=== PATIENT | male | born 1970 | race African-American/Black ===

== ENCOUNTER 2017-08-29 11:31 | Inpatient (IN) | payer OTHER ==
[2017-08-29 14:29] VITALS: BMI 29.8
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
[2017-08-29] MEDS ORDERED: ACETAMINOPHEN 325 MG TABLET (FP) PO PRN (15:19)
[2017-08-29] MEDS ORDERED: MAG HYDROX/AL HYDROX/SIMETH 30 ML UNIT-DOSE CUP PO PRN (15:19)
[2017-08-29] MEDS ORDERED: NICOTINE POLACRILEX 2 MG GUM BC PRN (15:19)
[2017-08-29] MEDS ORDERED: P-EPHED 60MG/TRIPROLIDI 2.5MG TABLET PO PRN (15:19)
[2017-08-29] MEDS ORDERED: IBUPROFEN 400 MG TABLET (FP) PO PRN (15:19)
[2017-08-29] MEDS ORDERED: MENTHOL/PHENOL 1 EACH UD MM PRN (15:19)
[2017-08-29] MEDS ORDERED: LOPERAMIDE HCL 2 MG CAPSULE PO PRN (15:19)
[2017-08-29] MEDS ORDERED: NICOTINE 14 MG/24 HOURS TOPICAL PATCH TD PRN (15:19)
[2017-08-29] MEDS ORDERED: chlordiazePOXIDE HCL 25 MG CAPSULE ONE (17:09)
[2017-08-29] MEDS: INSULIN SLIDING SCALE (NOVOLOG) 1 VIAL SQ SCH ×2 (17:13→22:03)
[2017-08-29] MEDS ORDERED: INSULIN (NOVOLOG) ASPART 100 UNITS/ML 10ML VIAL ONE ×2 (17:13→21:22)
[2017-08-29] MEDS: chlordiazePOXIDE HCL 25 MG CAPSULE PO PRN (17:16)
[2017-08-29] MEDS ORDERED: cloNIDine HCL 0.1 MG TABLET PO ONE (18:15)
[2017-08-29 21:08] LABS: URINE APPEARANCE CLEAR; URINE BILIRUBIN NEGATIVE (NEGATIVE); URINE BLOOD NEGATIVE (NEGATIVE); URINE COLOR COLORLESS; URINE GLUCOSE (UA) 3+ (NEGATIVE); URINE KETONE TRACE (NEGATIVE); URINE LEUK ESTERASE NEGATIVE (NEGATIVE); URINE NITRITE NEGATIVE (NEGATIVE); URINE PROTEIN NEGATIVE (NEGATIVE); URINE UROBILINOGEN NEGATIVE mg/dL (0.2-1.0)
[2017-08-29] MEDS ORDERED: hydrOXYzine PAMOATE 50 MG CAPSULE (FP) PO ONE (21:16)
[2017-08-29] MEDS: RANITIDINE HCL 150 MG TABLET (FP) PO SCH (22:02)
[2017-08-29] MEDS: THIAMINE HCL 100 MG TABLET (FP) PO SCH (22:02)
[2017-08-29] MEDS: chlordiazePOXIDE HCL 25 MG CAPSULE PO SCH (22:03)
[2017-08-30] MEDS: chlordiazePOXIDE HCL 25 MG CAPSULE PO SCH ×4 (06:13→22:19)
[2017-08-30] MEDS ORDERED: sitaGLIPtin PHOSPHATE 50 MG TABLET PO SCH (07:00)
[2017-08-30] MEDS: INSULIN SLIDING SCALE (NOVOLOG) 1 VIAL SQ SCH ×3 (07:08→22:19)
[2017-08-30] MEDS ORDERED: INSULIN (NOVOLOG) ASPART 100 UNITS/ML 10ML VIAL ONE ×4 (07:10→21:11)
--- NOTE | 2017-08-30 09:48 | EKG ---
Test Reason : Blood Pressure : / mmHG Vent. Rate : 101 BPM Atrial Rate : 101 BPM P-R Int : 148 ms QRS Dur : 074 ms QT Int : 334 ms P-R-T Axes : 060 054 074 degrees QTc Int : 433 ms SINUS TACHYCARDIA OTHERWISE NORMAL ECG NO PREVIOUS ECGS AVAILABLE Confirmed by PAMELA CUELLAR, DEVEN ([id number]) on 08/30/2017 9:48:08 AM Referred By: Confirmed By:DEVEN SANTIAGO MD
[2017-08-30] MEDS: PRENATAL VITAMINS W/ FOLIC ACID TABLET (FP) PO SCH (10:19)
[2017-08-30] MEDS: RANITIDINE HCL 150 MG TABLET (FP) PO SCH ×2 (10:19→21:52)
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
[2017-08-30 10:24] LABS: HEMATOCRIT 41.3 % (35.4-49); MCH 30.9 pg (25.7-33.7); MCHC 33.9 g/dl (32.0-35.9); MEAN CELL VOLUME 90.9 fl (80-96); MEAN PLT VOLUME 9.9 fl (7.5-11.1); PLATELET COUNT 212 K/MM3 (134-434); RBC 4.54 M/mm3 (4.00-5.60); RDW 13.4 % (11.9-15.9); WHITE BLOOD COUNT 4.2 K/mm3 (4.0-10.0)
[2017-08-30 10:31] LABS: ALBUMIN 3.2 g/dl (3.4-5.0); ANION GAP 14 (8-16); BILIRUBIN,TOTAL 0.5 mg/dL (0.2-1.0); BLOOD UREA NITROGEN 13 mg/dL (7-18); CALCIUM 9.2 mg/dL (8.5-10.1); CHLORIDE 93 mmol/L (98-107); CO2 19 mmol/L (21-32); CREATININE 1.3 mg/dL (0.7-1.3); POTASSIUM 4.7 mmol/L (3.5-5.1); SGOT/AST 21 U/L (15-37); SGPT/ALT 41 U/L (12-78); SODIUM 126 mmol/L (136-145)
[2017-08-30 10:33] LABS: ALK PHOS 112 U/L (45-117); TOT PROT 6.7 g/dl (6.4-8.2)
--- NOTE | 2017-08-30 11:17 | EKG ---
Test Reason : Blood Pressure : / mmHG Vent. Rate : 091 BPM Atrial Rate : 091 BPM P-R Int : 152 ms QRS Dur : 072 ms QT Int : 356 ms P-R-T Axes : 051 049 077 degrees QTc Int : 437 ms NORMAL SINUS RHYTHM NORMAL ECG WHEN COMPARED WITH ECG OF 29-AUG-2017 17:21, NO SIGNIFICANT CHANGE WAS FOUND Confirmed by DEVEN SANTIAGO MD ([id number]) on 08/30/2017 11:16:58 AM Referred By: Confirmed By:DEVEN SANTIAGO MD
--- NOTE | 2017-08-30 11:38 | PN ---
[facility] CIWA - CIWA Score Nausea/Vomitin-No Nausea/No Vomiting Muscle Tremors: 2 Anxiety: 4-Mod. Anxious/Guarded Agitation: 3 Paroxysmal Sweats: 3 Orientation: 2-Disoriented Date<2 days Tacttile Disturbances: 2-Mild Itch/Numbness/Burn Auditory Disturbances: 0-None Visual Disturbances: 2-Mild Sensitivity Headache: 0-None Present CIWA-Ar Total Score: 18 BHS Progress Note (SOAP) Subjective: Sweating, Anxious, Fatigue, Tremors. Patient also reporting pain in chest (patient points to central lower chest / epigastric areas as affected sites) X approx. 4 days. Patient also reports that he was evaluated at [facility] ([place], [place] for this matter just prior to admission to [facility] for Detox and that he was discharged from [facility] without any being informed of any diagnosis or follow-up treatment plan. Patient reports that pain is dull aching in quality and is intermittent. Patient also reports that he fell on right hand a few days ago and that he injured middle finger of right hand during fall. Patient unable to fully extend finger; is able to flex finger but with discomfort. Objective: PATIENT A & O X 3, OBSERVED AMBULATING ON UNIT. NO ACUTE DISTRESS. PATIENT DENIES DIZZINESS AND SOB. 08/30/17 11:34 Vital Signs Temperature 97.8 F 08/30/17 10:52 Pulse Rate 100 H 08/30/17 10:52 Respiratory Rate 20 08/30/17 10:52 Blood Pressure 131/83 08/30/17 10:52 O2 Sat by Pulse Oximetry (%) Laboratory Tests 08/29/17 08/29/17 08/29/17 15:36 17:08 18:24 WBC RBC Hgb Hct MCV MCH MCHC RDW Plt Count MPV POC Glucometer > 600 > 600 Urine Color Colorless Urine Appearance Clear Urine pH 7.0 D Ur Specific [place] 1.024 Urine Protein Negative Urine Glucose (UA) 3+ H Urine Ketones Trace H Urine Blood Negative Urine Nitrite Negative Urine Bilirubin Negative Urine Urobilinogen Negative Ur Leukocyte Esterase Negative RPR Titer 08/29/17 08/30/17 08/30/17 21:07 05:50 05:50 WBC 4.2 RBC 4.54 Hgb 14.0 Hct 41.3 MCV 90.9 MCH 30.9 MCHC 33.9 RDW 13.4 Plt Count 212 MPV 9.9 D POC Glucometer 446 Urine Color Urine Appearance Urine pH Ur Specific [place] Urine Protein Urine Glucose (UA) Urine Ketones Urine Blood Urine Nitrite Urine Bilirubin Urine Urobilinogen Ur Leukocyte Esterase RPR Titer Nonreactive 08/30/17 06:49 WBC RBC Hgb Hct MCV MCH MCHC RDW Plt Count MPV POC Glucometer 342 Urine Color Urine Appearance Urine pH Ur Specific [place] Urine Protein Urine Glucose (UA) Urine Ketones Urine Blood Urine Nitrite Urine Bilirubin Urine Urobilinogen Ur Leukocyte Esterase RPR Titer LABS NOTED. RESULTS OF ADMISSION ECG NOTED. SWELLING OF RIGHT FINGER NOTED. RESULTS OF CMP PENDING. 08/30/17 11:38 Assessment: 08/30/17 11:38 WITHDRAWAL SYMPTOMS. Plan: CONTINUE DETOX. STAT (REPEAT) ECG ORDERED, RESULTS NOTED. PRN [place] FOR POSSIBLE STOMACH INVOLVEMENT. CONTINUE TO MONITOR. X-RAY OF MIDDLE FINGER OF RIGHT HAND ORDERED. PRN IBUPROFEN FOR PAIN.
[2017-08-30 12:14] LABS: GLUCOSE,RANDOM 733 mg/dL (74-106)
[2017-08-30] MEDS ORDERED: sitaGLIPtin PHOSPHATE 50 MG TABLET PO ONE (12:45)
[2017-08-30] MEDS ORDERED: INSULIN SLIDING SCALE (NOVOLOG) 1 VIAL SQ SCH (16:30)
[2017-08-30] MEDS: chlordiazePOXIDE HCL 25 MG CAPSULE PO PRN (21:17)
[2017-08-30] MEDS: THIAMINE HCL 100 MG TABLET (FP) PO SCH (21:51)
[2017-08-30] MEDS: ZOLPIDEM TARTRATE 10 MG TABLET (PARK CARE ONLY) PO PRN (22:24)
[2017-08-31] MEDS: chlordiazePOXIDE HCL 25 MG CAPSULE PO SCH ×3 (06:20→17:19)
[2017-08-31] MEDS: sitaGLIPtin PHOSPHATE 100 MG TABLET (FP) PO SCH (06:30)
[2017-08-31] MEDS: INSULIN SLIDING SCALE (NOVOLOG) 1 VIAL SQ SCH ×4 (06:33→22:22)
[2017-08-31] MEDS ORDERED: INSULIN (NOVOLOG) ASPART 100 UNITS/ML 10ML VIAL ONE ×4 (06:37→22:03)
[2017-08-31] MEDS: RANITIDINE HCL 150 MG TABLET (FP) PO SCH ×2 (10:13→22:22)
[2017-08-31] MEDS: PRENATAL VITAMINS W/ FOLIC ACID TABLET (FP) PO SCH (10:13)
--- NOTE | 2017-08-31 18:00 | PN ---
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 Objective: 08/31/17 17:59 Vital Signs Temperature 97.1 F L 08/31/17 14:24 Pulse Rate 112 H 08/31/17 14:24 Respiratory Rate 18 08/31/17 14:24 Blood Pressure 110/74 08/31/17 14:24 O2 Sat by Pulse Oximetry (%) Laboratory Tests 08/29/17 08/29/17 08/29/17 15:36 17:08 18:24 WBC RBC Hgb Hct MCV MCH MCHC RDW Plt Count MPV Sodium Potassium Chloride Carbon Dioxide Anion Gap BUN Creatinine Creat Clearance w eGFR POC Glucometer > 600 > 600 Random Glucose Fasting Glucose Hemoglobin A1c % Calcium Total Bilirubin AST ALT Alkaline Phosphatase Total Protein Albumin Urine Color Colorless Urine Appearance Clear Urine pH 7.0 D Ur Specific [place] 1.024 Urine Protein Negative Urine Glucose (UA) 3+ H Urine Ketones Trace H Urine Blood Negative Urine Nitrite Negative Urine Bilirubin Negative Urine Urobilinogen Negative Ur Leukocyte Esterase Negative RPR Titer 08/29/17 08/30/17 08/30/17 21:07 05:50 05:50 WBC 4.2 RBC 4.54 Hgb 14.0 Hct 41.3 MCV 90.9 MCH 30.9 MCHC 33.9 RDW 13.4 Plt Count 212 MPV 9.9 D Sodium 126 L Potassium 4.7 Chloride 93 L Carbon Dioxide 19 L Anion Gap 14 BUN 13 Creatinine 1.3 D Creat Clearance w eGFR 58.92 POC Glucometer 446 Random Glucose 733 H* D Fasting Glucose Hemoglobin A1c % Calcium 9.2 Total Bilirubin 0.5 AST 21 D ALT 41 Alkaline Phosphatase 112 D Total Protein 6.7 Albumin 3.2 L Urine Color Urine Appearance Urine pH Ur Specific [place] Urine Protein Urine Glucose (UA) Urine Ketones Urine Blood Urine Nitrite Urine Bilirubin Urine Urobilinogen Ur Leukocyte Esterase RPR Titer 08/30/17 08/30/17 08/31/17 05:50 06:49 08:00 WBC RBC Hgb Hct MCV MCH MCHC RDW Plt Count MPV Sodium Potassium Chloride Carbon Dioxide Anion Gap BUN Creatinine Creat Clearance w eGFR POC Glucometer 342 Random Glucose Fasting Glucose Hemoglobin A1c % 14.5 H Calcium Total Bilirubin AST ALT Alkaline Phosphatase Total Protein Albumin Urine Color Urine Appearance Urine pH Ur Specific [place] Urine Protein Urine Glucose (UA) Urine Ketones Urine Blood Urine Nitrite Urine Bilirubin Urine Urobilinogen Ur Leukocyte Esterase RPR Titer Nonreactive 08/31/17 08:30 WBC RBC Hgb Hct MCV MCH MCHC RDW Plt Count MPV Sodium Potassium Chloride Carbon Dioxide Anion Gap BUN Creatinine Creat Clearance w eGFR POC Glucometer Random Glucose Fasting Glucose 411 H* Hemoglobin A1c % Calcium Total Bilirubin AST ALT Alkaline Phosphatase Total Protein Albumin Urine Color Urine Appearance Urine pH Ur Specific [place] Urine Protein Urine Glucose (UA) Urine Ketones Urine Blood Urine Nitrite Urine Bilirubin Urine Urobilinogen Ur Leukocyte Esterase RPR Titer LABS NOTED. Assessment: 08/31/17 17:59 WITHDRAWAL SYMPTOMS. Plan: CONTINUE DETOX.
[2017-08-31] MEDS: chlordiazePOXIDE 5 MG CAPSULE PO SCH (22:22)
[2017-08-31] MEDS: THIAMINE HCL 100 MG TABLET (FP) PO SCH (22:22)
[2017-08-31] MEDS: ZOLPIDEM TARTRATE 10 MG TABLET (PARK CARE ONLY) PO PRN (22:22)
[2017-09-01] MEDS: chlordiazePOXIDE 5 MG CAPSULE PO SCH ×3 (05:28→17:17)
[2017-09-01] MEDS: INSULIN SLIDING SCALE (NOVOLOG) 1 VIAL SQ SCH ×4 (07:18→22:17)
[2017-09-01] MEDS ORDERED: INSULIN (NOVOLOG) ASPART 100 UNITS/ML 10ML VIAL ONE ×4 (07:19→22:18)
[2017-09-01] MEDS: sitaGLIPtin PHOSPHATE 100 MG TABLET (FP) PO SCH (07:21)
[2017-09-01] MEDS ORDERED: INSULIN (NOVOLOG) ASPART 100 UNITS/ML 10ML VIAL SQ ONE ×2 (07:53→23:45)
[2017-09-01] MEDS: PRENATAL VITAMINS W/ FOLIC ACID TABLET (FP) PO SCH (10:29)
[2017-09-01] MEDS: RANITIDINE HCL 150 MG TABLET (FP) PO SCH ×2 (10:30→22:18)
[2017-09-01] MEDS: MAGNESIUM CITRATE 300 ML BOTTLE PO PRN (11:09)
[2017-09-01] MEDS: chlordiazePOXIDE HCL 25 MG CAPSULE PO PRN (15:03)
--- NOTE | 2017-09-01 16:27 | PN ---
S Progress Note (SOAP) Subjective: Tremor, N/V/D. Patient noted to be drinking lots of crystal lite. Patient educated on importance of drinking water instead of juice and to exercise to lose weight in controlling his glucose. Objective: 09/01/17 16:23 Last Vital Signs Temp Pulse Resp BP Pulse Ox 97.3 F L 94 H 20 128/86 09/01/17 10:32 09/01/17 10:32 09/01/17 10:32 09/01/17 10:32 Laboratory Tests 08/29/17 08/29/17 08/29/17 15:36 17:08 18:24 WBC RBC Hgb Hct MCV MCH MCHC RDW Plt Count MPV Sodium Potassium Chloride Carbon Dioxide Anion Gap BUN Creatinine Creat Clearance w eGFR POC Glucometer > 600 > 600 Random Glucose Fasting Glucose Hemoglobin A1c % Calcium Total Bilirubin AST ALT Alkaline Phosphatase Total Protein Albumin Urine Color Colorless Urine Appearance Clear Urine pH 7.0 D Ur Specific [place] 1.024 Urine Protein Negative Urine Glucose (UA) 3+ H Urine Ketones Trace H Urine Blood Negative Urine Nitrite Negative Urine Bilirubin Negative Urine Urobilinogen Negative Ur Leukocyte Esterase Negative RPR Titer 08/29/17 08/30/17 08/30/17 21:07 05:50 05:50 WBC 4.2 RBC 4.54 Hgb 14.0 Hct 41.3 MCV 90.9 MCH 30.9 MCHC 33.9 RDW 13.4 Plt Count 212 MPV 9.9 D Sodium 126 L Potassium 4.7 Chloride 93 L Carbon Dioxide 19 L Anion Gap 14 BUN 13 Creatinine 1.3 D Creat Clearance w eGFR 58.92 POC Glucometer 446 Random Glucose 733 H* D Fasting Glucose Hemoglobin A1c % Calcium 9.2 Total Bilirubin 0.5 AST 21 D ALT 41 Alkaline Phosphatase 112 D Total Protein 6.7 Albumin 3.2 L Urine Color Urine Appearance Urine pH Ur Specific [place] Urine Protein Urine Glucose (UA) Urine Ketones Urine Blood Urine Nitrite Urine Bilirubin Urine Urobilinogen Ur Leukocyte Esterase RPR Titer 08/30/17 08/30/17 08/31/17 05:50 06:49 08:00 WBC RBC Hgb Hct MCV MCH MCHC RDW Plt Count MPV Sodium Potassium Chloride Carbon Dioxide Anion Gap BUN Creatinine Creat Clearance w eGFR POC Glucometer 342 Random Glucose Fasting Glucose Hemoglobin A1c % 14.5 H Calcium Total Bilirubin AST ALT Alkaline Phosphatase Total Protein Albumin Urine Color Urine Appearance Urine pH Ur Specific [place] Urine Protein Urine Glucose (UA) Urine Ketones Urine Blood Urine Nitrite Urine Bilirubin Urine Urobilinogen Ur Leukocyte Esterase RPR Titer Nonreactive 08/31/17 08:30 WBC RBC Hgb Hct MCV MCH MCHC RDW Plt Count MPV Sodium Potassium Chloride Carbon Dioxide Anion Gap BUN Creatinine Creat Clearance w eGFR POC Glucometer Random Glucose Fasting Glucose 411 H* Hemoglobin A1c % Calcium Total Bilirubin AST ALT Alkaline Phosphatase Total Protein Albumin Urine Color Urine Appearance Urine pH Ur Specific [place] Urine Protein Urine Glucose (UA) Urine Ketones Urine Blood Urine Nitrite Urine Bilirubin Urine Urobilinogen Ur Leukocyte Esterase RPR Titer Labs noted: A1c 14.5, FS 342 Assessment: 09/01/17 16:24 Withdrawal symptoms Pmhx of DMT2 with hyperglycemia Plan: Continue detox Encouraged to drink lots of water for hydration DMT2 with hyperglycemia: continue januvia, add glipizide ER 5mg PO daily (first dose today), consider increasing glipizide if warranted, continue finger stick with insulin coverage, educated on importance of adhering to diabetic diet and the complications of diabetes, repeat bmp in AM due to JARETH, encouraged PO hydration (water, no juice), follow up with your PCP within 1 week post discharge
[2017-09-01] MEDS ORDERED: glipiZIDE-XL 5 MG TAB.ER.24 PO ONE (16:45)
[2017-09-01] MEDS: THIAMINE HCL 100 MG TABLET (FP) PO SCH (22:17)
[2017-09-01] MEDS: ZOLPIDEM TARTRATE 10 MG TABLET (PARK CARE ONLY) PO PRN (22:18)
[2017-09-01] MEDS: chlordiazePOXIDE HCL 10 MG CAPSULE PO SCH (22:18)
[2017-09-02] MEDS: INSULIN SLIDING SCALE (NOVOLOG) 1 VIAL SQ SCH ×4 (06:34→22:01)
[2017-09-02] MEDS ORDERED: INSULIN (NOVOLOG) ASPART 100 UNITS/ML 10ML VIAL ONE ×4 (06:37→21:59)
[2017-09-02] MEDS: chlordiazePOXIDE HCL 10 MG CAPSULE PO SCH ×3 (06:44→17:21)
[2017-09-02] MEDS: sitaGLIPtin PHOSPHATE 100 MG TABLET (FP) PO SCH (06:44)
[2017-09-02] MEDS: glipiZIDE-XL 5 MG TAB.ER.24 PO SCH (06:45)
[2017-09-02] MEDS: PRENATAL VITAMINS W/ FOLIC ACID TABLET (FP) PO SCH (10:40)
[2017-09-02] MEDS: RANITIDINE HCL 150 MG TABLET (FP) PO SCH ×2 (10:40→22:05)
--- NOTE | 2017-09-02 11:47 | PN ---
BHS Progress Note (SOAP) Subjective: ANXIETY,SWEATS, TREMORS,INTERMITTENT SLEEP. PT STATES HE TAKES TRAZODONE AND AMBIEN NOT EFFECTIVE. Objective: 09/02/17 11:42 Vital Signs Temperature 95.6 F L 09/02/17 10:15 Pulse Rate 95 H 09/02/17 10:15 Respiratory Rate 18 09/02/17 10:15 Blood Pressure 141/94 09/02/17 10:15 O2 Sat by Pulse Oximetry (%) Laboratory Last Values WBC 4.2 K/mm3 (4.0-10.0) 08/30/17 05:50 RBC 4.54 M/mm3 (4.00-5.60) 08/30/17 05:50 Hgb 14.0 GM/dL (11.7-16.9) 08/30/17 05:50 Hct 41.3 % (35.4-49) 08/30/17 05:50 MCV 90.9 fl (80-96) 08/30/17 05:50 MCH 30.9 pg (25.7-33.7) 08/30/17 05:50 MCHC 33.9 g/dl (32.0-35.9) 08/30/17 05:50 RDW 13.4 % (11.9-15.9) 08/30/17 05:50 Plt Count 212 K/MM3 (134-434) 08/30/17 05:50 MPV 9.9 fl (7.5-11.1) D 08/30/17 05:50 Sodium 126 mmol/L (136-145) L 08/30/17 05:50 Potassium 4.7 mmol/L (3.5-5.1) 08/30/17 05:50 Chloride 93 mmol/L (98-107) L 08/30/17 05:50 Carbon Dioxide 19 mmol/L (21-32) L 08/30/17 05:50 Anion Gap 14 (8-16) 08/30/17 05:50 BUN 13 mg/dL (7-18) 08/30/17 05:50 Creatinine 1.3 mg/dL (0.7-1.3) D 08/30/17 05:50 Creat Clearance w eGFR 58.92 (>60) 08/30/17 05:50 POC Glucometer 433 UNITS (80-120) 09/02/17 10:50 Random Glucose 733 mg/dL (74-106) H* D 08/30/17 05:50 Fasting Glucose 411 mg/dL (70-105) H* 08/31/17 08:30 Hemoglobin A1c % 14.5 % (4.8-6.0) H 08/31/17 08:00 Calcium 9.2 mg/dL (8.5-10.1) 08/30/17 05:50 Total Bilirubin 0.5 mg/dL (0.2-1.0) 08/30/17 05:50 AST 21 U/L (15-37) D 08/30/17 05:50 ALT 41 U/L (12-78) 08/30/17 05:50 Alkaline Phosphatase 112 U/L (45-117) D 08/30/17 05:50 Total Protein 6.7 g/dl (6.4-8.2) 08/30/17 05:50 Albumin 3.2 g/dl (3.4-5.0) L 08/30/17 05:50 Urine Color Colorless 08/29/17 18:24 Urine Appearance Clear 08/29/17 18:24 Urine pH 7.0 (5.0-8.0) D 08/29/17 18:24 Ur Specific [place] 1.024 (1.001-1.035) 08/29/17 18:24 Urine Protein Negative (NEGATIVE) 08/29/17 18:24 Urine Glucose (UA) 3+ (NEGATIVE) H 08/29/17 18:24 Urine Ketones Trace (NEGATIVE) H 08/29/17 18:24 Urine Blood Negative (NEGATIVE) 08/29/17 18:24 Urine Nitrite Negative (NEGATIVE) 08/29/17 18:24 Urine Bilirubin Negative (NEGATIVE) 08/29/17 18:24 Urine Urobilinogen Negative mg/dL (0.2-1.0) 08/29/17 18:24 Ur Leukocyte Esterase Negative (NEGATIVE) 08/29/17 18:24 RPR Titer Nonreactive (NONREACTIVE) 08/30/17 05:50 Assessment: 09/02/17 11:43 WITHDRAWAL SX Plan: CONTINUE DETOX FOLLOW UP WITH PSYCH MD FOR INSOMNIA MANAGEMENT.
--- NOTE | 2017-09-02 14:58 | PN ---
Psychiatric Progress Note Vital Signs: Vital Signs Period Temp Pulse Resp BP Sys/Gonzalez Pulse Ox Last 24 Hr 95.6 F-98.1 F 78-106 18-20 121-141/73-94 Date of Session: 09/02/17 Chief Complaint:: " I cannot sleep at night." HPI: Day 5 of detoxification for alcohol and cocaine dependence.Hospital course remains benign except for complaint of refractory insomnia.Re-consult is requested for appropriate management. ROS: Unremarkable. Current Medications: Active Medications Generic Name Dose Route Start Last Admin Trade Name Freq PRN Reason Stop Dose Admin Acetaminophen 650 mg 08/29/17 15:19 Tylenol - PO Q4H PRN FEVER Al Hydroxide/Mg Hydroxide 30 ml 08/29/17 15:19 Mylanta Oral Suspension - PO Q6H PRN DYSPEPSIA Chlordiazepoxide HCl 10 mg 09/01/17 23:00 09/02/17 10:40 Librium - PO 09/02/17 17:01 10 mg Q8Q-CLT JYOTHI Administration Eucalyptus/Menthol/Phenol/Sorbitol 1 each 08/29/17 15:19 Cepastat Lozenge - MM Q4H PRN SORE THROAT Glipizide 5 mg 09/02/17 07:00 09/02/17 06:45 Glucotrol Xl - PO 5 mg DAILY@0700 JYOTHI Administration Guaifenesin 10 ml 08/29/17 15:19 Robitussin Dm - PO Q6H PRN COUGH Insulin Aspart 1 vial 09/01/17 23:26 09/02/17 11:41 Novolog Vial Sliding Scale - SQ 14 units ACHS JYOTHI Administration Protocol Loperamide HCl 4 mg 08/29/17 15:19 Imodium - PO Q6H PRN DIARRHEA Magnesium Citrate 300 ml 08/29/17 15:19 09/01/17 11:09 Citroma - PO 300 ml Q48H PRN Administration CONSTIPATION Magnesium Hydroxide 30 ml 08/29/17 15:19 Milk Of Magnesia - PO DAILY PRN CONSTIPATION Nicotine 14 mg 08/29/17 15:19 Nicoderm Patch - TD DAILY PRN WITHDRAWAL(CONT SUBST) Nicotine Polacrilex 2 mg 08/29/17 15:19 Nicorette Gum - BC Q2H PRN NICOTINE REPLACEMENT RX Multivit/Folic Acid/Iron 1 tab 08/30/17 10:00 09/02/17 10:40 Vitamins (Sjr) - PO 1 tab DAILY JYOTHI Administration Pseudoephedrine/Triprolidine 1 combo 08/29/17 15:19 Actifed - PO TID PRN NASAL CONGESTION Ranitidine HCl 150 mg 08/29/17 22:00 09/02/17 10:40 Zantac - PO 150 mg BID JYOTHI Administration Sitagliptin Phosphate 100 mg 08/31/17 07:00 09/02/17 06:44 Januvia - PO 100 mg DAILY@0700 JYOTHI Administration Thiamine HCl 100 mg 08/29/17 22:00 09/01/17 22:17 Vitamin B1 - PO 100 mg HS JYOTHI Administration Zolpidem Tartrate 10 mg 08/30/17 22:00 09/01/17 22:18 Ambien - PO 09/02/17 21:59 10 mg HS PRN Administration INSOMNIA Medication(s) Change(s): Seroquel is offered to patient (has declined options of trazodone,mirtazapine,belsomra and tricyclics).Mr Farris wants a trial of " a low dose " of seroquel to address his insomnia.Side effects/benefits discussed with patient.He is made aware of the risk of oversedation,abnormal involuntary movements,metabolic syndrome and orthostasis.Patient consented,verbally, to this stategy of treatment.Seroquel 50 mg po hs.Ordered. Current Side Effect: No Lab tests ordered: No Lab tests reviewed: Yes Provider note:: Met with patient to discuss sleep hygiene + treatment modalities for chronic insomnia.Mr Farris reports no result from ambien and he expresses interest in switching to another agent.Alternates were presented to patient and his preference went to seroquel.Made aware of side effects versus benefits in terms of mood stabilization,improvement of sleep and impulse control (side effects are described elsewhere in this report ; see medications changes section for details).Mr marcwledges his understanding of the information made available to him.Agrees to take seroquel at the dose of 50 mg orally at bedtime.Mental status is stable.Detoxification protocol is well tolerated.Patient is at his baseline. Total face to face time:: 25 Mental Status Exam - Mental Status Exam Alert and Oriented to: Time, Place, Person Cognitive Function: Good Patient Appearance: Well Groomed Mood: Hopeful, Euthymic Affect: Appropriate, Normal Range Patient Behavior: Appropriate, Cooperative Speech Pattern: Clear, Appropriate Voice Loudness: Normal Thought Process: Intact, Goal Oriented Thought Disorder: Not Present Hallucinations: Denies Suicidal Ideation: Denies Homicidal Ideation: Denies Insight/Judgement: Fair Sleep: Poorly, Difficulty falling asleep Appetite: Good Muscle strength/Tone: Normal Gait/Station: Normal Psychiatric Treatment Plan - Problem List (1) Insomnia Current Visit: Yes (2) Alcohol dependence with uncomplicated withdrawal Current Visit: Yes (3) Cocaine dependence Current Visit: Yes (4) Nicotine dependence Current Visit: Yes
[2017-09-02] MEDS: MAGNESIUM HYDROX 2400MG/30ML ORAL SUSPENSION 30 ML CUP PO PRN (15:50)
[2017-09-02] MEDS ORDERED: QUEtiapine FUMARATE 25 MG TABLET (FP) ONE (21:17)
[2017-09-02] MEDS: ZOLPIDEM TARTRATE 10 MG TABLET (PARK CARE ONLY) PO PRN (21:30)
[2017-09-02] MEDS: QUEtiapine FUMARATE 50 MG TABLET PO SCH (22:05)
[2017-09-02] MEDS: THIAMINE HCL 100 MG TABLET (FP) PO SCH (22:05)
[2017-09-03] MEDS ORDERED: INSULIN (NOVOLOG) ASPART 100 UNITS/ML 10ML VIAL ONE ×4 (06:58→22:01)
[2017-09-03] MEDS: sitaGLIPtin PHOSPHATE 100 MG TABLET (FP) PO SCH (07:47)
[2017-09-03] MEDS: INSULIN SLIDING SCALE (NOVOLOG) 1 VIAL SQ SCH ×6 (07:47→21:35)
[2017-09-03] MEDS: glipiZIDE-XL 5 MG TAB.ER.24 PO SCH (07:47)
[2017-09-03] MEDS: PRENATAL VITAMINS W/ FOLIC ACID TABLET (FP) PO SCH (10:27)
[2017-09-03] MEDS: RANITIDINE HCL 150 MG TABLET (FP) PO SCH ×2 (10:27→21:36)
--- NOTE | 2017-09-03 10:56 | DS ---
[facility] Detox Discharge Summary Admission Date: 08/29/17 Discharge Date: 09/03/17 - History Present History: Alcohol Dependence, Cocaine Dependence Additional Comments: DETOX COMPLETED. REFERRED TO REHAB TODAY. Pertinent Past History: SEE DX BELOW. - Physical Exam Results Vital Signs: Vital Signs Temperature 97.1 F L 09/03/17 06:19 Pulse Rate 89 09/03/17 06:19 Respiratory Rate 19 09/03/17 06:19 Blood Pressure 126/75 09/03/17 06:19 O2 Sat by Pulse Oximetry (%) Pertinent Admission Physical Exam Findings: WITHDRAWAL SX Laboratory Last Values WBC 4.2 K/mm3 (4.0-10.0) 08/30/17 05:50 RBC 4.54 M/mm3 (4.00-5.60) 08/30/17 05:50 Hgb 14.0 GM/dL (11.7-16.9) 08/30/17 05:50 Hct 41.3 % (35.4-49) 08/30/17 05:50 MCV 90.9 fl (80-96) 08/30/17 05:50 MCH 30.9 pg (25.7-33.7) 08/30/17 05:50 MCHC 33.9 g/dl (32.0-35.9) 08/30/17 05:50 RDW 13.4 % (11.9-15.9) 08/30/17 05:50 Plt Count 212 K/MM3 (134-434) 08/30/17 05:50 MPV 9.9 fl (7.5-11.1) D 08/30/17 05:50 Sodium 126 mmol/L (136-145) L 08/30/17 05:50 Potassium 4.7 mmol/L (3.5-5.1) 08/30/17 05:50 Chloride 93 mmol/L (98-107) L 08/30/17 05:50 Carbon Dioxide 19 mmol/L (21-32) L 08/30/17 05:50 Anion Gap 14 (8-16) 08/30/17 05:50 BUN 13 mg/dL (7-18) 08/30/17 05:50 Creatinine 1.3 mg/dL (0.7-1.3) D 08/30/17 05:50 Creat Clearance w eGFR 58.92 (>60) 08/30/17 05:50 POC Glucometer 488 UNITS (80-120) 09/03/17 06:24 Random Glucose 733 mg/dL (74-106) H* D 08/30/17 05:50 Fasting Glucose 411 mg/dL (70-105) H* 08/31/17 08:30 Hemoglobin A1c % 14.5 % (4.8-6.0) H 08/31/17 08:00 Calcium 9.2 mg/dL (8.5-10.1) 08/30/17 05:50 Total Bilirubin 0.5 mg/dL (0.2-1.0) 08/30/17 05:50 AST 21 U/L (15-37) D 08/30/17 05:50 ALT 41 U/L (12-78) 08/30/17 05:50 Alkaline Phosphatase 112 U/L (45-117) D 08/30/17 05:50 Total Protein 6.7 g/dl (6.4-8.2) 08/30/17 05:50 Albumin 3.2 g/dl (3.4-5.0) L 08/30/17 05:50 Urine Color Colorless 08/29/17 18:24 Urine Appearance Clear 08/29/17 18:24 Urine pH 7.0 (5.0-8.0) D 08/29/17 18:24 Ur Specific [place]blem 1.024 (1.001-1.035) 08/29/17 18:24 Urine Protein Negative (NEGATIVE) 08/29/17 18:24 Urine Glucose (UA) 3+ (NEGATIVE) H 08/29/17 18:24 Urine Ketones Trace (NEGATIVE) H 08/29/17 18:24 Urine Blood Negative (NEGATIVE) 08/29/17 18:24 Urine Nitrite Negative (NEGATIVE) 08/29/17 18:24 Urine Bilirubin Negative (NEGATIVE) 08/29/17 18:24 Urine Urobilinogen Negative mg/dL (0.2-1.0) 08/29/17 18:24 Ur Leukocyte Esterase Negative (NEGATIVE) 08/29/17 18:24 RPR Titer Nonreactive (NONREACTIVE) 08/30/17 05:50 - Treatment Hospital Course: Detox Protocol Followed, Detoxed Safely, Responded well, Discharged Condition Good, Rehab Referral Accepted Patient has Accepted a Rehab Referral to: [facility] - Medication Discharge Medications: Ambulatory Orders Sitagliptin Phosphate [Januvia -] 50 mg PO DAILY 08/29/17 - Diagnosis (1) Cocaine dependence Current Visit: Yes Status: Active (2) Alcohol dependence with uncomplicated withdrawal Current Visit: Yes Status: Acute (3) DM Diabetes mellitus type 2 Current Visit: Yes Status: Chronic (4) GERD (gastroesophageal reflux disease) Current Visit: Yes Status: Chronic Qualifiers: Esophagitis presence: without esophagitis Qualified Code(s): K21.9 - Gastro -esophageal reflux disease without esophagitis (5) Nicotine dependence Current Visit: Yes Status: Chronic (6) Type 2 diabetes mellitus with hyperglycemia Current Visit: Yes Status: Chronic (7) Alcohol withdrawal seizure Current Visit: Yes Status: Suspected Qualifiers: Complication of substance-induced condition: with unspecified complication Qualified Code(s): F10.239 - Alcohol dependence with withdrawal, unspecified; R56.9 - Unspecified convulsions; R56.9 - Unspecified convulsions; R56.9 - Unspecified convulsions; R56.9 - Unspecified convulsions - AMA Did Patient Leave Against Medical Advice: No
--- NOTE | 2017-09-03 13:31 | HP ---
Psychiatrist Admission - Data Date of interview: 09/03/17 Admission source: 3N Identifying data: This is the first [facility] admission for this 47 years old single Black male, unemployed with no source of income, homeless Medical History: Significant for diabetes mellitus, alcohol-related seizure and history of orthosurgery for fracture of right ankle in 2003. Smokes cigarettes 1ppd Psychiatric History: Denies history of previous psychiatric treatment Physical/Sexual Abuse/Trauma History: Denies history of emotional, physical or sexual abuse as well as DV relationship Additional Comment: Reports history of multiple arrests. However he is unwilling to elaborate saying:" that information has nothing to do with the reason I am here". Vital Signs: Vital Signs - 24 hr 09/02/17 09/02/17 09/03/17 13:39 18:00 00:30 Temperature 97.5 F L 97.6 F Pulse Rate 106 H 101 H Respiratory 19 18 18 Rate Blood Pressure 135/79 127/86 09/03/17 09/03/17 09/03/17 03:30 06:19 11:17 Temperature 97.1 F L 98.3 F Pulse Rate 89 108 H Respiratory 18 19 18 Rate Blood Pressure 126/75 148/60 Allergies/Adverse Reactions: Allergies Allergy/AdvReac Type Severity Reaction Status Date / Time Penicillins Allergy Severe Hives Verified 09/03/17 11:15 Date of last physical exam: 08/29/17 Concur with the findings of this exam: Yes - Substance Abuse/Tx History Hx Alcohol Use: Yes Hx Substance Use: Yes Substance Use Type: Alcohol (Started drinking alcohol at age 32, consumes 3-4 pints of bryanna daily. Last drank on 08/29/17), Cocaine (Started smoking crack cocaine at age 32, consumes $200 worth daily. Last smoked on 08/28/17), Heroin ( Started using heroin at age 47, consumes one bag 1-3 times in the last 30 days. Last used on 08/27/17) Hx Substance Use Treatment: Yes (one recent inpt detox. First inpt rehab) Mental Status Exam - Mental Status Exam Alert and Oriented to: Time, Place, Person Cognitive Function: Fair Patient Appearance: Disheveled Mood: Irritable Affect: Appropriate Speech Pattern: Clear Voice Loudness: Normal Thought Process: Intact, Goal Oriented Hallucinations: Denies Suicidal Ideation: Denies Homicidal Ideation: Denies Insight/Judgement: Fair Sleep: Poorly Appetite: Good Muscle strength/Tone: Normal Gait/Station: Normal Psychiatric Findings - Problem List ([place] 1, 2,3) (1) Alcohol dependence Current Visit: Yes Status: Acute (2) Cocaine dependence Current Visit: Yes Status: Active (3) Nicotine dependence Current Visit: Yes Status: Chronic (4) Substance induced mood disorder Current Visit: Yes Status: Acute (5) Substance-induced sleep disorder Current Visit: Yes Status: Acute (6) DM Diabetes mellitus type 2 Current Visit: Yes Status: Chronic (7) GERD (gastroesophageal reflux disease) Current Visit: Yes Status: Chronic Qualifiers: Esophagitis presence: without esophagitis Qualified Code(s): K21.9 - Gastro -esophageal reflux disease without esophagitis (8) Alcohol withdrawal seizure Current Visit: Yes Status: Suspected Qualifiers: Complication of substance-induced condition: with unspecified complication Qualified Code(s): F10.239 - Alcohol dependence with withdrawal, unspecified; R56.9 - Unspecified convulsions; R56.9 - Unspecified convulsions; R56.9 - Unspecified convulsions; R56.9 - Unspecified convulsions - Initial Treatment Plan Initial Treatment Plan: 1) Start Belsomra 10 mg po HS prn for insomnia. 2) Monitor progress
--- NOTE | 2017-09-03 13:59 | PN ---
[facility] Progress Note (SOAP) Subjective: DETOX COMPLETED. ALERT O X 3. REFERRED TO REHAB TODAY. Objective: 09/03/17 13:58 Vital Signs Temperature 98.3 F 09/03/17 11:17 Pulse Rate 108 H 09/03/17 11:17 Respiratory Rate 18 09/03/17 11:17 Blood Pressure 148/60 09/03/17 11:17 O2 Sat by Pulse Oximetry (%) Laboratory Last Values WBC 4.2 K/mm3 (4.0-10.0) 08/30/17 05:50 RBC 4.54 M/mm3 (4.00-5.60) 08/30/17 05:50 Hgb 14.0 GM/dL (11.7-16.9) 08/30/17 05:50 Hct 41.3 % (35.4-49) 08/30/17 05:50 MCV 90.9 fl (80-96) 08/30/17 05:50 MCH 30.9 pg (25.7-33.7) 08/30/17 05:50 MCHC 33.9 g/dl (32.0-35.9) 08/30/17 05:50 RDW 13.4 % (11.9-15.9) 08/30/17 05:50 Plt Count 212 K/MM3 (134-434) 08/30/17 05:50 MPV 9.9 fl (7.5-11.1) D 08/30/17 05:50 Sodium 126 mmol/L (136-145) L 08/30/17 05:50 Potassium 4.7 mmol/L (3.5-5.1) 08/30/17 05:50 Chloride 93 mmol/L (98-107) L 08/30/17 05:50 Carbon Dioxide 19 mmol/L (21-32) L 08/30/17 05:50 Anion Gap 14 (8-16) 08/30/17 05:50 BUN 13 mg/dL (7-18) 08/30/17 05:50 Creatinine 1.3 mg/dL (0.7-1.3) D 08/30/17 05:50 Creat Clearance w eGFR 58.92 (>60) 08/30/17 05:50 POC Glucometer 488 UNITS (80-120) 09/03/17 06:24 Random Glucose 733 mg/dL (74-106) H* D 08/30/17 05:50 Fasting Glucose 411 mg/dL (70-105) H* 08/31/17 08:30 Hemoglobin A1c % 14.5 % (4.8-6.0) H 08/31/17 08:00 Calcium 9.2 mg/dL (8.5-10.1) 08/30/17 05:50 Total Bilirubin 0.5 mg/dL (0.2-1.0) 08/30/17 05:50 AST 21 U/L (15-37) D 08/30/17 05:50 ALT 41 U/L (12-78) 08/30/17 05:50 Alkaline Phosphatase 112 U/L (45-117) D 08/30/17 05:50 Total Protein 6.7 g/dl (6.4-8.2) 08/30/17 05:50 Albumin 3.2 g/dl (3.4-5.0) L 08/30/17 05:50 Urine Color Colorless 08/29/17 18:24 Urine Appearance Clear 08/29/17 18:24 Urine pH 7.0 (5.0-8.0) D 08/29/17 18:24 Ur Specific [place] 1.024 (1.001-1.035) 08/29/17 18:24 Urine Protein Negative (NEGATIVE) 08/29/17 18:24 Urine Glucose (UA) 3+ (NEGATIVE) H 08/29/17 18:24 Urine Ketones Trace (NEGATIVE) H 08/29/17 18:24 Urine Blood Negative (NEGATIVE) 08/29/17 18:24 Urine Nitrite Negative (NEGATIVE) 08/29/17 18:24 Urine Bilirubin Negative (NEGATIVE) 08/29/17 18:24 Urine Urobilinogen Negative mg/dL (0.2-1.0) 08/29/17 18:24 Ur Leukocyte Esterase Negative (NEGATIVE) 08/29/17 18:24 RPR Titer Nonreactive (NONREACTIVE) 08/30/17 05:50 Assessment: 09/03/17 13:59 NAD Plan: TRANSFER PT TO REHAB TODAY.
[2017-09-03] MEDS: QUEtiapine FUMARATE 50 MG TABLET PO SCH (21:36)
[2017-09-03] MEDS: THIAMINE HCL 100 MG TABLET (FP) PO SCH (21:36)
[2017-09-03] MEDS: SUVOREXANT 10 MG TABLET PO PRN (21:36)
[2017-09-04] MEDS: sitaGLIPtin PHOSPHATE 100 MG TABLET (FP) PO SCH (07:43)
[2017-09-04] MEDS: INSULIN SLIDING SCALE (NOVOLOG) 1 VIAL SQ SCH ×4 (07:44→21:31)
[2017-09-04] MEDS: glipiZIDE-XL 5 MG TAB.ER.24 PO SCH (07:44)
[2017-09-04] MEDS ORDERED: INSULIN (NOVOLOG) ASPART 100 UNITS/ML 10ML VIAL ONE ×3 (07:47→21:47)
[2017-09-04] MEDS: RANITIDINE HCL 150 MG TABLET (FP) PO SCH ×2 (09:57→21:30)
[2017-09-04] MEDS: PRENATAL VITAMINS W/ FOLIC ACID TABLET (FP) PO SCH (09:57)
[2017-09-04] MEDS: guaiFENesin/D-METHORPHAN HB 10 ML UNIT-DOSE CUPS PO PRN (12:07)
[2017-09-04] MEDS: SUVOREXANT 10 MG TABLET PO PRN (21:30)
[2017-09-04] MEDS: THIAMINE HCL 100 MG TABLET (FP) PO SCH (21:30)
[2017-09-04] MEDS: QUEtiapine FUMARATE 50 MG TABLET PO SCH (21:30)
[2017-09-05] MEDS: glipiZIDE-XL 5 MG TAB.ER.24 PO SCH (06:29)
[2017-09-05] MEDS: sitaGLIPtin PHOSPHATE 100 MG TABLET (FP) PO SCH (06:29)
[2017-09-05] MEDS: INSULIN SLIDING SCALE (NOVOLOG) 1 VIAL SQ SCH ×4 (06:30→21:25)
[2017-09-05] MEDS: RANITIDINE HCL 150 MG TABLET (FP) PO SCH ×2 (10:11→21:26)
[2017-09-05] MEDS: PRENATAL VITAMINS W/ FOLIC ACID TABLET (FP) PO SCH (10:11)
[2017-09-05] MEDS ORDERED: INSULIN (NOVOLOG) ASPART 100 UNITS/ML 10ML VIAL ONE ×3 (11:29→21:25)
[2017-09-05] MEDS: THIAMINE HCL 100 MG TABLET (FP) PO SCH (21:26)
[2017-09-05] MEDS: QUEtiapine FUMARATE 50 MG TABLET PO SCH (21:26)
[2017-09-06] MEDS: sitaGLIPtin PHOSPHATE 100 MG TABLET (FP) PO SCH (06:57)
[2017-09-06] MEDS: glipiZIDE-XL 5 MG TAB.ER.24 PO SCH (06:58)
[2017-09-06] MEDS: INSULIN SLIDING SCALE (NOVOLOG) 1 VIAL SQ SCH ×4 (07:39→21:36)
[2017-09-06] MEDS: RANITIDINE HCL 150 MG TABLET (FP) PO SCH ×2 (10:32→21:35)
[2017-09-06] MEDS: PRENATAL VITAMINS W/ FOLIC ACID TABLET (FP) PO SCH (10:32)
[2017-09-06] MEDS ORDERED: INSULIN (NOVOLOG) ASPART 100 UNITS/ML 10ML VIAL ONE ×3 (11:36→22:08)
[2017-09-06] MEDS: SUVOREXANT 10 MG TABLET PO PRN (21:35)
[2017-09-06] MEDS: QUEtiapine FUMARATE 50 MG TABLET PO SCH (21:35)
[2017-09-06] MEDS: THIAMINE HCL 100 MG TABLET (FP) PO SCH (21:35)
[2017-09-07] MEDS: INSULIN SLIDING SCALE (NOVOLOG) 1 VIAL SQ SCH ×4 (07:36→21:27)
[2017-09-07] MEDS: glipiZIDE-XL 5 MG TAB.ER.24 PO SCH (07:36)
[2017-09-07] MEDS: sitaGLIPtin PHOSPHATE 100 MG TABLET (FP) PO SCH (07:36)
[2017-09-07] MEDS ORDERED: INSULIN (NOVOLOG) ASPART 100 UNITS/ML 10ML VIAL ONE ×3 (07:50→22:00)
[2017-09-07] MEDS: RANITIDINE HCL 150 MG TABLET (FP) PO SCH ×2 (09:56→21:28)
[2017-09-07] MEDS: PRENATAL VITAMINS W/ FOLIC ACID TABLET (FP) PO SCH (09:56)
[2017-09-07] MEDS: guaiFENesin/D-METHORPHAN HB 10 ML UNIT-DOSE CUPS PO PRN (09:57)
[2017-09-07] MEDS: THIAMINE HCL 100 MG TABLET (FP) PO SCH (21:28)
[2017-09-07] MEDS: QUEtiapine FUMARATE 50 MG TABLET PO SCH (21:28)
[2017-09-07] MEDS: SUVOREXANT 10 MG TABLET PO PRN (21:28)
[2017-09-08] MEDS: sitaGLIPtin PHOSPHATE 100 MG TABLET (FP) PO SCH (07:44)
[2017-09-08] MEDS: glipiZIDE-XL 5 MG TAB.ER.24 PO SCH (07:44)
[2017-09-08] MEDS: INSULIN SLIDING SCALE (NOVOLOG) 1 VIAL SQ SCH ×4 (07:44→21:06)
[2017-09-08] MEDS: MAGNESIUM HYDROX 2400MG/30ML ORAL SUSPENSION 30 ML CUP PO PRN (10:13)
[2017-09-08] MEDS: PRENATAL VITAMINS W/ FOLIC ACID TABLET (FP) PO SCH (10:13)
[2017-09-08] MEDS: RANITIDINE HCL 150 MG TABLET (FP) PO SCH ×2 (10:13→21:03)
[2017-09-08] MEDS ORDERED: INSULIN (NOVOLOG) ASPART 100 UNITS/ML 10ML VIAL ONE ×3 (11:57→21:49)
[2017-09-08] MEDS: SUVOREXANT 10 MG TABLET PO PRN (21:03)
[2017-09-08] MEDS: QUEtiapine FUMARATE 50 MG TABLET PO SCH (21:03)
[2017-09-08] MEDS: THIAMINE HCL 100 MG TABLET (FP) PO SCH (21:03)
[2017-09-09] MEDS: glipiZIDE-XL 5 MG TAB.ER.24 PO SCH (06:49)
[2017-09-09] MEDS: sitaGLIPtin PHOSPHATE 100 MG TABLET (FP) PO SCH (06:49)
[2017-09-09] MEDS: INSULIN SLIDING SCALE (NOVOLOG) 1 VIAL SQ SCH ×4 (06:51→21:43)
[2017-09-09] MEDS: RANITIDINE HCL 150 MG TABLET (FP) PO SCH ×2 (10:03→21:42)
[2017-09-09] MEDS: PRENATAL VITAMINS W/ FOLIC ACID TABLET (FP) PO SCH (10:03)
[2017-09-09] MEDS: MAGNESIUM CITRATE 300 ML BOTTLE PO PRN (10:04)
[2017-09-09] MEDS ORDERED: INSULIN (NOVOLOG) ASPART 100 UNITS/ML 10ML VIAL ONE (11:56)
[2017-09-09] MEDS ORDERED: COLLOIDAL OATMEAL 1 BAR EACH TP PRN (13:44)
[2017-09-09] MEDS: SUVOREXANT 10 MG TABLET PO PRN (21:42)
[2017-09-09] MEDS: QUEtiapine FUMARATE 50 MG TABLET PO SCH (21:42)
[2017-09-09] MEDS: THIAMINE HCL 100 MG TABLET (FP) PO SCH (21:42)
[2017-09-10] MEDS: INSULIN SLIDING SCALE (NOVOLOG) 1 VIAL SQ SCH ×4 (07:22→21:39)
[2017-09-10] MEDS: sitaGLIPtin PHOSPHATE 100 MG TABLET (FP) PO SCH (07:23)
[2017-09-10] MEDS: glipiZIDE-XL 5 MG TAB.ER.24 PO SCH ×2 (07:23→16:57)
[2017-09-10] MEDS: RANITIDINE HCL 150 MG TABLET (FP) PO SCH ×2 (10:33→21:40)
[2017-09-10] MEDS: PRENATAL VITAMINS W/ FOLIC ACID TABLET (FP) PO SCH (10:34)
[2017-09-10] MEDS: MAGNESIUM HYDROX 2400MG/30ML ORAL SUSPENSION 30 ML CUP PO PRN (10:35)
[2017-09-10] MEDS ORDERED: INSULIN (NOVOLOG) ASPART 100 UNITS/ML 10ML VIAL ONE ×2 (11:45→22:02)
--- NOTE | 2017-09-10 14:30 | PN ---
[facility] Progress Note Note: Patient reports prior to admission to detox he went to [facility] emergency room for chest pain. Reports today this morning while he was doing pushups he experience midsternal chest pain which went away once he stopped doing the push ups. Patient presently denies, chest tightness or pain, dypnea or SOB. Vital Signs Temperature 97.9 F 09/10/17 06:52 Pulse Rate 86 09/10/17 06:52 Respiratory Rate 20 09/10/17 06:52 Blood Pressure 142/84 09/10/17 06:52 O2 Sat by Pulse Oximetry (%) Laboratory Last Values WBC 4.2 K/mm3 (4.0-10.0) 08/30/17 05:50 RBC 4.54 M/mm3 (4.00-5.60) 08/30/17 05:50 Hgb 14.0 GM/dL (11.7-16.9) 08/30/17 05:50 Hct 41.3 % (35.4-49) 08/30/17 05:50 MCV 90.9 fl (80-96) 08/30/17 05:50 MCH 30.9 pg (25.7-33.7) 08/30/17 05:50 MCHC 33.9 g/dl (32.0-35.9) 08/30/17 05:50 RDW 13.4 % (11.9-15.9) 08/30/17 05:50 Plt Count 212 K/MM3 (134-434) 08/30/17 05:50 MPV 9.9 fl (7.5-11.1) D 08/30/17 05:50 Sodium 126 mmol/L (136-145) L 08/30/17 05:50 Potassium 4.7 mmol/L (3.5-5.1) 08/30/17 05:50 Chloride 93 mmol/L (98-107) L 08/30/17 05:50 Carbon Dioxide 19 mmol/L (21-32) L 08/30/17 05:50 Anion Gap 14 (8-16) 08/30/17 05:50 BUN 13 mg/dL (7-18) 08/30/17 05:50 Creatinine 1.3 mg/dL (0.7-1.3) D 08/30/17 05:50 Creat Clearance w eGFR 58.92 (>60) 08/30/17 05:50 POC Glucometer 290 UNITS (80-120) 09/07/17 06:36 Random Glucose 733 mg/dL (74-106) H* D 08/30/17 05:50 Fasting Glucose 411 mg/dL (70-105) H* 08/31/17 08:30 Hemoglobin A1c % 14.5 % (4.8-6.0) H 08/31/17 08:00 Calcium 9.2 mg/dL (8.5-10.1) 08/30/17 05:50 Total Bilirubin 0.5 mg/dL (0.2-1.0) 08/30/17 05:50 AST 21 U/L (15-37) D 08/30/17 05:50 ALT 41 U/L (12-78) 08/30/17 05:50 Alkaline Phosphatase 112 U/L (45-117) D 08/30/17 05:50 Total Protein 6.7 g/dl (6.4-8.2) 08/30/17 05:50 Albumin 3.2 g/dl (3.4-5.0) L 08/30/17 05:50 Urine Color Colorless 08/29/17 18:24 Urine Appearance Clear 08/29/17 18:24 Urine pH 7.0 (5.0-8.0) D 08/29/17 18:24 Ur Specific [place] 1.024 (1.001-1.035) 08/29/17 18:24 Urine Protein Negative (NEGATIVE) 08/29/17 18:24 Urine Glucose (UA) 3+ (NEGATIVE) H 08/29/17 18:24 Urine Ketones Trace (NEGATIVE) H 08/29/17 18:24 Urine Blood Negative (NEGATIVE) 08/29/17 18:24 Urine Nitrite Negative (NEGATIVE) 08/29/17 18:24 Urine Bilirubin Negative (NEGATIVE) 08/29/17 18:24 Urine Urobilinogen Negative mg/dL (0.2-1.0) 08/29/17 18:24 Ur Leukocyte Esterase Negative (NEGATIVE) 08/29/17 18:24 RPR Titer Nonreactive (NONREACTIVE) 08/30/17 05:50 Labs noted ROS: General: calm, related, good appetite HR: denies no chest pain, palpitations, SOB Neuro: denies dizziness, or paresthesia Endo: denies sweats, or excise thirst or urination Musc: denies stiffness or pain Skin : denies pruritus, or eruptions GENERAL APPEARANCE: Well developed, well nourished, alert and cooperative, and appears to be in no acute distress. CARDIAC: Normal S1 and S2. No S3, S4 or murmurs. Rhythm is regular. No edema LUNGS: Clear to auscultation and percussion without rales, rhonchi, wheezing or diminished breath sounds. MUSKULOSKELETAL: ROM intact spine and extremities. No joint erythema or tenderness. Normal muscular development. Normal gait. NEUROLOGICAL: CN II-XII intact. SKIN: Skin no lesions, discoloration or eruptions. + healed scars on both arms Plan: Repeat EKG Increase fluids ASA 81mg QD Increase glyburide to 5mg BID Patient refuse Metformin, reports he does not like the way it makes him feel Continue to monitor
[2017-09-10] MEDS: ASPIRIN COATED 81 MG TABLET.EC PO SCH (16:57)
[2017-09-10] MEDS: QUEtiapine FUMARATE 50 MG TABLET PO SCH (21:40)
[2017-09-10] MEDS: THIAMINE HCL 100 MG TABLET (FP) PO SCH (21:40)
[2017-09-10] MEDS: SUVOREXANT 10 MG TABLET PO PRN (21:40)
[2017-09-11] MEDS: sitaGLIPtin PHOSPHATE 100 MG TABLET (FP) PO SCH (07:01)
[2017-09-11] MEDS: INSULIN SLIDING SCALE (NOVOLOG) 1 VIAL SQ SCH ×4 (07:01→21:33)
[2017-09-11] MEDS: glipiZIDE-XL 5 MG TAB.ER.24 PO SCH ×2 (07:01→16:54)
--- NOTE | 2017-09-11 10:00 | EKG ---
Test Reason : Blood Pressure : / mmHG Vent. Rate : 096 BPM Atrial Rate : 096 BPM P-R Int : 166 ms QRS Dur : 084 ms QT Int : 330 ms P-R-T Axes : 043 042 062 degrees QTc Int : 416 ms NORMAL SINUS RHYTHM NORMAL ECG WHEN COMPARED WITH ECG OF 30-AUG-2017 09:39, NO SIGNIFICANT CHANGE WAS FOUND Confirmed by BRIAN LEVY MD ([id number]) on 09/11/2017 10:00:21 AM Referred By: Confirmed By:BRIAN LEVY MD
[2017-09-11] MEDS: RANITIDINE HCL 150 MG TABLET (FP) PO SCH ×2 (10:13→21:32)
[2017-09-11] MEDS: ASPIRIN COATED 81 MG TABLET.EC PO SCH (10:13)
[2017-09-11] MEDS: PRENATAL VITAMINS W/ FOLIC ACID TABLET (FP) PO SCH (10:13)
[2017-09-11] MEDS ORDERED: INSULIN (NOVOLOG) ASPART 100 UNITS/ML 10ML VIAL ONE ×2 (11:54→22:00)
[2017-09-11] MEDS: THIAMINE HCL 100 MG TABLET (FP) PO SCH (21:32)
[2017-09-11] MEDS: SUVOREXANT 10 MG TABLET PO PRN (21:32)
[2017-09-11] MEDS: QUEtiapine FUMARATE 50 MG TABLET PO SCH (21:32)
[2017-09-12] MEDS: INSULIN SLIDING SCALE (NOVOLOG) 1 VIAL SQ SCH ×4 (07:18→21:43)
[2017-09-12] MEDS: glipiZIDE-XL 5 MG TAB.ER.24 PO SCH ×2 (07:18→17:50)
[2017-09-12] MEDS: sitaGLIPtin PHOSPHATE 100 MG TABLET (FP) PO SCH (07:18)
[2017-09-12] MEDS: RANITIDINE HCL 150 MG TABLET (FP) PO SCH ×2 (10:13→21:42)
[2017-09-12] MEDS: ASPIRIN COATED 81 MG TABLET.EC PO SCH (10:13)
[2017-09-12] MEDS: PRENATAL VITAMINS W/ FOLIC ACID TABLET (FP) PO SCH (10:13)
[2017-09-12] MEDS ORDERED: INSULIN (NOVOLOG) ASPART 100 UNITS/ML 10ML VIAL ONE ×3 (11:46→20:42)
--- NOTE | 2017-09-12 12:14 | PN ---
Psychiatric Progress Note Vital Signs: Vital Signs Period Temp Pulse Resp BP Sys/Gonzalez Pulse Ox Last 24 Hr 97.9 F 93 18-20 155/86 Date of Session: 09/12/17 Chief Complaint:: Discharge Note HPI: Patient addressing Alcohol and Cocaine Dependence comorbid with Nicotine Dependence, Substance-Induced Mood Disorder and Substance-Induced Sleep Disorder ROS: DM, GERD, Alcohol withdrawal seizure Current Medications: Active Medications Generic Name Dose Route Start Last Admin Trade Name Freq PRN Reason Stop Dose Admin Acetaminophen 650 mg 08/29/17 15:19 Tylenol - PO Q4H PRN FEVER Al Hydroxide/Mg Hydroxide 30 ml 08/29/17 15:19 Mylanta Oral Suspension - PO Q6H PRN DYSPEPSIA Aspirin 81 mg 09/10/17 17:00 09/12/17 10:13 Ecotrin - PO 81 mg DAILY JYOTHI Administration Colloidal Oatmeal 1 applic 09/09/17 13:44 09/09/17 14:25 Aveeno Soap - TP 1 bar DAILY PRN Administration HYGEINE Eucalyptus/Menthol/Phenol/Sorbitol 1 each 08/29/17 15:19 Cepastat Lozenge - MM Q4H PRN SORE THROAT Glipizide 5 mg 09/10/17 16:30 09/12/17 07:18 Glucotrol Xl - PO 5 mg BID@0700,1630 JYOTHI Administration Guaifenesin 10 ml 08/29/17 15:19 09/07/17 09:57 Robitussin Dm - PO 10 ml Q6H PRN Administration COUGH Insulin Aspart 1 vial 09/03/17 11:55 09/12/17 11:46 Novolog Vial Sliding Scale - SQ 10 units ACHS JYOTHI Administration Protocol Loperamide HCl 4 mg 08/29/17 15:19 Imodium - PO Q6H PRN DIARRHEA Magnesium Citrate 300 ml 08/29/17 15:19 09/09/17 10:04 Citroma - PO 300 ml Q48H PRN Administration CONSTIPATION Magnesium Hydroxide 30 ml 08/29/17 15:19 09/10/17 10:35 Milk Of Magnesia - PO 30 ml DAILY PRN Administration CONSTIPATION Nicotine 14 mg 08/29/17 15:19 Nicoderm Patch - TD DAILY PRN WITHDRAWAL(CONT SUBST) Nicotine Polacrilex 2 mg 08/29/17 15:19 Nicorette Gum - BC Q2H PRN NICOTINE REPLACEMENT RX Multivit/Folic Acid/Iron 1 tab 08/30/17 10:00 09/12/17 10:13 Vitamins (Sjr) - PO 1 tab DAILY JYOTHI Administration Pseudoephedrine/Triprolidine 1 combo 08/29/17 15:19 Actifed - PO TID PRN NASAL CONGESTION Quetiapine Fumarate 50 mg 09/02/17 22:00 09/11/17 21:32 Seroquel - PO 50 mg HS JYOTHI Administration Ranitidine HCl 150 mg 08/29/17 22:00 09/12/17 10:13 Zantac - PO 150 mg BID JYOTHI Administration Sitagliptin Phosphate 100 mg 08/31/17 07:00 09/12/17 07:18 Januvia - PO 100 mg DAILY@0700 JYOTHI Administration Thiamine HCl 100 mg 08/29/17 22:00 09/11/17 21:32 Vitamin B1 - PO 100 mg HS JYOTHI Administration Current Side Effect: No Lab tests ordered: Yes Lab tests reviewed: Yes Provider note:: Patient will complete this program on 09/13/17. He has met his treatment goals and will continue to address his issues in skilled nursing residential treatment at [facility]. Told residential mortgage underwriter that from his participation in this program, he has learned the importance of establising a sober support network in order to maintain abstinence. He responded well to Seroquel 50 mg po HS for insomnia. Script for 30 days supply will electronically be transmitted to [facility] at [address] [place] [address]. He is stable for discharge on 09/13/17 Total face to face time:: 35 Mental Status Exam - Mental Status Exam Alert and Oriented to: Time, Place, Person Cognitive Function: Fair Patient Appearance: Well Groomed Mood: Hopeful, Euthymic Affect: Appropriate Patient Behavior: Cooperative Speech Pattern: Clear Voice Loudness: Normal Thought Process: Intact, Goal Oriented Thought Disorder: Not Present Hallucinations: Denies Suicidal Ideation: Denies Homicidal Ideation: Denies Insight/Judgement: Fair Sleep: Fair Appetite: Good Muscle strength/Tone: Normal Gait/Station: Normal Psychiatric Treatment Plan - Problem List (1) Alcohol dependence Current Visit: Yes (2) Cocaine dependence Current Visit: Yes (3) Nicotine dependence Current Visit: Yes Qualifiers: Nicotine product type: cigarettes (4) Substance induced mood disorder Current Visit: Yes (5) Substance-induced sleep disorder Current Visit: Yes (6) DM Diabetes mellitus type 2 Current Visit: Yes (7) GERD (gastroesophageal reflux disease) Current Visit: Yes Qualifiers: Esophagitis presence: without esophagitis Qualified Code(s): K21.9 - Gastro -esophageal reflux disease without esophagitis (8) Alcohol withdrawal seizure Current Visit: Yes Qualifiers: Complication of substance-induced condition: with unspecified complication Qualified Code(s): F10.239 - Alcohol dependence with withdrawal, unspecified; R56.9 - Unspecified convulsions; R56.9 - Unspecified convulsions; R56.9 - Unspecified convulsions; R56.9 - Unspecified convulsions Initial treatment plan: Patient will be discharged tomorrow and referred to [facility] for skilled nursing residential treatment
[2017-09-12] MEDS: QUEtiapine FUMARATE 50 MG TABLET PO SCH (21:42)
[2017-09-12] MEDS: THIAMINE HCL 100 MG TABLET (FP) PO SCH (21:42)
[2017-09-12] MEDS ORDERED: SUVOREXANT 10 MG TABLET PO PRN (22:00)
[2017-09-13] MEDS: INSULIN SLIDING SCALE (NOVOLOG) 1 VIAL SQ SCH (06:23)
[2017-09-13] MEDS: sitaGLIPtin PHOSPHATE 100 MG TABLET (FP) PO SCH (06:23)
[2017-09-13] MEDS: glipiZIDE-XL 5 MG TAB.ER.24 PO SCH (06:23)
[2017-09-13 06:52] VITALS: BP 154/89; PULSE 85; TEMP 97.8
[2017-09-13] MEDS: PRENATAL VITAMINS W/ FOLIC ACID TABLET (FP) PO SCH (09:46)
[2017-09-13] MEDS: ASPIRIN COATED 81 MG TABLET.EC PO SCH (09:46)
[2017-09-13] MEDS: RANITIDINE HCL 150 MG TABLET (FP) PO SCH (09:46)
== END 2017-09-13 09:00 | disposition home or self-care (01) | DRG 895 ==
LOC: YASAS 11:31 → Y3N 16:16 → Y3W 09-03 11:07 → Y3N 09-03 15:00 → Y3W 09-03 15:01
PROVIDERS: ADMIT Internal Medicine; ATTEND Psychiatry & Neurology Psychiatry
PROC: HZ41ZZZ Group Counseling for Substance Abuse Treatment, Behavioral (ICD-10-PCS; principal; 2017-08-28)
PROC: HZ2ZZZZ Detoxification Services for Substance Abuse Treatment (ICD-10-PCS; 2017-09-03)
DX: F10.230 Alcohol dependence with withdrawal, uncomplicated (principal); F14.20 Cocaine dependence, uncomplicated; F19.282 Other psychoactive substance dependence with psychoactive substance-induced sleep disorder; G40.509 Epileptic seizures related to external causes, not intractable, without status epilepticus; F17.210 Nicotine dependence, cigarettes, uncomplicated; F19.24 Other psychoactive substance dependence with psychoactive substance-induced mood disorder; G47.00 Insomnia, unspecified; E11.9 Type 2 diabetes mellitus without complications; Z79.4 Long term (current) use of insulin; Z79.84 Long term (current) use of oral hypoglycemic drugs; K21.9 Gastro-esophageal reflux disease without esophagitis
CPT/HCPCS: 36415; 73130-TC-RT-FY; 80053; 81003; 82947; 82962; 83036; 85027; 86593; 93005; 93010; J0735

== ENCOUNTER 2018-10-01 09:04 | Inpatient (IN) | payer OTHER ==
[2018-10-01 09:44] VITALS: BMI 29.2
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
[2018-10-01] MEDS ORDERED: MAGNESIUM HYDROX 2400MG/30ML ORAL SUSPENSION 30 ML CUP PO PRN (10:32)
[2018-10-01] MEDS ORDERED: MAGNESIUM CITRATE 300 ML BOTTLE PO PRN (10:32)
[2018-10-01] MEDS ORDERED: chlordiazePOXIDE HCL 25 MG CAPSULE PO PRN (10:32)
[2018-10-01] MEDS ORDERED: BISMUTH SUBSALICYLATE 524 MG/30 ML UD PO PRN (10:32)
[2018-10-01] MEDS ORDERED: MAG HYDROX/AL HYDROX/SIMETH 30 ML UNIT-DOSE CUP PO PRN (10:32)
[2018-10-01] MEDS ORDERED: ACETAMINOPHEN 325 MG TABLET (FP) PO PRN (10:32)
[2018-10-01] MEDS ORDERED: MENTHOL/PHENOL 1 EACH UD MM PRN (10:32)
[2018-10-01] MEDS ORDERED: hydrOXYzine PAMOATE 25 MG CAPSULE (FP) PO PRN (10:32)
[2018-10-01] MEDS ORDERED: INSULIN SLIDING SCALE (NOVOLOG) 1 VIAL SQ ONE ×3 (11:33→21:35)
[2018-10-01] MEDS: INSULIN (NOVOLOG) ASPART 100 UNITS/ML 10ML VIAL SQ SCH ×3 (12:08→23:00)
[2018-10-01] MEDS: IBUPROFEN 400 MG TABLET (FP) PO PRN (13:05)
[2018-10-01] MEDS: METHOCARBAMOL 500 MG TABLET PO PRN ×2 (14:06→22:59)
--- NOTE | 2018-10-01 14:27 | PN ---
AMY Progress Note Note: received nurse informed that the patient has pain need to be seen observed patient lying on bed on his stomach reporting chronic back pain and has right posterior leg muscle cramping encourage the nurse to give muscle relaxant
[2018-10-01 16:15] LABS: ALBUMIN 4.2 g/dl (3.4-5.0); ALK PHOS 101 U/L (45-117); ANION GAP 10 MMOL/L (8-16); BILIRUBIN,TOTAL 0.7 mg/dL (0.2-1); BLOOD UREA NITROGEN 15 mg/dL (7-18); CALCIUM 9.5 mg/dL (8.5-10.1); CHLORIDE 96 mmol/L (98-107); CO2 25 mmol/L (21-32); CREATININE 1.5 mg/dL (0.55-1.3); POTASSIUM 4.7 mmol/L (3.5-5.1); SGOT/AST 44 U/L (15-37); SGPT/ALT 61 U/L (13-61); SODIUM 132 mmol/L (136-145); TOT PROT 7.7 g/dl (6.4-8.2)
[2018-10-01 16:40] LABS: HEMATOCRIT 41.3 % (35.4-49); HEMOGLOBIN 14.2 GM/dL (11.7-16.9); MCHC 34.4 g/dl (32.0-35.9); MEAN CELL VOLUME 87.1 fl (80-96); MEAN PLT VOLUME 8.9 fl (7.5-11.1); PLATELET COUNT 271 K/MM3 (134-434); RBC 4.74 M/mm3 (4.00-5.60); RDW 13.5 % (11.9-15.9); WHITE BLOOD COUNT 4.1 K/mm3 (4.0-10.0)
[2018-10-01] MEDS: metFORMIN HCL 500 MG TABLET (FP) PO SCH (16:56)
[2018-10-01] MEDS: chlordiazePOXIDE HCL 25 MG CAPSULE PO SCH ×2 (16:59→22:59)
[2018-10-01 17:28] LABS: GLUCOSE,RANDOM 357 mg/dL (74-106)
[2018-10-01 21:23] LABS: URINE APPEARANCE CLEAR; URINE COLOR YELLOW
[2018-10-01 21:24] LABS: URINE BILIRUBIN NEGATIVE (NEGATIVE); URINE KETONE 40 mg/dl (NEGATIVE)
[2018-10-01 21:25] LABS: URINE LEUK ESTERASE N (NEGATIVE); URINE NITRITE NEGATIVE (NEGATIVE); URINE PROTEIN 100 (NEGATIVE); URINE UROBILINOGEN 0.2 mg/dL (0.2-1.0)
[2018-10-01 22:08] LABS: URINE RBC 0-3 /hpf (0-4)
[2018-10-01 22:11] LABS: URINE BACTERIA 4+ /hpf (NEGATIVE); URINE CRYSTALS URIC ACID 4+ /hpf
[2018-10-01] MEDS: QUEtiapine FUMARATE 50 MG TABLET PO SCH (23:00)
[2018-10-01] MEDS: INSULIN (LEVEMIR) 100 UNITS/ML UNITS SQ SCH (23:00)
[2018-10-01] MEDS: THIAMINE HCL 100 MG TABLET (FP) PO SCH (23:00)
[2018-10-02] MEDS ORDERED: INSULIN SLIDING SCALE (NOVOLOG) 1 VIAL SQ ONE ×4 (06:49→22:57)
[2018-10-02] MEDS: chlordiazePOXIDE HCL 25 MG CAPSULE PO SCH ×4 (06:52→22:53)
[2018-10-02] MEDS: metFORMIN HCL 500 MG TABLET (FP) PO SCH ×2 (06:52→17:43)
[2018-10-02] MEDS: INSULIN (NOVOLOG) ASPART 100 UNITS/ML 10ML VIAL SQ SCH ×4 (06:53→22:51)
[2018-10-02] MEDS: PRENATAL VITAMINS W/ FOLIC ACID TABLET (FP) PO SCH (10:11)
[2018-10-02] MEDS: LIDOCAINE 5% TOPICAL PATCH TP SCH (10:12)
--- NOTE | 2018-10-02 13:34 | PN ---
S CIWA - CIWA Score Nausea/Vomitin-Mild Nausea/No Vomiting Muscle Tremors: 3 Anxiety: 2 Agitation: 1-Slight > Activity Paroxysmal Sweats: 1-Minimal Palms Moist Orientation: 1-Uncertain about Date Tacttile Disturbances: 0-None Auditory Disturbances: 0-None Visual Disturbances: 0-None Headache: 1-Very Mild CIWA-Ar Total Score: 10 [facility] Progress Note (SOAP) Subjective: reporting bgm elevation when drinking around 100-200 when not drinking alcohol Objective: 10/02/18 13:36 Vital Signs Temperature 97.7 F 10/02/18 13:18 Pulse Rate 119 H 10/02/18 13:18 Respiratory Rate 18 10/02/18 13:18 Blood Pressure 153/95 10/02/18 13:18 O2 Sat by Pulse Oximetry (%) Laboratory Last Values WBC 4.1 K/mm3 (4.0-10.0) 10/01/18 12:49 RBC 4.74 M/mm3 (4.00-5.60) 10/01/18 12:49 Hgb 14.2 GM/dL (11.7-16.9) 10/01/18 12:49 Hct 41.3 % (35.4-49) 10/01/18 12:49 MCV 87.1 fl (80-96) 10/01/18 12:49 MCH 30.0 pg (25.7-33.7) 10/01/18 12:49 MCHC 34.4 g/dl (32.0-35.9) 10/01/18 12:49 RDW 13.5 % (11.9-15.9) 10/01/18 12:49 Plt Count 271 K/MM3 (134-434) D 10/01/18 12:49 MPV 8.9 fl (7.5-11.1) D 10/01/18 12:49 Sodium 132 mmol/L (136-145) L 10/01/18 12:49 Potassium 4.7 mmol/L (3.5-5.1) 10/01/18 12:49 Chloride 96 mmol/L (98-107) L 10/01/18 12:49 Carbon Dioxide 25 mmol/L (21-32) 10/01/18 12:49 Anion Gap 10 MMOL/L (8-16) 10/01/18 12:49 BUN 15 mg/dL (7-18) 10/01/18 12:49 Creatinine 1.5 mg/dL (0.55-1.3) H 10/01/18 12:49 Creat Clearance w eGFR 49.74 (>60) 10/01/18 12:49 POC Glucometer 401 UNITS (80-120) 10/02/18 11:18 Random Glucose 357 mg/dL (74-106) H* 10/01/18 12:49 Calcium 9.5 mg/dL (8.5-10.1) 10/01/18 12:49 Total Bilirubin 0.7 mg/dL (0.2-1) 10/01/18 12:49 AST 44 U/L (15-37) H 10/01/18 12:49 ALT 61 U/L (13-61) 10/01/18 12:49 Alkaline Phosphatase 101 U/L (45-117) 10/01/18 12:49 Total Protein 7.7 g/dl (6.4-8.2) 10/01/18 12:49 Albumin 4.2 g/dl (3.4-5.0) 10/01/18 12:49 Urine Color Yellow 10/01/18 12:40 Urine Appearance Clear 10/01/18 12:40 Urine pH 5.0 (5.0-8.0) D 10/01/18 12:40 Ur Specific [place] 1.030 (1.010-1.035) 10/01/18 12:40 Urine Protein 100 (NEGATIVE) 10/01/18 12:40 Urine Glucose (UA) 1000 mg/dl (NEGATIVE) 10/01/18 12:40 Urine Ketones 40 mg/dl (NEGATIVE) 10/01/18 12:40 Urine Blood Moderate (NEGATIVE) 10/01/18 12:40 Urine Nitrite Negative (NEGATIVE) 10/01/18 12:40 Urine Bilirubin Negative (NEGATIVE) 10/01/18 12:40 Urine Urobilinogen 0.2 mg/dL (0.2-1.0) 10/01/18 12:40 Ur Leukocyte Esterase N (NEGATIVE) 10/01/18 12:40 Urine RBC (Auto) 0-3 /hpf (0-4) 10/01/18 12:40 U Epithel Cells (Auto) 1-3 /HPF (0-5/HPF) 10/01/18 12:40 Urine Crystals (Auto) Uric acid 4+ /hpf 10/01/18 12:40 Urine Bacteria (Auto) 4+ /hpf (NEGATIVE) 10/01/18 12:40 RPR Titer Nonreactive (NONREACTIVE) 10/01/18 12:49 HIV 1&2 Antibody Screen Negative 10/01/18 10:20 HIV P24 Antigen Negative 10/01/18 10:20 lab noted Assessment: 10/02/18 13:36 alcohol withdrawal sx diabetes Plan: continue detox continue insulin coverage
[2018-10-02] MEDS: METHOCARBAMOL 500 MG TABLET PO PRN ×2 (15:39→22:52)
[2018-10-02] MEDS: IBUPROFEN 400 MG TABLET (FP) PO PRN (17:53)
[2018-10-02] MEDS: INSULIN (LEVEMIR) 100 UNITS/ML UNITS SQ SCH (22:51)
[2018-10-02] MEDS: LIDOCAINE PATCH REMOVAL MC SCH (22:51)
[2018-10-02] MEDS: QUEtiapine FUMARATE 50 MG TABLET PO SCH (22:52)
[2018-10-02] MEDS: THIAMINE HCL 100 MG TABLET (FP) PO SCH (22:53)
[2018-10-03] MEDS: chlordiazePOXIDE HCL 25 MG CAPSULE PO SCH ×2 (07:40→10:06)
[2018-10-03] MEDS: INSULIN (NOVOLOG) ASPART 100 UNITS/ML 10ML VIAL SQ SCH ×4 (07:43→22:22)
[2018-10-03] MEDS ORDERED: INSULIN SLIDING SCALE (NOVOLOG) 1 VIAL SQ ONE ×2 (07:43→16:30)
[2018-10-03] MEDS: metFORMIN HCL 500 MG TABLET (FP) PO SCH ×2 (07:46→17:14)
[2018-10-03] MEDS: PRENATAL VITAMINS W/ FOLIC ACID TABLET (FP) PO SCH (10:05)
[2018-10-03] MEDS: LIDOCAINE 5% TOPICAL PATCH TP SCH (10:05)
[2018-10-03] MEDS: METHOCARBAMOL 500 MG TABLET PO PRN (10:07)
[2018-10-03] MEDS ORDERED: LISINOPRIL 10 MG TABLET (FP) PO ONE (15:11)
--- NOTE | 2018-10-03 15:18 | PN ---
[facility] CIWA - CIWA Score Nausea/Vomitin-No Nausea/No Vomiting Muscle Tremors: 2 Anxiety: 3 Agitation: 0-Normal Activity Paroxysmal Sweats: 2 Orientation: 2-Disoriented Date<2 days Tacttile Disturbances: 2-Mild Itch/Numbness/Burn Auditory Disturbances: 0-None Visual Disturbances: 0-None Headache: 0-None Present CIWA-Ar Total Score: 11 S Progress Note (SOAP) Subjective: Anxious, Tremors, Sweating. Objective: PATIENT A & O X 2 (UNCERTAIN ABOUT CURRENT DAY / DATE). PATIENT OBSERVED AMBULATING ON UNIT. IN NO ACUTE DISTRESS. PATIENT DENIES KNOWN HISTORY OF OR TREATMENT FOR HTN. PATIENT DENIES CHEST PAIN. PATIENT REPORTS "SORES ON HIS FEET." HOWEVER, PATIENT DECLINED TO ALLOW [employer] TEAM MEMBER TO LOOK AT HIS FEET TO ASSESS TODAY. 10/03/18 15:14 Vital Signs Temperature 97.7 F 10/03/18 13:11 Pulse Rate 110 H 10/03/18 13:11 Respiratory Rate 20 10/03/18 13:11 Blood Pressure 173/106 H 10/03/18 13:11 O2 Sat by Pulse Oximetry (%) Laboratory Tests 10/01/18 10/01/18 10/01/18 10:20 10:59 12:40 WBC RBC Hgb Hct MCV MCH MCHC RDW Plt Count MPV Sodium Potassium Chloride Carbon Dioxide Anion Gap BUN Creatinine Creat Clearance w eGFR POC Glucometer 324 Random Glucose Calcium Total Bilirubin AST ALT Alkaline Phosphatase Total Protein Albumin Urine Color Yellow Urine Appearance Clear Urine pH 5.0 D Ur Specific [place] 1.030 Urine Protein 100 Urine Glucose (UA) 1000 mg/dl Urine Ketones 40 mg/dl Urine Blood Moderate Urine Nitrite Negative Urine Bilirubin Negative Urine Urobilinogen 0.2 Ur Leukocyte Esterase N Urine RBC (Auto) 0-3 U Epithel Cells (Auto) 1-3 Urine Crystals (Auto) Uric acid 4+ Urine Bacteria (Auto) 4+ RPR Titer HIV 1&2 Antibody Screen Negative HIV P24 Antigen Negative 10/01/18 10/01/18 10/01/18 12:49 12:49 12:49 WBC 4.1 RBC 4.74 Hgb 14.2 Hct 41.3 MCV 87.1 MCH 30.0 MCHC 34.4 RDW 13.5 Plt Count 271 D MPV 8.9 D Sodium 132 L Potassium 4.7 Chloride 96 L Carbon Dioxide 25 Anion Gap 10 BUN 15 Creatinine 1.5 H Creat Clearance w eGFR 49.74 POC Glucometer Random Glucose 357 H* Calcium 9.5 Total Bilirubin 0.7 AST 44 H ALT 61 Alkaline Phosphatase 101 Total Protein 7.7 Albumin 4.2 Urine Color Urine Appearance Urine pH Ur Specific [place] Urine Protein Urine Glucose (UA) Urine Ketones Urine Blood Urine Nitrite Urine Bilirubin Urine Urobilinogen Ur Leukocyte Esterase Urine RBC (Auto) U Epithel Cells (Auto) Urine Crystals (Auto) Urine Bacteria (Auto) RPR Titer Nonreactive HIV 1&2 Antibody Screen HIV P24 Antigen 10/01/18 10/01/18 10/02/18 16:27 21:00 06:44 WBC RBC Hgb Hct MCV MCH MCHC RDW Plt Count MPV Sodium Potassium Chloride Carbon Dioxide Anion Gap BUN Creatinine Creat Clearance w eGFR POC Glucometer 235 264 258 Random Glucose Calcium Total Bilirubin AST ALT Alkaline Phosphatase Total Protein Albumin Urine Color Urine Appearance Urine pH Ur Specific [place] Urine Protein Urine Glucose (UA) Urine Ketones Urine Blood Urine Nitrite Urine Bilirubin Urine Urobilinogen Ur Leukocyte Esterase Urine RBC (Auto) U Epithel Cells (Auto) Urine Crystals (Auto) Urine Bacteria (Auto) RPR Titer HIV 1&2 Antibody Screen HIV P24 Antigen 10/02/18 10/02/18 10/02/18 11:18 16:23 22:05 WBC RBC Hgb Hct MCV MCH MCHC RDW Plt Count MPV Sodium Potassium Chloride Carbon Dioxide Anion Gap BUN Creatinine Creat Clearance w eGFR POC Glucometer 401 240 268 Random Glucose Calcium Total Bilirubin AST ALT Alkaline Phosphatase Total Protein Albumin Urine Color Urine Appearance Urine pH Ur Specific [place] Urine Protein Urine Glucose (UA) Urine Ketones Urine Blood Urine Nitrite Urine Bilirubin Urine Urobilinogen Ur Leukocyte Esterase Urine RBC (Auto) U Epithel Cells (Auto) Urine Crystals (Auto) Urine Bacteria (Auto) RPR Titer HIV 1&2 Antibody Screen HIV P24 Antigen 10/03/18 07:39 WBC RBC Hgb Hct MCV MCH MCHC RDW Plt Count MPV Sodium Potassium Chloride Carbon Dioxide Anion Gap BUN Creatinine Creat Clearance w eGFR POC Glucometer 380 Random Glucose Calcium Total Bilirubin AST ALT Alkaline Phosphatase Total Protein Albumin Urine Color Urine Appearance Urine pH Ur Specific [place] Urine Protein Urine Glucose (UA) Urine Ketones Urine Blood Urine Nitrite Urine Bilirubin Urine Urobilinogen Ur Leukocyte Esterase Urine RBC (Auto) U Epithel Cells (Auto) Urine Crystals (Auto) Urine Bacteria (Auto) RPR Titer HIV 1&2 Antibody Screen HIV P24 Antigen LABS NOTED. 10/03/18 15:18 Assessment: 10/03/18 15:16 WITHDRAWAL SYMPTOMS. HYPERTENSION. Plan: CONTINUE DETOX. LISINOPRIL, 10 MG PO DAILY FOR ELEVATED BP. CONTINUE TO MONITOR BP. D/C IBUPROFEN AND MAGNESIUM-CONTAINING MEDS. FOR ABNORMAL ADMISSION RENAL LAB VALUES.
[2018-10-03] MEDS ORDERED: chlordiazePOXIDE HCL 10 MG CAPSULE PO PRN (17:00)
[2018-10-03] MEDS: chlordiazePOXIDE HCL 10 MG CAPSULE PO SCH ×2 (17:14→22:26)
[2018-10-03] MEDS ORDERED: METOPROLOL TARTRATE 25 MG TABLET (FP) PO ONE (19:05)
--- NOTE | 2018-10-03 19:06 | PN ---
S Progress Note Note: Vital Signs 10/03/18 10/03/18 13:11 18:00 Temperature 97.7 F 98.6 F Pulse Rate 110 H 106 H Respiratory 20 18 Rate Blood Pressure 173/106 H 177/105 H metoprolol 25 mg x one ordered , recheck BP in 1 hour
[2018-10-03] MEDS: THIAMINE HCL 100 MG TABLET (FP) PO SCH (22:19)
[2018-10-03] MEDS: LIDOCAINE PATCH REMOVAL MC SCH (22:26)
[2018-10-03] MEDS: INSULIN (LEVEMIR) 100 UNITS/ML UNITS SQ SCH (22:26)
[2018-10-03] MEDS: QUEtiapine FUMARATE 50 MG TABLET PO SCH (22:26)
[2018-10-03] MEDS: MELATONIN 5 MG TABLETS PO PRN (22:26)
[2018-10-04] MEDS: chlordiazePOXIDE HCL 10 MG CAPSULE PO SCH ×3 (06:48→17:02)
[2018-10-04] MEDS: INSULIN (NOVOLOG) ASPART 100 UNITS/ML 10ML VIAL SQ SCH ×4 (06:50→22:22)
[2018-10-04] MEDS: metFORMIN HCL 500 MG TABLET (FP) PO SCH ×2 (06:51→17:02)
[2018-10-04] MEDS ORDERED: INSULIN SLIDING SCALE (NOVOLOG) 1 VIAL SQ ONE ×4 (06:55→22:48)
[2018-10-04] MEDS ORDERED: LISINOPRIL 10 MG TABLET (FP) PO SCH (10:00)
[2018-10-04] MEDS: LISINOPRIL 20 MG TABLET (FP) PO SCH (10:14)
[2018-10-04] MEDS: PRENATAL VITAMINS W/ FOLIC ACID TABLET (FP) PO SCH (10:14)
[2018-10-04] MEDS: LIDOCAINE 5% TOPICAL PATCH TP SCH (10:15)
[2018-10-04] MEDS: LORATADINE 10 MG TABLET PO SCH (10:16)
--- NOTE | 2018-10-04 13:09 | PN ---
[facility] Progress Note (SOAP) Subjective: Sweating, Tremors. Patient reports a cough X last several weeks. Cough is productive (green- colored phlegm). Patient also reports runny nose during that time. Objective: PATIENT A & O X 3, OBSERVED AMBULATING ON UNIT. IN NO ACUTE DISTRESS. LUNG SOUNDS AUSCULTATED CLEAR AND EQUAL BILATERALLY. PATIENT AFEBRILE. PATIENT DENIES CHEST PAIN. 10/04/18 13:06 Vital Signs Temperature 97.8 F 10/04/18 09:37 Pulse Rate 103 H 10/04/18 09:37 Respiratory Rate 18 10/04/18 09:37 Blood Pressure 174/120 H 10/04/18 09:37 O2 Sat by Pulse Oximetry (%) Laboratory Tests 10/01/18 10/01/18 10/01/18 10:20 10:59 12:40 WBC RBC Hgb Hct MCV MCH MCHC RDW Plt Count MPV Sodium Potassium Chloride Carbon Dioxide Anion Gap BUN Creatinine Creat Clearance w eGFR POC Glucometer 324 Random Glucose Calcium Total Bilirubin AST ALT Alkaline Phosphatase Total Protein Albumin Urine Color Yellow Urine Appearance Clear Urine pH 5.0 D Ur Specific [place] 1.030 Urine Protein 100 Urine Glucose (UA) 1000 mg/dl Urine Ketones 40 mg/dl Urine Blood Moderate Urine Nitrite Negative Urine Bilirubin Negative Urine Urobilinogen 0.2 Ur Leukocyte Esterase N Urine RBC (Auto) 0-3 U Epithel Cells (Auto) 1-3 Urine Crystals (Auto) Uric acid 4+ Urine Bacteria (Auto) 4+ RPR Titer HIV 1&2 Antibody Screen Negative HIV P24 Antigen Negative 10/01/18 10/01/18 10/01/18 12:49 12:49 12:49 WBC 4.1 RBC 4.74 Hgb 14.2 Hct 41.3 MCV 87.1 MCH 30.0 MCHC 34.4 RDW 13.5 Plt Count 271 D MPV 8.9 D Sodium 132 L Potassium 4.7 Chloride 96 L Carbon Dioxide 25 Anion Gap 10 BUN 15 Creatinine 1.5 H Creat Clearance w eGFR 49.74 POC Glucometer Random Glucose 357 H* Calcium 9.5 Total Bilirubin 0.7 AST 44 H ALT 61 Alkaline Phosphatase 101 Total Protein 7.7 Albumin 4.2 Urine Color Urine Appearance Urine pH Ur Specific [place] Urine Protein Urine Glucose (UA) Urine Ketones Urine Blood Urine Nitrite Urine Bilirubin Urine Urobilinogen Ur Leukocyte Esterase Urine RBC (Auto) U Epithel Cells (Auto) Urine Crystals (Auto) Urine Bacteria (Auto) RPR Titer Nonreactive HIV 1&2 Antibody Screen HIV P24 Antigen 10/01/18 10/01/18 10/02/18 16:27 21:00 06:44 WBC RBC Hgb Hct MCV MCH MCHC RDW Plt Count MPV Sodium Potassium Chloride Carbon Dioxide Anion Gap BUN Creatinine Creat Clearance w eGFR POC Glucometer 235 264 258 Random Glucose Calcium Total Bilirubin AST ALT Alkaline Phosphatase Total Protein Albumin Urine Color Urine Appearance Urine pH Ur Specific [place] Urine Protein Urine Glucose (UA) Urine Ketones Urine Blood Urine Nitrite Urine Bilirubin Urine Urobilinogen Ur Leukocyte Esterase Urine RBC (Auto) U Epithel Cells (Auto) Urine Crystals (Auto) Urine Bacteria (Auto) RPR Titer HIV 1&2 Antibody Screen HIV P24 Antigen 10/02/18 10/02/18 10/02/18 11:18 16:23 22:05 WBC RBC Hgb Hct MCV MCH MCHC RDW Plt Count MPV Sodium Potassium Chloride Carbon Dioxide Anion Gap BUN Creatinine Creat Clearance w eGFR POC Glucometer 401 240 268 Random Glucose Calcium Total Bilirubin AST ALT Alkaline Phosphatase Total Protein Albumin Urine Color Urine Appearance Urine pH Ur Specific [place] Urine Protein Urine Glucose (UA) Urine Ketones Urine Blood Urine Nitrite Urine Bilirubin Urine Urobilinogen Ur Leukocyte Esterase Urine RBC (Auto) U Epithel Cells (Auto) Urine Crystals (Auto) Urine Bacteria (Auto) RPR Titer HIV 1&2 Antibody Screen HIV P24 Antigen 10/03/18 10/03/18 10/03/18 07:39 16:23 22:21 WBC RBC Hgb Hct MCV MCH MCHC RDW Plt Count MPV Sodium Potassium Chloride Carbon Dioxide Anion Gap BUN Creatinine Creat Clearance w eGFR POC Glucometer 380 419 399 Random Glucose Calcium Total Bilirubin AST ALT Alkaline Phosphatase Total Protein Albumin Urine Color Urine Appearance Urine pH Ur Specific [place] Urine Protein Urine Glucose (UA) Urine Ketones Urine Blood Urine Nitrite Urine Bilirubin Urine Urobilinogen Ur Leukocyte Esterase Urine RBC (Auto) U Epithel Cells (Auto) Urine Crystals (Auto) Urine Bacteria (Auto) RPR Titer HIV 1&2 Antibody Screen HIV P24 Antigen 10/04/18 10/04/18 06:38 11:39 WBC RBC Hgb Hct MCV MCH MCHC RDW Plt Count MPV Sodium Potassium Chloride Carbon Dioxide Anion Gap BUN Creatinine Creat Clearance w eGFR POC Glucometer 278 327 Random Glucose Calcium Total Bilirubin AST ALT Alkaline Phosphatase Total Protein Albumin Urine Color Urine Appearance Urine pH Ur Specific [place] Urine Protein Urine Glucose (UA) Urine Ketones Urine Blood Urine Nitrite Urine Bilirubin Urine Urobilinogen Ur Leukocyte Esterase Urine RBC (Auto) U Epithel Cells (Auto) Urine Crystals (Auto) Urine Bacteria (Auto) RPR Titer HIV 1&2 Antibody Screen HIV P24 Antigen LABS NOTED. 10/04/18 13:10 Assessment: 10/04/18 13:09 WITHDRAWAL SYMPTOMS. HYPERTENSION. URI. 10/04/18 13:10 Plan: CONTINUE DETOX. Z-PACK FOR URI. CONTINUE TO MONITOR BP.
[2018-10-04] MEDS ORDERED: AZITHROMYCIN 250 MG TABLET PO ONE (13:30)
--- NOTE | 2018-10-04 13:57 | PN ---
[facility] Progress Note Note: BP @ 1345: RIGHT: 149/97; LEFT: 169/97. START CLONIDINE, 0.1 MG PO BID. CONTINUE TO MONITOR BP. Sruthi [employer]FT[employer]
[2018-10-04] MEDS ORDERED: cloNIDine HCL 0.1 MG TABLET PO ONE (14:15)
[2018-10-04] MEDS: METHOCARBAMOL 500 MG TABLET PO PRN (19:43)
[2018-10-04] MEDS: MAG HYDROX/AL HYDROX/SIMETH 30 ML UNIT-DOSE CUP PO PRN (19:53)
[2018-10-04] MEDS ORDERED: cloNIDine HCL 0.1 MG TABLET PO SCH (22:00)
[2018-10-04] MEDS: QUEtiapine FUMARATE 50 MG TABLET PO SCH (22:21)
[2018-10-04] MEDS: LIDOCAINE PATCH REMOVAL MC SCH (22:21)
[2018-10-04] MEDS: cloNIDine HCL 0.1 MG TABLET PO SCH (22:21)
[2018-10-04] MEDS: INSULIN (LEVEMIR) 100 UNITS/ML UNITS SQ SCH (22:22)
[2018-10-04] MEDS: MELATONIN 5 MG TABLETS PO PRN (22:23)
[2018-10-04] MEDS: THIAMINE HCL 100 MG TABLET (FP) PO SCH (22:25)
[2018-10-05] MEDS: chlordiazePOXIDE HCL 10 MG CAPSULE PO SCH ×2 (06:39→17:23)
[2018-10-05] MEDS: INSULIN (NOVOLOG) ASPART 100 UNITS/ML 10ML VIAL SQ SCH ×4 (06:39→21:25)
[2018-10-05] MEDS: metFORMIN HCL 500 MG TABLET (FP) PO SCH ×2 (06:39→17:23)
[2018-10-05] MEDS ORDERED: INSULIN SLIDING SCALE (NOVOLOG) 1 VIAL SQ ONE ×4 (08:18→21:31)
[2018-10-05] MEDS: LORATADINE 10 MG TABLET PO SCH (10:09)
[2018-10-05] MEDS: cloNIDine HCL 0.1 MG TABLET PO SCH ×2 (10:09→21:25)
[2018-10-05] MEDS: AZITHROMYCIN 250 MG TABLET PO SCH (10:09)
[2018-10-05] MEDS: PRENATAL VITAMINS W/ FOLIC ACID TABLET (FP) PO SCH (10:09)
[2018-10-05] MEDS: LISINOPRIL 20 MG TABLET (FP) PO SCH (10:09)
[2018-10-05] MEDS: LIDOCAINE 5% TOPICAL PATCH TP SCH (10:10)
--- NOTE | 2018-10-05 14:56 | PN ---
[facility] CIWA - CIWA Score Nausea/Vomitin-No Nausea/No Vomiting Muscle Tremors: 1-None Visible, but [place] Anxiety: 1-Mildly Anxious Agitation: 1-Slight > Activity Paroxysmal Sweats: No Perspiration Orientation: 0-Oriented Tacttile Disturbances: 0-None Auditory Disturbances: 0-None Visual Disturbances: 0-None Headache: 1-Very Mild CIWA-Ar Total Score: 4 S Progress Note (SOAP) Subjective: patient reported that he has been coughing for months no treatment no fever no shortness of breath patient is been scheduled to be discharged from alcohol detox unit encourage chest x ray clear lung bilaterally Objective: 10/05/18 15:00 Vital Signs Temperature 97.0 F L 10/05/18 09:35 Pulse Rate 94 H 10/05/18 09:35 Respiratory Rate 18 10/05/18 09:35 Blood Pressure 147/93 10/05/18 09:35 O2 Sat by Pulse Oximetry (%) Laboratory Last Values WBC 4.1 K/mm3 (4.0-10.0) 10/01/18 12:49 RBC 4.74 M/mm3 (4.00-5.60) 10/01/18 12:49 Hgb 14.2 GM/dL (11.7-16.9) 10/01/18 12:49 Hct 41.3 % (35.4-49) 10/01/18 12:49 MCV 87.1 fl (80-96) 10/01/18 12:49 MCH 30.0 pg (25.7-33.7) 10/01/18 12:49 MCHC 34.4 g/dl (32.0-35.9) 10/01/18 12:49 RDW 13.5 % (11.9-15.9) 10/01/18 12:49 Plt Count 271 K/MM3 (134-434) D 10/01/18 12:49 MPV 8.9 fl (7.5-11.1) D 10/01/18 12:49 Sodium 132 mmol/L (136-145) L 10/01/18 12:49 Potassium 4.7 mmol/L (3.5-5.1) 10/01/18 12:49 Chloride 96 mmol/L (98-107) L 10/01/18 12:49 Carbon Dioxide 25 mmol/L (21-32) 10/01/18 12:49 Anion Gap 10 MMOL/L (8-16) 10/01/18 12:49 BUN 15 mg/dL (7-18) 10/01/18 12:49 Creatinine 1.5 mg/dL (0.55-1.3) H 10/01/18 12:49 Creat Clearance w eGFR 49.74 (>60) 10/01/18 12:49 POC Glucometer 312 UNITS (80-120) 10/05/18 06:30 Random Glucose 357 mg/dL (74-106) H* 10/01/18 12:49 Calcium 9.5 mg/dL (8.5-10.1) 10/01/18 12:49 Total Bilirubin 0.7 mg/dL (0.2-1) 10/01/18 12:49 AST 44 U/L (15-37) H 10/01/18 12:49 ALT 61 U/L (13-61) 10/01/18 12:49 Alkaline Phosphatase 101 U/L (45-117) 10/01/18 12:49 Total Protein 7.7 g/dl (6.4-8.2) 10/01/18 12:49 Albumin 4.2 g/dl (3.4-5.0) 10/01/18 12:49 Urine Color Yellow 10/01/18 12:40 Urine Appearance Clear 10/01/18 12:40 Urine pH 5.0 (5.0-8.0) D 10/01/18 12:40 Ur Specific [place] 1.030 (1.010-1.035) 10/01/18 12:40 Urine Protein 100 (NEGATIVE) 10/01/18 12:40 Urine Glucose (UA) 1000 mg/dl (NEGATIVE) 10/01/18 12:40 Urine Ketones 40 mg/dl (NEGATIVE) 10/01/18 12:40 Urine Blood Moderate (NEGATIVE) 10/01/18 12:40 Urine Nitrite Negative (NEGATIVE) 10/01/18 12:40 Urine Bilirubin Negative (NEGATIVE) 10/01/18 12:40 Urine Urobilinogen 0.2 mg/dL (0.2-1.0) 10/01/18 12:40 Ur Leukocyte Esterase N (NEGATIVE) 10/01/18 12:40 Urine RBC (Auto) 0-3 /hpf (0-4) 10/01/18 12:40 U Epithel Cells (Auto) 1-3 /HPF (0-5/HPF) 10/01/18 12:40 Urine Crystals (Auto) Uric acid 4+ /hpf 10/01/18 12:40 Urine Bacteria (Auto) 4+ /hpf (NEGATIVE) 10/01/18 12:40 RPR Titer Nonreactive (NONREACTIVE) 10/01/18 12:49 HIV 1&2 Antibody Screen Negative 10/01/18 10:20 HIV P24 Antigen Negative 10/01/18 10:20 lab noted Assessment: 10/05/18 15:00 withdrawal sx Plan: continue detox
[2018-10-05] MEDS: THIAMINE HCL 100 MG TABLET (FP) PO SCH (21:24)
[2018-10-05] MEDS: INSULIN (LEVEMIR) 100 UNITS/ML UNITS SQ SCH (21:25)
[2018-10-05] MEDS: QUEtiapine FUMARATE 50 MG TABLET PO SCH (21:25)
[2018-10-05] MEDS: MELATONIN 5 MG TABLETS PO PRN (21:26)
[2018-10-05] MEDS: LIDOCAINE PATCH REMOVAL MC SCH (21:26)
[2018-10-06] MEDS: metFORMIN HCL 500 MG TABLET (FP) PO SCH ×2 (07:09→16:40)
[2018-10-06] MEDS: INSULIN (NOVOLOG) ASPART 100 UNITS/ML 10ML VIAL SQ SCH ×4 (07:09→21:38)
[2018-10-06] MEDS ORDERED: INSULIN SLIDING SCALE (NOVOLOG) 1 VIAL SQ ONE ×2 (07:10→11:32)
[2018-10-06] MEDS: LORATADINE 10 MG TABLET PO SCH (10:12)
[2018-10-06] MEDS: cloNIDine HCL 0.1 MG TABLET PO SCH ×2 (10:12→21:35)
[2018-10-06] MEDS: AZITHROMYCIN 250 MG TABLET PO SCH (10:12)
[2018-10-06] MEDS: LISINOPRIL 20 MG TABLET (FP) PO SCH (10:12)
[2018-10-06] MEDS: PRENATAL VITAMINS W/ FOLIC ACID TABLET (FP) PO SCH (10:12)
[2018-10-06] MEDS: LIDOCAINE 5% TOPICAL PATCH TP SCH (10:13)
--- NOTE | 2018-10-06 12:02 | HP ---
[facility] Rehab Assess/Revision - Admission History Admitted to Rehab from: [facility] Date of Admission to Rehab: 10/06/18 - Vital signs Vital Signs: Vital Signs Period Temp Pulse Resp BP Sys/Gonzalez Pulse Ox Last 24 Hr 97.4 F-98.7 F 88-98 18-20 125-150/78-99 - Findings Detox History & Physical reviewed: Yes Concur with findings: Yes Comments/Additional Findings: transferred from detox to rehab admission as per protocol Inpatient Rehab Admission - Rehab Decision to Admit Inpatient rehab admission?: Yes - Initial Determination Are CD services needed?: Yes Free of communicable disease: Yes Not in need of hospitalization: Yes - Rehab Admission Criteria Previous failed treatment: Yes Poor recovery environment: Yes Comorbidities: Yes Lacks judgement: No Patient is meeting Inpatient Rehab admission criteria:: Yes
[2018-10-06] MEDS ORDERED: INSULIN (NOVOLOG) ASPART 100 UNITS/ML 10ML VIAL ONE ×2 (16:41→22:21)
[2018-10-06] MEDS: MELATONIN 5 MG TABLETS PO PRN (21:36)
[2018-10-06] MEDS: QUEtiapine FUMARATE 50 MG TABLET PO SCH (21:36)
[2018-10-06] MEDS: THIAMINE HCL 100 MG TABLET (FP) PO SCH (21:36)
[2018-10-06] MEDS: INSULIN (LEVEMIR) 100 UNITS/ML UNITS SQ SCH (21:37)
[2018-10-06] MEDS: LIDOCAINE PATCH REMOVAL MC SCH (21:39)
[2018-10-07] MEDS: metFORMIN HCL 500 MG TABLET (FP) PO SCH ×2 (06:31→16:32)
[2018-10-07] MEDS: INSULIN (NOVOLOG) ASPART 100 UNITS/ML 10ML VIAL SQ SCH ×4 (06:32→21:37)
[2018-10-07] MEDS ORDERED: INSULIN (NOVOLOG) ASPART 100 UNITS/ML 10ML VIAL ONE ×4 (07:41→20:25)
[2018-10-07] MEDS: cloNIDine HCL 0.1 MG TABLET PO SCH ×2 (10:20→21:36)
[2018-10-07] MEDS: LORATADINE 10 MG TABLET PO SCH (10:21)
[2018-10-07] MEDS: LISINOPRIL 20 MG TABLET (FP) PO SCH (10:21)
[2018-10-07] MEDS: LIDOCAINE 5% TOPICAL PATCH TP SCH (10:21)
[2018-10-07] MEDS: PRENATAL VITAMINS W/ FOLIC ACID TABLET (FP) PO SCH (10:21)
[2018-10-07] MEDS: AZITHROMYCIN 250 MG TABLET PO SCH (11:06)
[2018-10-07] MEDS: THIAMINE HCL 100 MG TABLET (FP) PO SCH (21:36)
[2018-10-07] MEDS: INSULIN (LEVEMIR) 100 UNITS/ML UNITS SQ SCH (21:36)
[2018-10-07] MEDS: QUEtiapine FUMARATE 50 MG TABLET PO SCH (21:36)
[2018-10-07] MEDS: MELATONIN 5 MG TABLETS PO PRN (21:37)
[2018-10-07] MEDS: LIDOCAINE PATCH REMOVAL MC SCH (21:37)
[2018-10-08] MEDS: ACETAMINOPHEN 325 MG TABLET (FP) PO PRN ×3 (06:36→21:48)
[2018-10-08] MEDS: metFORMIN HCL 500 MG TABLET (FP) PO SCH ×2 (06:39→16:44)
[2018-10-08] MEDS: INSULIN (NOVOLOG) ASPART 100 UNITS/ML 10ML VIAL SQ SCH ×4 (06:39→21:52)
[2018-10-08] MEDS: AZITHROMYCIN 250 MG TABLET PO SCH (10:31)
[2018-10-08] MEDS: LIDOCAINE 5% TOPICAL PATCH TP SCH (10:31)
[2018-10-08] MEDS: LORATADINE 10 MG TABLET PO SCH (10:32)
[2018-10-08] MEDS: PRENATAL VITAMINS W/ FOLIC ACID TABLET (FP) PO SCH (10:32)
[2018-10-08] MEDS: LISINOPRIL 20 MG TABLET (FP) PO SCH (10:33)
[2018-10-08] MEDS: cloNIDine HCL 0.1 MG TABLET PO SCH ×2 (10:33→21:55)
[2018-10-08] MEDS ORDERED: INSULIN (NOVOLOG) ASPART 100 UNITS/ML 10ML VIAL ONE ×3 (11:59→20:22)
[2018-10-08] MEDS: MELATONIN 5 MG TABLETS PO PRN (21:47)
[2018-10-08] MEDS: LIDOCAINE PATCH REMOVAL MC SCH (21:49)
[2018-10-08] MEDS: INSULIN (LEVEMIR) 100 UNITS/ML UNITS SQ SCH (21:51)
[2018-10-08] MEDS: THIAMINE HCL 100 MG TABLET (FP) PO SCH (21:53)
[2018-10-08] MEDS: QUEtiapine FUMARATE 50 MG TABLET PO SCH (21:54)
[2018-10-09] MEDS: metFORMIN HCL 500 MG TABLET (FP) PO SCH ×2 (06:29→16:37)
[2018-10-09] MEDS: ACETAMINOPHEN 325 MG TABLET (FP) PO PRN (06:30)
[2018-10-09] MEDS: INSULIN (NOVOLOG) ASPART 100 UNITS/ML 10ML VIAL SQ SCH ×4 (06:42→21:30)
[2018-10-09] MEDS: cloNIDine HCL 0.1 MG TABLET PO SCH (10:25)
[2018-10-09] MEDS: PRENATAL VITAMINS W/ FOLIC ACID TABLET (FP) PO SCH (10:25)
[2018-10-09] MEDS: LORATADINE 10 MG TABLET PO SCH (10:25)
[2018-10-09] MEDS: LISINOPRIL 20 MG TABLET (FP) PO SCH (10:26)
[2018-10-09] MEDS: LIDOCAINE 5% TOPICAL PATCH TP SCH (10:26)
[2018-10-09] MEDS ORDERED: cloNIDine HCL 0.1 MG TABLET PO PRN (11:57)
[2018-10-09] MEDS ORDERED: INSULIN (NOVOLOG) ASPART 100 UNITS/ML 10ML VIAL ONE ×3 (12:12→20:30)
[2018-10-09] MEDS: MAG HYDROX/AL HYDROX/SIMETH 30 ML UNIT-DOSE CUP PO PRN (19:12)
[2018-10-09] MEDS: LIDOCAINE PATCH REMOVAL MC SCH (21:28)
[2018-10-09] MEDS: INSULIN (LEVEMIR) 100 UNITS/ML UNITS SQ SCH (21:29)
[2018-10-09] MEDS: THIAMINE HCL 100 MG TABLET (FP) PO SCH (21:32)
[2018-10-09] MEDS: QUEtiapine FUMARATE 50 MG TABLET PO SCH (21:32)
[2018-10-09] MEDS: MELATONIN 5 MG TABLETS PO PRN (21:32)
[2018-10-10] MEDS: ACETAMINOPHEN 325 MG TABLET (FP) PO PRN (06:25)
[2018-10-10] MEDS: metFORMIN HCL 500 MG TABLET (FP) PO SCH ×2 (07:12→16:31)
[2018-10-10] MEDS: INSULIN (NOVOLOG) ASPART 100 UNITS/ML 10ML VIAL SQ SCH ×4 (07:14→21:21)
[2018-10-10] MEDS: LIDOCAINE 5% TOPICAL PATCH TP SCH (10:16)
[2018-10-10] MEDS: PRENATAL VITAMINS W/ FOLIC ACID TABLET (FP) PO SCH (10:16)
[2018-10-10] MEDS: LORATADINE 10 MG TABLET PO SCH (10:16)
[2018-10-10] MEDS: LISINOPRIL 20 MG TABLET (FP) PO SCH (10:16)
[2018-10-10] MEDS ORDERED: COLLOIDAL OATMEAL 1 BAR EACH TP PRN (11:13)
[2018-10-10] MEDS ORDERED: INSULIN (NOVOLOG) ASPART 100 UNITS/ML 10ML VIAL ONE ×3 (11:55→20:06)
--- NOTE | 2018-10-10 14:56 | PN ---
S Progress Note Note: Vital Signs Temperature 98.0 F 10/10/18 06:42 Pulse Rate 96 H 10/10/18 10:00 Respiratory Rate 20 10/10/18 06:42 Blood Pressure 151/98 10/10/18 10:00 O2 Sat by Pulse Oximetry (%) c/o of insomnia melation 5 mg not effective request increase one time dose 10 mg melatonin ordered for tonight continue to monitor
--- NOTE | 2018-10-10 17:54 | CONSULT ---
[facility] Psychiatric Consult - Data Date of interview: 10/10/18 Admission source: [facility] Identifying data: Patient is a 48 year old single male, father of one, unemployed, homeless, and is not receiving financial assistance but has pending SSI. This is one of multiple admissions to rehab at [facility]. Patient admitted to for alcohol and cocaine dependence. Substance Abuse History: - Smoking Cessation. Smoking history: Current every day smoker. Have you smoked in the past 12 months: Yes. Aproximately how many cigarettes per day: 20. Cigars Per Day: 0. Hx Chewing Tobacco Use: No. Initiated information on smoking cessation: Yes. 'Breaking Loose' booklet given : 10/01/18. - Substance & Tx. History. Hx Alcohol Use: Yes. Hx Substance Use : Yes. Substance Use Type: Alcohol, Cocaine. Hx Substance Use Treatment: Yes ( [facility] rehab 08/29/17 to 09/13/17). - Substances abused. Alcohol. Substance route: Oral. Frequency: Daily. Amount used: 1 beer (24 bottles - 16 oz), 3 pt. vodka. Age of first use: 32. Date of last use: 09/30/18. Cocaine. Substance route: Smoking. Frequency: Daily. Amount used: $150. Age of first use: 32. Date of last use: 09/30/18 Medical History: Significant for GERD, Diabetes, Seizures (r/t withdrawals in ), ankle surgery in 2003. Psychiatric History: Patient denies h/o psychiatric hospitalization, outpatient care, and suicide attempt. Physical/Sexual Abuse/Trauma History: denies. Mental Status Exam - Mental Status Exam Alert and Oriented to: Time, Place, Person Cognitive Function: Good Patient Appearance: Well Groomed Mood: Euthymic Affect: Appropriate Patient Behavior: Cooperative Speech Pattern: Appropriate Voice Loudness: Normal Thought Process: Goal Oriented Thought Disorder: Not Present Hallucinations: Denies Suicidal Ideation: Denies Homicidal Ideation: Denies Insight/Judgement: Poor Sleep: Poorly Appetite: Fair Muscle strength/Tone: Normal Gait/Station: Normal Psychiatric Findings - Problem List ([place] 1, 2,3) (1) Alcohol dependence Current Visit: Yes Status: Acute (2) Cocaine dependence Current Visit: Yes Status: Acute (3) Substance-induced sleep disorder Current Visit: Yes Status: Acute - Initial Treatment Plan Initial Treatment Plan: Psychoeducation provided. Rehab in progress. Will d/c Melatonin 5mg and order Melatonin 10mg and Belsomra 10mg PRN HS. Will d/c seroquel 50mg as he reports the medication is causing him to have nightmares. Trazodone offered but patient refused because it causes him to have "dry mouth in the morning". Benefits and side effects discussed. Verbal consent given.
[2018-10-10] MEDS: THIAMINE HCL 100 MG TABLET (FP) PO SCH (21:21)
[2018-10-10] MEDS: SUVOREXANT 10 MG TABLET PO PRN (21:21)
[2018-10-10] MEDS: MELATONIN 5 MG TABLETS PO PRN (21:21)
[2018-10-10] MEDS: MAG HYDROX/AL HYDROX/SIMETH 30 ML UNIT-DOSE CUP PO PRN (21:22)
[2018-10-10] MEDS: INSULIN (LEVEMIR) 100 UNITS/ML UNITS SQ SCH (21:22)
[2018-10-10] MEDS: LIDOCAINE PATCH REMOVAL MC SCH (21:23)
[2018-10-10] MEDS ORDERED: MELATONIN 5 MG TABLETS PO ONE (22:00)
[2018-10-11] MEDS: metFORMIN HCL 500 MG TABLET (FP) PO SCH ×2 (06:29→16:56)
[2018-10-11] MEDS: INSULIN (NOVOLOG) ASPART 100 UNITS/ML 10ML VIAL SQ SCH ×4 (06:55→21:02)
[2018-10-11] MEDS: LIDOCAINE 5% TOPICAL PATCH TP SCH (10:11)
[2018-10-11] MEDS: LORATADINE 10 MG TABLET PO SCH (10:11)
[2018-10-11] MEDS: PRENATAL VITAMINS W/ FOLIC ACID TABLET (FP) PO SCH (10:11)
[2018-10-11] MEDS: LISINOPRIL 20 MG TABLET (FP) PO SCH (10:11)
[2018-10-11] MEDS ORDERED: INSULIN (NOVOLOG) ASPART 100 UNITS/ML 10ML VIAL ONE ×3 (11:52→22:21)
[2018-10-11] MEDS: MAG HYDROX/AL HYDROX/SIMETH 30 ML UNIT-DOSE CUP PO PRN (20:55)
[2018-10-11] MEDS: SUVOREXANT 10 MG TABLET PO PRN (21:01)
[2018-10-11] MEDS: THIAMINE HCL 100 MG TABLET (FP) PO SCH (21:01)
[2018-10-11] MEDS: INSULIN (LEVEMIR) 100 UNITS/ML UNITS SQ SCH (21:02)
[2018-10-11] MEDS: LIDOCAINE PATCH REMOVAL MC SCH (21:02)
[2018-10-12] MEDS: metFORMIN HCL 500 MG TABLET (FP) PO SCH ×2 (06:26→17:06)
[2018-10-12] MEDS: INSULIN (NOVOLOG) ASPART 100 UNITS/ML 10ML VIAL SQ SCH ×4 (07:14→21:55)
[2018-10-12] MEDS: LIDOCAINE 5% TOPICAL PATCH TP SCH (10:21)
[2018-10-12] MEDS: LISINOPRIL 20 MG TABLET (FP) PO SCH (10:21)
[2018-10-12] MEDS: LORATADINE 10 MG TABLET PO SCH (10:21)
[2018-10-12] MEDS: PRENATAL VITAMINS W/ FOLIC ACID TABLET (FP) PO SCH (10:22)
[2018-10-12] MEDS ORDERED: INSULIN (NOVOLOG) ASPART 100 UNITS/ML 10ML VIAL ONE ×3 (11:52→21:50)
[2018-10-12] MEDS: LIDOCAINE PATCH REMOVAL MC SCH (21:44)
[2018-10-12] MEDS: THIAMINE HCL 100 MG TABLET (FP) PO SCH (21:47)
[2018-10-12] MEDS: SUVOREXANT 10 MG TABLET PO PRN (21:52)
[2018-10-12] MEDS: MELATONIN 5 MG TABLETS PO PRN (21:52)
[2018-10-12] MEDS: INSULIN (LEVEMIR) 100 UNITS/ML UNITS SQ SCH (21:54)
[2018-10-13] MEDS: metFORMIN HCL 500 MG TABLET (FP) PO SCH ×2 (06:20→16:39)
[2018-10-13] MEDS: INSULIN (NOVOLOG) ASPART 100 UNITS/ML 10ML VIAL SQ SCH ×4 (08:24→21:27)
[2018-10-13] MEDS: PRENATAL VITAMINS W/ FOLIC ACID TABLET (FP) PO SCH (10:47)
[2018-10-13] MEDS: LORATADINE 10 MG TABLET PO SCH (10:47)
[2018-10-13] MEDS: LIDOCAINE 5% TOPICAL PATCH TP SCH (10:47)
[2018-10-13] MEDS: LISINOPRIL 20 MG TABLET (FP) PO SCH (10:48)
[2018-10-13] MEDS ORDERED: INSULIN (NOVOLOG) ASPART 100 UNITS/ML 10ML VIAL ONE ×3 (11:57→20:22)
--- NOTE | 2018-10-13 19:01 | PN ---
S Progress Note Note: Vital Signs Temperature 97.7 F 10/13/18 06:38 Pulse Rate 82 10/13/18 06:38 Respiratory Rate 20 10/13/18 06:38 Blood Pressure 151/91 10/13/18 06:38 O2 Sat by Pulse Oximetry (%) c/o of constipation x 2 days reports to RN does not want MOM wants Colace Colace 300 HS increase PO fluids ambulate continue to monitor
[2018-10-13] MEDS: SUVOREXANT 10 MG TABLET PO PRN (21:26)
[2018-10-13] MEDS: DOCUSATE SODIUM 100 MG CAPSULE (FP) PO SCH (21:26)
[2018-10-13] MEDS: THIAMINE HCL 100 MG TABLET (FP) PO SCH (21:26)
[2018-10-13] MEDS: INSULIN (LEVEMIR) 100 UNITS/ML UNITS SQ SCH (21:27)
[2018-10-13] MEDS: LIDOCAINE PATCH REMOVAL MC SCH (21:28)
[2018-10-14] MEDS ORDERED: INSULIN (NOVOLOG) ASPART 100 UNITS/ML 10ML VIAL ONE ×4 (06:13→20:18)
[2018-10-14] MEDS: metFORMIN HCL 500 MG TABLET (FP) PO SCH ×2 (06:13→16:48)
[2018-10-14] MEDS: INSULIN (NOVOLOG) ASPART 100 UNITS/ML 10ML VIAL SQ SCH ×4 (07:05→21:21)
[2018-10-14] MEDS: LISINOPRIL 20 MG TABLET (FP) PO SCH (10:36)
[2018-10-14] MEDS: PRENATAL VITAMINS W/ FOLIC ACID TABLET (FP) PO SCH (10:36)
[2018-10-14] MEDS: LIDOCAINE 5% TOPICAL PATCH TP SCH (10:36)
[2018-10-14] MEDS: LORATADINE 10 MG TABLET PO SCH (10:36)
--- NOTE | 2018-10-14 13:04 | PN ---
[facility] Progress Note Note: Psychiatric nurse practitioner note: Belsomra 10mg prn renewed X3 days. Verbal consent given.
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
[2018-10-14] MEDS ORDERED: CYCLOBENZAPRINE HCL 10 MG TABLET (FP) PO ONE (15:30)
[2018-10-14] MEDS: SUVOREXANT 10 MG TABLET PO PRN (21:21)
[2018-10-14] MEDS: DOCUSATE SODIUM 100 MG CAPSULE (FP) PO SCH (21:21)
[2018-10-14] MEDS: THIAMINE HCL 100 MG TABLET (FP) PO SCH (21:21)
[2018-10-14] MEDS: CYCLOBENZAPRINE HCL 10 MG TABLET (FP) PO SCH (21:21)
[2018-10-14] MEDS: INSULIN (LEVEMIR) 100 UNITS/ML UNITS SQ SCH (21:22)
[2018-10-14] MEDS: MELATONIN 5 MG TABLETS PO PRN (21:23)
[2018-10-14] MEDS: LIDOCAINE PATCH REMOVAL MC SCH (21:24)
[2018-10-15] MEDS: CYCLOBENZAPRINE HCL 10 MG TABLET (FP) PO SCH ×3 (06:15→21:16)
[2018-10-15] MEDS: metFORMIN HCL 500 MG TABLET (FP) PO SCH ×2 (06:16→16:42)
[2018-10-15] MEDS ORDERED: INSULIN (NOVOLOG) ASPART 100 UNITS/ML 10ML VIAL ONE ×4 (07:19→20:21)
[2018-10-15] MEDS: INSULIN (NOVOLOG) ASPART 100 UNITS/ML 10ML VIAL SQ SCH ×4 (07:32→21:17)
[2018-10-15] MEDS: LORATADINE 10 MG TABLET PO SCH (09:36)
[2018-10-15] MEDS: LIDOCAINE 5% TOPICAL PATCH TP SCH (09:36)
[2018-10-15] MEDS: PRENATAL VITAMINS W/ FOLIC ACID TABLET (FP) PO SCH (09:36)
[2018-10-15] MEDS: LISINOPRIL 20 MG TABLET (FP) PO SCH (09:37)
[2018-10-15] MEDS: THIAMINE HCL 100 MG TABLET (FP) PO SCH (21:16)
[2018-10-15] MEDS: DOCUSATE SODIUM 100 MG CAPSULE (FP) PO SCH (21:16)
[2018-10-15] MEDS: INSULIN (LEVEMIR) 100 UNITS/ML UNITS SQ SCH (21:16)
[2018-10-15] MEDS: SUVOREXANT 10 MG TABLET PO PRN (21:16)
[2018-10-15] MEDS: LIDOCAINE PATCH REMOVAL MC SCH (21:19)
[2018-10-15] MEDS: MELATONIN 5 MG TABLETS PO PRN (21:19)
[2018-10-16] MEDS: metFORMIN HCL 500 MG TABLET (FP) PO SCH ×2 (06:14→16:44)
[2018-10-16] MEDS: CYCLOBENZAPRINE HCL 10 MG TABLET (FP) PO SCH ×3 (06:14→21:19)
[2018-10-16] MEDS: INSULIN (NOVOLOG) ASPART 100 UNITS/ML 10ML VIAL SQ SCH ×5 (06:33→21:23)
[2018-10-16] MEDS: LIDOCAINE 5% TOPICAL PATCH TP SCH (09:58)
[2018-10-16] MEDS: LISINOPRIL 20 MG TABLET (FP) PO SCH (09:58)
[2018-10-16] MEDS: LORATADINE 10 MG TABLET PO SCH (09:58)
[2018-10-16] MEDS: PRENATAL VITAMINS W/ FOLIC ACID TABLET (FP) PO SCH (09:58)
[2018-10-16] MEDS ORDERED: INSULIN (NOVOLOG) ASPART 100 UNITS/ML 10ML VIAL ONE ×3 (11:59→20:35)
[2018-10-16] MEDS: DOCUSATE SODIUM 100 MG CAPSULE (FP) PO SCH (21:19)
[2018-10-16] MEDS: THIAMINE HCL 100 MG TABLET (FP) PO SCH (21:19)
[2018-10-16] MEDS: SUVOREXANT 10 MG TABLET PO PRN (21:20)
[2018-10-16] MEDS: MELATONIN 5 MG TABLETS PO PRN (21:20)
[2018-10-16] MEDS: LIDOCAINE PATCH REMOVAL MC SCH (21:20)
[2018-10-16] MEDS: MAG HYDROX/AL HYDROX/SIMETH 30 ML UNIT-DOSE CUP PO PRN (21:20)
[2018-10-16] MEDS: INSULIN (LEVEMIR) 100 UNITS/ML UNITS SQ SCH (21:25)
[2018-10-17] MEDS: CYCLOBENZAPRINE HCL 10 MG TABLET (FP) PO SCH ×3 (06:13→21:07)
[2018-10-17] MEDS: metFORMIN HCL 500 MG TABLET (FP) PO SCH ×2 (06:20→17:01)
[2018-10-17] MEDS ORDERED: INSULIN (NOVOLOG) ASPART 100 UNITS/ML 10ML VIAL ONE ×4 (06:51→21:04)
[2018-10-17] MEDS: INSULIN (NOVOLOG) ASPART 100 UNITS/ML 10ML VIAL SQ SCH ×4 (07:26→21:04)
[2018-10-17] MEDS: PRENATAL VITAMINS W/ FOLIC ACID TABLET (FP) PO SCH (09:40)
[2018-10-17] MEDS: LORATADINE 10 MG TABLET PO SCH (09:40)
[2018-10-17] MEDS: LIDOCAINE 5% TOPICAL PATCH TP SCH (09:41)
[2018-10-17] MEDS: LISINOPRIL 20 MG TABLET (FP) PO SCH (09:41)
[2018-10-17] MEDS: INSULIN (LEVEMIR) 100 UNITS/ML UNITS SQ SCH (21:04)
[2018-10-17] MEDS: DOCUSATE SODIUM 100 MG CAPSULE (FP) PO SCH (21:06)
[2018-10-17] MEDS: SUVOREXANT 10 MG TABLET PO PRN (21:07)
[2018-10-17] MEDS: THIAMINE HCL 100 MG TABLET (FP) PO SCH (21:07)
[2018-10-17] MEDS: MELATONIN 5 MG TABLETS PO PRN (21:07)
[2018-10-17] MEDS: LIDOCAINE PATCH REMOVAL MC SCH (21:08)
[2018-10-18] MEDS: CYCLOBENZAPRINE HCL 10 MG TABLET (FP) PO SCH ×3 (06:09→21:16)
[2018-10-18] MEDS: metFORMIN HCL 500 MG TABLET (FP) PO SCH ×2 (06:12→16:47)
[2018-10-18] MEDS: INSULIN (NOVOLOG) ASPART 100 UNITS/ML 10ML VIAL SQ SCH ×4 (06:13→21:19)
[2018-10-18] MEDS: LIDOCAINE 5% TOPICAL PATCH TP SCH (10:02)
[2018-10-18] MEDS: LORATADINE 10 MG TABLET PO SCH (10:02)
[2018-10-18] MEDS: PRENATAL VITAMINS W/ FOLIC ACID TABLET (FP) PO SCH (10:02)
[2018-10-18] MEDS: LISINOPRIL 20 MG TABLET (FP) PO SCH (10:02)
[2018-10-18] MEDS ORDERED: INSULIN (NOVOLOG) ASPART 100 UNITS/ML 10ML VIAL ONE ×3 (12:04→20:23)
[2018-10-18] MEDS ORDERED: COLLOIDAL OATMEAL 1 BAR EACH TP PRN (13:21)
[2018-10-18] MEDS: DOCUSATE SODIUM 100 MG CAPSULE (FP) PO SCH (21:16)
[2018-10-18] MEDS: INSULIN (LEVEMIR) 100 UNITS/ML UNITS SQ SCH (21:16)
[2018-10-18] MEDS: THIAMINE HCL 100 MG TABLET (FP) PO SCH (21:16)
[2018-10-18] MEDS: MELATONIN 5 MG TABLETS PO PRN (21:17)
[2018-10-18] MEDS ORDERED: SUVOREXANT 10 MG TABLET PO ONE (22:00)
[2018-10-18] MEDS: LIDOCAINE PATCH REMOVAL MC SCH ×2 (23:02→23:03)
[2018-10-19] MEDS: metFORMIN HCL 500 MG TABLET (FP) PO SCH ×2 (06:24→16:32)
[2018-10-19] MEDS: CYCLOBENZAPRINE HCL 10 MG TABLET (FP) PO SCH ×3 (06:24→21:15)
[2018-10-19] MEDS ORDERED: INSULIN (NOVOLOG) ASPART 100 UNITS/ML 10ML VIAL ONE ×4 (06:56→20:20)
[2018-10-19] MEDS: INSULIN (NOVOLOG) ASPART 100 UNITS/ML 10ML VIAL SQ SCH ×4 (07:00→21:19)
[2018-10-19] MEDS: LORATADINE 10 MG TABLET PO SCH (10:03)
[2018-10-19] MEDS: LIDOCAINE 5% TOPICAL PATCH TP SCH (10:03)
[2018-10-19] MEDS: PRENATAL VITAMINS W/ FOLIC ACID TABLET (FP) PO SCH (10:03)
[2018-10-19] MEDS: LISINOPRIL 20 MG TABLET (FP) PO SCH (10:03)
--- NOTE | 2018-10-19 21:14 | PN ---
[facility] Progress Note Note: Psychiatry Attending's on-call note : Called to enter renewal order for belsomra. Chart reviewed. Medication is verified. Notes from lead ramp agent Radha : appreciated. No report of adverse effects. Consent was secured. Belsomra 10 mg po hs prn. Resumed on request.
[2018-10-19] MEDS: THIAMINE HCL 100 MG TABLET (FP) PO SCH (21:15)
[2018-10-19] MEDS: DOCUSATE SODIUM 100 MG CAPSULE (FP) PO SCH (21:16)
[2018-10-19] MEDS: INSULIN (LEVEMIR) 100 UNITS/ML UNITS SQ SCH (21:16)
[2018-10-19] MEDS: SUVOREXANT 10 MG TABLET PO PRN (21:17)
[2018-10-19] MEDS: LIDOCAINE PATCH REMOVAL MC SCH (21:20)
[2018-10-20] MEDS ORDERED: INSULIN (NOVOLOG) ASPART 100 UNITS/ML 10ML VIAL ONE ×3 (06:15→22:23)
[2018-10-20] MEDS: metFORMIN HCL 500 MG TABLET (FP) PO SCH ×2 (06:16→16:35)
[2018-10-20] MEDS: CYCLOBENZAPRINE HCL 10 MG TABLET (FP) PO SCH ×3 (06:16→21:32)
[2018-10-20] MEDS: INSULIN (NOVOLOG) ASPART 100 UNITS/ML 10ML VIAL SQ SCH ×4 (06:17→21:38)
[2018-10-20] MEDS: LORATADINE 10 MG TABLET PO SCH (09:57)
[2018-10-20] MEDS: LIDOCAINE 5% TOPICAL PATCH TP SCH (09:57)
[2018-10-20] MEDS: LISINOPRIL 20 MG TABLET (FP) PO SCH (09:57)
[2018-10-20] MEDS: PRENATAL VITAMINS W/ FOLIC ACID TABLET (FP) PO SCH (09:57)
[2018-10-20] MEDS: DOCUSATE SODIUM 100 MG CAPSULE (FP) PO SCH (21:32)
[2018-10-20] MEDS: THIAMINE HCL 100 MG TABLET (FP) PO SCH (21:33)
[2018-10-20] MEDS: SUVOREXANT 10 MG TABLET PO PRN (21:34)
[2018-10-20] MEDS: MELATONIN 5 MG TABLETS PO PRN (21:35)
[2018-10-20] MEDS: INSULIN (LEVEMIR) 100 UNITS/ML UNITS SQ SCH (21:36)
[2018-10-20] MEDS: LIDOCAINE PATCH REMOVAL MC SCH (21:38)
[2018-10-20] MEDS: MAG HYDROX/AL HYDROX/SIMETH 30 ML UNIT-DOSE CUP PO PRN (21:45)
[2018-10-21] MEDS: CYCLOBENZAPRINE HCL 10 MG TABLET (FP) PO SCH ×3 (06:25→21:34)
[2018-10-21] MEDS: metFORMIN HCL 500 MG TABLET (FP) PO SCH ×2 (06:29→16:52)
[2018-10-21] MEDS ORDERED: INSULIN (NOVOLOG) ASPART 100 UNITS/ML 10ML VIAL ONE ×4 (06:57→21:33)
[2018-10-21] MEDS: INSULIN (NOVOLOG) ASPART 100 UNITS/ML 10ML VIAL SQ SCH ×4 (07:09→21:34)
[2018-10-21] MEDS: PRENATAL VITAMINS W/ FOLIC ACID TABLET (FP) PO SCH (10:02)
[2018-10-21] MEDS: LORATADINE 10 MG TABLET PO SCH (10:02)
[2018-10-21] MEDS: LIDOCAINE 5% TOPICAL PATCH TP SCH (10:02)
[2018-10-21] MEDS: LISINOPRIL 20 MG TABLET (FP) PO SCH (10:02)
[2018-10-21] MEDS: MAG HYDROX/AL HYDROX/SIMETH 30 ML UNIT-DOSE CUP PO PRN ×2 (13:04→22:12)
--- NOTE | 2018-10-21 18:14 | PN ---
[facility] Progress Note Note: nurse Ricarda Caballero called to report BGM 410 mg/dl and 12 units novolog insulin was given. Vital Signs - 24 hr 10/21/18 10/21/18 10/21/18 00:30 03:30 06:50 Temperature 97.9 F Pulse Rate 97 H Respiratory 18 18 20 Rate Blood Pressure 149/88 10/21/18 10:00 Temperature Pulse Rate 103 H Respiratory Rate Blood Pressure 142/90 Laboratory Tests 10/01/18 10/01/18 10/01/18 10:20 10:59 12:40 WBC RBC Hgb Hct MCV MCH MCHC RDW Plt Count MPV Sodium Potassium Chloride Carbon Dioxide Anion Gap BUN Creatinine Creat Clearance w eGFR POC Glucometer 324 Random Glucose Calcium Total Bilirubin AST ALT Alkaline Phosphatase Total Protein Albumin Urine Color Yellow Urine Appearance Clear Urine pH 5.0 D Ur Specific [place] 1.030 Urine Protein 100 Urine Glucose (UA) 1000 mg/dl Urine Ketones 40 mg/dl Urine Blood Moderate Urine Nitrite Negative Urine Bilirubin Negative Urine Urobilinogen 0.2 Ur Leukocyte Esterase N Urine RBC (Auto) 0-3 U Epithel Cells (Auto) 1-3 Urine Crystals (Auto) Uric acid 4+ Urine Bacteria (Auto) 4+ RPR Titer HIV 1&2 Antibody Screen Negative HIV P24 Antigen Negative 10/01/18 10/01/18 10/01/18 12:49 12:49 12:49 WBC 4.1 RBC 4.74 Hgb 14.2 Hct 41.3 MCV 87.1 MCH 30.0 MCHC 34.4 RDW 13.5 Plt Count 271 D MPV 8.9 D Sodium 132 L Potassium 4.7 Chloride 96 L Carbon Dioxide 25 Anion Gap 10 BUN 15 Creatinine 1.5 H Creat Clearance w eGFR 49.74 POC Glucometer Random Glucose 357 H* Calcium 9.5 Total Bilirubin 0.7 AST 44 H ALT 61 Alkaline Phosphatase 101 Total Protein 7.7 Albumin 4.2 Urine Color Urine Appearance Urine pH Ur Specific [place] Urine Protein Urine Glucose (UA) Urine Ketones Urine Blood Urine Nitrite Urine Bilirubin Urine Urobilinogen Ur Leukocyte Esterase Urine RBC (Auto) U Epithel Cells (Auto) Urine Crystals (Auto) Urine Bacteria (Auto) RPR Titer Nonreactive HIV 1&2 Antibody Screen HIV P24 Antigen 10/01/18 10/01/18 10/02/18 16:27 21:00 06:44 WBC RBC Hgb Hct MCV MCH MCHC RDW Plt Count MPV Sodium Potassium Chloride Carbon Dioxide Anion Gap BUN Creatinine Creat Clearance w eGFR POC Glucometer 235 264 258 Random Glucose Calcium Total Bilirubin AST ALT Alkaline Phosphatase Total Protein Albumin Urine Color Urine Appearance Urine pH Ur Specific [place] Urine Protein Urine Glucose (UA) Urine Ketones Urine Blood Urine Nitrite Urine Bilirubin Urine Urobilinogen Ur Leukocyte Esterase Urine RBC (Auto) U Epithel Cells (Auto) Urine Crystals (Auto) Urine Bacteria (Auto) RPR Titer HIV 1&2 Antibody Screen HIV P24 Antigen 10/02/18 10/02/18 10/02/18 11:18 16:23 22:05 WBC RBC Hgb Hct MCV MCH MCHC RDW Plt Count MPV Sodium Potassium Chloride Carbon Dioxide Anion Gap BUN Creatinine Creat Clearance w eGFR POC Glucometer 401 240 268 Random Glucose Calcium Total Bilirubin AST ALT Alkaline Phosphatase Total Protein Albumin Urine Color Urine Appearance Urine pH Ur Specific [place] Urine Protein Urine Glucose (UA) Urine Ketones Urine Blood Urine Nitrite Urine Bilirubin Urine Urobilinogen Ur Leukocyte Esterase Urine RBC (Auto) U Epithel Cells (Auto) Urine Crystals (Auto) Urine Bacteria (Auto) RPR Titer HIV 1&2 Antibody Screen HIV P24 Antigen 10/03/18 10/03/18 10/03/18 07:39 16:23 22:21 WBC RBC Hgb Hct MCV MCH MCHC RDW Plt Count MPV Sodium Potassium Chloride Carbon Dioxide Anion Gap BUN Creatinine Creat Clearance w eGFR POC Glucometer [phone] Random Glucose Calcium Total Bilirubin AST ALT Alkaline Phosphatase Total Protein Albumin Urine Color Urine Appearance Urine pH Ur Specific [place] Urine Protein Urine Glucose (UA) Urine Ketones Urine Blood Urine Nitrite Urine Bilirubin Urine Urobilinogen Ur Leukocyte Esterase Urine RBC (Auto) U Epithel Cells (Auto) Urine Crystals (Auto) Urine Bacteria (Auto) RPR Titer HIV 1&2 Antibody Screen HIV P24 Antigen 10/04/18 10/04/18 10/04/18 06:38 11:39 16:28 WBC RBC Hgb Hct MCV MCH MCHC RDW Plt Count MPV Sodium Potassium Chloride Carbon Dioxide Anion Gap BUN Creatinine Creat Clearance w eGFR POC Glucometer 278 327 502 Random Glucose Calcium Total Bilirubin AST ALT Alkaline Phosphatase Total Protein Albumin Urine Color Urine Appearance Urine pH Ur Specific [place] Urine Protein Urine Glucose (UA) Urine Ketones Urine Blood Urine Nitrite Urine Bilirubin Urine Urobilinogen Ur Leukocyte Esterase Urine RBC (Auto) U Epithel Cells (Auto) Urine Crystals (Auto) Urine Bacteria (Auto) RPR Titer HIV 1&2 Antibody Screen HIV P24 Antigen 10/04/18 10/05/18 10/05/18 21:49 06:30 11:55 WBC RBC Hgb Hct MCV MCH MCHC RDW Plt Count MPV Sodium Potassium Chloride Carbon Dioxide Anion Gap BUN Creatinine Creat Clearance w eGFR POC Glucometer [phone] Random Glucose Calcium Total Bilirubin AST ALT Alkaline Phosphatase Total Protein Albumin Urine Color Urine Appearance Urine pH Ur Specific [place] Urine Protein Urine Glucose (UA) Urine Ketones Urine Blood Urine Nitrite Urine Bilirubin Urine Urobilinogen Ur Leukocyte Esterase Urine RBC (Auto) U Epithel Cells (Auto) Urine Crystals (Auto) Urine Bacteria (Auto) RPR Titer HIV 1&2 Antibody Screen HIV P24 Antigen 10/05/18 10/05/18 10/06/18 16:39 21:15 07:02 WBC RBC Hgb Hct MCV MCH MCHC RDW Plt Count MPV Sodium Potassium Chloride Carbon Dioxide Anion Gap BUN Creatinine Creat Clearance w eGFR POC Glucometer 389 394 317 Random Glucose Calcium Total Bilirubin AST ALT Alkaline Phosphatase Total Protein Albumin Urine Color Urine Appearance Urine pH Ur Specific [place] Urine Protein Urine Glucose (UA) Urine Ketones Urine Blood Urine Nitrite Urine Bilirubin Urine Urobilinogen Ur Leukocyte Esterase Urine RBC (Auto) U Epithel Cells (Auto) Urine Crystals (Auto) Urine Bacteria (Auto) RPR Titer HIV 1&2 Antibody Screen HIV P24 Antigen 10/06/18 10/06/18 10/06/18 11:29 16:39 21:35 WBC RBC Hgb Hct MCV MCH MCHC RDW Plt Count MPV Sodium Potassium Chloride Carbon Dioxide Anion Gap BUN Creatinine Creat Clearance w eGFR POC Glucometer 290 308 361 Random Glucose Calcium Total Bilirubin AST ALT Alkaline Phosphatase Total Protein Albumin Urine Color Urine Appearance Urine pH Ur Specific [place] Urine Protein Urine Glucose (UA) Urine Ketones Urine Blood Urine Nitrite Urine Bilirubin Urine Urobilinogen Ur Leukocyte Esterase Urine RBC (Auto) U Epithel Cells (Auto) Urine Crystals (Auto) Urine Bacteria (Auto) RPR Titer HIV 1&2 Antibody Screen HIV P24 Antigen 10/07/18 10/07/18 10/07/18 06:30 11:54 16:27 WBC RBC Hgb Hct MCV MCH MCHC RDW Plt Count MPV Sodium Potassium Chloride Carbon Dioxide Anion Gap BUN Creatinine Creat Clearance w eGFR POC Glucometer 200 340 278 Random Glucose Calcium Total Bilirubin AST ALT Alkaline Phosphatase Total Protein Albumin Urine Color Urine Appearance Urine pH Ur Specific [place] Urine Protein Urine Glucose (UA) Urine Ketones Urine Blood Urine Nitrite Urine Bilirubin Urine Urobilinogen Ur Leukocyte Esterase Urine RBC (Auto) U Epithel Cells (Auto) Urine Crystals (Auto) Urine Bacteria (Auto) RPR Titer HIV 1&2 Antibody Screen HIV P24 Antigen 10/07/18 10/08/18 10/08/18 20:22 06:38 11:49 WBC RBC Hgb Hct MCV MCH MCHC RDW Plt Count MPV Sodium Potassium Chloride Carbon Dioxide Anion Gap BUN Creatinine Creat Clearance w eGFR POC Glucometer 313 180 281 Random Glucose Calcium Total Bilirubin AST ALT Alkaline Phosphatase Total Protein Albumin Urine Color Urine Appearance Urine pH Ur Specific [place] Urine Protein Urine Glucose (UA) Urine Ketones Urine Blood Urine Nitrite Urine Bilirubin Urine Urobilinogen Ur Leukocyte Esterase Urine RBC (Auto) U Epithel Cells (Auto) Urine Crystals (Auto) Urine Bacteria (Auto) RPR Titer HIV 1&2 Antibody Screen HIV P24 Antigen 10/08/18 10/08/18 10/09/18 16:44 21:50 06:28 WBC RBC Hgb Hct MCV MCH MCHC RDW Plt Count MPV Sodium Potassium Chloride Carbon Dioxide Anion Gap BUN Creatinine Creat Clearance w eGFR POC Glucometer [phone] Random Glucose Calcium Total Bilirubin AST ALT Alkaline Phosphatase Total Protein Albumin Urine Color Urine Appearance Urine pH Ur Specific [place] Urine Protein Urine Glucose (UA) Urine Ketones Urine Blood Urine Nitrite Urine Bilirubin Urine Urobilinogen Ur Leukocyte Esterase Urine RBC (Auto) U Epithel Cells (Auto) Urine Crystals (Auto) Urine Bacteria (Auto) RPR Titer HIV 1&2 Antibody Screen HIV P24 Antigen 10/09/18 10/09/18 10/09/18 11:58 16:36 21:29 WBC RBC Hgb Hct MCV MCH MCHC RDW Plt Count MPV Sodium Potassium Chloride Carbon Dioxide Anion Gap BUN Creatinine Creat Clearance w eGFR POC Glucometer 195 287 226 Random Glucose Calcium Total Bilirubin AST ALT Alkaline Phosphatase Total Protein Albumin Urine Color Urine Appearance Urine pH Ur Specific [place] Urine Protein Urine Glucose (UA) Urine Ketones Urine Blood Urine Nitrite Urine Bilirubin Urine Urobilinogen Ur Leukocyte Esterase Urine RBC (Auto) U Epithel Cells (Auto) Urine Crystals (Auto) Urine Bacteria (Auto) RPR Titer HIV 1&2 Antibody Screen HIV P24 Antigen 10/10/18 10/10/1819 06:26 11:51 16:31 WBC RBC Hgb Hct MCV MCH MCHC RDW Plt Count MPV Sodium Potassium Chloride Carbon Dioxide Anion Gap BUN Creatinine Creat Clearance w eGFR POC Glucometer 111 297 221 Random Glucose Calcium Total Bilirubin AST ALT Alkaline Phosphatase Total Protein Albumin Urine Color Urine Appearance Urine pH Ur Specific [place] Urine Protein Urine Glucose (UA) Urine Ketones Urine Blood Urine Nitrite Urine Bilirubin Urine Urobilinogen Ur Leukocyte Esterase Urine RBC (Auto) U Epithel Cells (Auto) Urine Crystals (Auto) Urine Bacteria (Auto) RPR Titer HIV 1&2 Antibody Screen HIV P24 Antigen 10/10/18 10/11/18 10/11/18 20:35 06:29 11:50 WBC RBC Hgb Hct MCV MCH MCHC RDW Plt Count MPV Sodium Potassium Chloride Carbon Dioxide Anion Gap BUN Creatinine Creat Clearance w eGFR POC Glucometer 262 108 357 Random Glucose Calcium Total Bilirubin AST ALT Alkaline Phosphatase Total Protein Albumin Urine Color Urine Appearance Urine pH Ur Specific [place] Urine Protein Urine Glucose (UA) Urine Ketones Urine Blood Urine Nitrite Urine Bilirubin Urine Urobilinogen Ur Leukocyte Esterase Urine RBC (Auto) U Epithel Cells (Auto) Urine Crystals (Auto) Urine Bacteria (Auto) RPR Titer HIV 1&2 Antibody Screen HIV P24 Antigen 10/11/18 10/11/18 10/12/18 16:53 20:54 06:25 WBC RBC Hgb Hct MCV MCH MCHC RDW Plt Count MPV Sodium Potassium Chloride Carbon Dioxide Anion Gap BUN Creatinine Creat Clearance w eGFR POC Glucometer 253 269 136 Random Glucose Calcium Total Bilirubin AST ALT Alkaline Phosphatase Total Protein Albumin Urine Color Urine Appearance Urine pH Ur Specific [place] Urine Protein Urine Glucose (UA) Urine Ketones Urine Blood Urine Nitrite Urine Bilirubin Urine Urobilinogen Ur Leukocyte Esterase Urine RBC (Auto) U Epithel Cells (Auto) Urine Crystals (Auto) Urine Bacteria (Auto) RPR Titer HIV 1&2 Antibody Screen HIV P24 Antigen 10/12/18 10/12/18 10/12/18 11:51 16:11 21:47 WBC RBC Hgb Hct MCV MCH MCHC RDW Plt Count MPV Sodium Potassium Chloride Carbon Dioxide Anion Gap BUN Creatinine Creat Clearance w eGFR POC Glucometer 280 334 301 Random Glucose Calcium Total Bilirubin AST ALT Alkaline Phosphatase Total Protein Albumin Urine Color Urine Appearance Urine pH Ur Specific [place] Urine Protein Urine Glucose (UA) Urine Ketones Urine Blood Urine Nitrite Urine Bilirubin Urine Urobilinogen Ur Leukocyte Esterase Urine RBC (Auto) U Epithel Cells (Auto) Urine Crystals (Auto) Urine Bacteria (Auto) RPR Titer HIV 1&2 Antibody Screen HIV P24 Antigen 10/13/18 10/13/18 10/13/18 06:19 11:54 16:39 WBC RBC Hgb Hct MCV MCH MCHC RDW Plt Count MPV Sodium Potassium Chloride Carbon Dioxide Anion Gap BUN Creatinine Creat Clearance w eGFR POC Glucometer 149 229 359 Random Glucose Calcium Total Bilirubin AST ALT Alkaline Phosphatase Total Protein Albumin Urine Color Urine Appearance Urine pH Ur Specific [place] Urine Protein Urine Glucose (UA) Urine Ketones Urine Blood Urine Nitrite Urine Bilirubin Urine Urobilinogen Ur Leukocyte Esterase Urine RBC (Auto) U Epithel Cells (Auto) Urine Crystals (Auto) Urine Bacteria (Auto) RPR Titer HIV 1&2 Antibody Screen HIV P24 Antigen 10/13/18 10/14/18 10/14/18 20:44 06:11 11:51 WBC RBC Hgb Hct MCV MCH MCHC RDW Plt Count MPV Sodium Potassium Chloride Carbon Dioxide Anion Gap BUN Creatinine Creat Clearance w eGFR POC Glucometer 241 199 252 Random Glucose Calcium Total Bilirubin AST ALT Alkaline Phosphatase Total Protein Albumin Urine Color Urine Appearance Urine pH Ur Specific [place] Urine Protein Urine Glucose (UA) Urine Ketones Urine Blood Urine Nitrite Urine Bilirubin Urine Urobilinogen Ur Leukocyte Esterase Urine RBC (Auto) U Epithel Cells (Auto) Urine Crystals (Auto) Urine Bacteria (Auto) RPR Titer HIV 1&2 Antibody Screen HIV P24 Antigen 10/14/18 10/14/18 10/15/18 16:47 21:20 06:14 WBC RBC Hgb Hct MCV MCH MCHC RDW Plt Count MPV Sodium Potassium Chloride Carbon Dioxide Anion Gap BUN Creatinine Creat Clearance w eGFR POC Glucometer 304 243 174 Random Glucose Calcium Total Bilirubin AST ALT Alkaline Phosphatase Total Protein Albumin Urine Color Urine Appearance Urine pH Ur Specific [place] Urine Protein Urine Glucose (UA) Urine Ketones Urine Blood Urine Nitrite Urine Bilirubin Urine Urobilinogen Ur Leukocyte Esterase Urine RBC (Auto) U Epithel Cells (Auto) Urine Crystals (Auto) Urine Bacteria (Auto) RPR Titer HIV 1&2 Antibody Screen HIV P24 Antigen 10/15/18 10/15/18 10/15/18 11:35 16:40 21:16 WBC RBC Hgb Hct MCV MCH MCHC RDW Plt Count MPV Sodium Potassium Chloride Carbon Dioxide Anion Gap BUN Creatinine Creat Clearance w eGFR POC Glucometer 365 202 214 Random Glucose Calcium Total Bilirubin AST ALT Alkaline Phosphatase Total Protein Albumin Urine Color Urine Appearance Urine pH Ur Specific [place] Urine Protein Urine Glucose (UA) Urine Ketones Urine Blood Urine Nitrite Urine Bilirubin Urine Urobilinogen Ur Leukocyte Esterase Urine RBC (Auto) U Epithel Cells (Auto) Urine Crystals (Auto) Urine Bacteria (Auto) RPR Titer HIV 1&2 Antibody Screen HIV P24 Antigen 10/16/18 10/16/18 10/16/18 06:13 11:57 16:44 WBC RBC Hgb Hct MCV MCH MCHC RDW Plt Count MPV Sodium Potassium Chloride Carbon Dioxide Anion Gap BUN Creatinine Creat Clearance w eGFR POC Glucometer 213 256 277 Random Glucose Calcium Total Bilirubin AST ALT Alkaline Phosphatase Total Protein Albumin Urine Color Urine Appearance Urine pH Ur Specific [place] Urine Protein Urine Glucose (UA) Urine Ketones Urine Blood Urine Nitrite Urine Bilirubin Urine Urobilinogen Ur Leukocyte Esterase Urine RBC (Auto) U Epithel Cells (Auto) Urine Crystals (Auto) Urine Bacteria (Auto) RPR Titer HIV 1&2 Antibody Screen HIV P24 Antigen 10/16/18 10/17/18 10/17/18 21:22 06:19 11:40 WBC RBC Hgb Hct MCV MCH MCHC RDW Plt Count MPV Sodium Potassium Chloride Carbon Dioxide Anion Gap BUN Creatinine Creat Clearance w eGFR POC Glucometer 442 188 417 Random Glucose Calcium Total Bilirubin AST ALT Alkaline Phosphatase Total Protein Albumin Urine Color Urine Appearance Urine pH Ur Specific [place] Urine Protein Urine Glucose (UA) Urine Ketones Urine Blood Urine Nitrite Urine Bilirubin Urine Urobilinogen Ur Leukocyte Esterase Urine RBC (Auto) U Epithel Cells (Auto) Urine Crystals (Auto) Urine Bacteria (Auto) RPR Titer HIV 1&2 Antibody Screen HIV P24 Antigen 10/17/18 10/17/18 10/18/18 16:59 21:00 06:10 WBC RBC Hgb Hct MCV MCH MCHC RDW Plt Count MPV Sodium Potassium Chloride Carbon Dioxide Anion Gap BUN Creatinine Creat Clearance w eGFR POC Glucometer 305 259 140 Random Glucose Calcium Total Bilirubin AST ALT Alkaline Phosphatase Total Protein Albumin Urine Color Urine Appearance Urine pH Ur Specific [place] Urine Protein Urine Glucose (UA) Urine Ketones Urine Blood Urine Nitrite Urine Bilirubin Urine Urobilinogen Ur Leukocyte Esterase Urine RBC (Auto) U Epithel Cells (Auto) Urine Crystals (Auto) Urine Bacteria (Auto) RPR Titer HIV 1&2 Antibody Screen HIV P24 Antigen 10/18/18 10/18/18 10/18/18 11:45 16:47 21:18 WBC RBC Hgb Hct MCV MCH MCHC RDW Plt Count MPV Sodium Potassium Chloride Carbon Dioxide Anion Gap BUN Creatinine Creat Clearance w eGFR POC Glucometer 297 305 311 Random Glucose Calcium Total Bilirubin AST ALT Alkaline Phosphatase Total Protein Albumin Urine Color Urine Appearance Urine pH Ur Specific [place] Urine Protein Urine Glucose (UA) Urine Ketones Urine Blood Urine Nitrite Urine Bilirubin Urine Urobilinogen Ur Leukocyte Esterase Urine RBC (Auto) U Epithel Cells (Auto) Urine Crystals (Auto) Urine Bacteria (Auto) RPR Titer HIV 1&2 Antibody Screen HIV P24 Antigen 10/19/18 10/19/18 10/19/18 06:20 06:22 11:48 WBC RBC Hgb Hct MCV MCH MCHC RDW Plt Count MPV Sodium Potassium Chloride Carbon Dioxide Anion Gap BUN Creatinine Creat Clearance w eGFR POC Glucometer 209 210 293 Random Glucose Calcium Total Bilirubin AST ALT Alkaline Phosphatase Total Protein Albumin Urine Color Urine Appearance Urine pH Ur Specific [place] Urine Protein Urine Glucose (UA) Urine Ketones Urine Blood Urine Nitrite Urine Bilirubin Urine Urobilinogen Ur Leukocyte Esterase Urine RBC (Auto) U Epithel Cells (Auto) Urine Crystals (Auto) Urine Bacteria (Auto) RPR Titer HIV 1&2 Antibody Screen HIV P24 Antigen 10/19/18 10/19/18 10/20/18 16:32 21:18 06:09 WBC RBC Hgb Hct MCV MCH MCHC RDW Plt Count MPV Sodium Potassium Chloride Carbon Dioxide Anion Gap BUN Creatinine Creat Clearance w eGFR POC Glucometer 330 389 214 Random Glucose Calcium Total Bilirubin AST ALT Alkaline Phosphatase Total Protein Albumin Urine Color Urine Appearance Urine pH Ur Specific [place] Urine Protein Urine Glucose (UA) Urine Ketones Urine Blood Urine Nitrite Urine Bilirubin Urine Urobilinogen Ur Leukocyte Esterase Urine RBC (Auto) U Epithel Cells (Auto) Urine Crystals (Auto) Urine Bacteria (Auto) RPR Titer HIV 1&2 Antibody Screen HIV P24 Antigen 10/20/18 10/20/18 10/20/18 11:42 16:33 20:53 WBC RBC Hgb Hct MCV MCH MCHC RDW Plt Count MPV Sodium Potassium Chloride Carbon Dioxide Anion Gap BUN Creatinine Creat Clearance w eGFR POC Glucometer 367 339 386 Random Glucose Calcium Total Bilirubin AST ALT Alkaline Phosphatase Total Protein Albumin Urine Color Urine Appearance Urine pH Ur Specific [place] Urine Protein Urine Glucose (UA) Urine Ketones Urine Blood Urine Nitrite Urine Bilirubin Urine Urobilinogen Ur Leukocyte Esterase Urine RBC (Auto) U Epithel Cells (Auto) Urine Crystals (Auto) Urine Bacteria (Auto) RPR Titer HIV 1&2 Antibody Screen HIV P24 Antigen 10/21/18 10/21/18 10/21/18 06:28 11:44 16:47 WBC RBC Hgb Hct MCV MCH MCHC RDW Plt Count MPV Sodium Potassium Chloride Carbon Dioxide Anion Gap BUN Creatinine Creat Clearance w eGFR POC Glucometer 307 372 410 Random Glucose Calcium Total Bilirubin AST ALT Alkaline Phosphatase Total Protein Albumin Urine Color Urine Appearance Urine pH Ur Specific [place] Urine Protein Urine Glucose (UA) Urine Ketones Urine Blood Urine Nitrite Urine Bilirubin Urine Urobilinogen Ur Leukocyte Esterase Urine RBC (Auto) U Epithel Cells (Auto) Urine Crystals (Auto) Urine Bacteria (Auto) RPR Titer HIV 1&2 Antibody Screen HIV P24 Antigen Pt on bgm ACHS. To monitor BGM per protocol
[2018-10-21] MEDS: INSULIN (LEVEMIR) 100 UNITS/ML UNITS SQ SCH (21:34)
[2018-10-21] MEDS: DOCUSATE SODIUM 100 MG CAPSULE (FP) PO SCH (21:34)
[2018-10-21] MEDS: MELATONIN 5 MG TABLETS PO PRN (21:35)
[2018-10-21] MEDS: SUVOREXANT 10 MG TABLET PO PRN (21:36)
[2018-10-21] MEDS: THIAMINE HCL 100 MG TABLET (FP) PO SCH (21:36)
[2018-10-21] MEDS: LIDOCAINE PATCH REMOVAL MC SCH (22:13)
[2018-10-22] MEDS: CYCLOBENZAPRINE HCL 10 MG TABLET (FP) PO SCH ×3 (06:30→21:14)
[2018-10-22] MEDS: metFORMIN HCL 500 MG TABLET (FP) PO SCH ×2 (06:30→16:46)
[2018-10-22] MEDS ORDERED: INSULIN (NOVOLOG) ASPART 100 UNITS/ML 10ML VIAL ONE ×3 (07:13→16:32)
[2018-10-22] MEDS: INSULIN (NOVOLOG) ASPART 100 UNITS/ML 10ML VIAL SQ SCH ×4 (07:40→21:17)
[2018-10-22] MEDS: LORATADINE 10 MG TABLET PO SCH (10:02)
[2018-10-22] MEDS: PRENATAL VITAMINS W/ FOLIC ACID TABLET (FP) PO SCH (10:02)
[2018-10-22] MEDS: LIDOCAINE 5% TOPICAL PATCH TP SCH (10:02)
[2018-10-22] MEDS: LISINOPRIL 20 MG TABLET (FP) PO SCH (10:02)
[2018-10-22] MEDS: MAG HYDROX/AL HYDROX/SIMETH 30 ML UNIT-DOSE CUP PO PRN ×2 (13:57→21:15)
--- NOTE | 2018-10-22 15:14 | PN ---
Psychiatric Progress Note Vital Signs: Vital Signs Period Temp Pulse Resp BP Sys/Gonzalez Pulse Ox Last 24 Hr 98.1 F 95 18-20 138/86 Date of Session: 10/22/18 Chief Complaint:: " I need more sleep medications ". Current Medications: Active Medications Generic Name Dose Route Start Last Admin Trade Name Freq PRN Reason Stop Dose Admin Acetaminophen 650 mg 10/01/18 10:32 10/10/18 06:25 Tylenol - PO 650 mg Q6H PRN Administration PAIN LEVEL 4 - 6 Acetaminophen 650 mg 10/01/18 10:32 Tylenol - PO Q6H PRN FEVER Al Hydroxide/Mg Hydroxide 30 ml 10/04/18 19:48 10/22/18 13:57 Mylanta Oral Suspension - PO 30 ml Q6H PRN Administration DYSPEPSIA Bismuth Subsalicylate 524 mg 10/01/18 10:32 Pepto-Bismol - PO Q1H PRN DIARRHEA Clonidine 0.1 mg 10/09/18 11:57 Catapres - PO BID PRN HYPERTENSION Colloidal Oatmeal 1 applic 10/18/18 13:21 10/18/18 14:37 Aveeno Soap - TP 1 applic DAILY PRN Administration HYGEINE Cyclobenzaprine HCl 10 mg 10/14/18 22:00 10/22/18 13:56 Flexeril - PO 10 mg TID JYOTHI Administration Docusate Sodium 300 mg 10/13/18 22:00 10/21/18 21:34 Colace - PO 300 mg HS JYOTHI Administration Insulin Aspart 0 units 10/01/18 11:00 10/22/18 12:00 Novolog Vial SQ 8 unit ACHS JYOTHI Administration Protocol Insulin Detemir 18 units 10/01/18 22:00 10/21/18 21:34 Levemir Vial SQ 18 units HS JYOTHI Administration Lidocaine 1 patch 10/02/18 10:00 10/22/18 10:02 Lidoderm Patch - TP Not Given DAILY JYOTHI Lisinopril 20 mg 10/04/18 10:00 10/22/18 10:02 Prinivil PO Not Given DAILY JYOTHI Loratadine 10 mg 10/04/18 10:00 10/22/18 10:02 Claritin - PO 10 mg DAILY JYOTHI Administration Melatonin 10 mg 10/10/18 22:00 10/21/18 21:35 Melatonin PO 10 mg HS PRN Administration INSOMNIA Metformin HCl 500 mg 10/01/18 16:30 10/22/18 06:30 Glucophage - PO 500 mg BIDAC JYOTHI Administration Miscellaneous 1 each 10/02/18 22:00 10/21/18 22:13 Lidoderm Patch Removal MC Not Given DAILY@2200 [facility] Multivit/Folic Acid/Iron 1 tab 10/02/18 10:00 10/22/18 10:02 Vitamins (Sjr) - PO 1 tab DAILY JYOTHI Administration Suvorexant 10 mg 10/19/18 21:09 10/21/18 21:36 Belsomra PO 10 mg HS PRN Administration INSOMNIA Thiamine HCl 100 mg 10/01/18 22:00 10/21/18 21:36 Vitamin B1 - PO 100 mg HS JYOTHI Administration
--- NOTE | 2018-10-22 15:15 | PN ---
[facility] Progress Note Note: Psychiatry Attending's note : Met with patient. Reasons : discussion of hypnotic medications sleep hygiene Mr Farris reports beneficial effects from suvorexant. Side effects/benefits reviewed. Resumed : belsomra 10 mg po hs prn. Patient agrees.
[2018-10-22] MEDS: DOCUSATE SODIUM 100 MG CAPSULE (FP) PO SCH (21:14)
[2018-10-22] MEDS: MELATONIN 5 MG TABLETS PO PRN (21:15)
[2018-10-22] MEDS: SUVOREXANT 10 MG TABLET PO PRN (21:16)
[2018-10-22] MEDS: LIDOCAINE PATCH REMOVAL MC SCH (21:17)
[2018-10-22] MEDS: INSULIN (LEVEMIR) 100 UNITS/ML UNITS SQ SCH (21:18)
[2018-10-22] MEDS: THIAMINE HCL 100 MG TABLET (FP) PO SCH (21:19)
[2018-10-22] MEDS ORDERED: SUVOREXANT 10 MG TABLET PO PRN (22:00)
[2018-10-23] MEDS: metFORMIN HCL 500 MG TABLET (FP) PO SCH ×2 (06:11→16:35)
[2018-10-23] MEDS: CYCLOBENZAPRINE HCL 10 MG TABLET (FP) PO SCH ×3 (06:11→21:24)
[2018-10-23 06:40] VITALS: TEMP 97.6
[2018-10-23] MEDS ORDERED: INSULIN (NOVOLOG) ASPART 100 UNITS/ML 10ML VIAL ONE ×4 (06:40→19:20)
[2018-10-23] MEDS: INSULIN (NOVOLOG) ASPART 100 UNITS/ML 10ML VIAL SQ SCH ×4 (07:10→21:26)
[2018-10-23] MEDS: LORATADINE 10 MG TABLET PO SCH (10:12)
[2018-10-23] MEDS: LIDOCAINE 5% TOPICAL PATCH TP SCH (10:16)
[2018-10-23] MEDS: PRENATAL VITAMINS W/ FOLIC ACID TABLET (FP) PO SCH (10:16)
[2018-10-23] MEDS: LISINOPRIL 20 MG TABLET (FP) PO SCH (10:16)
[2018-10-23] MEDS: MAG HYDROX/AL HYDROX/SIMETH 30 ML UNIT-DOSE CUP PO PRN ×2 (10:16→21:27)
[2018-10-23] MEDS: THIAMINE HCL 100 MG TABLET (FP) PO SCH (21:24)
[2018-10-23] MEDS: DOCUSATE SODIUM 100 MG CAPSULE (FP) PO SCH (21:24)
[2018-10-23] MEDS: MELATONIN 5 MG TABLETS PO PRN (21:24)
[2018-10-23] MEDS: LIDOCAINE PATCH REMOVAL MC SCH (21:25)
[2018-10-23] MEDS: SUVOREXANT 10 MG TABLET PO PRN (21:26)
[2018-10-23] MEDS: INSULIN (LEVEMIR) 100 UNITS/ML UNITS SQ SCH (21:26)
[2018-10-24] MEDS: metFORMIN HCL 500 MG TABLET (FP) PO SCH (06:31)
[2018-10-24] MEDS: CYCLOBENZAPRINE HCL 10 MG TABLET (FP) PO SCH (06:31)
[2018-10-24] MEDS ORDERED: INSULIN (NOVOLOG) ASPART 100 UNITS/ML 10ML VIAL ONE (06:34)
[2018-10-24 06:35] VITALS: BP 155/87; PULSE 112
[2018-10-24] MEDS: INSULIN (NOVOLOG) ASPART 100 UNITS/ML 10ML VIAL SQ SCH (07:30)
--- NOTE | 2018-10-24 09:26 | PN ---
[facility] Progress Note Note: PT COMPLETED REHAB AND DISCHARGED TODAY. PT WAS REFERRED TO CD AFTERCARE TO [facility] ON [address] [place], [place]. PT REPORTS HE HAS NO PCP BUT HAS BEEN REMINDED TO SET UP ONE AFTER DISCHARGE TO HIS NEXT AFTERCARE PROGRAM FOR THE MANAGEMENT OF HIS CORMOBID DISEASES. PT IS NONCOMPLIANT WITH HTN MEDICATION MANAGEMENT, REFUSING DOSES OF LISINOPRIL. COURTESY RX SENT ELECTRONICALLY TO [facility] AT ON [place], [place] FOR MEDICAL CONSULTANT. Home Medications Medication Instructions Recorded Quetiapine Fumarate [Seroquel -] 50 mg PO HS #30 tablet 09/12/17 Insulin Glargine,Hum.rec.anlog 18 units SQ HS #1 pen 10/23/18 [Lantus Solostar PEN (NF)] Lisinopril [Prinivil] 10 mg PO DAILY #30 tablet 10/23/18 metFORMIN HCL [Glucophage -] 500 mg PO BID #60 tablet 10/23/18 Vital Signs 10/24/18 10/24/18 03:30 06:35 Temperature 97.6 F Pulse Rate 112 H Respiratory 18 20 Rate Blood Pressure 155/87 Laboratory Tests 10/01/18 10/01/18 10/01/18 10:20 10:59 12:40 WBC RBC Hgb Hct MCV MCH MCHC RDW Plt Count MPV Sodium Potassium Chloride Carbon Dioxide Anion Gap BUN Creatinine Creat Clearance w eGFR POC Glucometer 324 Random Glucose Calcium Total Bilirubin AST ALT Alkaline Phosphatase Total Protein Albumin Urine Color Yellow Urine Appearance Clear Urine pH 5.0 D Ur Specific [place] 1.030 Urine Protein 100 Urine Glucose (UA) 1000 mg/dl Urine Ketones 40 mg/dl Urine Blood Moderate Urine Nitrite Negative Urine Bilirubin Negative Urine Urobilinogen 0.2 Ur Leukocyte Esterase N Urine RBC (Auto) 0-3 U Epithel Cells (Auto) 1-3 Urine Crystals (Auto) Uric acid 4+ Urine Bacteria (Auto) 4+ RPR Titer HIV 1&2 Antibody Screen Negative HIV P24 Antigen Negative 10/01/18 10/01/18 10/01/18 12:49 12:49 12:49 WBC 4.1 RBC 4.74 Hgb 14.2 Hct 41.3 MCV 87.1 MCH 30.0 MCHC 34.4 RDW 13.5 Plt Count 271 D MPV 8.9 D Sodium 132 L Potassium 4.7 Chloride 96 L Carbon Dioxide 25 Anion Gap 10 BUN 15 Creatinine 1.5 H Creat Clearance w eGFR 49.74 POC Glucometer Random Glucose 357 H* Calcium 9.5 Total Bilirubin 0.7 AST 44 H ALT 61 Alkaline Phosphatase 101 Total Protein 7.7 Albumin 4.2 Urine Color Urine Appearance Urine pH Ur Specific [place] Urine Protein Urine Glucose (UA) Urine Ketones Urine Blood Urine Nitrite Urine Bilirubin Urine Urobilinogen Ur Leukocyte Esterase Urine RBC (Auto) U Epithel Cells (Auto) Urine Crystals (Auto) Urine Bacteria (Auto) RPR Titer Nonreactive HIV 1&2 Antibody Screen HIV P24 Antigen 10/01/18 10/01/18 10/02/18 16:27 21:00 06:44 WBC RBC Hgb Hct MCV MCH MCHC RDW Plt Count MPV Sodium Potassium Chloride Carbon Dioxide Anion Gap BUN Creatinine Creat Clearance w eGFR POC Glucometer 235 264 258 Random Glucose Calcium Total Bilirubin AST ALT Alkaline Phosphatase Total Protein Albumin Urine Color Urine Appearance Urine pH Ur Specific [place] Urine Protein Urine Glucose (UA) Urine Ketones Urine Blood Urine Nitrite Urine Bilirubin Urine Urobilinogen Ur Leukocyte Esterase Urine RBC (Auto) U Epithel Cells (Auto) Urine Crystals (Auto) Urine Bacteria (Auto) RPR Titer HIV 1&2 Antibody Screen HIV P24 Antigen 10/02/18 10/02/18 10/02/18 11:18 16:23 22:05 WBC RBC Hgb Hct MCV MCH MCHC RDW Plt Count MPV Sodium Potassium Chloride Carbon Dioxide Anion Gap BUN Creatinine Creat Clearance w eGFR POC Glucometer 401 240 268 Random Glucose Calcium Total Bilirubin AST ALT Alkaline Phosphatase Total Protein Albumin Urine Color Urine Appearance Urine pH Ur Specific [place] Urine Protein Urine Glucose (UA) Urine Ketones Urine Blood Urine Nitrite Urine Bilirubin Urine Urobilinogen Ur Leukocyte Esterase Urine RBC (Auto) U Epithel Cells (Auto) Urine Crystals (Auto) Urine Bacteria (Auto) RPR Titer HIV 1&2 Antibody Screen HIV P24 Antigen 10/03/18 10/03/18 10/03/18 07:39 16:23 22:21 WBC RBC Hgb Hct MCV MCH MCHC RDW Plt Count MPV Sodium Potassium Chloride Carbon Dioxide Anion Gap BUN Creatinine Creat Clearance w eGFR POC Glucometer 380 419 399 Random Glucose Calcium Total Bilirubin AST ALT Alkaline Phosphatase Total Protein Albumin Urine Color Urine Appearance Urine pH Ur Specific [place] Urine Protein Urine Glucose (UA) Urine Ketones Urine Blood Urine Nitrite Urine Bilirubin Urine Urobilinogen Ur Leukocyte Esterase Urine RBC (Auto) U Epithel Cells (Auto) Urine Crystals (Auto) Urine Bacteria (Auto) RPR Titer HIV 1&2 Antibody Screen HIV P24 Antigen 10/04/18 10/04/18 10/04/18 06:38 11:39 16:28 WBC RBC Hgb Hct MCV MCH MCHC RDW Plt Count MPV Sodium Potassium Chloride Carbon Dioxide Anion Gap BUN Creatinine Creat Clearance w eGFR POC Glucometer 278 327 502 Random Glucose Calcium Total Bilirubin AST ALT Alkaline Phosphatase Total Protein Albumin Urine Color Urine Appearance Urine pH Ur Specific [place] Urine Protein Urine Glucose (UA) Urine Ketones Urine Blood Urine Nitrite Urine Bilirubin Urine Urobilinogen Ur Leukocyte Esterase Urine RBC (Auto) U Epithel Cells (Auto) Urine Crystals (Auto) Urine Bacteria (Auto) RPR Titer HIV 1&2 Antibody Screen HIV P24 Antigen 10/04/18 10/05/18 10/05/18 21:49 06:30 11:55 WBC RBC Hgb Hct MCV MCH MCHC RDW Plt Count MPV Sodium Potassium Chloride Carbon Dioxide Anion Gap BUN Creatinine Creat Clearance w eGFR POC Glucometer 431 312 369 Random Glucose Calcium Total Bilirubin AST ALT Alkaline Phosphatase Total Protein Albumin Urine Color Urine Appearance Urine pH Ur Specific [place] Urine Protein Urine Glucose (UA) Urine Ketones Urine Blood Urine Nitrite Urine Bilirubin Urine Urobilinogen Ur Leukocyte Esterase Urine RBC (Auto) U Epithel Cells (Auto) Urine Crystals (Auto) Urine Bacteria (Auto) RPR Titer HIV 1&2 Antibody Screen HIV P24 Antigen 10/05/18 10/05/18 10/06/18 16:39 21:15 07:02 WBC RBC Hgb Hct MCV MCH MCHC RDW Plt Count MPV Sodium Potassium Chloride Carbon Dioxide Anion Gap BUN Creatinine Creat Clearance w eGFR POC Glucometer 389 394 317 Random Glucose Calcium Total Bilirubin AST ALT Alkaline Phosphatase Total Protein Albumin Urine Color Urine Appearance Urine pH Ur Specific [place] Urine Protein Urine Glucose (UA) Urine Ketones Urine Blood Urine Nitrite Urine Bilirubin Urine Urobilinogen Ur Leukocyte Esterase Urine RBC (Auto) U Epithel Cells (Auto) Urine Crystals (Auto) Urine Bacteria (Auto) RPR Titer HIV 1&2 Antibody Screen HIV P24 Antigen 10/06/18 10/06/18 10/06/18 11:29 16:39 21:35 WBC RBC Hgb Hct MCV MCH MCHC RDW Plt Count MPV Sodium Potassium Chloride Carbon Dioxide Anion Gap BUN Creatinine Creat Clearance w eGFR POC Glucometer 290 308 361 Random Glucose Calcium Total Bilirubin AST ALT Alkaline Phosphatase Total Protein Albumin Urine Color Urine Appearance Urine pH Ur Specific [place] Urine Protein Urine Glucose (UA) Urine Ketones Urine Blood Urine Nitrite Urine Bilirubin Urine Urobilinogen Ur Leukocyte Esterase Urine RBC (Auto) U Epithel Cells (Auto) Urine Crystals (Auto) Urine Bacteria (Auto) RPR Titer HIV 1&2 Antibody Screen HIV P24 Antigen 10/07/18 10/07/18 10/07/18 06:30 11:54 16:27 WBC RBC Hgb Hct MCV MCH MCHC RDW Plt Count MPV Sodium Potassium Chloride Carbon Dioxide Anion Gap BUN Creatinine Creat Clearance w eGFR POC Glucometer 200 340 278 Random Glucose Calcium Total Bilirubin AST ALT Alkaline Phosphatase Total Protein Albumin Urine Color Urine Appearance Urine pH Ur Specific [place] Urine Protein Urine Glucose (UA) Urine Ketones Urine Blood Urine Nitrite Urine Bilirubin Urine Urobilinogen Ur Leukocyte Esterase Urine RBC (Auto) U Epithel Cells (Auto) Urine Crystals (Auto) Urine Bacteria (Auto) RPR Titer HIV 1&2 Antibody Screen HIV P24 Antigen 10/07/18 10/08/18 10/08/18 20:22 06:38 11:49 WBC RBC Hgb Hct MCV MCH MCHC RDW Plt Count MPV Sodium Potassium Chloride Carbon Dioxide Anion Gap BUN Creatinine Creat Clearance w eGFR POC Glucometer 313 180 281 Random Glucose Calcium Total Bilirubin AST ALT Alkaline Phosphatase Total Protein Albumin Urine Color Urine Appearance Urine pH Ur Specific [place] Urine Protein Urine Glucose (UA) Urine Ketones Urine Blood Urine Nitrite Urine Bilirubin Urine Urobilinogen Ur Leukocyte Esterase Urine RBC (Auto) U Epithel Cells (Auto) Urine Crystals (Auto) Urine Bacteria (Auto) RPR Titer HIV 1&2 Antibody Screen HIV P24 Antigen 10/08/18 10/08/18 10/09/18 16:44 21:50 06:28 WBC RBC Hgb Hct MCV MCH MCHC RDW Plt Count MPV Sodium Potassium Chloride Carbon Dioxide Anion Gap BUN Creatinine Creat Clearance w eGFR POC Glucometer 283 273 127 Random Glucose Calcium Total Bilirubin AST ALT Alkaline Phosphatase Total Protein Albumin Urine Color Urine Appearance Urine pH Ur Specific [place] Urine Protein Urine Glucose (UA) Urine Ketones Urine Blood Urine Nitrite Urine Bilirubin Urine Urobilinogen Ur Leukocyte Esterase Urine RBC (Auto) U Epithel Cells (Auto) Urine Crystals (Auto) Urine Bacteria (Auto) RPR Titer HIV 1&2 Antibody Screen HIV P24 Antigen 10/09/18 10/09/18 10/09/18 11:58 16:36 21:29 WBC RBC Hgb Hct MCV MCH MCHC RDW Plt Count MPV Sodium Potassium Chloride Carbon Dioxide Anion Gap BUN Creatinine Creat Clearance w eGFR POC Glucometer 195 287 226 Random Glucose Calcium Total Bilirubin AST ALT Alkaline Phosphatase Total Protein Albumin Urine Color Urine Appearance Urine pH Ur Specific [place] Urine Protein Urine Glucose (UA) Urine Ketones Urine Blood Urine Nitrite Urine Bilirubin Urine Urobilinogen Ur Leukocyte Esterase Urine RBC (Auto) U Epithel Cells (Auto) Urine Crystals (Auto) Urine Bacteria (Auto) RPR Titer HIV 1&2 Antibody Screen HIV P24 Antigen 10/10/18 10/10/18 10/10/18 06:26 11:51 16:31 WBC RBC Hgb Hct MCV MCH MCHC RDW Plt Count MPV Sodium Potassium Chloride Carbon Dioxide Anion Gap BUN Creatinine Creat Clearance w eGFR POC Glucometer 111 297 221 Random Glucose Calcium Total Bilirubin AST ALT Alkaline Phosphatase Total Protein Albumin Urine Color Urine Appearance Urine pH Ur Specific [place] Urine Protein Urine Glucose (UA) Urine Ketones Urine Blood Urine Nitrite Urine Bilirubin Urine Urobilinogen Ur Leukocyte Esterase Urine RBC (Auto) U Epithel Cells (Auto) Urine Crystals (Auto) Urine Bacteria (Auto) RPR Titer HIV 1&2 Antibody Screen HIV P24 Antigen 10/10/18 10/11/18 10/11/18 20:35 06:29 11:50 WBC RBC Hgb Hct MCV MCH MCHC RDW Plt Count MPV Sodium Potassium Chloride Carbon Dioxide Anion Gap BUN Creatinine Creat Clearance w eGFR POC Glucometer 262 108 357 Random Glucose Calcium Total Bilirubin AST ALT Alkaline Phosphatase Total Protein Albumin Urine Color Urine Appearance Urine pH Ur Specific [place] Urine Protein Urine Glucose (UA) Urine Ketones Urine Blood Urine Nitrite Urine Bilirubin Urine Urobilinogen Ur Leukocyte Esterase Urine RBC (Auto) U Epithel Cells (Auto) Urine Crystals (Auto) Urine Bacteria (Auto) RPR Titer HIV 1&2 Antibody Screen HIV P24 Antigen 10/11/18 10/11/18 10/12/18 16:53 20:54 06:25 WBC RBC Hgb Hct MCV MCH MCHC RDW Plt Count MPV Sodium Potassium Chloride Carbon Dioxide Anion Gap BUN Creatinine Creat Clearance w eGFR POC Glucometer 253 269 136 Random Glucose Calcium Total Bilirubin AST ALT Alkaline Phosphatase Total Protein Albumin Urine Color Urine Appearance Urine pH Ur Specific [place] Urine Protein Urine Glucose (UA) Urine Ketones Urine Blood Urine Nitrite Urine Bilirubin Urine Urobilinogen Ur Leukocyte Esterase Urine RBC (Auto) U Epithel Cells (Auto) Urine Crystals (Auto) Urine Bacteria (Auto) RPR Titer HIV 1&2 Antibody Screen HIV P24 Antigen 10/12/18 10/12/18 10/12/18 11:51 16:11 21:47 WBC RBC Hgb Hct MCV MCH MCHC RDW Plt Count MPV Sodium Potassium Chloride Carbon Dioxide Anion Gap BUN Creatinine Creat Clearance w eGFR POC Glucometer 280 334 301 Random Glucose Calcium Total Bilirubin AST ALT Alkaline Phosphatase Total Protein Albumin Urine Color Urine Appearance Urine pH Ur Specific [place] Urine Protein Urine Glucose (UA) Urine Ketones Urine Blood Urine Nitrite Urine Bilirubin Urine Urobilinogen Ur Leukocyte Esterase Urine RBC (Auto) U Epithel Cells (Auto) Urine Crystals (Auto) Urine Bacteria (Auto) RPR Titer HIV 1&2 Antibody Screen HIV P24 Antigen 10/13/18 10/13/18 10/13/18 06:19 11:54 16:39 WBC RBC Hgb Hct MCV MCH MCHC RDW Plt Count MPV Sodium Potassium Chloride Carbon Dioxide Anion Gap BUN Creatinine Creat Clearance w eGFR POC Glucometer 149 229 359 Random Glucose Calcium Total Bilirubin AST ALT Alkaline Phosphatase Total Protein Albumin Urine Color Urine Appearance Urine pH Ur Specific [place] Urine Protein Urine Glucose (UA) Urine Ketones Urine Blood Urine Nitrite Urine Bilirubin Urine Urobilinogen Ur Leukocyte Esterase Urine RBC (Auto) U Epithel Cells (Auto) Urine Crystals (Auto) Urine Bacteria (Auto) RPR Titer HIV 1&2 Antibody Screen HIV P24 Antigen 10/13/18 10/14/18 10/14/18 20:44 06:11 11:51 WBC RBC Hgb Hct MCV MCH MCHC RDW Plt Count MPV Sodium Potassium Chloride Carbon Dioxide Anion Gap BUN Creatinine Creat Clearance w eGFR POC Glucometer 241 199 252 Random Glucose Calcium Total Bilirubin AST ALT Alkaline Phosphatase Total Protein Albumin Urine Color Urine Appearance Urine pH Ur Specific [place] Urine Protein Urine Glucose (UA) Urine Ketones Urine Blood Urine Nitrite Urine Bilirubin Urine Urobilinogen Ur Leukocyte Esterase Urine RBC (Auto) U Epithel Cells (Auto) Urine Crystals (Auto) Urine Bacteria (Auto) RPR Titer HIV 1&2 Antibody Screen HIV P24 Antigen 10/14/18 10/14/18 10/15/18 16:47 21:20 06:14 WBC RBC Hgb Hct MCV MCH MCHC RDW Plt Count MPV Sodium Potassium Chloride Carbon Dioxide Anion Gap BUN Creatinine Creat Clearance w eGFR POC Glucometer 304 243 174 Random Glucose Calcium Total Bilirubin AST ALT Alkaline Phosphatase Total Protein Albumin Urine Color Urine Appearance Urine pH Ur Specific [place] Urine Protein Urine Glucose (UA) Urine Ketones Urine Blood Urine Nitrite Urine Bilirubin Urine Urobilinogen Ur Leukocyte Esterase Urine RBC (Auto) U Epithel Cells (Auto) Urine Crystals (Auto) Urine Bacteria (Auto) RPR Titer HIV 1&2 Antibody Screen HIV P24 Antigen 10/15/18 10/15/18 10/15/18 11:35 16:40 21:16 WBC RBC Hgb Hct MCV MCH MCHC RDW Plt Count MPV Sodium Potassium Chloride Carbon Dioxide Anion Gap BUN Creatinine Creat Clearance w eGFR POC Glucometer 365 202 214 Random Glucose Calcium Total Bilirubin AST ALT Alkaline Phosphatase Total Protein Albumin Urine Color Urine Appearance Urine pH Ur Specific [place] Urine Protein Urine Glucose (UA) Urine Ketones Urine Blood Urine Nitrite Urine Bilirubin Urine Urobilinogen Ur Leukocyte Esterase Urine RBC (Auto) U Epithel Cells (Auto) Urine Crystals (Auto) Urine Bacteria (Auto) RPR Titer HIV 1&2 Antibody Screen HIV P24 Antigen 10/16/18 10/16/18 10/16/18 06:13 11:57 16:44 WBC RBC Hgb Hct MCV MCH MCHC RDW Plt Count MPV Sodium Potassium Chloride Carbon Dioxide Anion Gap BUN Creatinine Creat Clearance w eGFR POC Glucometer 213 256 277 Random Glucose Calcium Total Bilirubin AST ALT Alkaline Phosphatase Total Protein Albumin Urine Color Urine Appearance Urine pH Ur Specific [place] Urine Protein Urine Glucose (UA) Urine Ketones Urine Blood Urine Nitrite Urine Bilirubin Urine Urobilinogen Ur Leukocyte Esterase Urine RBC (Auto) U Epithel Cells (Auto) Urine Crystals (Auto) Urine Bacteria (Auto) RPR Titer HIV 1&2 Antibody Screen HIV P24 Antigen 10/16/18 10/17/18 10/17/18 21:22 06:19 11:40 WBC RBC Hgb Hct MCV MCH MCHC RDW Plt Count MPV Sodium Potassium Chloride Carbon Dioxide Anion Gap BUN Creatinine Creat Clearance w eGFR POC Glucometer 442 188 417 Random Glucose Calcium Total Bilirubin AST ALT Alkaline Phosphatase Total Protein Albumin Urine Color Urine Appearance Urine pH Ur Specific [place] Urine Protein Urine Glucose (UA) Urine Ketones Urine Blood Urine Nitrite Urine Bilirubin Urine Urobilinogen Ur Leukocyte Esterase Urine RBC (Auto) U Epithel Cells (Auto) Urine Crystals (Auto) Urine Bacteria (Auto) RPR Titer HIV 1&2 Antibody Screen HIV P24 Antigen 10/17/18 10/17/18 10/18/18 16:59 21:00 06:10 WBC RBC Hgb Hct MCV MCH MCHC RDW Plt Count MPV Sodium Potassium Chloride Carbon Dioxide Anion Gap BUN Creatinine Creat Clearance w eGFR POC Glucometer 305 259 140 Random Glucose Calcium Total Bilirubin AST ALT Alkaline Phosphatase Total Protein Albumin Urine Color Urine Appearance Urine pH Ur Specific [place] Urine Protein Urine Glucose (UA) Urine Ketones Urine Blood Urine Nitrite Urine Bilirubin Urine Urobilinogen Ur Leukocyte Esterase Urine RBC (Auto) U Epithel Cells (Auto) Urine Crystals (Auto) Urine Bacteria (Auto) RPR Titer HIV 1&2 Antibody Screen HIV P24 Antigen 10/18/18 10/18/18 10/18/18 11:45 16:47 21:18 WBC RBC Hgb Hct MCV MCH MCHC RDW Plt Count MPV Sodium Potassium Chloride Carbon Dioxide Anion Gap BUN Creatinine Creat Clearance w eGFR POC Glucometer 297 305 311 Random Glucose Calcium Total Bilirubin AST ALT Alkaline Phosphatase Total Protein Albumin Urine Color Urine Appearance Urine pH Ur Specific [place] Urine Protein Urine Glucose (UA) Urine Ketones Urine Blood Urine Nitrite Urine Bilirubin Urine Urobilinogen Ur Leukocyte Esterase Urine RBC (Auto) U Epithel Cells (Auto) Urine Crystals (Auto) Urine Bacteria (Auto) RPR Titer HIV 1&2 Antibody Screen HIV P24 Antigen 10/19/18 10/19/18 10/19/18 06:20 06:22 11:48 WBC RBC Hgb Hct MCV MCH MCHC RDW Plt Count MPV Sodium Potassium Chloride Carbon Dioxide Anion Gap BUN Creatinine Creat Clearance w eGFR POC Glucometer 209 210 293 Random Glucose Calcium Total Bilirubin AST ALT Alkaline Phosphatase Total Protein Albumin Urine Color Urine Appearance Urine pH Ur Specific [place] Urine Protein Urine Glucose (UA) Urine Ketones Urine Blood Urine Nitrite Urine Bilirubin Urine Urobilinogen Ur Leukocyte Esterase Urine RBC (Auto) U Epithel Cells (Auto) Urine Crystals (Auto) Urine Bacteria (Auto) RPR Titer HIV 1&2 Antibody Screen HIV P24 Antigen 10/19/18 10/19/18 10/20/18 16:32 21:18 06:09 WBC RBC Hgb Hct MCV MCH MCHC RDW Plt Count MPV Sodium Potassium Chloride Carbon Dioxide Anion Gap BUN Creatinine Creat Clearance w eGFR POC Glucometer 330 389 214 Random Glucose Calcium Total Bilirubin AST ALT Alkaline Phosphatase Total Protein Albumin Urine Color Urine Appearance Urine pH Ur Specific [place] Urine Protein Urine Glucose (UA) Urine Ketones Urine Blood Urine Nitrite Urine Bilirubin Urine Urobilinogen Ur Leukocyte Esterase Urine RBC (Auto) U Epithel Cells (Auto) Urine Crystals (Auto) Urine Bacteria (Auto) RPR Titer HIV 1&2 Antibody Screen HIV P24 Antigen 10/20/18 10/20/18 10/20/18 11:42 16:33 20:53 WBC RBC Hgb Hct MCV MCH MCHC RDW Plt Count MPV Sodium Potassium Chloride Carbon Dioxide Anion Gap BUN Creatinine Creat Clearance w eGFR POC Glucometer 367 339 386 Random Glucose Calcium Total Bilirubin AST ALT Alkaline Phosphatase Total Protein Albumin Urine Color Urine Appearance Urine pH Ur Specific [place] Urine Protein Urine Glucose (UA) Urine Ketones Urine Blood Urine Nitrite Urine Bilirubin Urine Urobilinogen Ur Leukocyte Esterase Urine RBC (Auto) U Epithel Cells (Auto) Urine Crystals (Auto) Urine Bacteria (Auto) RPR Titer HIV 1&2 Antibody Screen HIV P24 Antigen 10/21/18 10/21/18 10/21/18 06:28 11:44 16:47 WBC RBC Hgb Hct MCV MCH MCHC RDW Plt Count MPV Sodium Potassium Chloride Carbon Dioxide Anion Gap BUN Creatinine Creat Clearance w eGFR POC Glucometer 307 372 410 Random Glucose Calcium Total Bilirubin AST ALT Alkaline Phosphatase Total Protein Albumin Urine Color Urine Appearance Urine pH Ur Specific [place] Urine Protein Urine Glucose (UA) Urine Ketones Urine Blood Urine Nitrite Urine Bilirubin Urine Urobilinogen Ur Leukocyte Esterase Urine RBC (Auto) U Epithel Cells (Auto) Urine Crystals (Auto) Urine Bacteria (Auto) RPR Titer HIV 1&2 Antibody Screen HIV P24 Antigen 10/21/18 10/22/18 10/22/18 21:25 06:29 11:58 WBC RBC Hgb Hct MCV MCH MCHC RDW Plt Count MPV Sodium Potassium Chloride Carbon Dioxide Anion Gap BUN Creatinine Creat Clearance w eGFR POC Glucometer 307 259 317 Random Glucose Calcium Total Bilirubin AST ALT Alkaline Phosphatase Total Protein Albumin Urine Color Urine Appearance Urine pH Ur Specific [place] Urine Protein Urine Glucose (UA) Urine Ketones Urine Blood Urine Nitrite Urine Bilirubin Urine Urobilinogen Ur Leukocyte Esterase Urine RBC (Auto) U Epithel Cells (Auto) Urine Crystals (Auto) Urine Bacteria (Auto) RPR Titer HIV 1&2 Antibody Screen HIV P24 Antigen 05/07/1210/22/18 10/23/18 16:45 20:35 06:10 WBC RBC Hgb Hct MCV MCH MCHC RDW Plt Count MPV Sodium Potassium Chloride Carbon Dioxide Anion Gap BUN Creatinine Creat Clearance w eGFR POC Glucometer 327 329 258 Random Glucose Calcium Total Bilirubin AST ALT Alkaline Phosphatase Total Protein Albumin Urine Color Urine Appearance Urine pH Ur Specific [place] Urine Protein Urine Glucose (UA) Urine Ketones Urine Blood Urine Nitrite Urine Bilirubin Urine Urobilinogen Ur Leukocyte Esterase Urine RBC (Auto) U Epithel Cells (Auto) Urine Crystals (Auto) Urine Bacteria (Auto) RPR Titer HIV 1&2 Antibody Screen HIV P24 Antigen 10/23/18 10/23/18 10/23/18 11:48 16:36 20:53 WBC RBC Hgb Hct MCV MCH MCHC RDW Plt Count MPV Sodium Potassium Chloride Carbon Dioxide Anion Gap BUN Creatinine Creat Clearance w eGFR POC Glucometer 328 420 463 Random Glucose Calcium Total Bilirubin AST ALT Alkaline Phosphatase Total Protein Albumin Urine Color Urine Appearance Urine pH Ur Specific [place] Urine Protein Urine Glucose (UA) Urine Ketones Urine Blood Urine Nitrite Urine Bilirubin Urine Urobilinogen Ur Leukocyte Esterase Urine RBC (Auto) U Epithel Cells (Auto) Urine Crystals (Auto) Urine Bacteria (Auto) RPR Titer HIV 1&2 Antibody Screen HIV P24 Antigen 10/24/18 06:30 WBC RBC Hgb Hct MCV MCH MCHC RDW Plt Count MPV Sodium Potassium Chloride Carbon Dioxide Anion Gap BUN Creatinine Creat Clearance w eGFR POC Glucometer 279 Random Glucose Calcium Total Bilirubin AST ALT Alkaline Phosphatase Total Protein Albumin Urine Color Urine Appearance Urine pH Ur Specific [place] Urine Protein Urine Glucose (UA) Urine Ketones Urine Blood Urine Nitrite Urine Bilirubin Urine Urobilinogen Ur Leukocyte Esterase Urine RBC (Auto) U Epithel Cells (Auto) Urine Crystals (Auto) Urine Bacteria (Auto) RPR Titer HIV 1&2 Antibody Screen HIV P24 Antigen PLAN:FOLLOW UP WITH CD RECOMMENDATIONS. SCHEDULE APPOINTMENT TO SEE A PRIMARY CARE DOCTOR NEAR YOU FOR MEDICAL MANAGEMENT.
== END 2018-10-24 08:50 | disposition home or self-care (01) | DRG 895 ==
LOC: YASAS 09:04 → Y3N 11:00 → Y5N 10-06 12:07
PROVIDERS: ADMIT Surgery; ATTEND Neuromusculoskeletal Medicine & OMM
PROC: HZ2ZZZZ Detoxification Services for Substance Abuse Treatment (ICD-10-PCS; principal; 2018-10-01)
PROC: HZ42ZZZ Group Counseling for Substance Abuse Treatment, Cognitive-Behavioral (ICD-10-PCS; 2018-10-06)
DX: F10.20 Alcohol dependence, uncomplicated (principal); F14.20 Cocaine dependence, uncomplicated; F19.282 Other psychoactive substance dependence with psychoactive substance-induced sleep disorder; F17.210 Nicotine dependence, cigarettes, uncomplicated; I10 Essential (primary) hypertension; E11.9 Type 2 diabetes mellitus without complications; Z79.4 Long term (current) use of insulin; K21.9 Gastro-esophageal reflux disease without esophagitis; Z86.69 Personal history of other diseases of the nervous system and sense organs; R56.9 Unspecified convulsions; Z91.19 Patient's noncompliance with other medical treatment and regimen
CPT/HCPCS: 36415; 80053; 81003; 82962; 85027; 86593; 87389; J0735

== ENCOUNTER 2019-01-25 08:01 | Inpatient (IN) | payer OTHER ==
[2019-01-25 08:30] VITALS: BMI 33.5
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
[2019-01-25] MEDS ORDERED: chlordiazePOXIDE HCL 25 MG CAPSULE PO PRN (09:04)
[2019-01-25] MEDS ORDERED: ACETAMINOPHEN 325 MG TABLET (FP) PO PRN (09:04)
[2019-01-25] MEDS ORDERED: METHOCARBAMOL 500 MG TABLET PO PRN (09:04)
[2019-01-25] MEDS ORDERED: MAGNESIUM CITRATE 300 ML BOTTLE PO PRN (09:04)
[2019-01-25] MEDS ORDERED: MAG HYDROX/AL HYDROX/SIMETH 30 ML UNIT-DOSE CUP PO PRN (09:04)
[2019-01-25] MEDS ORDERED: MENTHOL/PHENOL 1 EACH UD MM PRN (09:04)
[2019-01-25] MEDS ORDERED: MAGNESIUM HYDROX 2400MG/30ML ORAL SUSPENSION 30 ML CUP PO PRN (09:04)
[2019-01-25] MEDS: chlordiazePOXIDE HCL 25 MG CAPSULE PO SCH ×2 (11:01→18:20)
[2019-01-25] MEDS: PRENATAL VITAMINS W/ FOLIC ACID TABLET (FP) PO SCH (11:01)
[2019-01-25] MEDS: LISINOPRIL 10 MG TABLET (FP) PO SCH (11:12)
--- NOTE | 2019-01-25 15:47 | PN ---
S Progress Note Note: Patient noted with b/p 162/92, refused lisinopril despite ticket writer's and RN encouragement to take to decrease his b/p. Patient stated he has HTN and doesn' t take the medication because he doesn't want to take it. Patient educated on importance of taking his hypertensive medication in preventing health related problems including stroke but he said that he doesn't care. Patient aware that if he continues to refuse his b/p and his b/p gets too high, he will be transferred to the ER.
[2019-01-25] MEDS: metFORMIN HCL 500 MG TABLET (FP) PO SCH (17:30)
[2019-01-25] MEDS: INSULIN (LEVEMIR) 100 UNITS/ML UNITS SQ SCH (23:15)
[2019-01-25] MEDS: THIAMINE HCL 100 MG TABLET (FP) PO SCH (23:30)
[2019-01-25] MEDS: chlordiazePOXIDE HCL 10 MG CAPSULE PO SCH (23:59)
[2019-01-26] MEDS ORDERED: chlordiazePOXIDE 5 MG CAPSULE ONE (05:22)
[2019-01-26] MEDS: metFORMIN HCL 500 MG TABLET (FP) PO SCH ×2 (07:02→17:53)
[2019-01-26] MEDS: chlordiazePOXIDE HCL 10 MG CAPSULE PO SCH (07:02)
[2019-01-26] MEDS: chlordiazePOXIDE HCL 25 MG CAPSULE PO SCH ×3 (10:51→22:51)
[2019-01-26] MEDS: PRENATAL VITAMINS W/ FOLIC ACID TABLET (FP) PO SCH (10:51)
[2019-01-26] MEDS: LISINOPRIL 10 MG TABLET (FP) PO SCH (10:51)
[2019-01-26] MEDS: hydrOXYzine PAMOATE 25 MG CAPSULE (FP) PO PRN (10:53)
--- NOTE | 2019-01-26 14:56 | PN ---
S CIWA - CIWA Score Nausea/Vomitin-No Nausea/No Vomiting Muscle Tremors: 3 Anxiety: 3 Agitation: 1-Slight > Activity Paroxysmal Sweats: 3 Orientation: 0-Oriented Tacttile Disturbances: 2-Mild Itch/Numbness/Burn Auditory Disturbances: 2-Mild Harshness/Frighten Visual Disturbances: 0-None Headache: 2-Mild CIWA-Ar Total Score: 16 [facility] Progress Note (SOAP) Subjective: Anxious, Sweating, Tremors, H/A. Objective: PATIENT A & O X 3. IN NO ACUTE DISTRESS. 01/26/19 14:57 Vital Signs Temperature 97.3 F L 01/26/19 09:18 Pulse Rate 109 H 01/26/19 09:18 Respiratory Rate 18 01/26/19 09:18 Blood Pressure 155/90 01/26/19 09:18 O2 Sat by Pulse Oximetry (%) Laboratory Tests 01/25/19 01/25/19 01/26/19 08:48 16:56 07:54 POC Glucometer 163 239 308 PATIENT REFUSED TO HAVE ADMISSION LABS DRAWN. RESULTS OF ADMISSION LABS FROM 10/01/2018 NOTED. 01/26/19 14:58 Assessment: 01/26/19 14:58 WITHDRAWAL SYMPTOMS. HYPERTENSION. 01/26/19 14:59 Plan: CONTINUE DETOX. INCREASE DAILY PO WATER INTAKE. CONTINUE TO MONITOR BLOOD PRESSURE.
[2019-01-26] MEDS: THIAMINE HCL 100 MG TABLET (FP) PO SCH (22:54)
[2019-01-26] MEDS: INSULIN (LEVEMIR) 100 UNITS/ML UNITS SQ SCH (22:54)
[2019-01-27] MEDS: chlordiazePOXIDE HCL 25 MG CAPSULE PO SCH ×4 (06:51→22:46)
[2019-01-27] MEDS: metFORMIN HCL 500 MG TABLET (FP) PO SCH ×2 (06:57→17:40)
[2019-01-27] MEDS: hydrOXYzine PAMOATE 25 MG CAPSULE (FP) PO PRN ×2 (06:59→17:41)
[2019-01-27] MEDS ORDERED: INSULIN (NOVOLOG) ASPART 100 UNITS/ML 10ML VIAL SQ ONE (09:00)
[2019-01-27] MEDS: PRENATAL VITAMINS W/ FOLIC ACID TABLET (FP) PO SCH (11:01)
[2019-01-27] MEDS: LISINOPRIL 10 MG TABLET (FP) PO SCH (11:02)
--- NOTE | 2019-01-27 11:15 | PN ---
S CIWA - CIWA Score Nausea/Vomitin Muscle Tremors: 2 Anxiety: 3 Agitation: 3 Paroxysmal Sweats: No Perspiration Orientation: 0-Oriented Tacttile Disturbances: 1-Very Mild Itch/Numbness Auditory Disturbances: 0-None Visual Disturbances: 0-None Headache: 2-Mild CIWA-Ar Total Score: 13 S Progress Note (SOAP) Subjective: alert,irritable,anxious,interrupted sleep,tremor Objective: 01/27/19 11:13 Vital Signs Temperature 96.6 F L 01/27/19 09:22 Pulse Rate 103 H 01/27/19 09:22 Respiratory Rate 18 01/27/19 09:22 Blood Pressure 150/85 01/27/19 09:22 O2 Sat by Pulse Oximetry (%) 01/27/19 11:13 Laboratory Last Values POC Glucometer 276 UNITS (80-120) 01/27/19 06:56 Assessment: 01/27/19 11:14 withdrawal symptom Plan: continue detox librium regimen,bgm achs,on insulin coverage
[2019-01-27] MEDS ORDERED: INSULIN SLIDING SCALE (NOVOLOG) 1 VIAL SQ ONE ×3 (11:49→22:45)
[2019-01-27] MEDS: INSULIN (NOVOLOG) ASPART 100 UNITS/ML 10ML VIAL SQ SCH ×3 (11:54→22:53)
[2019-01-27] MEDS: THIAMINE HCL 100 MG TABLET (FP) PO SCH (22:54)
[2019-01-27] MEDS: INSULIN (LEVEMIR) 100 UNITS/ML UNITS SQ SCH (22:54)
[2019-01-28] MEDS ORDERED: chlordiazePOXIDE HCL 10 MG CAPSULE PO PRN
[2019-01-28] MEDS: chlordiazePOXIDE HCL 10 MG CAPSULE PO SCH ×4 (05:30→22:02)
[2019-01-28] MEDS ORDERED: INSULIN SLIDING SCALE (NOVOLOG) 1 VIAL SQ ONE ×4 (06:56→22:37)
[2019-01-28] MEDS: metFORMIN HCL 500 MG TABLET (FP) PO SCH ×2 (07:00→16:57)
[2019-01-28] MEDS: INSULIN (NOVOLOG) ASPART 100 UNITS/ML 10ML VIAL SQ SCH ×4 (07:01→21:52)
[2019-01-28] MEDS: LISINOPRIL 10 MG TABLET (FP) PO SCH ×2 (11:02→21:55)
[2019-01-28] MEDS: PRENATAL VITAMINS W/ FOLIC ACID TABLET (FP) PO SCH (11:02)
--- NOTE | 2019-01-28 16:44 | PN ---
S CIWA - CIWA Score Nausea/Vomitin-No Nausea/No Vomiting Muscle Tremors: 2 Anxiety: 3 Agitation: 2 Paroxysmal Sweats: No Perspiration Orientation: 0-Oriented Tacttile Disturbances: 0-None Auditory Disturbances: 0-None Visual Disturbances: 2-Mild Sensitivity Headache: 0-None Present CIWA-Ar Total Score: 9 [facility] Progress Note (SOAP) Subjective: Anxious, Interrupted Sleep, Tremors. Objective: PATIENT A & O X 3, OBSERVED AMBULATING ON UNIT UNASSISTED. IN NO ACUTE DISTRESS. 01/28/19 16:42 Vital Signs Temperature 98.1 F 01/28/19 13:37 Pulse Rate 95 H 01/28/19 13:37 Respiratory Rate 18 01/28/19 13:37 Blood Pressure 160/109 H 01/28/19 13:37 O2 Sat by Pulse Oximetry (%) Laboratory Tests 01/25/19 01/25/19 01/26/19 08:48 16:56 07:54 POC Glucometer 163 239 308 01/26/19 01/26/19 01/27/19 16:55 21:56 06:56 POC Glucometer 361 366 276 01/27/19 01/27/19 01/27/19 11:41 16:21 22:43 POC Glucometer 394 246 294 01/28/19 01/28/19 01/28/19 05:28 11:10 16:37 POC Glucometer 176 333 284 PATIENT REFUSED TO HAVE DETOX ADMISSION LABS DRAWN. RESULT SOF DETOX ADMISSION LABS FROM 10/01/2018. 01/28/19 16:43 Assessment: 01/28/19 16:44 WITHDRAWAL SYMPTOMS. HYPERTENSION. Plan: CONTINUE DETOX. INCREASE DAILY DOSE OF LISINOPRIL TO 10 MG PO BID FOR ELEVATED BP DESPITE TREATMENT.
[2019-01-28] MEDS: hydrOXYzine PAMOATE 25 MG CAPSULE (FP) PO PRN (17:45)
[2019-01-28] MEDS: INSULIN (LEVEMIR) 100 UNITS/ML UNITS SQ SCH (21:52)
[2019-01-28] MEDS: THIAMINE HCL 100 MG TABLET (FP) PO SCH (21:52)
[2019-01-28] MEDS: MELATONIN 5 MG TABLETS PO PRN (21:53)
[2019-01-29] MEDS ORDERED: chlordiazePOXIDE HCL 10 MG CAPSULE PO SCH (05:00)
[2019-01-29] MEDS: metFORMIN HCL 500 MG TABLET (FP) PO SCH ×2 (07:59→16:51)
[2019-01-29] MEDS ORDERED: INSULIN SLIDING SCALE (NOVOLOG) 1 VIAL SQ ONE ×2 (08:01→12:21)
[2019-01-29] MEDS: INSULIN (NOVOLOG) ASPART 100 UNITS/ML 10ML VIAL SQ SCH ×4 (08:03→21:04)
[2019-01-29] MEDS: hydrOXYzine PAMOATE 25 MG CAPSULE (FP) PO PRN (08:51)
--- NOTE | 2019-01-29 10:04 | DS ---
[facility] Detox Discharge Summary Admission Date: 01/25/19 Discharge Date: 01/29/19 - History Present History: Alcohol Dependence, Cannabis Dependence - Physical Exam Results Vital Signs: Vital Signs Temperature 98.1 F 01/28/19 13:37 Pulse Rate 95 H 01/28/19 13:37 Respiratory Rate 18 01/29/19 03:30 Blood Pressure 160/109 H 01/28/19 13:37 O2 Sat by Pulse Oximetry (%) Pertinent Admission Physical Exam Findings: pt was admitted in withdrawals Laboratory Tests 01/25/19 01/25/19 01/26/19 08:48 16:56 07:54 POC Glucometer 163 239 308 01/26/19 01/26/19 01/27/19 16:55 21:56 06:56 POC Glucometer 361 366 276 01/27/19 01/27/19 01/27/19 11:41 16:21 22:43 POC Glucometer 394 246 294 01/28/19 01/28/19 01/28/19 05:28 11:10 16:37 POC Glucometer 176 333 284 01/28/19 01/29/19 21:47 07:56 POC Glucometer 324 194 labs were reviewed from pt last visit and results WNL except for his glucose; results are high but managed with current insulin and oral regimen - Treatment Hospital Course: Detox Protocol Followed, Detoxed Safely, Responded well, Discharged Condition Good, Rehab Referral Accepted Patient has Accepted a Rehab Referral to: accepted to [facility] - Medication Discharge Medications: Ambulatory Orders Insulin Glargine,Hum.rec.anlog [Lantus Solostar PEN (NF)] 18 units SQ HS #1 pen 10/23/18 Lisinopril [Prinivil] 10 mg PO DAILY #30 tablet 10/23/18 metFORMIN HCL [Glucophage -] 500 mg PO BID #60 tablet 10/23/18 - Diagnosis (1) Cannabis abuse Current Visit: Yes Status: Chronic (2) Hypertension Current Visit: Yes Status: Chronic Qualifiers: Hypertension type: unspecified Qualified Code(s): I10 - Essential (primary ) hypertension (3) Contact dermatitis Current Visit: Yes Status: Chronic (4) depression Current Visit: No Status: Active (5) JARETH (acute kidney injury) Current Visit: No Status: Acute (6) Alcohol dependence with uncomplicated withdrawal Current Visit: Yes Status: Chronic (7) Elevated blood pressure reading without diagnosis of hypertension Current Visit: Yes Status: Chronic (8) IDDM (insulin dependent diabetes mellitus) Current Visit: Yes Status: Chronic (9) Insomnia Current Visit: No Status: Acute (10) Substance induced mood disorder Current Visit: No Status: Acute (11) Substance-induced sleep disorder Current Visit: No Status: Acute (12) Cocaine dependence Current Visit: Yes Status: Chronic (13) DM Diabetes mellitus type 2 Current Visit: Yes Status: Chronic (14) Depression (emotion) Current Visit: No Status: Chronic Qualifiers: Depression Type: dysthymia Qualified Code(s): F34.1 - Dysthymic disorder (15) GERD (gastroesophageal reflux disease) Current Visit: Yes Status: Chronic Qualifiers: Esophagitis presence: without esophagitis Qualified Code(s): K21.9 - Gastro -esophageal reflux disease without esophagitis (16) History of hypercholesterolemia Current Visit: Yes Status: Chronic (17) Type 2 diabetes mellitus with hyperglycemia Current Visit: Yes Status: Chronic Qualifiers: Diabetes mellitus ad terminal makeup operator insulin use: without ad terminal makeup operator use Qualified Code(s): E11.65 - Type 2 diabetes mellitus with hyperglycemia - AMA Did Patient Leave Against Medical Advice: No
[2019-01-29] MEDS: PRENATAL VITAMINS W/ FOLIC ACID TABLET (FP) PO SCH (10:31)
[2019-01-29] MEDS: LISINOPRIL 10 MG TABLET (FP) PO SCH (10:32)
[2019-01-29] MEDS: HYDROCHLOROTHIAZIDE 12.5 MG CAPSULE (FP) PO SCH (10:59)
[2019-01-29] MEDS ORDERED: INSULIN (NOVOLOG) ASPART 100 UNITS/ML 10ML VIAL ONE ×2 (16:50→21:05)
[2019-01-29] MEDS: BISMUTH SUBSALICYLATE 524 MG/30 ML UD PO PRN (18:42)
[2019-01-29] MEDS: INSULIN (LEVEMIR) 100 UNITS/ML UNITS SQ SCH (21:06)
[2019-01-29] MEDS: THIAMINE HCL 100 MG TABLET (FP) PO SCH (21:07)
[2019-01-29] MEDS: MELATONIN 5 MG TABLETS PO PRN (21:07)
[2019-01-30] MEDS ORDERED: chlordiazePOXIDE HCL 10 MG CAPSULE PO ONE (05:00)
[2019-01-30] MEDS: INSULIN (NOVOLOG) ASPART 100 UNITS/ML 10ML VIAL SQ SCH ×4 (06:59→21:08)
[2019-01-30] MEDS: metFORMIN HCL 500 MG TABLET (FP) PO SCH ×2 (07:00→16:55)
[2019-01-30] MEDS: HYDROCHLOROTHIAZIDE 12.5 MG CAPSULE (FP) PO SCH (10:46)
[2019-01-30] MEDS: PRENATAL VITAMINS W/ FOLIC ACID TABLET (FP) PO SCH (10:46)
[2019-01-30] MEDS ORDERED: INSULIN (NOVOLOG) ASPART 100 UNITS/ML 10ML VIAL ONE (11:49)
[2019-01-30] MEDS ORDERED: PT OWN MED DRAWER 7, Y5N ONE (16:54)
[2019-01-30] MEDS: INSULIN (LEVEMIR) 100 UNITS/ML UNITS SQ SCH (21:08)
[2019-01-30] MEDS: MELATONIN 5 MG TABLETS PO PRN (21:09)
[2019-01-30] MEDS: THIAMINE HCL 100 MG TABLET (FP) PO SCH (21:09)
[2019-01-31] MEDS: metFORMIN HCL 500 MG TABLET (FP) PO SCH ×2 (06:05→16:53)
[2019-01-31] MEDS: INSULIN (NOVOLOG) ASPART 100 UNITS/ML 10ML VIAL SQ SCH ×4 (06:40→21:50)
[2019-01-31] MEDS ORDERED: INSULIN (NOVOLOG) ASPART 100 UNITS/ML 10ML VIAL ONE ×3 (06:41→21:50)
[2019-01-31] MEDS: HYDROCHLOROTHIAZIDE 12.5 MG CAPSULE (FP) PO SCH (10:30)
[2019-01-31] MEDS: PRENATAL VITAMINS W/ FOLIC ACID TABLET (FP) PO SCH (10:31)
[2019-01-31] MEDS: BISMUTH SUBSALICYLATE 524 MG/30 ML UD PO PRN (19:23)
[2019-01-31] MEDS: THIAMINE HCL 100 MG TABLET (FP) PO SCH (21:43)
[2019-01-31] MEDS: INSULIN (LEVEMIR) 100 UNITS/ML UNITS SQ SCH (21:47)
[2019-01-31] MEDS: MELATONIN 5 MG TABLETS PO PRN (21:49)
[2019-02-01] MEDS: metFORMIN HCL 500 MG TABLET (FP) PO SCH ×2 (06:27→16:22)
[2019-02-01] MEDS: INSULIN (NOVOLOG) ASPART 100 UNITS/ML 10ML VIAL SQ SCH ×4 (06:27→21:01)
[2019-02-01] MEDS ORDERED: INSULIN (NOVOLOG) ASPART 100 UNITS/ML 10ML VIAL ONE ×4 (06:39→20:23)
[2019-02-01] MEDS: IBUPROFEN 400 MG TABLET (FP) PO PRN (07:25)
[2019-02-01] MEDS: HYDROCHLOROTHIAZIDE 12.5 MG CAPSULE (FP) PO SCH (11:04)
[2019-02-01] MEDS: PRENATAL VITAMINS W/ FOLIC ACID TABLET (FP) PO SCH (11:04)
[2019-02-01] MEDS: THIAMINE HCL 100 MG TABLET (FP) PO SCH (21:01)
[2019-02-01] MEDS: INSULIN (LEVEMIR) 100 UNITS/ML UNITS SQ SCH (21:01)
[2019-02-01] MEDS: MELATONIN 5 MG TABLETS PO PRN (21:01)
[2019-02-02] MEDS: INSULIN (NOVOLOG) ASPART 100 UNITS/ML 10ML VIAL SQ SCH ×5 (06:20→22:02)
[2019-02-02] MEDS: metFORMIN HCL 500 MG TABLET (FP) PO SCH ×2 (06:21→16:35)
[2019-02-02] MEDS ORDERED: INSULIN (NOVOLOG) ASPART 100 UNITS/ML 10ML VIAL ONE ×3 (06:47→22:19)
[2019-02-02] MEDS: PRENATAL VITAMINS W/ FOLIC ACID TABLET (FP) PO SCH (09:51)
[2019-02-02] MEDS: HYDROCHLOROTHIAZIDE 12.5 MG CAPSULE (FP) PO SCH (09:51)
--- NOTE | 2019-02-02 13:35 | PN ---
[facility] Progress Note Note: Notified by RN that patient's blood sugar 409. Patient to be medicated according to sliding scale. Continue to monitor clinically. Vital Signs Temperature 99.8 F H 02/02/19 07:16 Pulse Rate 88 02/02/19 07:16 Respiratory Rate 20 02/02/19 07:16 Blood Pressure 156/94 02/02/19 07:16 O2 Sat by Pulse Oximetry (%) Laboratory Tests 01/25/19 01/25/19 01/26/19 08:48 16:56 07:54 POC Glucometer 163 239 308 HIV 1&2 Ag/Ab, 4th Gen HIV 1&2 Antibody Screen HIV P24 Antigen 01/26/19 01/26/19 01/27/19 16:55 21:56 06:56 POC Glucometer 361 366 276 HIV 1&2 Ag/Ab, 4th Gen HIV 1&2 Antibody Screen HIV P24 Antigen 01/27/19 01/27/19 01/27/19 11:41 16:21 22:43 POC Glucometer 394 246 294 HIV 1&2 Ag/Ab, 4th Gen HIV 1&2 Antibody Screen HIV P24 Antigen 01/28/19 01/28/19 01/28/19 05:28 11:10 16:37 POC Glucometer 176 333 284 HIV 1&2 Ag/Ab, 4th Gen HIV 1&2 Antibody Screen HIV P24 Antigen 01/28/19 01/29/19 01/29/19 21:47 07:56 11:49 POC Glucometer 324 194 221 HIV 1&2 Ag/Ab, 4th Gen HIV 1&2 Antibody Screen HIV P24 Antigen 01/29/19 01/29/19 01/30/19 16:45 21:03 06:57 POC Glucometer 261 414 150 HIV 1&2 Ag/Ab, 4th Gen HIV 1&2 Antibody Screen HIV P24 Antigen 01/30/19 01/30/19 01/30/19 11:47 16:52 21:01 POC Glucometer 341 347 365 HIV 1&2 Ag/Ab, 4th Gen HIV 1&2 Antibody Screen HIV P24 Antigen 01/31/19 01/31/19 01/31/19 06:05 08:00 08:00 POC Glucometer 221 HIV 1&2 Ag/Ab, 4th Gen Non reactive HIV 1&2 Antibody Screen Cancelled HIV P24 Antigen Cancelled 01/31/19 01/31/19 01/31/19 11:07 16:49 21:45 POC Glucometer 264 281 395 HIV 1&2 Ag/Ab, 4th Gen HIV 1&2 Antibody Screen HIV P24 Antigen 02/01/19 02/01/19 02/01/19 06:25 11:03 16:17 POC Glucometer 169 286 383 HIV 1&2 Ag/Ab, 4th Gen HIV 1&2 Antibody Screen HIV P24 Antigen 02/01/19 02/02/19 02/02/19 20:20 06:20 11:20 POC Glucometer 367 155 409 HIV 1&2 Ag/Ab, 4th Gen HIV 1&2 Antibody Screen HIV P24 Antigen
[2019-02-02] MEDS ORDERED: PT OWN MED DRAWER 7, Y5N ONE ×2 (16:26→22:19)
[2019-02-02] MEDS: INSULIN (LEVEMIR) 100 UNITS/ML UNITS SQ SCH (22:01)
[2019-02-02] MEDS: THIAMINE HCL 100 MG TABLET (FP) PO SCH (22:03)
[2019-02-02] MEDS: MELATONIN 5 MG TABLETS PO PRN (22:03)
[2019-02-03] MEDS: ACETAMINOPHEN 325 MG TABLET (FP) PO PRN (06:20)
[2019-02-03] MEDS: metFORMIN HCL 500 MG TABLET (FP) PO SCH ×2 (06:27→16:41)
[2019-02-03] MEDS: INSULIN (NOVOLOG) ASPART 100 UNITS/ML 10ML VIAL SQ SCH ×4 (06:27→21:11)
[2019-02-03] MEDS: HYDROCHLOROTHIAZIDE 12.5 MG CAPSULE (FP) PO SCH (09:49)
[2019-02-03] MEDS: PRENATAL VITAMINS W/ FOLIC ACID TABLET (FP) PO SCH (09:49)
[2019-02-03 10:01] LABS: ALBUMIN 3.7 g/dl (3.4-5.0); BILIRUBIN,TOTAL 0.6 mg/dL (0.2-1); BLOOD UREA NITROGEN 12.3 mg/dL (7-18); CALCIUM 9.3 mg/dL (8.5-10.1); CREATININE 1.2 mg/dL (0.55-1.3); POTASSIUM 4.1 mmol/L (3.5-5.1); TOT PROT 6.9 g/dl (6.4-8.2)
--- NOTE | 2019-02-03 11:13 | PN ---
S Progress Note Note: Pt would like Aveeno soap> ordered b/s 333 today> d/w pt at length, > 30minutes, about better DM control
[2019-02-03] MEDS ORDERED: INSULIN (NOVOLOG) ASPART 100 UNITS/ML 10ML VIAL ONE (11:55)
[2019-02-03] MEDS: COLLOIDAL OATMEAL 1 BAR EACH TP PRN (11:56)
[2019-02-03 13:43] LABS: BASO % 0.2 % (0-2.0); HEMATOCRIT 40.7 % (35.4-49); LYMPH % 29.2 % (8-40); MCH 29.7 pg (25.7-33.7); MCHC 34.4 g/dl (32.0-35.9); MEAN CELL VOLUME 86.5 fl (80-96); MEAN PLT VOLUME 9.5 fl (7.5-11.1); MONO % 9.1 % (3.8-10.2); NEUT % 59.5 % (42.8-82.8); PLATELET COUNT 214 K/MM3 (134-434); RDW 13.8 % (11.9-15.9); WHITE BLOOD COUNT 4.1 K/mm3 (4.0-10.0)
[2019-02-03] MEDS: MELATONIN 5 MG TABLETS PO PRN (21:12)
[2019-02-03] MEDS: INSULIN (LEVEMIR) 100 UNITS/ML UNITS SQ SCH (21:12)
[2019-02-03] MEDS: THIAMINE HCL 100 MG TABLET (FP) PO SCH (21:12)
[2019-02-04] MEDS: metFORMIN HCL 500 MG TABLET (FP) PO SCH ×2 (06:50→16:23)
[2019-02-04] MEDS: INSULIN (NOVOLOG) ASPART 100 UNITS/ML 10ML VIAL SQ SCH ×4 (06:50→21:09)
[2019-02-04] MEDS: PRENATAL VITAMINS W/ FOLIC ACID TABLET (FP) PO SCH (09:24)
[2019-02-04] MEDS: HYDROCHLOROTHIAZIDE 12.5 MG CAPSULE (FP) PO SCH (09:26)
[2019-02-04] MEDS ORDERED: INSULIN (NOVOLOG) ASPART 100 UNITS/ML 10ML VIAL ONE (11:43)
[2019-02-04] MEDS: THIAMINE HCL 100 MG TABLET (FP) PO SCH (21:04)
[2019-02-04] MEDS: INSULIN (LEVEMIR) 100 UNITS/ML UNITS SQ SCH (21:08)
[2019-02-05] MEDS: metFORMIN HCL 500 MG TABLET (FP) PO SCH ×2 (06:33→16:49)
[2019-02-05] MEDS: INSULIN (NOVOLOG) ASPART 100 UNITS/ML 10ML VIAL SQ SCH ×4 (06:50→22:01)
[2019-02-05] MEDS: PRENATAL VITAMINS W/ FOLIC ACID TABLET (FP) PO SCH (09:57)
[2019-02-05] MEDS: HYDROCHLOROTHIAZIDE 12.5 MG CAPSULE (FP) PO SCH (09:58)
[2019-02-05] MEDS ORDERED: INSULIN (NOVOLOG) ASPART 100 UNITS/ML 10ML VIAL ONE (11:50)
[2019-02-05] MEDS: THIAMINE HCL 100 MG TABLET (FP) PO SCH (22:01)
[2019-02-05] MEDS: INSULIN (LEVEMIR) 100 UNITS/ML UNITS SQ SCH (22:01)
[2019-02-06] MEDS ORDERED: INSULIN (NOVOLOG) ASPART 100 UNITS/ML 10ML VIAL ONE ×2 (06:51→11:45)
[2019-02-06] MEDS: metFORMIN HCL 500 MG TABLET (FP) PO SCH ×2 (07:24→17:06)
[2019-02-06] MEDS: INSULIN (NOVOLOG) ASPART 100 UNITS/ML 10ML VIAL SQ SCH ×4 (07:24→21:03)
[2019-02-06] MEDS: PRENATAL VITAMINS W/ FOLIC ACID TABLET (FP) PO SCH (10:40)
[2019-02-06] MEDS: HYDROCHLOROTHIAZIDE 12.5 MG CAPSULE (FP) PO SCH (10:41)
[2019-02-06] MEDS: THIAMINE HCL 100 MG TABLET (FP) PO SCH (21:00)
[2019-02-06] MEDS: MELATONIN 5 MG TABLETS PO PRN (21:02)
[2019-02-06] MEDS: INSULIN (LEVEMIR) 100 UNITS/ML UNITS SQ SCH (21:03)
[2019-02-07] MEDS: metFORMIN HCL 500 MG TABLET (FP) PO SCH ×2 (06:46→16:55)
[2019-02-07] MEDS ORDERED: INSULIN (NOVOLOG) ASPART 100 UNITS/ML 10ML VIAL ONE ×3 (06:47→21:43)
[2019-02-07] MEDS: INSULIN (NOVOLOG) ASPART 100 UNITS/ML 10ML VIAL SQ SCH ×4 (06:47→21:40)
[2019-02-07] MEDS ORDERED: cloNIDine HCL 0.1 MG TABLET PO ONE (06:55)
--- NOTE | 2019-02-07 07:05 | PN ---
[facility] Progress Note Note: Patient's blood pressure this morning is B/P 164/108. Patient is asymptomatic Vital Signs Temperature 98.2 F 02/07/19 06:28 Pulse Rate 86 02/07/19 06:28 Respiratory Rate 20 02/07/19 06:28 Blood Pressure 164/108 H 02/07/19 06:28 O2 Sat by Pulse Oximetry (%) Action: Clonidine 0.1mg tablet oral ordered
[2019-02-07] MEDS: PRENATAL VITAMINS W/ FOLIC ACID TABLET (FP) PO SCH (10:42)
[2019-02-07] MEDS: HYDROCHLOROTHIAZIDE 12.5 MG CAPSULE (FP) PO SCH (10:43)
[2019-02-07] MEDS: THIAMINE HCL 100 MG TABLET (FP) PO SCH (21:37)
[2019-02-07] MEDS: INSULIN (LEVEMIR) 100 UNITS/ML UNITS SQ SCH (21:41)
[2019-02-07] MEDS: MELATONIN 5 MG TABLETS PO PRN (21:45)
[2019-02-08] MEDS ORDERED: INSULIN (NOVOLOG) ASPART 100 UNITS/ML 10ML VIAL ONE ×3 (06:45→16:35)
[2019-02-08] MEDS: metFORMIN HCL 500 MG TABLET (FP) PO SCH ×2 (06:45→16:56)
[2019-02-08] MEDS: INSULIN (NOVOLOG) ASPART 100 UNITS/ML 10ML VIAL SQ SCH ×4 (06:46→21:18)
[2019-02-08] MEDS: PRENATAL VITAMINS W/ FOLIC ACID TABLET (FP) PO SCH (09:34)
[2019-02-08] MEDS: HYDROCHLOROTHIAZIDE 12.5 MG CAPSULE (FP) PO SCH (09:35)
[2019-02-08] MEDS: COLLOIDAL OATMEAL 1 BAR EACH TP PRN (09:50)
[2019-02-08] MEDS: MAG HYDROX/AL HYDROX/SIMETH 30 ML UNIT-DOSE CUP PO PRN (19:12)
[2019-02-08] MEDS: MELATONIN 5 MG TABLETS PO PRN (21:18)
[2019-02-08] MEDS: INSULIN (LEVEMIR) 100 UNITS/ML UNITS SQ SCH (21:18)
[2019-02-08] MEDS: THIAMINE HCL 100 MG TABLET (FP) PO SCH (21:18)
[2019-02-08] MEDS: MAGNESIUM HYDROX 2400MG/30ML ORAL SUSPENSION 30 ML CUP PO PRN (21:42)
[2019-02-09] MEDS: metFORMIN HCL 500 MG TABLET (FP) PO SCH ×2 (07:06→16:40)
[2019-02-09] MEDS: INSULIN (NOVOLOG) ASPART 100 UNITS/ML 10ML VIAL SQ SCH ×4 (07:06→21:06)
[2019-02-09] MEDS ORDERED: MAGNESIUM CITRATE 300 ML BOTTLE PO ONE (09:45)
[2019-02-09] MEDS: HYDROCHLOROTHIAZIDE 12.5 MG CAPSULE (FP) PO SCH (10:26)
[2019-02-09] MEDS: PRENATAL VITAMINS W/ FOLIC ACID TABLET (FP) PO SCH (10:26)
[2019-02-09] MEDS: MINERAL OIL/PETROLAT/WATER TOPICAL CREAM 113 GM JAR TP SCH ×2 (11:00→21:07)
[2019-02-09] MEDS ORDERED: INSULIN (NOVOLOG) ASPART 100 UNITS/ML 10ML VIAL ONE (11:40)
[2019-02-09] MEDS: INSULIN (LEVEMIR) 100 UNITS/ML UNITS SQ SCH (21:06)
[2019-02-09] MEDS: MELATONIN 5 MG TABLETS PO PRN (21:06)
[2019-02-09] MEDS: THIAMINE HCL 100 MG TABLET (FP) PO SCH (21:06)
[2019-02-10] MEDS: metFORMIN HCL 500 MG TABLET (FP) PO SCH ×2 (06:30→16:36)
[2019-02-10] MEDS: INSULIN (NOVOLOG) ASPART 100 UNITS/ML 10ML VIAL SQ SCH ×4 (06:31→21:01)
[2019-02-10] MEDS: HYDROCHLOROTHIAZIDE 12.5 MG CAPSULE (FP) PO SCH (10:43)
[2019-02-10] MEDS: MINERAL OIL/PETROLAT/WATER TOPICAL CREAM 113 GM JAR TP SCH ×2 (10:43→21:58)
[2019-02-10] MEDS: PRENATAL VITAMINS W/ FOLIC ACID TABLET (FP) PO SCH (10:43)
[2019-02-10] MEDS: MAGNESIUM HYDROX 2400MG/30ML ORAL SUSPENSION 30 ML CUP PO PRN ×2 (10:44→18:55)
[2019-02-10] MEDS ORDERED: INSULIN (NOVOLOG) ASPART 100 UNITS/ML 10ML VIAL ONE (12:04)
[2019-02-10] MEDS: IBUPROFEN 400 MG TABLET (FP) PO PRN (12:06)
[2019-02-10] MEDS: INSULIN (LEVEMIR) 100 UNITS/ML UNITS SQ SCH (21:02)
[2019-02-10] MEDS: THIAMINE HCL 100 MG TABLET (FP) PO SCH (21:02)
[2019-02-10] MEDS: MELATONIN 5 MG TABLETS PO PRN (21:02)
[2019-02-11] MEDS: INSULIN (NOVOLOG) ASPART 100 UNITS/ML 10ML VIAL SQ SCH ×4 (07:01→21:27)
[2019-02-11] MEDS: metFORMIN HCL 500 MG TABLET (FP) PO SCH ×2 (07:01→16:32)
[2019-02-11] MEDS: MAGNESIUM HYDROX 2400MG/30ML ORAL SUSPENSION 30 ML CUP PO PRN (09:30)
[2019-02-11] MEDS: PRENATAL VITAMINS W/ FOLIC ACID TABLET (FP) PO SCH (09:30)
[2019-02-11] MEDS: HYDROCHLOROTHIAZIDE 12.5 MG CAPSULE (FP) PO SCH (09:30)
[2019-02-11] MEDS: MINERAL OIL/PETROLAT/WATER TOPICAL CREAM 113 GM JAR TP SCH ×2 (09:30→21:22)
[2019-02-11] MEDS ORDERED: INSULIN (NOVOLOG) ASPART 100 UNITS/ML 10ML VIAL ONE (11:36)
[2019-02-11] MEDS: MELATONIN 5 MG TABLETS PO PRN (21:28)
[2019-02-11] MEDS: INSULIN (LEVEMIR) 100 UNITS/ML UNITS SQ SCH (21:28)
[2019-02-11] MEDS: THIAMINE HCL 100 MG TABLET (FP) PO SCH (21:28)
[2019-02-11] MEDS: MAG HYDROX/AL HYDROX/SIMETH 30 ML UNIT-DOSE CUP PO PRN (21:28)
[2019-02-12] MEDS: INSULIN (NOVOLOG) ASPART 100 UNITS/ML 10ML VIAL SQ SCH ×4 (07:30→22:05)
[2019-02-12] MEDS: metFORMIN HCL 500 MG TABLET (FP) PO SCH ×2 (07:30→16:58)
[2019-02-12] MEDS: MINERAL OIL/PETROLAT/WATER TOPICAL CREAM 113 GM JAR TP SCH ×2 (09:16→21:07)
[2019-02-12] MEDS: HYDROCHLOROTHIAZIDE 12.5 MG CAPSULE (FP) PO SCH (09:16)
[2019-02-12] MEDS: PRENATAL VITAMINS W/ FOLIC ACID TABLET (FP) PO SCH (09:17)
[2019-02-12] MEDS: MAG HYDROX/AL HYDROX/SIMETH 30 ML UNIT-DOSE CUP PO PRN (09:18)
[2019-02-12] MEDS ORDERED: INSULIN (NOVOLOG) ASPART 100 UNITS/ML 10ML VIAL ONE ×2 (11:39→16:29)
--- NOTE | 2019-02-12 14:00 | PN ---
[facility] Progress Note (SOAP) Subjective: Patient refusing HCTZ daily. BP has been elevated for 3 days. Objective: 02/12/19 13:57 Vital Signs (72 hours) 02/10/19 02/10/19 02/10/19 00:30 03:30 06:49 Temperature 98.1 F Pulse Rate 94 H Respiratory 18 18 20 Rate Blood Pressure 150/108 H 02/10/19 02/10/19 02/11/19 07:26 09:30 00:30 Temperature Pulse Rate 112 H Respiratory 18 18 Rate Blood Pressure 149/99 147/79 02/11/19 02/11/19 02/11/19 03:30 06:36 09:30 Temperature 98.3 F Pulse Rate 93 H 112 H Respiratory 18 20 18 Rate Blood Pressure 156/97 159/105 H 02/12/19 02/12/19 02/12/19 00:30 03:30 06:44 Temperature 98.2 F Pulse Rate 86 Respiratory 18 18 20 Rate Blood Pressure 164/99 02/12/19 09:30 Temperature Pulse Rate 108 H Respiratory 18 Rate Blood Pressure 150/75 Assessment: HTN 02/12/19 13:58 Plan: Changed BP medication to lisinopril.
[2019-02-12] MEDS ORDERED: MAGNESIUM CITRATE 300 ML BOTTLE PO ONE (14:45)
[2019-02-12] MEDS: THIAMINE HCL 100 MG TABLET (FP) PO SCH (21:07)
[2019-02-12] MEDS: MELATONIN 5 MG TABLETS PO PRN (21:07)
[2019-02-12] MEDS: INSULIN (LEVEMIR) 100 UNITS/ML UNITS SQ SCH (21:12)
[2019-02-12] MEDS: RANITIDINE HCL 150 MG TABLET (FP) PO SCH (22:05)
[2019-02-13] MEDS: INSULIN (NOVOLOG) ASPART 100 UNITS/ML 10ML VIAL SQ SCH ×4 (06:27→21:55)
[2019-02-13] MEDS: metFORMIN HCL 500 MG TABLET (FP) PO SCH ×2 (06:27→16:27)
[2019-02-13] MEDS ORDERED: PT OWN MED DRAWER 7, Y5N ONE (08:23)
--- NOTE | 2019-02-13 08:56 | PN ---
[facility] Progress Note Note: Patient seen for elevated BP and noncompliance with HTN medication. Patient states HCTZ makes him feel dizzy. Patient denies chest pain, sob and dizziness at this time. Laboratory Tests 01/25/19 01/25/19 01/26/19 08:48 16:56 07:54 WBC RBC Hgb Hct MCV MCH MCHC RDW Plt Count MPV Absolute Neuts (auto) Neutrophils % Lymphocytes % Monocytes % Eosinophils % Basophils % Nucleated RBC % Sodium Potassium Chloride Carbon Dioxide Anion Gap BUN Creatinine Est GFR (CKD-EPI)AfAm Est GFR (CKD-EPI)NonAf POC Glucometer [phone] Random Glucose Hemoglobin A1c % Calcium Total Bilirubin AST ALT Alkaline Phosphatase Total Protein Albumin HIV 1&2 Ag/Ab, 4th Gen HIV 1&2 Antibody Screen HIV P24 Antigen 01/26/19 01/26/19 01/27/19 16:55 21:56 06:56 WBC RBC Hgb Hct MCV MCH MCHC RDW Plt Count MPV Absolute Neuts (auto) Neutrophils % Lymphocytes % Monocytes % Eosinophils % Basophils % Nucleated RBC % Sodium Potassium Chloride Carbon Dioxide Anion Gap BUN Creatinine Est GFR (CKD-EPI)AfAm Est GFR (CKD-EPI)NonAf POC Glucometer [phone] Random Glucose Hemoglobin A1c % Calcium Total Bilirubin AST ALT Alkaline Phosphatase Total Protein Albumin HIV 1&2 Ag/Ab, 4th Gen HIV 1&2 Antibody Screen HIV P24 Antigen 01/27/19 01/27/19 01/27/19 11:41 16:21 22:43 WBC RBC Hgb Hct MCV MCH MCHC RDW Plt Count MPV Absolute Neuts (auto) Neutrophils % Lymphocytes % Monocytes % Eosinophils % Basophils % Nucleated RBC % Sodium Potassium Chloride Carbon Dioxide Anion Gap BUN Creatinine Est GFR (CKD-EPI)AfAm Est GFR (CKD-EPI)NonAf POC Glucometer [phone] Random Glucose Hemoglobin A1c % Calcium Total Bilirubin AST ALT Alkaline Phosphatase Total Protein Albumin HIV 1&2 Ag/Ab, 4th Gen HIV 1&2 Antibody Screen HIV P24 Antigen 01/28/19 01/28/19 01/28/19 05:28 11:10 16:37 WBC RBC Hgb Hct MCV MCH MCHC RDW Plt Count MPV Absolute Neuts (auto) Neutrophils % Lymphocytes % Monocytes % Eosinophils % Basophils % Nucleated RBC % Sodium Potassium Chloride Carbon Dioxide Anion Gap BUN Creatinine Est GFR (CKD-EPI)AfAm Est GFR (CKD-EPI)NonAf POC Glucometer [phone] Random Glucose Hemoglobin A1c % Calcium Total Bilirubin AST ALT Alkaline Phosphatase Total Protein Albumin HIV 1&2 Ag/Ab, 4th Gen HIV 1&2 Antibody Screen HIV P24 Antigen 01/28/19 01/29/19 01/29/19 21:47 07:56 11:49 WBC RBC Hgb Hct MCV MCH MCHC RDW Plt Count MPV Absolute Neuts (auto) Neutrophils % Lymphocytes % Monocytes % Eosinophils % Basophils % Nucleated RBC % Sodium Potassium Chloride Carbon Dioxide Anion Gap BUN Creatinine Est GFR (CKD-EPI)AfAm Est GFR (CKD-EPI)NonAf POC Glucometer [phone] Random Glucose Hemoglobin A1c % Calcium Total Bilirubin AST ALT Alkaline Phosphatase Total Protein Albumin HIV 1&2 Ag/Ab, 4th Gen HIV 1&2 Antibody Screen HIV P24 Antigen 01/29/19 01/29/19 01/30/19 16:45 21:03 06:57 WBC RBC Hgb Hct MCV MCH MCHC RDW Plt Count MPV Absolute Neuts (auto) Neutrophils % Lymphocytes % Monocytes % Eosinophils % Basophils % Nucleated RBC % Sodium Potassium Chloride Carbon Dioxide Anion Gap BUN Creatinine Est GFR (CKD-EPI)AfAm Est GFR (CKD-EPI)NonAf POC Glucometer [phone] Random Glucose Hemoglobin A1c % Calcium Total Bilirubin AST ALT Alkaline Phosphatase Total Protein Albumin HIV 1&2 Ag/Ab, 4th Gen HIV 1&2 Antibody Screen HIV P24 Antigen 01/30/19 01/30/19 01/30/19 11:47 16:52 21:01 WBC RBC Hgb Hct MCV MCH MCHC RDW Plt Count MPV Absolute Neuts (auto) Neutrophils % Lymphocytes % Monocytes % Eosinophils % Basophils % Nucleated RBC % Sodium Potassium Chloride Carbon Dioxide Anion Gap BUN Creatinine Est GFR (CKD-EPI)AfAm Est GFR (CKD-EPI)NonAf POC Glucometer [phone] Random Glucose Hemoglobin A1c % Calcium Total Bilirubin AST ALT Alkaline Phosphatase Total Protein Albumin HIV 1&2 Ag/Ab, 4th Gen HIV 1&2 Antibody Screen HIV P24 Antigen 01/31/19 01/31/19 01/31/19 06:05 08:00 08:00 WBC RBC Hgb Hct MCV MCH MCHC RDW Plt Count MPV Absolute Neuts (auto) Neutrophils % Lymphocytes % Monocytes % Eosinophils % Basophils % Nucleated RBC % Sodium Potassium Chloride Carbon Dioxide Anion Gap BUN Creatinine Est GFR (CKD-EPI)AfAm Est GFR (CKD-EPI)NonAf POC Glucometer 221 Random Glucose Hemoglobin A1c % Calcium Total Bilirubin AST ALT Alkaline Phosphatase Total Protein Albumin HIV 1&2 Ag/Ab, 4th Gen Non reactive HIV 1&2 Antibody Screen Cancelled HIV P24 Antigen Cancelled 01/31/19 01/31/19 01/31/19 11:07 16:49 21:45 WBC RBC Hgb Hct MCV MCH MCHC RDW Plt Count MPV Absolute Neuts (auto) Neutrophils % Lymphocytes % Monocytes % Eosinophils % Basophils % Nucleated RBC % Sodium Potassium Chloride Carbon Dioxide Anion Gap BUN Creatinine Est GFR (CKD-EPI)AfAm Est GFR (CKD-EPI)NonAf POC Glucometer [phone] Random Glucose Hemoglobin A1c % Calcium Total Bilirubin AST ALT Alkaline Phosphatase Total Protein Albumin HIV 1&2 Ag/Ab, 4th Gen HIV 1&2 Antibody Screen HIV P24 Antigen 02/01/19 02/01/19 02/01/19 06:25 11:03 16:17 WBC RBC Hgb Hct MCV MCH MCHC RDW Plt Count MPV Absolute Neuts (auto) Neutrophils % Lymphocytes % Monocytes % Eosinophils % Basophils % Nucleated RBC % Sodium Potassium Chloride Carbon Dioxide Anion Gap BUN Creatinine Est GFR (CKD-EPI)AfAm Est GFR (CKD-EPI)NonAf POC Glucometer [phone] Random Glucose Hemoglobin A1c % Calcium Total Bilirubin AST ALT Alkaline Phosphatase Total Protein Albumin HIV 1&2 Ag/Ab, 4th Gen HIV 1&2 Antibody Screen HIV P24 Antigen 02/01/19 02/02/19 02/02/19 20:20 06:20 11:20 WBC RBC Hgb Hct MCV MCH MCHC RDW Plt Count MPV Absolute Neuts (auto) Neutrophils % Lymphocytes % Monocytes % Eosinophils % Basophils % Nucleated RBC % Sodium Potassium Chloride Carbon Dioxide Anion Gap BUN Creatinine Est GFR (CKD-EPI)AfAm Est GFR (CKD-EPI)NonAf POC Glucometer [phone] Random Glucose Hemoglobin A1c % Calcium Total Bilirubin AST ALT Alkaline Phosphatase Total Protein Albumin HIV 1&2 Ag/Ab, 4th Gen HIV 1&2 Antibody Screen HIV P24 Antigen 02/02/19 02/02/19 02/03/19 16:27 22:00 06:19 WBC RBC Hgb Hct MCV MCH MCHC RDW Plt Count MPV Absolute Neuts (auto) Neutrophils % Lymphocytes % Monocytes % Eosinophils % Basophils % Nucleated RBC % Sodium Potassium Chloride Carbon Dioxide Anion Gap BUN Creatinine Est GFR (CKD-EPI)AfAm Est GFR (CKD-EPI)NonAf POC Glucometer [phone] Random Glucose Hemoglobin A1c % Calcium Total Bilirubin AST ALT Alkaline Phosphatase Total Protein Albumin HIV 1&2 Ag/Ab, 4th Gen HIV 1&2 Antibody Screen HIV P24 Antigen 02/03/19 02/03/19 02/03/19 08:25 08:25 08:25 WBC 4.1 RBC 4.70 Hgb 14.0 Hct 40.7 MCV 86.5 MCH 29.7 MCHC 34.4 RDW 13.8 Plt Count 214 D MPV 9.5 Absolute Neuts (auto) 2.4 Neutrophils % 59.5 Lymphocytes % 29.2 Monocytes % 9.1 Eosinophils % 2.0 Basophils % 0.2 Nucleated RBC % 1 H Sodium 137 Potassium 4.1 Chloride 101 Carbon Dioxide 29 Anion Gap 7 L BUN 12.3 Creatinine 1.2 Est GFR (CKD-EPI)AfAm 81.80 Est GFR (CKD-EPI)NonAf 70.58 POC Glucometer Random Glucose 333 H* Hemoglobin A1c % 8.8 H Calcium 9.3 Total Bilirubin 0.6 AST 21 ALT 41 Alkaline Phosphatase 75 Total Protein 6.9 Albumin 3.7 HIV 1&2 Ag/Ab, 4th Gen HIV 1&2 Antibody Screen HIV P24 Antigen 02/03/19 02/03/19 02/03/19 11:53 16:39 21:08 WBC RBC Hgb Hct MCV MCH MCHC RDW Plt Count MPV Absolute Neuts (auto) Neutrophils % Lymphocytes % Monocytes % Eosinophils % Basophils % Nucleated RBC % Sodium Potassium Chloride Carbon Dioxide Anion Gap BUN Creatinine Est GFR (CKD-EPI)AfAm Est GFR (CKD-EPI)NonAf POC Glucometer [phone] Random Glucose Hemoglobin A1c % Calcium Total Bilirubin AST ALT Alkaline Phosphatase Total Protein Albumin HIV 1&2 Ag/Ab, 4th Gen HIV 1&2 Antibody Screen HIV P24 Antigen 02/04/19 02/04/19 02/04/19 05:57 11:40 16:21 WBC RBC Hgb Hct MCV MCH MCHC RDW Plt Count MPV Absolute Neuts (auto) Neutrophils % Lymphocytes % Monocytes % Eosinophils % Basophils % Nucleated RBC % Sodium Potassium Chloride Carbon Dioxide Anion Gap BUN Creatinine Est GFR (CKD-EPI)AfAm Est GFR (CKD-EPI)NonAf POC Glucometer [phone] Random Glucose Hemoglobin A1c % Calcium Total Bilirubin AST ALT Alkaline Phosphatase Total Protein Albumin HIV 1&2 Ag/Ab, 4th Gen HIV 1&2 Antibody Screen HIV P24 Antigen 02/04/19 02/05/19 02/05/19 21:05 06:33 11:47 WBC RBC Hgb Hct MCV MCH MCHC RDW Plt Count MPV Absolute Neuts (auto) Neutrophils % Lymphocytes % Monocytes % Eosinophils % Basophils % Nucleated RBC % Sodium Potassium Chloride Carbon Dioxide Anion Gap BUN Creatinine Est GFR (CKD-EPI)AfAm Est GFR (CKD-EPI)NonAf POC Glucometer [phone] Random Glucose Hemoglobin A1c % Calcium Total Bilirubin AST ALT Alkaline Phosphatase Total Protein Albumin HIV 1&2 Ag/Ab, 4th Gen HIV 1&2 Antibody Screen HIV P24 Antigen 02/05/19 02/06/19 02/06/19 16:46 06:47 11:42 WBC RBC Hgb Hct MCV MCH MCHC RDW Plt Count MPV Absolute Neuts (auto) Neutrophils % Lymphocytes % Monocytes % Eosinophils % Basophils % Nucleated RBC % Sodium Potassium Chloride Carbon Dioxide Anion Gap BUN Creatinine Est GFR (CKD-EPI)AfAm Est GFR (CKD-EPI)NonAf POC Glucometer [phone] Random Glucose Hemoglobin A1c % Calcium Total Bilirubin AST ALT Alkaline Phosphatase Total Protein Albumin HIV 1&2 Ag/Ab, 4th Gen HIV 1&2 Antibody Screen HIV P24 Antigen 02/06/19 02/06/19 02/07/19 17:04 20:34 05:57 WBC RBC Hgb Hct MCV MCH MCHC RDW Plt Count MPV Absolute Neuts (auto) Neutrophils % Lymphocytes % Monocytes % Eosinophils % Basophils % Nucleated RBC % Sodium Potassium Chloride Carbon Dioxide Anion Gap BUN Creatinine Est GFR (CKD-EPI)AfAm Est GFR (CKD-EPI)NonAf POC Glucometer [phone] Random Glucose Hemoglobin A1c % Calcium Total Bilirubin AST ALT Alkaline Phosphatase Total Protein Albumin HIV 1&2 Ag/Ab, 4th Gen HIV 1&2 Antibody Screen HIV P24 Antigen 02/07/19 02/07/19 02/07/19 12:01 16:51 21:38 WBC RBC Hgb Hct MCV MCH MCHC RDW Plt Count MPV Absolute Neuts (auto) Neutrophils % Lymphocytes % Monocytes % Eosinophils % Basophils % Nucleated RBC % Sodium Potassium Chloride Carbon Dioxide Anion Gap BUN Creatinine Est GFR (CKD-EPI)AfAm Est GFR (CKD-EPI)NonAf POC Glucometer [phone] Random Glucose Hemoglobin A1c % Calcium Total Bilirubin AST ALT Alkaline Phosphatase Total Protein Albumin HIV 1&2 Ag/Ab, 4th Gen HIV 1&2 Antibody Screen HIV P24 Antigen 02/08/19 02/08/19 02/08/19 06:14 11:13 16:55 WBC RBC Hgb Hct MCV MCH MCHC RDW Plt Count MPV Absolute Neuts (auto) Neutrophils % Lymphocytes % Monocytes % Eosinophils % Basophils % Nucleated RBC % Sodium Potassium Chloride Carbon Dioxide Anion Gap BUN Creatinine Est GFR (CKD-EPI)AfAm Est GFR (CKD-EPI)NonAf POC Glucometer [phone] Random Glucose Hemoglobin A1c % Calcium Total Bilirubin AST ALT Alkaline Phosphatase Total Protein Albumin HIV 1&2 Ag/Ab, 4th Gen HIV 1&2 Antibody Screen HIV P24 Antigen 02/08/19 02/09/19 02/09/19 21:14 06:08 11:37 WBC RBC Hgb Hct MCV MCH MCHC RDW Plt Count MPV Absolute Neuts (auto) Neutrophils % Lymphocytes % Monocytes % Eosinophils % Basophils % Nucleated RBC % Sodium Potassium Chloride Carbon Dioxide Anion Gap BUN Creatinine Est GFR (CKD-EPI)AfAm Est GFR (CKD-EPI)NonAf POC Glucometer [phone] Random Glucose Hemoglobin A1c % Calcium Total Bilirubin AST ALT Alkaline Phosphatase Total Protein Albumin HIV 1&2 Ag/Ab, 4th Gen HIV 1&2 Antibody Screen HIV P24 Antigen 02/09/19 02/09/19 02/10/19 16:37 21:02 06:29 WBC RBC Hgb Hct MCV MCH MCHC RDW Plt Count MPV Absolute Neuts (auto) Neutrophils % Lymphocytes % Monocytes % Eosinophils % Basophils % Nucleated RBC % Sodium Potassium Chloride Carbon Dioxide Anion Gap BUN Creatinine Est GFR (CKD-EPI)AfAm Est GFR (CKD-EPI)NonAf POC Glucometer [phone] Random Glucose Hemoglobin A1c % Calcium Total Bilirubin AST ALT Alkaline Phosphatase Total Protein Albumin HIV 1&2 Ag/Ab, 4th Gen HIV 1&2 Antibody Screen HIV P24 Antigen 02/10/19 02/10/19 02/10/19 12:00 16:33 20:57 WBC RBC Hgb Hct MCV MCH MCHC RDW Plt Count MPV Absolute Neuts (auto) Neutrophils % Lymphocytes % Monocytes % Eosinophils % Basophils % Nucleated RBC % Sodium Potassium Chloride Carbon Dioxide Anion Gap BUN Creatinine Est GFR (CKD-EPI)AfAm Est GFR (CKD-EPI)NonAf POC Glucometer [phone] Random Glucose Hemoglobin A1c % Calcium Total Bilirubin AST ALT Alkaline Phosphatase Total Protein Albumin HIV 1&2 Ag/Ab, 4th Gen HIV 1&2 Antibody Screen HIV P24 Antigen 02/11/19 02/11/19 02/11/19 05:50 11:31 16:31 WBC RBC Hgb Hct MCV MCH MCHC RDW Plt Count MPV Absolute Neuts (auto) Neutrophils % Lymphocytes % Monocytes % Eosinophils % Basophils % Nucleated RBC % Sodium Potassium Chloride Carbon Dioxide Anion Gap BUN Creatinine Est GFR (CKD-EPI)AfAm Est GFR (CKD-EPI)NonAf POC Glucometer [phone] Random Glucose Hemoglobin A1c % Calcium Total Bilirubin AST ALT Alkaline Phosphatase Total Protein Albumin HIV 1&2 Ag/Ab, 4th Gen HIV 1&2 Antibody Screen HIV P24 Antigen 02/11/19 02/12/19 02/12/19 21:24 05:54 11:36 WBC RBC Hgb Hct MCV MCH MCHC RDW Plt Count MPV Absolute Neuts (auto) Neutrophils % Lymphocytes % Monocytes % Eosinophils % Basophils % Nucleated RBC % Sodium Potassium Chloride Carbon Dioxide Anion Gap BUN Creatinine Est GFR (CKD-EPI)AfAm Est GFR (CKD-EPI)NonAf POC Glucometer [phone] Random Glucose Hemoglobin A1c % Calcium Total Bilirubin AST ALT Alkaline Phosphatase Total Protein Albumin HIV 1&2 Ag/Ab, 4th Gen HIV 1&2 Antibody Screen HIV P24 Antigen 02/12/19 02/12/19 02/13/19 16:58 21:09 06:26 WBC RBC Hgb Hct MCV MCH MCHC RDW Plt Count MPV Absolute Neuts (auto) Neutrophils % Lymphocytes % Monocytes % Eosinophils % Basophils % Nucleated RBC % Sodium Potassium Chloride Carbon Dioxide Anion Gap BUN Creatinine Est GFR (CKD-EPI)AfAm Est GFR (CKD-EPI)NonAf POC Glucometer [phone] Random Glucose Hemoglobin A1c % Calcium Total Bilirubin AST ALT Alkaline Phosphatase Total Protein Albumin HIV 1&2 Ag/Ab, 4th Gen HIV 1&2 Antibody Screen HIV P24 Antigen Vital Signs Temperature 98 F 02/13/19 06:22 Pulse Rate 108 H 02/13/19 06:22 Respiratory Rate 20 02/13/19 06:22 Blood Pressure 160/107 H 02/13/19 06:22 O2 Sat by Pulse Oximetry (%) PE alert and oriented x 3 skin warm and dry +perrla eoms intact bl neck supple, no jvd car s1s2 resp no adventitious breath sounds ext full rom,no edema a/p htn elevated bp will d/c hctz start clonidine 0.1mg bid prn arsen diet encourage oral fluids monitor clinically
[2019-02-13] MEDS: cloNIDine HCL 0.1 MG TABLET PO PRN (09:13)
[2019-02-13] MEDS: RANITIDINE HCL 150 MG TABLET (FP) PO SCH ×2 (09:14→21:52)
[2019-02-13] MEDS: LISINOPRIL 5 MG TABLET (FP) PO SCH (09:14)
[2019-02-13] MEDS: MINERAL OIL/PETROLAT/WATER TOPICAL CREAM 113 GM JAR TP SCH ×2 (09:14→21:52)
[2019-02-13] MEDS: PRENATAL VITAMINS W/ FOLIC ACID TABLET (FP) PO SCH (09:14)
[2019-02-13] MEDS: COLLOIDAL OATMEAL 1 BAR EACH TP PRN (09:15)
[2019-02-13] MEDS ORDERED: cloNIDine HCL 0.1 MG TABLET PO SCH (10:00)
[2019-02-13] MEDS ORDERED: INSULIN (NOVOLOG) ASPART 100 UNITS/ML 10ML VIAL ONE (11:44)
[2019-02-13] MEDS: THIAMINE HCL 100 MG TABLET (FP) PO SCH (21:52)
[2019-02-13] MEDS: MELATONIN 5 MG TABLETS PO PRN (21:52)
[2019-02-13] MEDS: INSULIN (LEVEMIR) 100 UNITS/ML UNITS SQ SCH (21:55)
[2019-02-14] MEDS: metFORMIN HCL 500 MG TABLET (FP) PO SCH ×2 (06:13→18:10)
[2019-02-14] MEDS: INSULIN (NOVOLOG) ASPART 100 UNITS/ML 10ML VIAL SQ SCH ×4 (06:13→21:28)
[2019-02-14] MEDS: MAG HYDROX/AL HYDROX/SIMETH 30 ML UNIT-DOSE CUP PO PRN (06:53)
[2019-02-14] MEDS: RANITIDINE HCL 150 MG TABLET (FP) PO SCH ×2 (10:08→21:29)
[2019-02-14] MEDS: MINERAL OIL/PETROLAT/WATER TOPICAL CREAM 113 GM JAR TP SCH ×2 (10:08→21:27)
[2019-02-14] MEDS: PRENATAL VITAMINS W/ FOLIC ACID TABLET (FP) PO SCH (10:08)
[2019-02-14] MEDS: LISINOPRIL 5 MG TABLET (FP) PO SCH (10:08)
[2019-02-14] MEDS ORDERED: INSULIN (NOVOLOG) ASPART 100 UNITS/ML 10ML VIAL ONE ×2 (18:10→22:06)
[2019-02-14] MEDS: INSULIN (LEVEMIR) 100 UNITS/ML UNITS SQ SCH (21:27)
[2019-02-14] MEDS: MELATONIN 5 MG TABLETS PO PRN (21:29)
[2019-02-14] MEDS: THIAMINE HCL 100 MG TABLET (FP) PO SCH (21:29)
[2019-02-15] MEDS: INSULIN (NOVOLOG) ASPART 100 UNITS/ML 10ML VIAL SQ SCH ×4 (06:15→21:38)
[2019-02-15] MEDS: metFORMIN HCL 500 MG TABLET (FP) PO SCH ×2 (06:15→17:37)
[2019-02-15] MEDS: COLLOIDAL OATMEAL 1 BAR EACH TP PRN (06:44)
[2019-02-15] MEDS: MAG HYDROX/AL HYDROX/SIMETH 30 ML UNIT-DOSE CUP PO PRN (07:52)
[2019-02-15] MEDS: MINERAL OIL/PETROLAT/WATER TOPICAL CREAM 113 GM JAR TP SCH ×2 (09:59→21:39)
[2019-02-15] MEDS: LISINOPRIL 5 MG TABLET (FP) PO SCH (10:00)
[2019-02-15] MEDS: PRENATAL VITAMINS W/ FOLIC ACID TABLET (FP) PO SCH (10:00)
[2019-02-15] MEDS: RANITIDINE HCL 150 MG TABLET (FP) PO SCH ×2 (10:00→21:36)
[2019-02-15] MEDS ORDERED: INSULIN (NOVOLOG) ASPART 100 UNITS/ML 10ML VIAL ONE ×2 (11:37→16:40)
[2019-02-15] MEDS: THIAMINE HCL 100 MG TABLET (FP) PO SCH (21:36)
[2019-02-15] MEDS: MELATONIN 5 MG TABLETS PO PRN (21:36)
[2019-02-15] MEDS: INSULIN (LEVEMIR) 100 UNITS/ML UNITS SQ SCH (21:37)
[2019-02-16] MEDS: metFORMIN HCL 500 MG TABLET (FP) PO SCH ×2 (07:01→16:41)
[2019-02-16] MEDS: INSULIN (NOVOLOG) ASPART 100 UNITS/ML 10ML VIAL SQ SCH ×4 (07:02→21:06)
[2019-02-16] MEDS: cloNIDine HCL 0.1 MG TABLET PO PRN (08:24)
[2019-02-16] MEDS ORDERED: PT OWN MED DRAWER 7, Y5N ONE ×2 (09:30→13:24)
[2019-02-16] MEDS: PRENATAL VITAMINS W/ FOLIC ACID TABLET (FP) PO SCH (09:50)
[2019-02-16] MEDS: LISINOPRIL 5 MG TABLET (FP) PO SCH (09:52)
[2019-02-16] MEDS ORDERED: INSULIN (NOVOLOG) ASPART 100 UNITS/ML 10ML VIAL ONE ×2 (11:52→16:40)
[2019-02-16] MEDS: RANITIDINE HCL 150 MG TABLET (FP) PO SCH ×2 (13:23→21:03)
[2019-02-16] MEDS: MINERAL OIL/PETROLAT/WATER TOPICAL CREAM 113 GM JAR TP SCH ×2 (13:25→21:04)
[2019-02-16] MEDS: THIAMINE HCL 100 MG TABLET (FP) PO SCH (21:03)
[2019-02-16] MEDS: MELATONIN 5 MG TABLETS PO PRN (21:03)
[2019-02-16] MEDS: INSULIN (LEVEMIR) 100 UNITS/ML UNITS SQ SCH (21:04)
[2019-02-17] MEDS: cloNIDine HCL 0.1 MG TABLET PO PRN ×2 (06:24→15:33)
[2019-02-17] MEDS: metFORMIN HCL 500 MG TABLET (FP) PO SCH ×2 (07:04→16:33)
[2019-02-17] MEDS: INSULIN (NOVOLOG) ASPART 100 UNITS/ML 10ML VIAL SQ SCH ×4 (07:04→21:40)
[2019-02-17] MEDS: LISINOPRIL 5 MG TABLET (FP) PO SCH (09:26)
[2019-02-17] MEDS: MINERAL OIL/PETROLAT/WATER TOPICAL CREAM 113 GM JAR TP SCH ×2 (09:26→21:37)
[2019-02-17] MEDS: PRENATAL VITAMINS W/ FOLIC ACID TABLET (FP) PO SCH (09:26)
[2019-02-17] MEDS: RANITIDINE HCL 150 MG TABLET (FP) PO SCH ×2 (09:27→21:37)
[2019-02-17] MEDS: COLLOIDAL OATMEAL 1 BAR EACH TP PRN (09:52)
[2019-02-17] MEDS ORDERED: INSULIN (NOVOLOG) ASPART 100 UNITS/ML 10ML VIAL ONE (11:42)
[2019-02-17] MEDS: THIAMINE HCL 100 MG TABLET (FP) PO SCH (21:37)
[2019-02-17] MEDS: MELATONIN 5 MG TABLETS PO PRN (21:38)
[2019-02-17] MEDS: INSULIN (LEVEMIR) 100 UNITS/ML UNITS SQ SCH (21:39)
[2019-02-18] MEDS: cloNIDine HCL 0.1 MG TABLET PO PRN ×2 (06:36→17:32)
[2019-02-18] MEDS: metFORMIN HCL 500 MG TABLET (FP) PO SCH ×2 (06:53→16:33)
[2019-02-18] MEDS: INSULIN (NOVOLOG) ASPART 100 UNITS/ML 10ML VIAL SQ SCH ×4 (06:53→21:04)
[2019-02-18] MEDS ORDERED: PT OWN MED DRAWER 7, Y5N ONE (10:22)
[2019-02-18] MEDS: TOLNAFTATE 1% CREAM 15 GM TUBE TP SCH ×2 (11:44→21:02)
[2019-02-18] MEDS: PRENATAL VITAMINS W/ FOLIC ACID TABLET (FP) PO SCH (11:44)
[2019-02-18] MEDS: MINERAL OIL/PETROLAT/WATER TOPICAL CREAM 113 GM JAR TP SCH ×2 (11:44→21:04)
[2019-02-18] MEDS: LISINOPRIL 5 MG TABLET (FP) PO SCH (11:44)
[2019-02-18] MEDS: RANITIDINE HCL 150 MG TABLET (FP) PO SCH ×2 (11:45→21:02)
[2019-02-18] MEDS: THIAMINE HCL 100 MG TABLET (FP) PO SCH (21:03)
[2019-02-18] MEDS: MELATONIN 5 MG TABLETS PO PRN (21:04)
[2019-02-18] MEDS: INSULIN (LEVEMIR) 100 UNITS/ML UNITS SQ SCH (21:04)
[2019-02-19] MEDS: metFORMIN HCL 500 MG TABLET (FP) PO SCH ×2 (06:16→16:24)
[2019-02-19] MEDS ORDERED: INSULIN (NOVOLOG) ASPART 100 UNITS/ML 10ML VIAL ONE ×2 (06:24→11:49)
[2019-02-19] MEDS: INSULIN (NOVOLOG) ASPART 100 UNITS/ML 10ML VIAL SQ SCH ×4 (07:57→21:52)
[2019-02-19] MEDS: RANITIDINE HCL 150 MG TABLET (FP) PO SCH ×2 (09:41→21:48)
[2019-02-19] MEDS: TOLNAFTATE 1% CREAM 15 GM TUBE TP SCH ×2 (09:41→22:05)
[2019-02-19] MEDS: LISINOPRIL 5 MG TABLET (FP) PO SCH (09:41)
[2019-02-19] MEDS: cloNIDine HCL 0.1 MG TABLET PO PRN ×2 (09:41→17:42)
[2019-02-19] MEDS: PRENATAL VITAMINS W/ FOLIC ACID TABLET (FP) PO SCH (09:41)
[2019-02-19] MEDS: MINERAL OIL/PETROLAT/WATER TOPICAL CREAM 113 GM JAR TP SCH ×2 (09:42→21:49)
--- NOTE | 2019-02-19 10:14 | PN ---
[facility] Progress Note Note: Vital Signs Temperature 97.9 F 02/19/19 06:43 Pulse Rate 107 H 02/19/19 09:30 Respiratory Rate 18 02/19/19 09:30 Blood Pressure 148/88 02/19/19 09:30 O2 Sat by Pulse Oximetry (%) Laboratory Last Values WBC 4.1 K/mm3 (4.0-10.0) 02/03/19 08:25 RBC 4.70 M/mm3 (4.00-5.60) 02/03/19 08:25 Hgb 14.0 GM/dL (11.7-16.9) 02/03/19 08:25 Hct 40.7 % (35.4-49) 02/03/19 08:25 MCV 86.5 fl (80-96) 02/03/19 08:25 MCH 29.7 pg (25.7-33.7) 02/03/19 08:25 MCHC 34.4 g/dl (32.0-35.9) 02/03/19 08:25 RDW 13.8 % (11.9-15.9) 02/03/19 08:25 Plt Count 214 K/MM3 (134-434) D 02/03/19 08:25 MPV 9.5 fl (7.5-11.1) 02/03/19 08:25 Absolute Neuts (auto) 2.4 K/mm3 (1.5-8.0) 02/03/19 08:25 Neutrophils % 59.5 % (42.8-82.8) 02/03/19 08:25 Lymphocytes % 29.2 % (8-40) 02/03/19 08:25 Monocytes % 9.1 % (3.8-10.2) 02/03/19 08:25 Eosinophils % 2.0 % (0-4.5) 02/03/19 08:25 Basophils % 0.2 % (0-2.0) 02/03/19 08:25 Nucleated RBC % 1 % (0-0) H 02/03/19 08:25 Sodium 137 mmol/L (136-145) 02/03/19 08:25 Potassium 4.1 mmol/L (3.5-5.1) 02/03/19 08:25 Chloride 101 mmol/L (98-107) 02/03/19 08:25 Carbon Dioxide 29 mmol/L (21-32) 02/03/19 08:25 Anion Gap 7 MMOL/L (8-16) L 02/03/19 08:25 BUN 12.3 mg/dL (7-18) 02/03/19 08:25 Creatinine 1.2 mg/dL (0.55-1.3) 02/03/19 08:25 Est GFR (CKD-EPI)AfAm 81.80 02/03/19 08:25 Est GFR (CKD-EPI)NonAf 70.58 02/03/19 08:25 POC Glucometer 261 UNITS (80-120) 02/19/19 06:15 Random Glucose 333 mg/dL (74-106) H* 02/03/19 08:25 Hemoglobin A1c % 8.8 % (4.2-6.3) H 02/03/19 08:25 Calcium 9.3 mg/dL (8.5-10.1) 02/03/19 08:25 Total Bilirubin 0.6 mg/dL (0.2-1) 02/03/19 08:25 AST 21 U/L (15-37) 02/03/19 08:25 ALT 41 U/L (13-61) 02/03/19 08:25 Alkaline Phosphatase 75 U/L (45-117) 02/03/19 08:25 Total Protein 6.9 g/dl (6.4-8.2) 02/03/19 08:25 Albumin 3.7 g/dl (3.4-5.0) 02/03/19 08:25 HIV 1&2 Ag/Ab, 4th Gen Non reactive (Non Reactive) 01/31/19 08:00 HIV 1&2 Antibody Screen Cancelled 01/31/19 08:00 HIV P24 Antigen Cancelled 01/31/19 08:00 Patient stable, BP improve with currently BP meds continue meds continue to monitor
[2019-02-19] MEDS: ACETAMINOPHEN 325 MG TABLET (FP) PO PRN (17:42)
--- NOTE | 2019-02-19 21:47 | PN ---
[facility] Progress Note Note: Patient fell from a chair earlier today. Patient denies hitting head but states hit (L) great toe. Alert and oriented. (L) Great toe with increased erythema, slight swelling, tender to touch and manipulation. Able to FWB. Pedal pulses (+). Cap refill < 3 sec. Vital Signs 02/19/19 02/19/19 02/19/19 17:30 17:40 19:40 Temperature 97.5 F L 97.5 F L 98 F Pulse Rate 90 90 89 Respiratory 16 19 19 Rate Blood Pressure 166/107 H 166/107 H 149/93 Plan: Fall Protocol # 1. Patient declined CT scan. Fall was unrelated to current medications. Patient will have x-ray of (L) foot in am. Ice to (L) foot Q2H, PRN. Encourage elevation of foot.
[2019-02-19] MEDS: THIAMINE HCL 100 MG TABLET (FP) PO SCH (21:48)
[2019-02-19] MEDS: MELATONIN 5 MG TABLETS PO PRN (21:49)
[2019-02-19] MEDS: INSULIN (LEVEMIR) 100 UNITS/ML UNITS SQ SCH (21:52)
[2019-02-20] MEDS: IBUPROFEN 400 MG TABLET (FP) PO PRN ×2 (06:18→13:52)
[2019-02-20] MEDS ORDERED: INSULIN (NOVOLOG) ASPART 100 UNITS/ML 10ML VIAL ONE ×4 (06:57→20:43)
[2019-02-20] MEDS: INSULIN (NOVOLOG) ASPART 100 UNITS/ML 10ML VIAL SQ SCH ×4 (06:58→21:03)
[2019-02-20] MEDS: metFORMIN HCL 500 MG TABLET (FP) PO SCH ×2 (06:58→16:23)
[2019-02-20] MEDS: cloNIDine HCL 0.1 MG TABLET PO PRN ×2 (08:55→21:03)
[2019-02-20] MEDS: PRENATAL VITAMINS W/ FOLIC ACID TABLET (FP) PO SCH (09:45)
[2019-02-20] MEDS: MINERAL OIL/PETROLAT/WATER TOPICAL CREAM 113 GM JAR TP SCH ×2 (09:46→21:04)
[2019-02-20] MEDS: TOLNAFTATE 1% CREAM 15 GM TUBE TP SCH ×2 (09:46→21:04)
[2019-02-20] MEDS: LISINOPRIL 5 MG TABLET (FP) PO SCH (09:46)
[2019-02-20] MEDS: RANITIDINE HCL 150 MG TABLET (FP) PO SCH ×2 (09:46→21:03)
[2019-02-20] MEDS: MELATONIN 5 MG TABLETS PO PRN (21:03)
[2019-02-20] MEDS: THIAMINE HCL 100 MG TABLET (FP) PO SCH (21:03)
[2019-02-20] MEDS: INSULIN (LEVEMIR) 100 UNITS/ML UNITS SQ SCH (21:03)
[2019-02-21] MEDS: INSULIN (NOVOLOG) ASPART 100 UNITS/ML 10ML VIAL SQ SCH ×4 (06:50→22:39)
[2019-02-21] MEDS: metFORMIN HCL 500 MG TABLET (FP) PO SCH ×2 (06:50→16:43)
[2019-02-21] MEDS: cloNIDine HCL 0.1 MG TABLET PO PRN ×2 (07:57→21:55)
[2019-02-21] MEDS: RANITIDINE HCL 150 MG TABLET (FP) PO SCH ×2 (09:37→21:54)
[2019-02-21] MEDS: MINERAL OIL/PETROLAT/WATER TOPICAL CREAM 113 GM JAR TP SCH ×2 (09:37→21:54)
[2019-02-21] MEDS: TOLNAFTATE 1% CREAM 15 GM TUBE TP SCH ×2 (09:37→22:39)
[2019-02-21] MEDS: PRENATAL VITAMINS W/ FOLIC ACID TABLET (FP) PO SCH (09:37)
[2019-02-21] MEDS: LISINOPRIL 5 MG TABLET (FP) PO SCH (09:37)
[2019-02-21] MEDS ORDERED: INSULIN (NOVOLOG) ASPART 100 UNITS/ML 10ML VIAL ONE ×3 (11:47→20:52)
[2019-02-21] MEDS: COLLOIDAL OATMEAL 1 BAR EACH TP PRN (12:59)
[2019-02-21] MEDS: MAGNESIUM HYDROX 2400MG/30ML ORAL SUSPENSION 30 ML CUP PO PRN (12:59)
[2019-02-21] MEDS ORDERED: MAGNESIUM CITRATE 300 ML BOTTLE PO PRN (18:19)
[2019-02-21] MEDS ORDERED: PT OWN MED DRAWER 7, Y5N ONE (19:30)
[2019-02-21] MEDS: THIAMINE HCL 100 MG TABLET (FP) PO SCH (21:54)
[2019-02-21] MEDS: MELATONIN 5 MG TABLETS PO PRN (21:55)
[2019-02-21] MEDS: INSULIN (LEVEMIR) 100 UNITS/ML UNITS SQ SCH (22:37)
[2019-02-22] MEDS: metFORMIN HCL 500 MG TABLET (FP) PO SCH ×2 (07:02→16:54)
[2019-02-22] MEDS: INSULIN (NOVOLOG) ASPART 100 UNITS/ML 10ML VIAL SQ SCH ×4 (07:02→21:05)
[2019-02-22] MEDS: cloNIDine HCL 0.1 MG TABLET PO PRN ×2 (09:45→18:07)
[2019-02-22] MEDS: RANITIDINE HCL 150 MG TABLET (FP) PO SCH ×2 (09:45→21:07)
[2019-02-22] MEDS: PRENATAL VITAMINS W/ FOLIC ACID TABLET (FP) PO SCH (09:45)
[2019-02-22] MEDS: TOLNAFTATE 1% CREAM 15 GM TUBE TP SCH ×2 (09:46→21:08)
[2019-02-22] MEDS: MINERAL OIL/PETROLAT/WATER TOPICAL CREAM 113 GM JAR TP SCH ×2 (09:46→21:18)
[2019-02-22] MEDS: LISINOPRIL 5 MG TABLET (FP) PO SCH (10:39)
[2019-02-22] MEDS ORDERED: INSULIN (NOVOLOG) ASPART 100 UNITS/ML 10ML VIAL ONE ×3 (11:41→21:06)
[2019-02-22] MEDS: MELATONIN 5 MG TABLETS PO PRN (21:07)
[2019-02-22] MEDS: THIAMINE HCL 100 MG TABLET (FP) PO SCH (21:07)
[2019-02-22] MEDS: INSULIN (LEVEMIR) 100 UNITS/ML UNITS SQ SCH (21:11)
[2019-02-23] MEDS: metFORMIN HCL 500 MG TABLET (FP) PO SCH ×2 (06:09→16:29)
[2019-02-23] MEDS: INSULIN (NOVOLOG) ASPART 100 UNITS/ML 10ML VIAL SQ SCH ×4 (06:11→21:05)
[2019-02-23] MEDS ORDERED: INSULIN (NOVOLOG) ASPART 100 UNITS/ML 10ML VIAL ONE ×2 (06:37→11:37)
[2019-02-23] MEDS: cloNIDine HCL 0.1 MG TABLET PO PRN ×2 (08:46→21:58)
--- NOTE | 2019-02-23 09:14 | DS ---
[facility] Rehab Discharge Summary - [facility] Rehab Discharge Summary Admission Date: 01/25/19 Discharge Date: 02/24/19 - History Present History: Alcohol dependence, Cannabis dependence, Cocaine dependence Pertinent Past History: History of ETOH, cannabis use, cocaine use. DM2 and HTN. 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 He had elevated blood glucose on several occasions that were treated with insulin coverage and did not display any symptoms of hyperglycemia. He also had elevated BP on several occasions related to refusal of HCTZ that was resolved without symptoms or negative effects. Patient experienced an unwitnessed fall in which he bumped his toe; Fall Protocol 1 was initiated and his foot was x-rayed. There was no fracture or subluxation. PATIENT ACCEPTED REFERRAL TO [facility] - Medication Discharge Medications: Ambulatory Orders Insulin Detemir [Levemir Flextouch] 13 unit SQ PRN 01/29/19 Insulin Glargine,Hum.rec.anlog [Lantus Solostar PEN -] 18 units SQ HS #1 pen 08/12 metFORMIN HCL [Glucophage -] 500 mg PO BID #60 tablet 02/23/19 - Medication-Assisted Treatment (MAT) Medication-Assisted Treatment (MAT): No - Discharge Instructions Diet, activity, other medical instructions: Diet: as tolerated, please avoid added sugar and salt Activity: as tolerated Other medical instructions: Please keep appointment at [facility] for aftercare - Diagnosis (1) Alcohol dependence with uncomplicated withdrawal Status: Chronic (2) Cannabis abuse Status: Chronic (3) Cocaine dependence Status: Chronic (4) DM Diabetes mellitus type 2 Status: Chronic (5) Elevated blood pressure reading without diagnosis of hypertension Status: Chronic - AMA Did Patient Leave Against Medical Advice: No Additional Comments: will seek aftercare at [facility].
[2019-02-23] MEDS: TOLNAFTATE 1% CREAM 15 GM TUBE TP SCH ×2 (09:57→21:51)
[2019-02-23] MEDS: MINERAL OIL/PETROLAT/WATER TOPICAL CREAM 113 GM JAR TP SCH ×2 (09:57→21:04)
[2019-02-23] MEDS: PRENATAL VITAMINS W/ FOLIC ACID TABLET (FP) PO SCH (09:57)
[2019-02-23] MEDS: LISINOPRIL 5 MG TABLET (FP) PO SCH (09:57)
[2019-02-23] MEDS: RANITIDINE HCL 150 MG TABLET (FP) PO SCH ×2 (09:57→21:03)
[2019-02-23] MEDS: MELATONIN 5 MG TABLETS PO PRN (21:03)
[2019-02-23] MEDS: THIAMINE HCL 100 MG TABLET (FP) PO SCH (21:03)
[2019-02-23] MEDS: INSULIN (LEVEMIR) 100 UNITS/ML UNITS SQ SCH (21:04)
[2019-02-24] MEDS: metFORMIN HCL 500 MG TABLET (FP) PO SCH (06:10)
[2019-02-24] MEDS: INSULIN (NOVOLOG) ASPART 100 UNITS/ML 10ML VIAL SQ SCH (06:12)
[2019-02-24 06:25] VITALS: BP 155/95; PULSE 90; TEMP 98
[2019-02-24] MEDS ORDERED: INSULIN (NOVOLOG) ASPART 100 UNITS/ML 10ML VIAL ONE (06:39)
== END 2019-02-24 07:00 | disposition home or self-care (01) | DRG 895 ==
LOC: YASAS 08:01 → Y6N 08:51 → Y3W 01-29 13:23
PROVIDERS: ADMIT Surgery; ATTEND Neuromusculoskeletal Medicine & OMM
PROC: HZ2ZZZZ Detoxification Services for Substance Abuse Treatment (ICD-10-PCS; principal; 2019-01-25)
PROC: HZ42ZZZ Group Counseling for Substance Abuse Treatment, Cognitive-Behavioral (ICD-10-PCS; 2019-01-29)
DX: F10.230 Alcohol dependence with withdrawal, uncomplicated (principal); F14.20 Cocaine dependence, uncomplicated; F19.282 Other psychoactive substance dependence with psychoactive substance-induced sleep disorder; N17.9 Acute kidney failure, unspecified; F12.10 Cannabis abuse, uncomplicated; F17.210 Nicotine dependence, cigarettes, uncomplicated; F32.9 Major depressive disorder, single episode, unspecified; F19.24 Other psychoactive substance dependence with psychoactive substance-induced mood disorder; I10 Essential (primary) hypertension; E11.65 Type 2 diabetes mellitus with hyperglycemia; G47.00 Insomnia, unspecified; L25.9 Unspecified contact dermatitis, unspecified cause; K21.9 Gastro-esophageal reflux disease without esophagitis; Z88.0 Allergy status to penicillin; Z79.4 Long term (current) use of insulin; Z86.69 Personal history of other diseases of the nervous system and sense organs; S99.922A Unspecified injury of left foot, initial encounter; W07.XXXA Fall from chair, initial encounter; Y93.89 Activity, other specified; Y92.238 Other place in hospital as the place of occurrence of the external cause
CPT/HCPCS: 36415; 73610-TC-LT-FY; 73630-TC-LT; 80053; 82962; 83036; 85025; 87389; J0735

== ENCOUNTER 2019-04-29 17:33 | Inpatient (IN) | payer OTHER ==
[2019-04-29 11:31] VITALS: BMI 32.3
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
--- NOTE | 2019-04-29 15:47 | PN ---
Teaching Attending Note Name of Resident: Melissa Lennon ATTENDING PHYSICIAN STATEMENT I saw and evaluated the patient. I reviewed the resident's note and discussed the case with the resident. I agree with the resident's findings and plan as documented. SUBJECTIVE: Agree with resident findings OBJECTIVE: Agree with resident objective findings ASSESSMENT AND PLAN: Admit to detox
[~2019-04-29 17:33] MED LIST: ACETAMINOPHEN 325 MG TABLET (FP) PO PRN; BISMUTH SUBSALICYLATE 524 MG/30 ML UD PO PRN; MAGNESIUM HYDROX 2400MG/30ML ORAL SUSPENSION 30 ML CUP PO PRN; MENTHOL/PHENOL 1 EACH UD MM PRN; METHOCARBAMOL 500 MG TABLET PO PRN; chlordiazePOXIDE HCL 25 MG CAPSULE PO ONE; chlordiazePOXIDE HCL 25 MG CAPSULE PO PRN; chlordiazePOXIDE HCL 25 MG CAPSULE PO SCH
[2019-04-29] MEDS ORDERED: chlordiazePOXIDE HCL 25 MG CAPSULE PO PRN (18:29)
[2019-04-29] MEDS ORDERED: chlordiazePOXIDE HCL 25 MG CAPSULE PO ONE (18:29)
[2019-04-29] MEDS: LISINOPRIL 5 MG TABLET (FP) PO SCH (18:32)
[2019-04-29] MEDS: cloNIDine HCL 0.1 MG TABLET PO SCH ×2 (18:35→22:34)
[2019-04-29] MEDS ORDERED: INSULIN SLIDING SCALE (NOVOLOG) 1 VIAL SQ ONE ×2 (18:51→22:13)
[2019-04-29] MEDS: INSULIN SLIDING SCALE (NOVOLOG) 1 VIAL SQ SCH ×2 (18:52→22:35)
[2019-04-29] MEDS: chlordiazePOXIDE HCL 25 MG CAPSULE PO SCH (22:33)
[2019-04-29] MEDS: THIAMINE HCL 100 MG TABLET (FP) PO SCH (22:34)
[2019-04-29] MEDS: MELATONIN 5 MG TABLETS PO PRN (22:34)
[2019-04-29] MEDS: INSULIN (LEVEMIR) 100 UNITS/ML UNITS SQ SCH (22:34)
[2019-04-30] MEDS: chlordiazePOXIDE HCL 25 MG CAPSULE PO SCH ×4 (06:43→22:16)
[2019-04-30] MEDS ORDERED: INSULIN SLIDING SCALE (NOVOLOG) 1 VIAL SQ ONE ×4 (06:46→22:50)
[2019-04-30] MEDS: INSULIN SLIDING SCALE (NOVOLOG) 1 VIAL SQ SCH ×4 (07:50→22:58)
[2019-04-30] MEDS ORDERED: INSULIN (NOVOLOG) ASPART 100 UNITS/ML 10ML VIAL SQ ONE (08:41)
--- NOTE | 2019-04-30 10:32 | PN ---
S CIWA - CIWA Score Nausea/Vomitin-No Nausea/No Vomiting Muscle Tremors: 2 Anxiety: 3 Agitation: 3 Paroxysmal Sweats: 2 Orientation: 0-Oriented Tacttile Disturbances: 0-None Auditory Disturbances: 0-None Visual Disturbances: 0-None Headache: 0-None Present CIWA-Ar Total Score: 10 S Progress Note (SOAP) Subjective: sweats chills body aches interrupted sleep Objective: 04/30/19 10:29 Vital Signs Temperature 97.5 F L 04/30/19 10:25 Pulse Rate 88 04/30/19 10:25 Respiratory Rate 18 04/30/19 10:25 Blood Pressure 153/90 04/30/19 10:25 O2 Sat by Pulse Oximetry (%) Laboratory Tests 04/29/19 04/29/19 04/30/19 18:34 22:00 06:41 POC Glucometer 184 282 208 04/30/19 08:38 POC Glucometer 208 rest of labs are seen in the recent ED visit. mild elevated ast/alt encourage to hydrate aaox3 ambulating no acute distress Assessment: 04/30/19 10:31 withdrawals Plan: continue detox increase fluids
[2019-04-30] MEDS: cloNIDine HCL 0.1 MG TABLET PO SCH ×2 (11:09→22:15)
[2019-04-30] MEDS: PRENATAL VITAMINS W/ FOLIC ACID TABLET (FP) PO SCH (11:09)
[2019-04-30] MEDS: LISINOPRIL 5 MG TABLET (FP) PO SCH (11:11)
[2019-04-30] MEDS: THIAMINE HCL 100 MG TABLET (FP) PO SCH (22:16)
[2019-04-30] MEDS: MELATONIN 5 MG TABLETS PO PRN (22:16)
[2019-04-30] MEDS: MAG HYDROX/AL HYDROX/SIMETH 30 ML UNIT-DOSE CUP PO PRN (22:18)
[2019-04-30] MEDS: INSULIN (LEVEMIR) 100 UNITS/ML UNITS SQ SCH (22:59)
[2019-05-01] MEDS ORDERED: chlordiazePOXIDE HCL 25 MG CAPSULE PO SCH (05:00)
[2019-05-01] MEDS: chlordiazePOXIDE HCL 25 MG CAPSULE PO SCH ×4 (06:21→22:17)
[2019-05-01] MEDS ORDERED: INSULIN SLIDING SCALE (NOVOLOG) 1 VIAL SQ ONE ×4 (06:59→22:06)
[2019-05-01] MEDS: INSULIN SLIDING SCALE (NOVOLOG) 1 VIAL SQ SCH ×4 (07:37→22:16)
[2019-05-01] MEDS: cloNIDine HCL 0.1 MG TABLET PO SCH ×3 (10:57→22:16)
[2019-05-01] MEDS: PRENATAL VITAMINS W/ FOLIC ACID TABLET (FP) PO SCH (10:57)
[2019-05-01] MEDS: LISINOPRIL 5 MG TABLET (FP) PO SCH (10:57)
[2019-05-01] MEDS: ACETAMINOPHEN 325 MG TABLET (FP) PO PRN (11:03)
--- NOTE | 2019-05-01 13:36 | PN ---
S CIWA - CIWA Score Nausea/Vomitin-No Nausea/No Vomiting Muscle Tremors: 3 Anxiety: 2 Agitation: 2 Paroxysmal Sweats: 2 Orientation: 0-Oriented Tacttile Disturbances: 0-None Auditory Disturbances: 0-None Visual Disturbances: 0-None Headache: 0-None Present CIWA-Ar Total Score: 9 [facility] Progress Note (SOAP) Subjective: sweats agitation body aches irritable Objective: 05/01/19 13:35 Vital Signs Temperature 97.9 F 05/01/19 09:43 Pulse Rate 104 H 05/01/19 09:43 Respiratory Rate 20 05/01/19 09:43 Blood Pressure 148/108 H 05/01/19 09:43 O2 Sat by Pulse Oximetry (%) Laboratory Tests 04/29/19 04/29/19 04/30/19 18:34 22:00 06:41 POC Glucometer 184 282 208 RPR Titer 04/30/19 04/30/19 04/30/19 08:00 08:38 11:51 POC Glucometer 208 336 RPR Titer Nonreactive 04/30/19 04/30/19 05/01/19 16:51 22:44 06:19 POC Glucometer 263 369 285 RPR Titer 05/01/19 11:11 POC Glucometer 293 RPR Titer aaox3 ambulating no acute distress repeated BP 157/98 Assessment: 05/01/19 13:36 withdrawals Plan: continue detox increase fluids
--- NOTE | 2019-05-01 16:55 | PN ---
[facility] Progress Note Note: called by nursing , m 448 reading . stat dose 12 units novolog
[2019-05-01] MEDS ORDERED: INSULIN (NOVOLOG) ASPART 100 UNITS/ML 10ML VIAL SQ ONE (17:15)
[2019-05-01] MEDS: MAGNESIUM CITRATE 300 ML BOTTLE PO PRN (18:11)
[2019-05-01] MEDS: THIAMINE HCL 100 MG TABLET (FP) PO SCH (22:16)
[2019-05-01] MEDS: INSULIN (LEVEMIR) 100 UNITS/ML UNITS SQ SCH (22:16)
[2019-05-02] MEDS ORDERED: chlordiazePOXIDE HCL 10 MG CAPSULE PO PRN ×2
[2019-05-02] MEDS ORDERED: chlordiazePOXIDE HCL 10 MG CAPSULE PO SCH (05:00)
[2019-05-02] MEDS: chlordiazePOXIDE HCL 10 MG CAPSULE PO SCH ×4 (06:47→23:46)
[2019-05-02] MEDS: INSULIN SLIDING SCALE (NOVOLOG) 1 VIAL SQ SCH ×4 (08:09→21:03)
[2019-05-02] MEDS: PRENATAL VITAMINS W/ FOLIC ACID TABLET (FP) PO SCH (11:05)
[2019-05-02] MEDS: cloNIDine HCL 0.1 MG TABLET PO SCH ×2 (11:05→21:02)
[2019-05-02] MEDS: LISINOPRIL 5 MG TABLET (FP) PO SCH (11:05)
[2019-05-02] MEDS ORDERED: INSULIN SLIDING SCALE (NOVOLOG) 1 VIAL SQ ONE ×2 (11:11→16:59)
--- NOTE | 2019-05-02 12:19 | PN ---
S CIWA - CIWA Score Nausea/Vomitin-No Nausea/No Vomiting Muscle Tremors: 2 Anxiety: 1-Mildly Anxious Agitation: 2 Paroxysmal Sweats: 2 Orientation: 0-Oriented Tacttile Disturbances: 0-None Auditory Disturbances: 0-None Visual Disturbances: 0-None Headache: 0-None Present CIWA-Ar Total Score: 7 [facility] Progress Note (SOAP) Subjective: sweats insomnia interrupted sleep Objective: 05/02/19 12:17 Vital Signs Temperature 98.1 F 05/02/19 09:47 Pulse Rate 104 H 05/02/19 09:47 Respiratory Rate 16 05/02/19 09:47 Blood Pressure 148/112 H 05/02/19 09:47 O2 Sat by Pulse Oximetry (%) increase BP noted pt is currently on HTN medication will continue to monitor BP aaox3 ambulating no acute distress 05/02/19 12:18 Assessment: 05/02/19 12:18 withdrawal sx Plan: continue detox increase fluids monitor BP status
[2019-05-02] MEDS: INSULIN (LEVEMIR) 100 UNITS/ML UNITS SQ SCH (21:02)
[2019-05-02] MEDS: THIAMINE HCL 100 MG TABLET (FP) PO SCH (21:02)
[2019-05-02] MEDS: MELATONIN 5 MG TABLETS PO PRN (21:02)
[2019-05-03] MEDS ORDERED: chlordiazePOXIDE HCL 10 MG CAPSULE PO SCH (05:00)
[2019-05-03] MEDS: chlordiazePOXIDE HCL 10 MG CAPSULE PO SCH ×2 (06:35→18:12)
[2019-05-03] MEDS ORDERED: INSULIN SLIDING SCALE (NOVOLOG) 1 VIAL SQ ONE (08:32)
[2019-05-03] MEDS: INSULIN SLIDING SCALE (NOVOLOG) 1 VIAL SQ SCH ×4 (08:36→23:50)
[2019-05-03] MEDS: PRENATAL VITAMINS W/ FOLIC ACID TABLET (FP) PO SCH (10:15)
[2019-05-03] MEDS: cloNIDine HCL 0.1 MG TABLET PO SCH ×2 (10:15→23:50)
[2019-05-03] MEDS: LISINOPRIL 5 MG TABLET (FP) PO SCH (10:15)
[2019-05-03] MEDS: hydrOXYzine PAMOATE 25 MG CAPSULE (FP) PO PRN (10:19)
--- NOTE | 2019-05-03 15:46 | PN ---
[facility] CIWA - CIWA Score Nausea/Vomitin-No Nausea/No Vomiting Muscle Tremors: 2 Anxiety: 2 Agitation: 2 Paroxysmal Sweats: 2 Orientation: 0-Oriented Tacttile Disturbances: 0-None Auditory Disturbances: 0-None Visual Disturbances: 0-None Headache: 0-None Present CIWA-Ar Total Score: 8 S Progress Note (SOAP) Subjective: Tremor, chills, diarrhea, interrupted sleep Objective: 05/03/19 15:42 Last Vital Signs Temp Pulse Resp BP Pulse Ox 97.9 F 103 H 20 152/84 05/03/19 14:13 05/03/19 14:13 05/03/19 14:13 05/03/19 14:13 Elevated b/p: has htn, on med Tachycardia: most likely due to anxiety and withdrawal Laboratory Tests 04/29/19 04/29/19 04/30/19 18:34 22:00 06:41 POC Glucometer 184 282 208 RPR Titer 04/30/19 04/30/19 04/30/19 08:00 08:38 11:51 POC Glucometer 208 336 RPR Titer Nonreactive 04/30/19 04/30/19 05/01/19 16:51 22:44 06:19 POC Glucometer 263 369 285 RPR Titer 05/01/19 05/01/19 05/01/19 11:11 16:24 22:00 POC Glucometer 293 448 254 RPR Titer 05/02/19 05/02/19 05/02/19 06:49 11:09 16:39 POC Glucometer 158 308 483 RPR Titer 05/02/19 05/03/19 05/03/19 20:55 07:11 10:17 POC Glucometer 537 228 357 RPR Titer Admission labs reviewed: AST/ALT elevated, total bilirubin elevated, UA abnormal , hyperglycemia r/t IDDM Assessment: 05/03/19 15:43 Withdrawal sxs Noted with elevated b/p, tachycardia, elevated LFTs (AST/ALT) and abnormal UA Plan: Continue detox Encouraged PO water hydration HTN: continue antihypertensive medication, monitor b/p Tachycardia: most likely anxiety and withdrawal related, continue detox protocol , monitor VS Elevated LFTs (AST/ALT, total bilirubin): repeat AST, ALT, total bilirubin Abnormal UA: repeat UA
[2019-05-03] MEDS ORDERED: INSULIN (NOVOLOG) ASPART 100 UNITS/ML 10ML VIAL SQ ONE (18:36)
[2019-05-03] MEDS: INSULIN (LEVEMIR) 100 UNITS/ML UNITS SQ SCH (23:49)
[2019-05-03] MEDS: THIAMINE HCL 100 MG TABLET (FP) PO SCH (23:50)
[2019-05-04] MEDS ORDERED: chlordiazePOXIDE HCL 10 MG CAPSULE PO ONE ×2 (05:00)
[2019-05-04] MEDS: INSULIN SLIDING SCALE (NOVOLOG) 1 VIAL SQ SCH ×4 (07:17→21:02)
[2019-05-04] MEDS ORDERED: INSULIN SLIDING SCALE (NOVOLOG) 1 VIAL SQ ONE ×2 (07:32→12:00)
[2019-05-04] MEDS: PRENATAL VITAMINS W/ FOLIC ACID TABLET (FP) PO SCH (09:29)
[2019-05-04] MEDS: cloNIDine HCL 0.1 MG TABLET PO SCH ×2 (09:29→21:02)
[2019-05-04] MEDS: LISINOPRIL 5 MG TABLET (FP) PO SCH (09:29)
--- NOTE | 2019-05-04 10:17 | DS ---
[facility] Detox Discharge Summary Admission Date: 04/29/19 Discharge Date: 05/04/19 - History Present History: Alcohol Dependence, Cannabis Dependence, Cocaine Dependence - Physical Exam Results Vital Signs: Vital Signs Temperature 98.6 F 05/04/19 09:47 Pulse Rate 109 H 05/04/19 09:47 Respiratory Rate 20 05/04/19 09:47 Blood Pressure 168/112 H 05/04/19 09:47 O2 Sat by Pulse Oximetry (%) Pertinent Admission Physical Exam Findings: pt arrived in withdrawals Vital Signs Temperature 98.6 F 05/04/19 09:47 Pulse Rate 109 H 05/04/19 09:47 Respiratory Rate 20 05/04/19 09:47 Blood Pressure 168/112 H 05/04/19 09:47 O2 Sat by Pulse Oximetry (%) Laboratory Tests 04/29/19 04/29/19 04/30/19 18:34 22:00 06:41 POC Glucometer 184 282 208 RPR Titer 04/30/19 04/30/19 04/30/19 08:00 08:38 11:51 POC Glucometer 208 336 RPR Titer Nonreactive 04/30/19 04/30/19 05/01/19 16:51 22:44 06:19 POC Glucometer 263 369 285 RPR Titer 05/01/19 05/01/19 05/01/19 11:11 16:24 22:00 POC Glucometer 293 448 254 RPR Titer 05/02/19 05/02/19 05/02/19 06:49 11:09 16:39 POC Glucometer 158 308 483 RPR Titer 05/02/19 05/03/19 05/03/19 20:55 07:11 10:17 POC Glucometer 537 228 357 RPR Titer 05/03/19 05/04/19 18:08 07:24 POC Glucometer 506 319 RPR Titer pt is aaox3 ambulating no acute distress no s/s of withdrawals - Treatment Hospital Course: Detox Protocol Followed, Detoxed Safely, Responded well, Discharged Condition Good, Rehab Referral Accepted Patient has Accepted a Rehab Referral to: pt referred to rehab. - Medication Discharge Medications: Ambulatory Orders Insulin Glargine,Hum.rec.anlog [Lantus Solostar PEN -] 18 units SQ HS #1 pen 08/12 - Diagnosis (1) depression Current Visit: No Status: Active (2) JARETH (acute kidney injury) Current Visit: No Status: Acute (3) Asymptomatic hypertension Current Visit: Yes Status: Chronic (4) Cocaine abuse Current Visit: Yes Status: Chronic (5) Insomnia Current Visit: No Status: Acute (6) Substance induced mood disorder Current Visit: No Status: Acute (7) Substance-induced sleep disorder Current Visit: No Status: Acute (8) Alcohol dependence with uncomplicated withdrawal Current Visit: Yes Status: Chronic (9) Cannabis abuse Current Visit: Yes Status: Chronic (10) Cocaine dependence Current Visit: Yes Status: Chronic (11) Contact dermatitis Current Visit: No Status: Chronic (12) DM Diabetes mellitus type 2 Current Visit: No Status: Chronic (13) Depression (emotion) Current Visit: No Status: Chronic Qualifiers: Depression Type: dysthymia Qualified Code(s): F34.1 - Dysthymic disorder (14) Elevated blood pressure reading without diagnosis of hypertension Current Visit: Yes Status: Chronic (15) GERD (gastroesophageal reflux disease) Current Visit: Yes Status: Chronic Qualifiers: Esophagitis presence: without esophagitis Qualified Code(s): K21.9 - Gastro -esophageal reflux disease without esophagitis (16) History of hypercholesterolemia Current Visit: No Status: Chronic (17) Hypertension Current Visit: No Status: Chronic Qualifiers: Hypertension type: unspecified Qualified Code(s): I10 - Essential (primary ) hypertension (18) IDDM (insulin dependent diabetes mellitus) Current Visit: No Status: Chronic (19) Type 2 diabetes mellitus with hyperglycemia Current Visit: Yes Status: Chronic Qualifiers: Diabetes mellitus rat exterminator insulin use: without mcc use Qualified Code(s): E11.65 - Type 2 diabetes mellitus with hyperglycemia - AMA Did Patient Leave Against Medical Advice: No
[2019-05-04] MEDS ORDERED: PT OWN MED DRAWER 7, Y5N ONE (16:02)
[2019-05-04] MEDS: INSULIN (LEVEMIR) 100 UNITS/ML UNITS SQ SCH (21:02)
[2019-05-04] MEDS: THIAMINE HCL 100 MG TABLET (FP) PO SCH (21:02)
[2019-05-04] MEDS: MELATONIN 5 MG TABLETS PO PRN (21:02)
[2019-05-04] MEDS: hydrOXYzine PAMOATE 25 MG CAPSULE (FP) PO PRN (21:03)
[2019-05-05] MEDS: INSULIN SLIDING SCALE (NOVOLOG) 1 VIAL SQ SCH ×4 (07:20→21:21)
[2019-05-05] MEDS: LISINOPRIL 5 MG TABLET (FP) PO SCH (09:46)
[2019-05-05] MEDS: PRENATAL VITAMINS W/ FOLIC ACID TABLET (FP) PO SCH (09:46)
[2019-05-05] MEDS: cloNIDine HCL 0.1 MG TABLET PO SCH ×2 (09:47→21:16)
[2019-05-05] MEDS: hydrOXYzine PAMOATE 25 MG CAPSULE (FP) PO PRN (09:55)
[2019-05-05] MEDS ORDERED: INSULIN (NOVOLOG) ASPART 100 UNITS/ML 10ML VIAL ONE (11:48)
[2019-05-05] MEDS: THIAMINE HCL 100 MG TABLET (FP) PO SCH (21:16)
[2019-05-05] MEDS: MELATONIN 5 MG TABLETS PO PRN (21:16)
[2019-05-05] MEDS: INSULIN (LEVEMIR) 100 UNITS/ML UNITS SQ SCH (21:20)
[2019-05-06] MEDS: INSULIN SLIDING SCALE (NOVOLOG) 1 VIAL SQ SCH ×4 (07:02→21:11)
[2019-05-06] MEDS: cloNIDine HCL 0.1 MG TABLET PO SCH ×2 (09:43→21:09)
[2019-05-06] MEDS: LISINOPRIL 5 MG TABLET (FP) PO SCH (09:43)
[2019-05-06] MEDS: PRENATAL VITAMINS W/ FOLIC ACID TABLET (FP) PO SCH (09:43)
[2019-05-06] MEDS ORDERED: INSULIN (NOVOLOG) ASPART 100 UNITS/ML 10ML VIAL ONE (11:42)
--- NOTE | 2019-05-06 12:51 | PN ---
[facility] Progress Note Note: Patient requesting to use his own medication, Lantus, rather than the levemir. Reviewed with pharmacy. Orders placed for patient to use his own medication.
[2019-05-06 13:01] LABS: EPI CELLS 1.4 /HPF (0-5/HPF); HYALINE CASTS 2 /lpf (0-8); PH,URINE 5.5 (5.0-8.0); URINE APPEARANCE CLEAR; URINE BACTERIA 1.2 /hpf (NEGATIVE); URINE BILIRUBIN NEGATIVE (NEGATIVE); URINE COLOR YELLOW; URINE GLUCOSE (UA) TRACE (NEGATIVE); URINE KETONE NEGATIVE (NEGATIVE); URINE LEUK ESTERASE NEGATIVE (NEGATIVE); URINE NITRITE NEGATIVE (NEGATIVE); URINE PROTEIN 2+ (NEGATIVE); URINE RBC 1 /hpf (0-4); URINE UROBILINOGEN 0.2 mg/dL (0.2-1.0); URINE WBC 0 /hpf (0-5)
[2019-05-06] MEDS ORDERED: PT OWN MED DRAWER 7, Y5N ONE (21:03)
[2019-05-06] MEDS: THIAMINE HCL 100 MG TABLET (FP) PO SCH (21:09)
[2019-05-06] MEDS: MELATONIN 5 MG TABLETS PO PRN (21:09)
[2019-05-06] MEDS: INSULIN GLARGINE HUM REC ANLOG 18 UNIT SQ SCH (21:10)
[2019-05-06] MEDS: MAGNESIUM CITRATE 300 ML BOTTLE PO PRN (21:13)
[2019-05-07] MEDS: INSULIN SLIDING SCALE (NOVOLOG) 1 VIAL SQ SCH ×4 (06:59→21:10)
[2019-05-07] MEDS: LISINOPRIL 5 MG TABLET (FP) PO SCH (10:00)
[2019-05-07] MEDS: cloNIDine HCL 0.1 MG TABLET PO SCH ×2 (10:00→21:10)
[2019-05-07] MEDS: PRENATAL VITAMINS W/ FOLIC ACID TABLET (FP) PO SCH (10:00)
[2019-05-07] MEDS ORDERED: INSULIN (NOVOLOG) ASPART 100 UNITS/ML 10ML VIAL ONE ×2 (11:50→22:04)
[2019-05-07] MEDS ORDERED: PT OWN MED DRAWER 7, Y5N ONE (21:07)
[2019-05-07] MEDS: INSULIN GLARGINE HUM REC ANLOG 18 UNIT SQ SCH (21:10)
[2019-05-07] MEDS: THIAMINE HCL 100 MG TABLET (FP) PO SCH (21:10)
[2019-05-07] MEDS: MELATONIN 5 MG TABLETS PO PRN (21:11)
[2019-05-08] MEDS: INSULIN SLIDING SCALE (NOVOLOG) 1 VIAL SQ SCH ×4 (06:24→21:14)
[2019-05-08] MEDS: hydrOXYzine PAMOATE 25 MG CAPSULE (FP) PO PRN (06:31)
[2019-05-08] MEDS: PRENATAL VITAMINS W/ FOLIC ACID TABLET (FP) PO SCH (10:21)
[2019-05-08] MEDS: cloNIDine HCL 0.1 MG TABLET PO SCH ×2 (10:21→21:12)
[2019-05-08] MEDS: LISINOPRIL 5 MG TABLET (FP) PO SCH (10:21)
[2019-05-08] MEDS ORDERED: INSULIN (NOVOLOG) ASPART 100 UNITS/ML 10ML VIAL ONE ×2 (11:47→22:04)
[2019-05-08] MEDS ORDERED: INSULIN (LEVEMIR) 100 UNITS/ML UNITS SQ ONE ×2 (19:22→22:04)
[2019-05-08] MEDS: THIAMINE HCL 100 MG TABLET (FP) PO SCH (21:12)
[2019-05-08] MEDS: MELATONIN 5 MG TABLETS PO PRN (21:12)
[2019-05-08] MEDS ORDERED: PT OWN MED DRAWER 7, Y5N ONE ×2 (21:13→22:05)
[2019-05-08] MEDS: INSULIN GLARGINE HUM REC ANLOG 18 UNIT SQ SCH (21:16)
[2019-05-09] MEDS: INSULIN SLIDING SCALE (NOVOLOG) 1 VIAL SQ SCH ×4 (06:41→21:35)
[2019-05-09] MEDS: cloNIDine HCL 0.1 MG TABLET PO SCH ×2 (10:17→21:34)
[2019-05-09] MEDS: LISINOPRIL 5 MG TABLET (FP) PO SCH (10:17)
[2019-05-09] MEDS: PRENATAL VITAMINS W/ FOLIC ACID TABLET (FP) PO SCH (10:17)
[2019-05-09] MEDS ORDERED: PT OWN MED DRAWER 7, Y5N ONE (21:34)
[2019-05-09] MEDS: MELATONIN 5 MG TABLETS PO PRN (21:34)
[2019-05-09] MEDS: THIAMINE HCL 100 MG TABLET (FP) PO SCH (21:34)
[2019-05-09] MEDS: INSULIN GLARGINE HUM REC ANLOG 18 UNIT SQ SCH (21:35)
[2019-05-10] MEDS: INSULIN SLIDING SCALE (NOVOLOG) 1 VIAL SQ SCH ×5 (06:35→21:05)
[2019-05-10] MEDS ORDERED: INSULIN (NOVOLOG) ASPART 100 UNITS/ML 10ML VIAL ONE (08:30)
[2019-05-10] MEDS: cloNIDine HCL 0.1 MG TABLET PO SCH ×2 (10:12→21:05)
[2019-05-10] MEDS: PRENATAL VITAMINS W/ FOLIC ACID TABLET (FP) PO SCH (10:12)
[2019-05-10] MEDS: LISINOPRIL 5 MG TABLET (FP) PO SCH (10:13)
[2019-05-10] MEDS ORDERED: PT OWN MED DRAWER 7, Y5N ONE (18:35)
[2019-05-10] MEDS: INSULIN GLARGINE HUM REC ANLOG 18 UNIT SQ SCH (21:05)
[2019-05-10] MEDS: THIAMINE HCL 100 MG TABLET (FP) PO SCH (21:06)
[2019-05-11] MEDS: INSULIN SLIDING SCALE (NOVOLOG) 1 VIAL SQ SCH ×4 (06:16→22:26)
[2019-05-11] MEDS: PRENATAL VITAMINS W/ FOLIC ACID TABLET (FP) PO SCH (09:40)
[2019-05-11] MEDS: LISINOPRIL 5 MG TABLET (FP) PO SCH (09:40)
[2019-05-11] MEDS: cloNIDine HCL 0.1 MG TABLET PO SCH ×2 (09:40→22:26)
[2019-05-11] MEDS ORDERED: INSULIN (NOVOLOG) ASPART 100 UNITS/ML 10ML VIAL ONE ×3 (11:35→21:25)
[2019-05-11] MEDS: COLLOIDAL OATMEAL 1 BAR EACH TP PRN (16:56)
[2019-05-11] MEDS ORDERED: PT OWN MED DRAWER 7, Y5N ONE (21:28)
[2019-05-11] MEDS: INSULIN GLARGINE HUM REC ANLOG 18 UNIT SQ SCH (22:26)
[2019-05-11] MEDS: THIAMINE HCL 100 MG TABLET (FP) PO SCH (22:27)
[2019-05-12] MEDS: hydrOXYzine PAMOATE 25 MG CAPSULE (FP) PO PRN ×2 (06:40→21:01)
[2019-05-12] MEDS: INSULIN SLIDING SCALE (NOVOLOG) 1 VIAL SQ SCH ×4 (07:15→21:00)
[2019-05-12] MEDS: cloNIDine HCL 0.1 MG TABLET PO SCH ×2 (10:04→21:00)
[2019-05-12] MEDS: PRENATAL VITAMINS W/ FOLIC ACID TABLET (FP) PO SCH (10:05)
[2019-05-12] MEDS: LISINOPRIL 5 MG TABLET (FP) PO SCH (10:05)
[2019-05-12] MEDS ORDERED: MAGNESIUM CITRATE 300 ML BOTTLE PO PRN (13:27)
[2019-05-12] MEDS ORDERED: INSULIN (NOVOLOG) ASPART 100 UNITS/ML 10ML VIAL ONE (16:20)
[2019-05-12] MEDS ORDERED: PT OWN MED DRAWER 7, Y5N ONE ×2 (18:25→22:18)
[2019-05-12] MEDS: INSULIN GLARGINE HUM REC ANLOG 18 UNIT SQ SCH (21:00)
[2019-05-12] MEDS: THIAMINE HCL 100 MG TABLET (FP) PO SCH (21:00)
[2019-05-13] MEDS: INSULIN SLIDING SCALE (NOVOLOG) 1 VIAL SQ SCH ×4 (06:46→22:39)
[2019-05-13] MEDS: cloNIDine HCL 0.1 MG TABLET PO SCH ×3 (09:50→23:13)
[2019-05-13] MEDS: LISINOPRIL 5 MG TABLET (FP) PO SCH (09:50)
[2019-05-13] MEDS: PRENATAL VITAMINS W/ FOLIC ACID TABLET (FP) PO SCH (09:50)
[2019-05-13] MEDS: INSULIN GLARGINE HUM REC ANLOG 18 UNIT SQ SCH (21:06)
[2019-05-13] MEDS ORDERED: PT OWN MED DRAWER 7, Y5N ONE (21:07)
[2019-05-13] MEDS: THIAMINE HCL 100 MG TABLET (FP) PO SCH (21:10)
[2019-05-13] MEDS: hydrOXYzine PAMOATE 25 MG CAPSULE (FP) PO PRN (21:11)
[2019-05-14] MEDS: INSULIN SLIDING SCALE (NOVOLOG) 1 VIAL SQ SCH ×4 (06:40→21:00)
[2019-05-14] MEDS: PRENATAL VITAMINS W/ FOLIC ACID TABLET (FP) PO SCH (09:43)
[2019-05-14] MEDS: cloNIDine HCL 0.1 MG TABLET PO SCH ×2 (09:43→21:00)
[2019-05-14] MEDS: LISINOPRIL 5 MG TABLET (FP) PO SCH (09:43)
[2019-05-14] MEDS ORDERED: INSULIN (NOVOLOG) ASPART 100 UNITS/ML 10ML VIAL ONE (16:13)
[2019-05-14] MEDS: COLLOIDAL OATMEAL 1 BAR EACH TP PRN (16:31)
[2019-05-14] MEDS ORDERED: PT OWN MED DRAWER 7, Y5N ONE (19:25)
[2019-05-14] MEDS: THIAMINE HCL 100 MG TABLET (FP) PO SCH (21:00)
[2019-05-14] MEDS: INSULIN GLARGINE HUM REC ANLOG 18 UNIT SQ SCH (21:00)
[2019-05-14] MEDS: hydrOXYzine PAMOATE 25 MG CAPSULE (FP) PO PRN (21:02)
[2019-05-15] MEDS: INSULIN SLIDING SCALE (NOVOLOG) 1 VIAL SQ SCH ×4 (06:32→21:00)
[2019-05-15] MEDS: PRENATAL VITAMINS W/ FOLIC ACID TABLET (FP) PO SCH (09:53)
[2019-05-15] MEDS: LISINOPRIL 5 MG TABLET (FP) PO SCH (09:54)
[2019-05-15] MEDS: cloNIDine HCL 0.1 MG TABLET PO SCH ×2 (09:54→21:00)
--- NOTE | 2019-05-15 10:01 | PN ---
[facility] Progress Note Note: Patient seen for c/o LUE numbness/tingling and elevated BP. Patient currently being treated with Clonidine and Lisinopril, however, he refuses clonidine as medication makes him feeling sleepy. Patient does comply with Lisinopril treatment. Patient denies CP, SOB, dizziness and N/V. However, he states he was in ER in past for same symptoms and evaluated for acute NV which was negative. Patient also c/o having old scabs to arms and would like cream. PMH HTN, Alcohol dependence and DM. Vital Signs Temperature 98.4 F 05/15/19 06:48 Pulse Rate 91 H 05/15/19 06:48 Respiratory Rate 18 05/15/19 06:48 Blood Pressure 169/98 05/15/19 06:48 O2 Sat by Pulse Oximetry (%) Laboratory Tests 04/29/19 04/29/19 04/30/19 18:34 22:00 06:41 POC Glucometer 184 282 208 Urine Color Urine Appearance Urine pH Ur Specific [place] Urine Protein Urine Glucose (UA) Urine Ketones Urine Blood Urine Nitrite Urine Bilirubin Urine Urobilinogen Ur Leukocyte Esterase Urine WBC (Auto) Urine RBC (Auto) Urine Casts (Auto) U Epithel Cells (Auto) Urine Bacteria (Auto) RPR Titer 04/30/19 04/30/19 04/30/19 08:00 08:38 11:51 POC Glucometer 208 336 Urine Color Urine Appearance Urine pH Ur Specific [place] Urine Protein Urine Glucose (UA) Urine Ketones Urine Blood Urine Nitrite Urine Bilirubin Urine Urobilinogen Ur Leukocyte Esterase Urine WBC (Auto) Urine RBC (Auto) Urine Casts (Auto) U Epithel Cells (Auto) Urine Bacteria (Auto) RPR Titer Nonreactive 04/30/19 04/30/19 05/01/19 16:51 22:44 06:19 POC Glucometer 263 369 285 Urine Color Urine Appearance Urine pH Ur Specific [place] Urine Protein Urine Glucose (UA) Urine Ketones Urine Blood Urine Nitrite Urine Bilirubin Urine Urobilinogen Ur Leukocyte Esterase Urine WBC (Auto) Urine RBC (Auto) Urine Casts (Auto) U Epithel Cells (Auto) Urine Bacteria (Auto) RPR Titer 05/01/19 05/01/19 05/01/19 11:11 16:24 22:00 POC Glucometer 293 448 254 Urine Color Urine Appearance Urine pH Ur Specific [place] Urine Protein Urine Glucose (UA) Urine Ketones Urine Blood Urine Nitrite Urine Bilirubin Urine Urobilinogen Ur Leukocyte Esterase Urine WBC (Auto) Urine RBC (Auto) Urine Casts (Auto) U Epithel Cells (Auto) Urine Bacteria (Auto) RPR Titer 05/02/19 05/02/19 05/02/19 06:49 11:09 16:39 POC Glucometer 158 308 483 Urine Color Urine Appearance Urine pH Ur Specific [place] Urine Protein Urine Glucose (UA) Urine Ketones Urine Blood Urine Nitrite Urine Bilirubin Urine Urobilinogen Ur Leukocyte Esterase Urine WBC (Auto) Urine RBC (Auto) Urine Casts (Auto) U Epithel Cells (Auto) Urine Bacteria (Auto) RPR Titer 05/02/19 05/03/19 05/03/19 20:55 07:11 10:17 POC Glucometer 537 228 357 Urine Color Urine Appearance Urine pH Ur Specific [place] Urine Protein Urine Glucose (UA) Urine Ketones Urine Blood Urine Nitrite Urine Bilirubin Urine Urobilinogen Ur Leukocyte Esterase Urine WBC (Auto) Urine RBC (Auto) Urine Casts (Auto) U Epithel Cells (Auto) Urine Bacteria (Auto) RPR Titer 05/03/19 05/04/19 05/04/19 18:08 07:24 11:57 POC Glucometer 506 319 305 Urine Color Urine Appearance Urine pH Ur Specific [place] Urine Protein Urine Glucose (UA) Urine Ketones Urine Blood Urine Nitrite Urine Bilirubin Urine Urobilinogen Ur Leukocyte Esterase Urine WBC (Auto) Urine RBC (Auto) Urine Casts (Auto) U Epithel Cells (Auto) Urine Bacteria (Auto) RPR Titer 05/04/19 05/04/19 05/05/19 16:23 20:58 11:46 POC Glucometer 306 277 261 Urine Color Urine Appearance Urine pH Ur Specific [place] Urine Protein Urine Glucose (UA) Urine Ketones Urine Blood Urine Nitrite Urine Bilirubin Urine Urobilinogen Ur Leukocyte Esterase Urine WBC (Auto) Urine RBC (Auto) Urine Casts (Auto) U Epithel Cells (Auto) Urine Bacteria (Auto) RPR Titer 05/05/19 05/05/19 05/06/19 16:40 21:17 06:35 POC Glucometer 291 277 112 Urine Color Urine Appearance Urine pH Ur Specific [place] Urine Protein Urine Glucose (UA) Urine Ketones Urine Blood Urine Nitrite Urine Bilirubin Urine Urobilinogen Ur Leukocyte Esterase Urine WBC (Auto) Urine RBC (Auto) Urine Casts (Auto) U Epithel Cells (Auto) Urine Bacteria (Auto) RPR Titer 05/06/19 05/06/19 05/06/19 10:00 11:36 16:39 POC Glucometer 215 400 Urine Color Yellow Urine Appearance Clear Urine pH 5.5 D Ur Specific [place] 1.020 Urine Protein 2+ H Urine Glucose (UA) Trace Urine Ketones Negative Urine Blood Negative Urine Nitrite Negative Urine Bilirubin Negative Urine Urobilinogen 0.2 Ur Leukocyte Esterase Negative Urine WBC (Auto) 0 Urine RBC (Auto) 1 Urine Casts (Auto) 2 U Epithel Cells (Auto) 1.4 Urine Bacteria (Auto) 1.2 RPR Titer 05/06/19 05/07/19 05/07/19 21:01 06:54 11:44 POC Glucometer 330 173 255 Urine Color Urine Appearance Urine pH Ur Specific [place] Urine Protein Urine Glucose (UA) Urine Ketones Urine Blood Urine Nitrite Urine Bilirubin Urine Urobilinogen Ur Leukocyte Esterase Urine WBC (Auto) Urine RBC (Auto) Urine Casts (Auto) U Epithel Cells (Auto) Urine Bacteria (Auto) RPR Titer 05/07/19 05/08/19 05/08/19 21:07 05:45 11:43 POC Glucometer 276 178 286 Urine Color Urine Appearance Urine pH Ur Specific [place] Urine Protein Urine Glucose (UA) Urine Ketones Urine Blood Urine Nitrite Urine Bilirubin Urine Urobilinogen Ur Leukocyte Esterase Urine WBC (Auto) Urine RBC (Auto) Urine Casts (Auto) U Epithel Cells (Auto) Urine Bacteria (Auto) RPR Titer 05/08/19 05/08/19 05/09/19 16:54 21:13 06:38 POC Glucometer 311 281 209 Urine Color Urine Appearance Urine pH Ur Specific [place] Urine Protein Urine Glucose (UA) Urine Ketones Urine Blood Urine Nitrite Urine Bilirubin Urine Urobilinogen Ur Leukocyte Esterase Urine WBC (Auto) Urine RBC (Auto) Urine Casts (Auto) U Epithel Cells (Auto) Urine Bacteria (Auto) RPR Titer 05/09/19 05/09/19 05/09/19 11:24 16:45 20:01 POC Glucometer 147 266 283 Urine Color Urine Appearance Urine pH Ur Specific [place] Urine Protein Urine Glucose (UA) Urine Ketones Urine Blood Urine Nitrite Urine Bilirubin Urine Urobilinogen Ur Leukocyte Esterase Urine WBC (Auto) Urine RBC (Auto) Urine Casts (Auto) U Epithel Cells (Auto) Urine Bacteria (Auto) RPR Titer 05/10/19 05/10/19 05/10/19 06:35 11:29 16:32 POC Glucometer 132 231 302 Urine Color Urine Appearance Urine pH Ur Specific [place] Urine Protein Urine Glucose (UA) Urine Ketones Urine Blood Urine Nitrite Urine Bilirubin Urine Urobilinogen Ur Leukocyte Esterase Urine WBC (Auto) Urine RBC (Auto) Urine Casts (Auto) U Epithel Cells (Auto) Urine Bacteria (Auto) RPR Titer 05/10/19 05/11/19 05/11/19 21:02 06:13 11:32 POC Glucometer 394 152 233 Urine Color Urine Appearance Urine pH Ur Specific [place] Urine Protein Urine Glucose (UA) Urine Ketones Urine Blood Urine Nitrite Urine Bilirubin Urine Urobilinogen Ur Leukocyte Esterase Urine WBC (Auto) Urine RBC (Auto) Urine Casts (Auto) U Epithel Cells (Auto) Urine Bacteria (Auto) RPR Titer 05/11/19 05/11/19 05/12/19 16:53 21:21 06:09 POC Glucometer 221 255 102 Urine Color Urine Appearance Urine pH Ur Specific [place] Urine Protein Urine Glucose (UA) Urine Ketones Urine Blood Urine Nitrite Urine Bilirubin Urine Urobilinogen Ur Leukocyte Esterase Urine WBC (Auto) Urine RBC (Auto) Urine Casts (Auto) U Epithel Cells (Auto) Urine Bacteria (Auto) RPR Titer 05/12/19 05/12/19 05/12/19 12:00 16:20 20:57 POC Glucometer 134 195 249 Urine Color Urine Appearance Urine pH Ur Specific [place] Urine Protein Urine Glucose (UA) Urine Ketones Urine Blood Urine Nitrite Urine Bilirubin Urine Urobilinogen Ur Leukocyte Esterase Urine WBC (Auto) Urine RBC (Auto) Urine Casts (Auto) U Epithel Cells (Auto) Urine Bacteria (Auto) RPR Titer 05/13/19 05/13/19 05/13/19 06:42 12:28 16:33 POC Glucometer 92 203 163 Urine Color Urine Appearance Urine pH Ur Specific [place] Urine Protein Urine Glucose (UA) Urine Ketones Urine Blood Urine Nitrite Urine Bilirubin Urine Urobilinogen Ur Leukocyte Esterase Urine WBC (Auto) Urine RBC (Auto) Urine Casts (Auto) U Epithel Cells (Auto) Urine Bacteria (Auto) RPR Titer 1105/14/19 05/14/19 21:01 06:40 11:49 POC Glucometer 207 100 123 Urine Color Urine Appearance Urine pH Ur Specific [place] Urine Protein Urine Glucose (UA) Urine Ketones Urine Blood Urine Nitrite Urine Bilirubin Urine Urobilinogen Ur Leukocyte Esterase Urine WBC (Auto) Urine RBC (Auto) Urine Casts (Auto) U Epithel Cells (Auto) Urine Bacteria (Auto) RPR Titer 05/14/19 05/14/19 05/15/19 16:11 20:57 06:31 POC Glucometer 221 300 136 Urine Color Urine Appearance Urine pH Ur Specific [place] Urine Protein Urine Glucose (UA) Urine Ketones Urine Blood Urine Nitrite Urine Bilirubin Urine Urobilinogen Ur Leukocyte Esterase Urine WBC (Auto) Urine RBC (Auto) Urine Casts (Auto) U Epithel Cells (Auto) Urine Bacteria (Auto) RPR Titer PE: alert and oriented x 3 skin warm and dry, + old dry healing scabs on bilateral upper arms +perrla, eoms intact bl car s1s2, rrr, no murmurs or gallops resp cta bl, no wheezes or rales ext full rom, no tremors amb ad julio A/P: Healing scabs: will order bacitracin daily x 7 days LUE Neuopathy: likely DM related, will check EKG HTN: Continue current treatment, considered increasing Lisinopril but patient refused, MIROSLAVA diet, encourage oral fluids
[2019-05-15] MEDS: BACITRACIN 15 GM TUBE TOPICAL OINTMENT TP SCH (11:00)
[2019-05-15] MEDS ORDERED: INSULIN (NOVOLOG) ASPART 100 UNITS/ML 10ML VIAL ONE (11:23)
[2019-05-15] MEDS ORDERED: PT OWN MED DRAWER 7, Y5N ONE (19:31)
[2019-05-15] MEDS: INSULIN GLARGINE HUM REC ANLOG 18 UNIT SQ SCH (21:00)
[2019-05-15] MEDS: hydrOXYzine PAMOATE 25 MG CAPSULE (FP) PO PRN (21:01)
[2019-05-15] MEDS: THIAMINE HCL 100 MG TABLET (FP) PO SCH (21:01)
[2019-05-16] MEDS: IBUPROFEN 400 MG TABLET (FP) PO PRN ×2 (00:31→06:52)
[2019-05-16] MEDS: INSULIN SLIDING SCALE (NOVOLOG) 1 VIAL SQ SCH ×4 (07:03→21:05)
[2019-05-16] MEDS: BACITRACIN 15 GM TUBE TOPICAL OINTMENT TP SCH (09:37)
[2019-05-16] MEDS: cloNIDine HCL 0.1 MG TABLET PO SCH ×2 (09:37→21:03)
[2019-05-16] MEDS: PRENATAL VITAMINS W/ FOLIC ACID TABLET (FP) PO SCH (09:37)
[2019-05-16] MEDS: hydrOXYzine PAMOATE 25 MG CAPSULE (FP) PO PRN ×2 (09:37→21:06)
[2019-05-16] MEDS: LISINOPRIL 5 MG TABLET (FP) PO SCH (09:37)
[2019-05-16] MEDS ORDERED: INSULIN (NOVOLOG) ASPART 100 UNITS/ML 10ML VIAL ONE ×2 (11:43→16:33)
--- NOTE | 2019-05-16 17:50 | EKG ---
Test Reason : Blood Pressure : / mmHG Vent. Rate : 087 BPM Atrial Rate : 087 BPM P-R Int : 170 ms QRS Dur : 086 ms QT Int : 350 ms P-R-T Axes : 041 019 020 degrees QTc Int : 421 ms NORMAL SINUS RHYTHM NORMAL ECG WHEN COMPARED WITH ECG OF 29-APR-2019 14:14, NO SIGNIFICANT CHANGE WAS FOUND Confirmed by MD Fry Edward ([id number]) on 05/16/2019 5:50:36 PM Referred By: Confirmed By:Esvin Fry MD
[2019-05-16] MEDS ORDERED: PT OWN MED DRAWER 7, Y5N ONE (18:53)
[2019-05-16] MEDS: THIAMINE HCL 100 MG TABLET (FP) PO SCH (21:03)
[2019-05-16] MEDS: INSULIN GLARGINE HUM REC ANLOG 18 UNIT SQ SCH (21:05)
[2019-05-17] MEDS: IBUPROFEN 400 MG TABLET (FP) PO PRN ×3 (06:25→21:53)
[2019-05-17] MEDS: INSULIN SLIDING SCALE (NOVOLOG) 1 VIAL SQ SCH ×4 (07:01→21:57)
[2019-05-17] MEDS: cloNIDine HCL 0.1 MG TABLET PO SCH ×2 (09:10→21:49)
[2019-05-17] MEDS: BACITRACIN 15 GM TUBE TOPICAL OINTMENT TP SCH (09:31)
[2019-05-17] MEDS: hydrOXYzine PAMOATE 25 MG CAPSULE (FP) PO PRN ×2 (09:31→21:52)
[2019-05-17] MEDS: LISINOPRIL 5 MG TABLET (FP) PO SCH (09:31)
[2019-05-17] MEDS: PRENATAL VITAMINS W/ FOLIC ACID TABLET (FP) PO SCH (09:31)
[2019-05-17] MEDS ORDERED: INSULIN (NOVOLOG) ASPART 100 UNITS/ML 10ML VIAL ONE ×2 (11:35→16:25)
[2019-05-17] MEDS: THIAMINE HCL 100 MG TABLET (FP) PO SCH (21:54)
[2019-05-17] MEDS: INSULIN GLARGINE HUM REC ANLOG 18 UNIT SQ SCH (22:00)
[2019-05-18] MEDS: hydrOXYzine PAMOATE 25 MG CAPSULE (FP) PO PRN ×2 (07:46→21:00)
[2019-05-18] MEDS: INSULIN SLIDING SCALE (NOVOLOG) 1 VIAL SQ SCH ×4 (07:51→21:00)
[2019-05-18] MEDS: PRENATAL VITAMINS W/ FOLIC ACID TABLET (FP) PO SCH (11:40)
[2019-05-18] MEDS: cloNIDine HCL 0.1 MG TABLET PO SCH ×2 (11:40→21:00)
[2019-05-18] MEDS: BACITRACIN 15 GM TUBE TOPICAL OINTMENT TP SCH (11:40)
[2019-05-18] MEDS: LISINOPRIL 5 MG TABLET (FP) PO SCH (11:41)
[2019-05-18] MEDS ORDERED: INSULIN (NOVOLOG) ASPART 100 UNITS/ML 10ML VIAL ONE (11:46)
[2019-05-18] MEDS ORDERED: PT OWN MED DRAWER 7, Y5N ONE (18:52)
[2019-05-18] MEDS: THIAMINE HCL 100 MG TABLET (FP) PO SCH (21:01)
[2019-05-18] MEDS: INSULIN GLARGINE HUM REC ANLOG 18 UNIT SQ SCH (21:50)
[2019-05-18] MEDS: IBUPROFEN 400 MG TABLET (FP) PO PRN (22:06)
[2019-05-19] MEDS: IBUPROFEN 400 MG TABLET (FP) PO PRN (06:19)
[2019-05-19] MEDS: INSULIN SLIDING SCALE (NOVOLOG) 1 VIAL SQ SCH ×4 (07:24→21:19)
[2019-05-19] MEDS: hydrOXYzine PAMOATE 25 MG CAPSULE (FP) PO PRN ×2 (09:13→20:07)
[2019-05-19] MEDS: PRENATAL VITAMINS W/ FOLIC ACID TABLET (FP) PO SCH (10:40)
[2019-05-19] MEDS: BACITRACIN 15 GM TUBE TOPICAL OINTMENT TP SCH (10:40)
[2019-05-19] MEDS: LISINOPRIL 5 MG TABLET (FP) PO SCH (10:40)
[2019-05-19] MEDS: cloNIDine HCL 0.1 MG TABLET PO SCH ×2 (10:40→21:14)
[2019-05-19] MEDS ORDERED: PT OWN MED DRAWER 7, Y5N ONE ×2 (21:14→21:46)
[2019-05-19] MEDS: THIAMINE HCL 100 MG TABLET (FP) PO SCH (21:14)
[2019-05-19] MEDS: INSULIN GLARGINE HUM REC ANLOG 18 UNIT SQ SCH (21:19)
[2019-05-19] MEDS ORDERED: INSULIN (NOVOLOG) ASPART 100 UNITS/ML 10ML VIAL ONE (21:31)
[2019-05-19] MEDS ORDERED: INSULIN (LEVEMIR) 100 UNITS/ML UNITS SQ ONE (21:31)
[2019-05-20] MEDS: IBUPROFEN 400 MG TABLET (FP) PO PRN (06:18)
[2019-05-20] MEDS: INSULIN SLIDING SCALE (NOVOLOG) 1 VIAL SQ SCH ×4 (06:20→21:05)
[2019-05-20] MEDS: hydrOXYzine PAMOATE 25 MG CAPSULE (FP) PO PRN ×2 (09:50→21:02)
[2019-05-20] MEDS: BACITRACIN 15 GM TUBE TOPICAL OINTMENT TP SCH (10:40)
[2019-05-20] MEDS: cloNIDine HCL 0.1 MG TABLET PO SCH ×2 (10:40→21:05)
[2019-05-20] MEDS: PRENATAL VITAMINS W/ FOLIC ACID TABLET (FP) PO SCH (10:41)
[2019-05-20] MEDS: LISINOPRIL 5 MG TABLET (FP) PO SCH (10:41)
[2019-05-20] MEDS ORDERED: INSULIN (NOVOLOG) ASPART 100 UNITS/ML 10ML VIAL ONE ×2 (11:42→21:43)
[2019-05-20] MEDS: THIAMINE HCL 100 MG TABLET (FP) PO SCH (21:05)
[2019-05-20] MEDS: INSULIN GLARGINE HUM REC ANLOG 18 UNIT SQ SCH (21:05)
[2019-05-21] MEDS: hydrOXYzine PAMOATE 25 MG CAPSULE (FP) PO PRN ×2 (05:46→21:01)
[2019-05-21] MEDS: IBUPROFEN 400 MG TABLET (FP) PO PRN (05:46)
[2019-05-21] MEDS ORDERED: INSULIN (NOVOLOG) ASPART 100 UNITS/ML 10ML VIAL ONE ×3 (07:17→11:57)
[2019-05-21] MEDS: INSULIN SLIDING SCALE (NOVOLOG) 1 VIAL SQ SCH ×4 (07:18→21:01)
[2019-05-21] MEDS: PRENATAL VITAMINS W/ FOLIC ACID TABLET (FP) PO SCH (10:09)
[2019-05-21] MEDS: LISINOPRIL 5 MG TABLET (FP) PO SCH (10:10)
[2019-05-21] MEDS: BACITRACIN 15 GM TUBE TOPICAL OINTMENT TP SCH (10:10)
[2019-05-21] MEDS: cloNIDine HCL 0.1 MG TABLET PO SCH ×2 (10:10→21:01)
[2019-05-21] MEDS ORDERED: PT OWN MED DRAWER 7, Y5N ONE (20:57)
[2019-05-21] MEDS: THIAMINE HCL 100 MG TABLET (FP) PO SCH (21:01)
[2019-05-21] MEDS: INSULIN GLARGINE HUM REC ANLOG 18 UNIT SQ SCH (21:01)
[2019-05-22] MEDS: IBUPROFEN 400 MG TABLET (FP) PO PRN (06:02)
[2019-05-22] MEDS ORDERED: INSULIN (NOVOLOG) ASPART 100 UNITS/ML 10ML VIAL ONE ×4 (06:36→21:40)
[2019-05-22] MEDS: INSULIN SLIDING SCALE (NOVOLOG) 1 VIAL SQ SCH ×4 (06:37→21:41)
[2019-05-22] MEDS: hydrOXYzine PAMOATE 25 MG CAPSULE (FP) PO PRN ×2 (09:15→21:42)
[2019-05-22] MEDS: LISINOPRIL 5 MG TABLET (FP) PO SCH (09:15)
[2019-05-22] MEDS: PRENATAL VITAMINS W/ FOLIC ACID TABLET (FP) PO SCH (09:15)
[2019-05-22] MEDS: cloNIDine HCL 0.1 MG TABLET PO SCH ×2 (09:15→21:35)
[2019-05-22] MEDS: BACITRACIN 15 GM TUBE TOPICAL OINTMENT TP SCH (10:00)
[2019-05-22] MEDS: COLLOIDAL OATMEAL 1 BAR EACH TP PRN (14:31)
[2019-05-22] MEDS: ACETAMINOPHEN 325 MG TABLET (FP) PO PRN (20:23)
[2019-05-22] MEDS ORDERED: PT OWN MED DRAWER 7, Y5N ONE (21:32)
[2019-05-22] MEDS: INSULIN GLARGINE HUM REC ANLOG 18 UNIT SQ SCH (21:34)
[2019-05-22] MEDS: THIAMINE HCL 100 MG TABLET (FP) PO SCH (21:35)
[2019-05-23] MEDS: IBUPROFEN 400 MG TABLET (FP) PO PRN ×2 (06:13→19:23)
[2019-05-23] MEDS: INSULIN SLIDING SCALE (NOVOLOG) 1 VIAL SQ SCH ×4 (06:15→22:07)
[2019-05-23] MEDS: PRENATAL VITAMINS W/ FOLIC ACID TABLET (FP) PO SCH (09:04)
[2019-05-23] MEDS: BACITRACIN 15 GM TUBE TOPICAL OINTMENT TP SCH (09:05)
[2019-05-23] MEDS: cloNIDine HCL 0.1 MG TABLET PO SCH ×2 (09:05→21:24)
[2019-05-23] MEDS: LISINOPRIL 5 MG TABLET (FP) PO SCH (10:19)
[2019-05-23] MEDS ORDERED: INSULIN (NOVOLOG) ASPART 100 UNITS/ML 10ML VIAL ONE (16:24)
[2019-05-23] MEDS ORDERED: PT OWN MED DRAWER 7, Y5N ONE (20:55)
[2019-05-23] MEDS: hydrOXYzine PAMOATE 25 MG CAPSULE (FP) PO PRN (20:56)
[2019-05-23] MEDS: THIAMINE HCL 100 MG TABLET (FP) PO SCH (21:24)
[2019-05-23] MEDS: INSULIN GLARGINE HUM REC ANLOG 18 UNIT SQ SCH (22:07)
[2019-05-24] MEDS: INSULIN SLIDING SCALE (NOVOLOG) 1 VIAL SQ SCH ×4 (06:11→21:44)
[2019-05-24] MEDS: PRENATAL VITAMINS W/ FOLIC ACID TABLET (FP) PO SCH (09:39)
[2019-05-24] MEDS: hydrOXYzine PAMOATE 25 MG CAPSULE (FP) PO PRN ×2 (09:39→20:56)
[2019-05-24] MEDS: BACITRACIN 15 GM TUBE TOPICAL OINTMENT TP SCH (09:40)
[2019-05-24] MEDS: cloNIDine HCL 0.1 MG TABLET PO SCH ×2 (09:41→21:43)
[2019-05-24] MEDS: LISINOPRIL 5 MG TABLET (FP) PO SCH (09:41)
[2019-05-24] MEDS ORDERED: INSULIN (NOVOLOG) ASPART 100 UNITS/ML 10ML VIAL ONE (11:07)
[2019-05-24] MEDS ORDERED: PT OWN MED DRAWER 7, Y5N ONE (18:31)
[2019-05-24] MEDS: INSULIN GLARGINE HUM REC ANLOG 18 UNIT SQ SCH (21:43)
[2019-05-24] MEDS: THIAMINE HCL 100 MG TABLET (FP) PO SCH (21:45)
[2019-05-25] MEDS: INSULIN SLIDING SCALE (NOVOLOG) 1 VIAL SQ SCH ×4 (06:08→21:02)
[2019-05-25 06:51] VITALS: TEMP 98.2
[2019-05-25] MEDS: hydrOXYzine PAMOATE 25 MG CAPSULE (FP) PO PRN ×2 (08:23→21:03)
[2019-05-25] MEDS: IBUPROFEN 400 MG TABLET (FP) PO PRN (08:23)
[2019-05-25] MEDS: BACITRACIN 15 GM TUBE TOPICAL OINTMENT TP SCH (10:35)
[2019-05-25] MEDS: LISINOPRIL 5 MG TABLET (FP) PO SCH (10:36)
[2019-05-25] MEDS: PRENATAL VITAMINS W/ FOLIC ACID TABLET (FP) PO SCH (10:36)
[2019-05-25] MEDS: cloNIDine HCL 0.1 MG TABLET PO SCH ×2 (11:07→21:02)
[2019-05-25 11:42] VITALS: BP 144/94; PULSE 110
--- NOTE | 2019-05-25 13:15 | PN ---
[facility] Progress Note Note: Patient scheduled for discharge from rehab tomorrow morning after receiving treatment for alcohol and cocaine dependence. Patient states he accomplished all rehab goals, able to identify positive coping measures and triggers. Patient went to ER for evaluation of chest pain and LUE numbness/tingling prior to admission and cleared to continue in rehab. Patient treated for elevated blood pressure with clonidine and lisinopril. Patient refused clonidine due to side effects of lethargy. Patient currently is medically stable and denies SI/ HI. [facility]. Patient encouraged to continue group meetings at / to prevent relapse. Medication sent to preferred pharmacy, rejected as patient has previous prescriptions waiting at pharmacy. Laboratory Tests 04/29/19 04/29/19 04/30/19 18:34 22:00 06:41 POC Glucometer 184 282 208 Urine Color Urine Appearance Urine pH Ur Specific [place] Urine Protein Urine Glucose (UA) Urine Ketones Urine Blood Urine Nitrite Urine Bilirubin Urine Urobilinogen Ur Leukocyte Esterase Urine WBC (Auto) Urine RBC (Auto) Urine Casts (Auto) U Epithel Cells (Auto) Urine Bacteria (Auto) RPR Titer 04/30/19 04/30/19 04/30/19 08:00 08:38 11:51 POC Glucometer 208 336 Urine Color Urine Appearance Urine pH Ur Specific [place] Urine Protein Urine Glucose (UA) Urine Ketones Urine Blood Urine Nitrite Urine Bilirubin Urine Urobilinogen Ur Leukocyte Esterase Urine WBC (Auto) Urine RBC (Auto) Urine Casts (Auto) U Epithel Cells (Auto) Urine Bacteria (Auto) RPR Titer Nonreactive 04/30/19 04/30/19 05/01/19 16:51 22:44 06:19 POC Glucometer 263 369 285 Urine Color Urine Appearance Urine pH Ur Specific [place] Urine Protein Urine Glucose (UA) Urine Ketones Urine Blood Urine Nitrite Urine Bilirubin Urine Urobilinogen Ur Leukocyte Esterase Urine WBC (Auto) Urine RBC (Auto) Urine Casts (Auto) U Epithel Cells (Auto) Urine Bacteria (Auto) RPR Titer 05/01/19 05/01/19 05/01/19 11:11 16:24 22:00 POC Glucometer 293 448 254 Urine Color Urine Appearance Urine pH Ur Specific [place] Urine Protein Urine Glucose (UA) Urine Ketones Urine Blood Urine Nitrite Urine Bilirubin Urine Urobilinogen Ur Leukocyte Esterase Urine WBC (Auto) Urine RBC (Auto) Urine Casts (Auto) U Epithel Cells (Auto) Urine Bacteria (Auto) RPR Titer 05/02/19 05/02/19 05/02/19 06:49 11:09 16:39 POC Glucometer 158 308 483 Urine Color Urine Appearance Urine pH Ur Specific [place] Urine Protein Urine Glucose (UA) Urine Ketones Urine Blood Urine Nitrite Urine Bilirubin Urine Urobilinogen Ur Leukocyte Esterase Urine WBC (Auto) Urine RBC (Auto) Urine Casts (Auto) U Epithel Cells (Auto) Urine Bacteria (Auto) RPR Titer 05/02/19 05/03/19 05/03/19 20:55 07:11 10:17 POC Glucometer 537 228 357 Urine Color Urine Appearance Urine pH Ur Specific [place] Urine Protein Urine Glucose (UA) Urine Ketones Urine Blood Urine Nitrite Urine Bilirubin Urine Urobilinogen Ur Leukocyte Esterase Urine WBC (Auto) Urine RBC (Auto) Urine Casts (Auto) U Epithel Cells (Auto) Urine Bacteria (Auto) RPR Titer 05/03/19 05/04/19 05/04/19 18:08 07:24 11:57 POC Glucometer 506 319 305 Urine Color Urine Appearance Urine pH Ur Specific [place] Urine Protein Urine Glucose (UA) Urine Ketones Urine Blood Urine Nitrite Urine Bilirubin Urine Urobilinogen Ur Leukocyte Esterase Urine WBC (Auto) Urine RBC (Auto) Urine Casts (Auto) U Epithel Cells (Auto) Urine Bacteria (Auto) RPR Titer 05/04/19 05/04/19 05/05/19 16:23 20:58 11:46 POC Glucometer 306 277 261 Urine Color Urine Appearance Urine pH Ur Specific [place] Urine Protein Urine Glucose (UA) Urine Ketones Urine Blood Urine Nitrite Urine Bilirubin Urine Urobilinogen Ur Leukocyte Esterase Urine WBC (Auto) Urine RBC (Auto) Urine Casts (Auto) U Epithel Cells (Auto) Urine Bacteria (Auto) RPR Titer 05/05/19 05/05/19 05/06/19 16:40 21:17 06:35 POC Glucometer 291 277 112 Urine Color Urine Appearance Urine pH Ur Specific [place] Urine Protein Urine Glucose (UA) Urine Ketones Urine Blood Urine Nitrite Urine Bilirubin Urine Urobilinogen Ur Leukocyte Esterase Urine WBC (Auto) Urine RBC (Auto) Urine Casts (Auto) U Epithel Cells (Auto) Urine Bacteria (Auto) RPR Titer 05/06/19 05/06/19 05/06/19 10:00 11:36 16:39 POC Glucometer 215 400 Urine Color Yellow Urine Appearance Clear Urine pH 5.5 D Ur Specific [place] 1.020 Urine Protein 2+ H Urine Glucose (UA) Trace Urine Ketones Negative Urine Blood Negative Urine Nitrite Negative Urine Bilirubin Negative Urine Urobilinogen 0.2 Ur Leukocyte Esterase Negative Urine WBC (Auto) 0 Urine RBC (Auto) 1 Urine Casts (Auto) 2 U Epithel Cells (Auto) 1.4 Urine Bacteria (Auto) 1.2 RPR Titer 05/06/19 05/07/19 05/07/19 21:01 06:54 11:44 POC Glucometer 330 173 255 Urine Color Urine Appearance Urine pH Ur Specific [place] Urine Protein Urine Glucose (UA) Urine Ketones Urine Blood Urine Nitrite Urine Bilirubin Urine Urobilinogen Ur Leukocyte Esterase Urine WBC (Auto) Urine RBC (Auto) Urine Casts (Auto) U Epithel Cells (Auto) Urine Bacteria (Auto) RPR Titer 05/07/19 05/08/19 05/08/19 21:07 05:45 11:43 POC Glucometer 276 178 286 Urine Color Urine Appearance Urine pH Ur Specific [place] Urine Protein Urine Glucose (UA) Urine Ketones Urine Blood Urine Nitrite Urine Bilirubin Urine Urobilinogen Ur Leukocyte Esterase Urine WBC (Auto) Urine RBC (Auto) Urine Casts (Auto) U Epithel Cells (Auto) Urine Bacteria (Auto) RPR Titer 05/08/19 05/08/19 05/09/19 16:54 21:13 06:38 POC Glucometer 311 281 209 Urine Color Urine Appearance Urine pH Ur Specific [place] Urine Protein Urine Glucose (UA) Urine Ketones Urine Blood Urine Nitrite Urine Bilirubin Urine Urobilinogen Ur Leukocyte Esterase Urine WBC (Auto) Urine RBC (Auto) Urine Casts (Auto) U Epithel Cells (Auto) Urine Bacteria (Auto) RPR Titer 05/09/19 05/09/19 05/09/19 11:24 16:45 20:01 POC Glucometer 147 266 283 Urine Color Urine Appearance Urine pH Ur Specific [place] Urine Protein Urine Glucose (UA) Urine Ketones Urine Blood Urine Nitrite Urine Bilirubin Urine Urobilinogen Ur Leukocyte Esterase Urine WBC (Auto) Urine RBC (Auto) Urine Casts (Auto) U Epithel Cells (Auto) Urine Bacteria (Auto) RPR Titer 05/10/19 05/10/19 05/10/19 06:35 11:29 16:32 POC Glucometer 132 231 302 Urine Color Urine Appearance Urine pH Ur Specific [place] Urine Protein Urine Glucose (UA) Urine Ketones Urine Blood Urine Nitrite Urine Bilirubin Urine Urobilinogen Ur Leukocyte Esterase Urine WBC (Auto) Urine RBC (Auto) Urine Casts (Auto) U Epithel Cells (Auto) Urine Bacteria (Auto) RPR Titer 05/10/19 05/11/19 05/11/19 21:02 06:13 11:32 POC Glucometer 394 152 233 Urine Color Urine Appearance Urine pH Ur Specific [place] Urine Protein Urine Glucose (UA) Urine Ketones Urine Blood Urine Nitrite Urine Bilirubin Urine Urobilinogen Ur Leukocyte Esterase Urine WBC (Auto) Urine RBC (Auto) Urine Casts (Auto) U Epithel Cells (Auto) Urine Bacteria (Auto) RPR Titer 05/11/19 05/11/19 05/12/19 16:53 21:21 06:09 POC Glucometer 221 255 102 Urine Color Urine Appearance Urine pH Ur Specific [place] Urine Protein Urine Glucose (UA) Urine Ketones Urine Blood Urine Nitrite Urine Bilirubin Urine Urobilinogen Ur Leukocyte Esterase Urine WBC (Auto) Urine RBC (Auto) Urine Casts (Auto) U Epithel Cells (Auto) Urine Bacteria (Auto) RPR Titer 05/12/19 05/12/19 05/12/19 12:00 16:20 20:57 POC Glucometer 134 195 249 Urine Color Urine Appearance Urine pH Ur Specific [place] Urine Protein Urine Glucose (UA) Urine Ketones Urine Blood Urine Nitrite Urine Bilirubin Urine Urobilinogen Ur Leukocyte Esterase Urine WBC (Auto) Urine RBC (Auto) Urine Casts (Auto) U Epithel Cells (Auto) Urine Bacteria (Auto) RPR Titer 05/13/19 05/13/19 05/13/19 06:42 12:28 16:33 POC Glucometer 92 203 163 Urine Color Urine Appearance Urine pH Ur Specific [place] Urine Protein Urine Glucose (UA) Urine Ketones Urine Blood Urine Nitrite Urine Bilirubin Urine Urobilinogen Ur Leukocyte Esterase Urine WBC (Auto) Urine RBC (Auto) Urine Casts (Auto) U Epithel Cells (Auto) Urine Bacteria (Auto) RPR Titer 05/13/19 05/14/19 05/14/19 21:01 06:40 11:49 POC Glucometer 207 100 123 Urine Color Urine Appearance Urine pH Ur Specific [place] Urine Protein Urine Glucose (UA) Urine Ketones Urine Blood Urine Nitrite Urine Bilirubin Urine Urobilinogen Ur Leukocyte Esterase Urine WBC (Auto) Urine RBC (Auto) Urine Casts (Auto) U Epithel Cells (Auto) Urine Bacteria (Auto) RPR Titer 05/14/19 05/14/19 05/15/19 16:11 20:57 06:31 POC Glucometer 221 300 136 Urine Color Urine Appearance Urine pH Ur Specific [place] Urine Protein Urine Glucose (UA) Urine Ketones Urine Blood Urine Nitrite Urine Bilirubin Urine Urobilinogen Ur Leukocyte Esterase Urine WBC (Auto) Urine RBC (Auto) Urine Casts (Auto) U Epithel Cells (Auto) Urine Bacteria (Auto) RPR Titer 05/15/19 05/15/19 05/15/19 11:21 16:29 20:57 POC Glucometer 202 211 183 Urine Color Urine Appearance Urine pH Ur Specific [place] Urine Protein Urine Glucose (UA) Urine Ketones Urine Blood Urine Nitrite Urine Bilirubin Urine Urobilinogen Ur Leukocyte Esterase Urine WBC (Auto) Urine RBC (Auto) Urine Casts (Auto) U Epithel Cells (Auto) Urine Bacteria (Auto) RPR Titer 05/16/19 05/16/19 05/16/19 06:51 11:40 17:07 POC Glucometer 135 231 216 Urine Color Urine Appearance Urine pH Ur Specific [place] Urine Protein Urine Glucose (UA) Urine Ketones Urine Blood Urine Nitrite Urine Bilirubin Urine Urobilinogen Ur Leukocyte Esterase Urine WBC (Auto) Urine RBC (Auto) Urine Casts (Auto) U Epithel Cells (Auto) Urine Bacteria (Auto) RPR Titer 05/16/19 05/17/19 05/17/19 21:02 06:24 11:32 POC Glucometer 211 123 215 Urine Color Urine Appearance Urine pH Ur Specific [place] Urine Protein Urine Glucose (UA) Urine Ketones Urine Blood Urine Nitrite Urine Bilirubin Urine Urobilinogen Ur Leukocyte Esterase Urine WBC (Auto) Urine RBC (Auto) Urine Casts (Auto) U Epithel Cells (Auto) Urine Bacteria (Auto) RPR Titer 05/17/19 05/17/19 05/17/19 16:27 21:49 21:51 POC Glucometer 323 378 388 Urine Color Urine Appearance Urine pH Ur Specific [place] Urine Protein Urine Glucose (UA) Urine Ketones Urine Blood Urine Nitrite Urine Bilirubin Urine Urobilinogen Ur Leukocyte Esterase Urine WBC (Auto) Urine RBC (Auto) Urine Casts (Auto) U Epithel Cells (Auto) Urine Bacteria (Auto) RPR Titer 05/18/19 05/18/19 05/18/19 06:44 11:42 16:35 POC Glucometer 123 158 184 Urine Color Urine Appearance Urine pH Ur Specific [place] Urine Protein Urine Glucose (UA) Urine Ketones Urine Blood Urine Nitrite Urine Bilirubin Urine Urobilinogen Ur Leukocyte Esterase Urine WBC (Auto) Urine RBC (Auto) Urine Casts (Auto) U Epithel Cells (Auto) Urine Bacteria (Auto) RPR Titer 05/18/19 05/19/19 05/19/19 20:56 06:17 16:34 POC Glucometer 305 129 261 Urine Color Urine Appearance Urine pH Ur Specific [place] Urine Protein Urine Glucose (UA) Urine Ketones Urine Blood Urine Nitrite Urine Bilirubin Urine Urobilinogen Ur Leukocyte Esterase Urine WBC (Auto) Urine RBC (Auto) Urine Casts (Auto) U Epithel Cells (Auto) Urine Bacteria (Auto) RPR Titer 05/19/19 05/20/19 05/20/19 21:16 06:19 11:40 POC Glucometer 324 158 291 Urine Color Urine Appearance Urine pH Ur Specific [place] Urine Protein Urine Glucose (UA) Urine Ketones Urine Blood Urine Nitrite Urine Bilirubin Urine Urobilinogen Ur Leukocyte Esterase Urine WBC (Auto) Urine RBC (Auto) Urine Casts (Auto) U Epithel Cells (Auto) Urine Bacteria (Auto) RPR Titer 05/20/19 05/20/19 05/21/19 16:37 21:03 05:47 POC Glucometer 316 220 199 Urine Color Urine Appearance Urine pH Ur Specific [place] Urine Protein Urine Glucose (UA) Urine Ketones Urine Blood Urine Nitrite Urine Bilirubin Urine Urobilinogen Ur Leukocyte Esterase Urine WBC (Auto) Urine RBC (Auto) Urine Casts (Auto) U Epithel Cells (Auto) Urine Bacteria (Auto) RPR Titer 05/21/19 05/21/19 05/21/19 11:46 16:26 20:57 POC Glucometer 284 198 264 Urine Color Urine Appearance Urine pH Ur Specific [place] Urine Protein Urine Glucose (UA) Urine Ketones Urine Blood Urine Nitrite Urine Bilirubin Urine Urobilinogen Ur Leukocyte Esterase Urine WBC (Auto) Urine RBC (Auto) Urine Casts (Auto) U Epithel Cells (Auto) Urine Bacteria (Auto) RPR Titer 05/22/19 05/22/19 05/22/19 06:00 11:29 16:40 POC Glucometer 231 185 281 Urine Color Urine Appearance Urine pH Ur Specific [place] Urine Protein Urine Glucose (UA) Urine Ketones Urine Blood Urine Nitrite Urine Bilirubin Urine Urobilinogen Ur Leukocyte Esterase Urine WBC (Auto) Urine RBC (Auto) Urine Casts (Auto) U Epithel Cells (Auto) Urine Bacteria (Auto) RPR Titer 05/22/19 05/23/19 05/23/19 21:37 06:13 11:06 POC Glucometer 251 182 151 Urine Color Urine Appearance Urine pH Ur Specific [place] Urine Protein Urine Glucose (UA) Urine Ketones Urine Blood Urine Nitrite Urine Bilirubin Urine Urobilinogen Ur Leukocyte Esterase Urine WBC (Auto) Urine RBC (Auto) Urine Casts (Auto) U Epithel Cells (Auto) Urine Bacteria (Auto) RPR Titer 05/23/19 05/23/19 05/24/19 16:24 20:51 06:09 POC Glucometer 232 281 250 Urine Color Urine Appearance Urine pH Ur Specific [place] Urine Protein Urine Glucose (UA) Urine Ketones Urine Blood Urine Nitrite Urine Bilirubin Urine Urobilinogen Ur Leukocyte Esterase Urine WBC (Auto) Urine RBC (Auto) Urine Casts (Auto) U Epithel Cells (Auto) Urine Bacteria (Auto) RPR Titer 05/24/19 05/24/19 05/24/19 11:04 16:21 20:54 POC Glucometer 274 370 463 Urine Color Urine Appearance Urine pH Ur Specific [place] Urine Protein Urine Glucose (UA) Urine Ketones Urine Blood Urine Nitrite Urine Bilirubin Urine Urobilinogen Ur Leukocyte Esterase Urine WBC (Auto) Urine RBC (Auto) Urine Casts (Auto) U Epithel Cells (Auto) Urine Bacteria (Auto) RPR Titer 05/25/19 05/25/19 06:06 11:55 POC Glucometer 208 374 Urine Color Urine Appearance Urine pH Ur Specific [place] Urine Protein Urine Glucose (UA) Urine Ketones Urine Blood Urine Nitrite Urine Bilirubin Urine Urobilinogen Ur Leukocyte Esterase Urine WBC (Auto) Urine RBC (Auto) Urine Casts (Auto) U Epithel Cells (Auto) Urine Bacteria (Auto) RPR Titer Vital Signs Temperature 98.2 F 05/25/19 06:50 Pulse Rate 110 H 05/25/19 09:30 Respiratory Rate 18 05/25/19 09:30 Blood Pressure 144/94 05/25/19 09:30 O2 Sat by Pulse Oximetry (%) Ambulatory Orders Insulin Glargine,Hum.rec.anlog [Lantus Solostar PEN -] 18 units SQ HS #1 pen 08/12 Lisinopril 5 mg PO DAILY #14 tablet 05/25/19 A/P ETOH/Cocaine dependence Stable for d/c in am
[2019-05-25] MEDS ORDERED: PT OWN MED DRAWER 7, Y5N ONE ×2 (18:49→23:20)
[2019-05-25] MEDS: INSULIN GLARGINE HUM REC ANLOG 18 UNIT SQ SCH (21:02)
[2019-05-25] MEDS: THIAMINE HCL 100 MG TABLET (FP) PO SCH (21:02)
[2019-05-25] MEDS: MELATONIN 5 MG TABLETS PO PRN (23:23)
[2019-05-26] MEDS: MAG HYDROX/AL HYDROX/SIMETH 30 ML UNIT-DOSE CUP PO PRN (00:51)
[2019-05-26] MEDS: IBUPROFEN 400 MG TABLET (FP) PO PRN (06:07)
[2019-05-26] MEDS ORDERED: INSULIN (NOVOLOG) ASPART 100 UNITS/ML 10ML VIAL ONE (06:47)
[2019-05-26] MEDS: INSULIN SLIDING SCALE (NOVOLOG) 1 VIAL SQ SCH (06:48)
== END 2019-05-26 07:00 | disposition home or self-care (01) | DRG 895 ==
LOC: YASAS 17:33 → Y6N 17:47 → Y3W 05-04 12:53
PROVIDERS: ADMIT Allergy & Immunology; ATTEND Allergy & Immunology
PROC: HZ2ZZZZ Detoxification Services for Substance Abuse Treatment (ICD-10-PCS; 2019-04-29)
PROC: HZ42ZZZ Group Counseling for Substance Abuse Treatment, Cognitive-Behavioral (ICD-10-PCS; principal; 2019-05-05)
DX: F10.20 Alcohol dependence, uncomplicated (principal); F14.20 Cocaine dependence, uncomplicated; F19.282 Other psychoactive substance dependence with psychoactive substance-induced sleep disorder; F12.20 Cannabis dependence, uncomplicated; F19.24 Other psychoactive substance dependence with psychoactive substance-induced mood disorder; F32.9 Major depressive disorder, single episode, unspecified; I10 Essential (primary) hypertension; E11.65 Type 2 diabetes mellitus with hyperglycemia; Z79.4 Long term (current) use of insulin; E11.42 Type 2 diabetes mellitus with diabetic polyneuropathy; J45.909 Unspecified asthma, uncomplicated; L30.9 Dermatitis, unspecified; H21.569 Pupillary abnormality, unspecified eye; R94.5 Abnormal results of liver function studies; Z88.0 Allergy status to penicillin; Z86.39 Personal history of other endocrine, nutritional and metabolic disease
CPT/HCPCS: 36415; 70450-TC; 80053; 81003; 82962; 84484; 85025; 86593; 93005; 93010; 99283-25; J0735

== ENCOUNTER 2020-02-12 15:49 | Inpatient (IN) | payer OTHER ==
[2020-02-12 17:45] VITALS: BMI 32.6
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
[2020-02-12] MEDS ORDERED: MAGNESIUM HYDROX 2400MG/30ML ORAL SUSPENSION 30 ML CUP PO PRN (19:58)
[2020-02-12] MEDS ORDERED: METHOCARBAMOL 500 MG TABLET PO PRN (19:58)
[2020-02-12] MEDS ORDERED: MAGNESIUM CITRATE 300 ML BOTTLE PO PRN (19:58)
[2020-02-12] MEDS ORDERED: ACETAMINOPHEN 325 MG TABLET (FP) PO PRN ×2 (19:58)
[2020-02-12] MEDS ORDERED: MAG HYDROX/AL HYDROX/SIMETH 30 ML UNIT-DOSE CUP PO PRN (19:58)
[2020-02-12] MEDS ORDERED: NICOTINE POLACRILEX 2 MG GUM BUC PRN (19:58)
[2020-02-12] MEDS ORDERED: IBUPROFEN 400 MG TABLET (FP) PO PRN (19:58)
[2020-02-12] MEDS ORDERED: MENTHOL/PHENOL 1 EACH UD MM PRN (19:58)
[2020-02-12] MEDS ORDERED: chlordiazePOXIDE HCL 25 MG CAPSULE PO PRN (19:58)
[2020-02-12] MEDS ORDERED: BISMUTH SUBSALICYLATE 524 MG/30 ML UD PO PRN (19:58)
[2020-02-12] MEDS ORDERED: ONDANSETRON *ODT* 4 MG TABLET SL ONE (20:15)
[2020-02-12] MEDS ORDERED: ALBUTEROL SO4 HFA INHALER IH PRN (20:29)
[2020-02-12] MEDS ORDERED: chlordiazePOXIDE HCL 25 MG CAPSULE PO SCH ×2 (20:40→23:00)
[2020-02-12] MEDS ORDERED: chlordiazePOXIDE HCL 25 MG CAPSULE PO ONE (20:51)
[2020-02-12] MEDS: guaiFENesin 200 MG/10 ML 10 ML UNIT-DOSE CUPS PO SCH (21:47)
[2020-02-13] MEDS ORDERED: chlordiazePOXIDE HCL 25 MG CAPSULE PO PRN (03:24)
--- NOTE | 2020-02-13 03:32 | PN ---
[facility] Progress Note Note: Patient was admitted and sent to emergency room for abnormal EKG. He was evaluated in ER with labs and EKG. His EKG showed tachycardia with occasional premature ventricular complexes. All labs were normal with slight elevation of BUN/Creatinine. Patient is cleared to continue with detox. Vital Signs Temperature 97.7 F 02/12/20 21:17 Pulse Rate 70 02/12/20 21:17 Respiratory Rate 18 02/12/20 21:17 Blood Pressure 164/84 02/12/20 17:43 O2 Sat by Pulse Oximetry (%) Action: Continue detox
[2020-02-13] MEDS: MELATONIN 5 MG TABLETS PO SCH ×2 (04:12→22:15)
[2020-02-13] MEDS: THIAMINE HCL 100 MG TABLET (FP) PO SCH ×2 (04:12→22:14)
[2020-02-13] MEDS: chlordiazePOXIDE HCL 25 MG CAPSULE PO SCH ×4 (04:27→22:14)
[2020-02-13] MEDS: guaiFENesin 200 MG/10 ML 10 ML UNIT-DOSE CUPS PO SCH ×4 (04:34→22:15)
[2020-02-13] MEDS: PRENATAL VITAMINS W/ FOLIC ACID TABLET (FP) PO SCH (10:14)
[2020-02-13] MEDS: LISINOPRIL 5 MG TABLET (FP) PO SCH (10:14)
--- NOTE | 2020-02-13 12:36 | PN ---
[facility] CIWA - CIWA Score Nausea/Vomitin-No Nausea/No Vomiting Muscle Tremors: 3 Anxiety: 3 Agitation: 2 Paroxysmal Sweats: 2 Orientation: 0-Oriented Tacttile Disturbances: 0-None Auditory Disturbances: 1-Very Mild Visual Disturbances: 1-Very Mild Sensitivity Headache: 0-None Present CIWA-Ar Total Score: 12 [facility] Progress Note (SOAP) Subjective: Complaints of anxiety, sweats, tremors, agitation and mild auditory disturbances. Objective: 02/13/20 12:35 Vital Signs 02/13/20 08:48 Temperature 97.1 F L Pulse Rate 99 H Respiratory 19 Rate LabssBlood Pressure 142/83 Labs pending. Assessment: 02/13/20 12:36 Alert and oriented x 3, in no acute respiratory distress. Full ROM, ambulating in the unit without assistance. Withdrawal symptoms. Plan: Continue detox protocol.
[2020-02-13] MEDS ORDERED: INSULIN (NOVOLOG) ASPART 100 UNITS/ML 10ML VIAL SQ ONE (17:08)
[2020-02-13] MEDS ORDERED: INSULIN SLIDING SCALE (NOVOLOG) 1 VIAL SQ ONE (17:20)
[2020-02-13] MEDS ORDERED: INSULIN GLARGINE HUM REC ANLOG 18 UNIT SQ SCH (22:00)
[2020-02-13] MEDS: INSULIN (LEVEMIR) 100 UNITS/ML UNITS SQ SCH (22:18)
[2020-02-14] MEDS ORDERED: chlordiazePOXIDE HCL 25 MG CAPSULE PO SCH (05:00)
[2020-02-14] MEDS: guaiFENesin 200 MG/10 ML 10 ML UNIT-DOSE CUPS PO SCH ×3 (06:03→14:14)
[2020-02-14] MEDS: chlordiazePOXIDE HCL 25 MG CAPSULE PO SCH ×4 (06:44→22:02)
[2020-02-14] MEDS: PRENATAL VITAMINS W/ FOLIC ACID TABLET (FP) PO SCH (10:24)
[2020-02-14] MEDS: INSULIN SLIDING SCALE (NOVOLOG) 1 VIAL SQ SCH ×3 (10:24→16:31)
[2020-02-14] MEDS: LISINOPRIL 5 MG TABLET (FP) PO SCH (10:24)
[2020-02-14] MEDS: hydrOXYzine PAMOATE 25 MG CAPSULE (FP) PO PRN (11:21)
--- NOTE | 2020-02-14 12:16 | PN ---
S CIWA - CIWA Score Nausea/Vomitin-No Nausea/No Vomiting Muscle Tremors: 2 Anxiety: 2 Agitation: 2 Paroxysmal Sweats: 2 Orientation: 0-Oriented Tacttile Disturbances: 0-None Auditory Disturbances: 2-Mild Harshness/Frighten Visual Disturbances: 0-None Headache: 0-None Present CIWA-Ar Total Score: 10 S Progress Note (SOAP) Subjective: Complaints of shakes, sweats anxiety and noise sensitivity. Objective: 02/14/20 12:14 Vital Signs 02/14/20 05:29 Temperature 98.1 F Pulse Rate 75 Respiratory 16 Rate Blood Pressure 142/87 O2 Sat by Pulse 98 Oximetry (%) Labs ordered for AM Assessment: 02/14/20 12:14 Patient was seen and examined at bedside. Alert and oriented x 3, in no acute respiratory distress. Full ROM, ambulatory without assistance. Withdrawal symptoms. Hyperglycemia. Plan: Continue detox protocol. Glucose monitoring with sliding scale, Lantus at night. CMP and HgbA1c ordered for AM.
[2020-02-14] MEDS: INSULIN (LEVEMIR) 100 UNITS/ML UNITS SQ SCH (21:49)
[2020-02-14] MEDS: MELATONIN 5 MG TABLETS PO SCH (21:50)
[2020-02-14] MEDS: THIAMINE HCL 100 MG TABLET (FP) PO SCH (21:50)
[2020-02-15] MEDS ORDERED: chlordiazePOXIDE HCL 10 MG CAPSULE PO PRN ×2
[2020-02-15] MEDS ORDERED: chlordiazePOXIDE HCL 10 MG CAPSULE PO SCH (05:00)
[2020-02-15] MEDS: chlordiazePOXIDE HCL 10 MG CAPSULE PO SCH ×4 (06:09→23:10)
[2020-02-15] MEDS: INSULIN SLIDING SCALE (NOVOLOG) 1 VIAL SQ SCH ×3 (06:18→16:45)
[2020-02-15] MEDS ORDERED: LISINOPRIL 10 MG TABLET (FP) PO SCH (10:01)
--- NOTE | 2020-02-15 10:31 | PN ---
S CIWA - CIWA Score Nausea/Vomitin-No Nausea/No Vomiting Muscle Tremors: None Anxiety: 2 Agitation: 1-Slight > Activity Paroxysmal Sweats: 2 Orientation: 0-Oriented Tacttile Disturbances: 0-None Auditory Disturbances: 0-None Visual Disturbances: 0-None Headache: 2-Mild CIWA-Ar Total Score: 7 [facility] Progress Note (SOAP) Subjective: c/o sweats, anxiety, and headache. Objective: 02/15/20 10:29 Vital Signs 02/15/20 05:55 Temperature 97.3 F L Pulse Rate 74 Respiratory 18 Rate Blood Pressure 153/93 O2 Sat by Pulse 97 Oximetry (%) Assessment: 02/15/20 10:30 AOX3 and in no acute respiratory. Full ROM, ambulating in the unit. Withdrawal symptoms. Plan: continue detox.
[2020-02-15] MEDS: PRENATAL VITAMINS W/ FOLIC ACID TABLET (FP) PO SCH (11:13)
[2020-02-15] MEDS: LISINOPRIL 5 MG TABLET (FP) PO SCH ×2 (11:13)
[2020-02-15] MEDS ORDERED: cloNIDine HCL 0.1 MG TABLET PO ONE (13:54)
[2020-02-15] MEDS: hydrOXYzine PAMOATE 25 MG CAPSULE (FP) PO PRN (16:44)
--- NOTE | 2020-02-15 18:28 | EKG ---
Test Reason : Blood Pressure : / mmHG Vent. Rate : 123 BPM Atrial Rate : 123 BPM P-R Int : 146 ms QRS Dur : 076 ms QT Int : 312 ms P-R-T Axes : 058 055 030 degrees QTc Int : 446 ms SINUS TACHYCARDIA WITH PREMATURE ATRIAL COMPLEXES OTHERWISE NORMAL ECG WHEN COMPARED WITH ECG OF 15-MAY-2019 11:12, PREMATURE ATRIAL COMPLEXES ARE NOW PRESENT VENT. RATE HAS INCREASED Confirmed by GÓMEZ CUELLAR, GIOVANNI ([id number]) on 02/15/2020 6:28:09 PM Referred By: Confirmed By:GIOVANNI MAGAÑA MD
[2020-02-15] MEDS ORDERED: INSULIN (NOVOLOG) ASPART 100 UNITS/ML 10ML VIAL SQ ONE (19:03)
--- NOTE | 2020-02-15 19:05 | PN ---
[facility] Progress Note Note: called by nursing for elevated FS 540 Vital Signs - 24 hr 02/14/20 02/15/20 02/15/20 21:05 05:55 12:44 Temperature 98.1 F 97.3 F L 98.6 F Pulse Rate 88 74 101 H Respiratory 18 18 18 Rate Blood Pressure 142/70 153/93 176/90 H O2 Sat by Pulse 96 97 100 Oximetry (%) P : Insulin 10 units stat Metoprolol 25 mg x once
[2020-02-15] MEDS ORDERED: METOPROLOL TARTRATE 25 MG TABLET (FP) PO ONE (19:30)
[2020-02-15] MEDS: THIAMINE HCL 100 MG TABLET (FP) PO SCH (23:09)
[2020-02-15] MEDS: MELATONIN 5 MG TABLETS PO SCH (23:09)
[2020-02-15] MEDS: INSULIN (LEVEMIR) 100 UNITS/ML UNITS SQ SCH (23:09)
[2020-02-16] MEDS ORDERED: chlordiazePOXIDE HCL 10 MG CAPSULE PO SCH ×2 (05:00)
[2020-02-16 07:29] VITALS: BP 147/98; PULSE 72; TEMP 98
[2020-02-16] MEDS: INSULIN SLIDING SCALE (NOVOLOG) 1 VIAL SQ SCH ×2 (07:31→12:03)
[2020-02-16] MEDS: LISINOPRIL 5 MG TABLET (FP) PO SCH (10:59)
[2020-02-16] MEDS: PRENATAL VITAMINS W/ FOLIC ACID TABLET (FP) PO SCH (11:06)
--- NOTE | 2020-02-16 11:46 | PN ---
S CIWA - CIWA Score Nausea/Vomitin-No Nausea/No Vomiting Muscle Tremors: None Anxiety: 2 Agitation: 0-Normal Activity Paroxysmal Sweats: 2 Orientation: 0-Oriented Tacttile Disturbances: 0-None Auditory Disturbances: 0-None Visual Disturbances: 0-None Headache: 0-None Present CIWA-Ar Total Score: 4 [facility] Progress Note (SOAP) Subjective: c/o mild withdrawal symptoms. Objective: 02/16/20 11:45 Vital Signs 02/16/20 07:28 Temperature 98 F Pulse Rate 72 Respiratory 18 Rate Blood Pressure 147/98 O2 Sat by Pulse 98 Oximetry (%) Assessment: 02/16/20 11:45 AOX3, in no acute respiratory distress. Full ROM, ambulating in the unit. Mild Withdrawal symptoms. For d/c tomorrow. Plan: continue detox. D/C in AM.
--- NOTE | 2020-02-16 13:53 | DS ---
[facility] Detox Discharge Summary Admission Date: 02/12/20 Discharge Date: 02/16/20 - History Present History: Alcohol Dependence, Cocaine Dependence, Pcp Dependence Additional Comments: Pt is medically cleared and discharged today. Pt completed the detox protocol. Pt is instructed to follow-up with an outpatient CD program and also to follow- up with his pmd which he verbalized understanding. Pt is AOX3, in no acute respiratory distress, Full ROM, and ambulatory. Pt stated he has enough meds at home. No refills given at this time. Pertinent Past History: h/o DM, HTN, asthma, cocaine, and alcohol use disorder. - Physical Exam Results Vital Signs: Vital Signs Temperature 98 F 02/16/20 07:28 Pulse Rate 72 02/16/20 07:28 Respiratory Rate 18 02/16/20 07:28 Blood Pressure 147/98 02/16/20 07:28 O2 Sat by Pulse Oximetry (%) 98 02/16/20 07:28 Vital Signs 02/16/20 07:28 Temperature 98 F Pulse Rate 72 Respiratory 18 Rate Blood Pressure 147/98 O2 Sat by Pulse 98 Oximetry (%) Laboratory Last Values POC Glucometer 240 UNITS (80-120) 02/16/20 11:02 Syphilis Serology Non-reactive (NONREACTIVE) 02/13/20 07:30 COVID-19 (ELIZA) Not detected (Not Detected) 02/12/20 22:30 Pertinent Admission Physical Exam Findings: withdrawal symptoms. - Treatment Hospital Course: Detox Protocol Followed, Detoxed Safely, Responded well, Discharged Condition Good - Medication Discharge Medications: Ambulatory Orders Insulin Glargine,Hum.rec.anlog [Lantus Solostar PEN -] 18 units SQ HS #1 pen 05/25/19 Lisinopril 5 mg PO DAILY #14 tablet 05/25/19 Insulin Lispro [Humalog] 100 unit SQ BID 02/12/20 - Diagnosis (1) Cocaine dependence Current Visit: Yes Status: Chronic (2) DM Diabetes mellitus type 2 Current Visit: Yes Status: Chronic (3) Hypertension Current Visit: Yes Status: Chronic Qualifiers: Hypertension type: unspecified Qualified Code(s): I10 - Essential (primary) hypertension (4) PCP abuse Current Visit: Yes Status: Chronic (5) Alcohol withdrawal Current Visit: Yes Status: Acute - AMA Did Patient Leave Against Medical Advice: No
[2020-02-17] MEDS ORDERED: chlordiazePOXIDE HCL 10 MG CAPSULE PO ONE ×2 (05:00)
== END 2020-02-16 14:02 | disposition home or self-care (01) | DRG 897 ==
LOC: YASAS 15:49 → Y6N 19:53
PROVIDERS: ADMIT Allergy & Immunology; ATTEND Allergy & Immunology
PROC: HZ2ZZZZ Detoxification Services for Substance Abuse Treatment (ICD-10-PCS; principal; 2020-02-12)
DX: F10.230 Alcohol dependence with withdrawal, uncomplicated (principal); F14.20 Cocaine dependence, uncomplicated; F16.20 Hallucinogen dependence, uncomplicated; F17.210 Nicotine dependence, cigarettes, uncomplicated; G47.00 Insomnia, unspecified; I10 Essential (primary) hypertension; E11.65 Type 2 diabetes mellitus with hyperglycemia; Z79.4 Long term (current) use of insulin; J45.909 Unspecified asthma, uncomplicated; H57.09 Other anomalies of pupillary function; R94.31 Abnormal electrocardiogram [ECG] [EKG]; R00.0 Tachycardia, unspecified; I49.8 Other specified cardiac arrhythmias; Z88.0 Allergy status to penicillin
CPT/HCPCS: 36415; 82962; 86780; 93005; 93010; J0735; U0003

== ENCOUNTER 2020-02-12 21:44 | Emergency (ER) | payer OTHER ==
[2020-02-12 21:54] VITALS: BMI 32.1
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
[2020-02-12] MEDS ORDERED: FOLIC ACID INJECTION - 1 MG, THIAMINE HCL 100 MG, MULTIVIT INJECTION ADULT 10 ML in SOD... IVPB ONE (23:32)
[2020-02-12] MEDS ORDERED: chlordiazePOXIDE HCL 25 MG CAPSULE PO ONE (23:38)
[2020-02-12] MEDS ORDERED: chlordiazePOXIDE HCL 25 MG CAPSULE ONE (23:43)
[2020-02-13 00:35] LABS: BASO % 0.2 % (0-2.0); EOS % 1.4 % (0-4.5); HEMATOCRIT 39.9 % (35.4-49); HEMOGLOBIN 13.6 GM/dL (11.7-16.9); LYMPH % 37.1 % (8-40); MCH 29.9 pg (25.7-33.7); MCHC 34.1 g/dl (32.0-35.9); MEAN CELL VOLUME 87.7 fl (80-96); MEAN PLT VOLUME 8.6 fl (7.5-11.1); MONO % 10.7 % (3.8-10.2); NEUT % 50.6 % (42.8-82.8); PLATELET COUNT 202 K/MM3 (134-434); RBC 4.55 M/mm3 (4.00-5.60); RDW 14.2 % (11.9-15.9); WHITE BLOOD COUNT 4.4 K/mm3 (4.0-10.0)
[2020-02-13 01:01] LABS: ALBUMIN 3.6 g/dl (3.4-5.0); BILIRUBIN,TOTAL 0.7 mg/dL (0.2-1); BLOOD UREA NITROGEN 21.1 mg/dL (7-18); CALCIUM 8.7 mg/dL (8.5-10.1); CREATININE 1.5 mg/dL (0.55-1.3); POTASSIUM 4.7 mmol/L (3.5-5.1)
[2020-02-13 01:04] VITALS: BP 137/72; PULSE 109; TEMP 98.1
--- NOTE | 2020-02-13 01:54 | PDOC ---
Attending Attestation - Resident Resident Name: Kusum Amado - ED Attending Attestation I have performed the following: I have examined & evaluated the patient, The case was reviewed & discussed with the resident, I agree w/resident's findings & plan - HPI HPI: 02/13/20 01:48 Pt comes with no complaints; however he was getting checked into [facility] and he was noted to have an "abnormal EKG" so he was sent to the ER. Pt is sinus tachy with a PVC. Pt has normal exam and no complaints. - Physicial Exam PE: 02/13/20 01:54 Normal exam Pt is hungry and asking for food. - Medical Decision Making 02/13/20 01:54 All labs normal; BUN/Cr is slight elevation; normal for the patient. He will be fed and he is stable to go back to [facility]. Heart Score/ECG Review - ECG Intrepretation Rhythm: PVC(s) - [place]: Normal - P and HI Prominent R with upright T in V1 (true posterior AL): No Delta Wave(s) Present: No WPW: No - QRS Poor R Wave Progression: No Q Wave Present: No - ST and T Early Repolarization: No Non Specific ST-T Wave changes: No - ECG Impressions Normal ECG: No Non-specific ST Elevation: No Ischemic Changes: No Tachycardia: Sinus Discharge - Discharge Information Problems reviewed: Yes Clinical Impression/Diagnosis: IDDM (insulin dependent diabetes mellitus), Alcohol dependence with uncomplicated withdrawal Condition: Stable Disposition: HOME - Follow up/Referral - Patient Discharge Instructions Patient Printed Discharge Instructions: DI for Arrhythmias Additional Instructions: You came into the ER for abnormal EKG from [facility]. In the ED, you were evaluated with labs, EKG. Your blood work was normal, your ekg showed tachycardia with occasional premature ventricular complexes. You appeared to be in alcohol withdrawal with tremors, and you were given one dose of librium. You do not appear to be an acute need for immediate hospitalization. You were advised to follow up with your primary care doctor as needed Come back to the ER immediately with any new or worsening concerns. Thank you for coming to the [facility] ER. We hope you feel better soon! - Post Discharge Activity
--- NOTE | 2020-02-15 21:58 | EKG ---
Test Reason : Blood Pressure : / mmHG Vent. Rate : 117 BPM Atrial Rate : 117 BPM P-R Int : 150 ms QRS Dur : 084 ms QT Int : 326 ms P-R-T Axes : 054 054 031 degrees QTc Int : 454 ms SINUS TACHYCARDIA WITH OCCASIONAL PREMATURE VENTRICULAR COMPLEXES AND PREMATURE ATRIAL COMPELX OTHERWISE NORMAL ECG WHEN COMPARED WITH ECG OF 12-FEB-2020 19:12, PREMATURE VENTRICULAR COMPLEXES ARE NOW PRESENT Confirmed by GIOVANNI MAGAÑA MD ([id number]) on 02/15/2020 9:57:37 PM Referred By: Confirmed By:GIOVANNI MAGAÑA MD
== END 2020-02-13 02:26 | disposition home or self-care (01) ==
LOC: JER 21:44
DX: E11.9 Type 2 diabetes mellitus without complications (principal); F10.230 Alcohol dependence with withdrawal, uncomplicated
CPT/HCPCS: 36415; 71045-TC-FY; 80053; 84484; 85025; 93005; 93010; 99284-25

== ENCOUNTER 2020-12-29 13:45 | Inpatient (IN) | payer OTHER ==
[2020-12-29 15:32] VITALS: BMI 32.3
[2020-12-29] MEDS ORDERED: NICOTINE POLACRILEX 2 MG GUM BC PRN (15:44)
[2020-12-29] MEDS ORDERED: MAGNESIUM HYDROX 2400MG/30ML ORAL SUSPENSION 30 ML CUP PO PRN (15:44)
[2020-12-29] MEDS ORDERED: P-EPHED 60MG/TRIPROLIDI 2.5MG TABLET PO PRN (15:44)
[2020-12-29] MEDS ORDERED: MAG HYDROX/AL HYDROX/SIMETH 30 ML UNIT-DOSE CUP PO PRN (15:44)
[2020-12-29] MEDS ORDERED: ACETAMINOPHEN 325 MG TABLET (FP) PO PRN (15:44)
[2020-12-29] MEDS ORDERED: IBUPROFEN 400 MG TABLET (FP) PO PRN (15:44)
[2020-12-29] MEDS ORDERED: MAGNESIUM CITRATE 300 ML BOTTLE PO PRN (15:44)
[2020-12-29] MEDS ORDERED: guaiFENesin 200 MG/10 ML 10 ML UNIT-DOSE CUPS PO PRN (15:44)
[2020-12-29] MEDS ORDERED: LOPERAMIDE HCL 2 MG CAPSULE PO PRN (15:44)
[2020-12-29] MEDS ORDERED: levETIRAcetam 500 MG TABLET (FP) PO ONE (21:05)
[2020-12-29] MEDS ORDERED: VALPROATE SODIUM 250 MG/5 ML UNIT DOSE CUP PO ONE (21:06)
[2020-12-29] MEDS: INSULIN SLIDING SCALE (NOVOLOG) 1 VIAL SQ SCH ×2 (21:52→22:00)
[2020-12-29] MEDS: hydrOXYzine PAMOATE 25 MG CAPSULE (FP) PO SCH ×3 (21:52→22:01)
[2020-12-29] MEDS: INSULIN (LEVEMIR) 100 UNITS/ML UNITS SQ SCH (21:52)
[2020-12-29] MEDS: MELATONIN 5 MG TABLETS PO SCH (22:00)
[2020-12-29] MEDS: THIAMINE HCL 100 MG TABLET (FP) PO SCH (22:00)
[2020-12-29] MEDS ORDERED: INSULIN (LEVEMIR) 100 UNITS/ML UNITS SQ ONE (23:40)
[2020-12-30] MEDS: INSULIN SLIDING SCALE (NOVOLOG) 1 VIAL SQ SCH ×4 (06:56→21:43)
[2020-12-30] MEDS: hydrOXYzine PAMOATE 25 MG CAPSULE (FP) PO SCH ×5 (06:56→21:45)
[2020-12-30] MEDS: NICOTINE 7 MG/24 HOURS TOPICAL PATCH TD SCH (10:06)
[2020-12-30] MEDS: PRENATAL VITAMINS W/ FOLIC ACID TABLET (FP) PO SCH (11:04)
[2020-12-30] MEDS: LISINOPRIL 5 MG TABLET PO SCH (11:04)
[2020-12-30] MEDS: levETIRAcetam 500 MG TABLET (FP) PO SCH (21:40)
[2020-12-30] MEDS: DOCUSATE SODIUM 100 MG CAPSULE (FP) PO SCH (21:40)
[2020-12-30] MEDS: THIAMINE HCL 100 MG TABLET (FP) PO SCH (21:41)
[2020-12-30] MEDS: INSULIN (LEVEMIR) 100 UNITS/ML UNITS SQ SCH (21:42)
[2020-12-30] MEDS: MELATONIN 5 MG TABLETS PO SCH (21:42)
[2020-12-30] MEDS ORDERED: PATIENT'S OWN MEDICATION (NON-FORMULARY) (Levetiracetam [Levetiracetam] 1,000 MG Tablet) PO SCH (22:00)
[2020-12-31] MEDS: hydrOXYzine PAMOATE 25 MG CAPSULE (FP) PO SCH ×5 (06:52→21:14)
[2020-12-31] MEDS: INSULIN SLIDING SCALE (NOVOLOG) 1 VIAL SQ SCH ×4 (06:52→21:19)
[2020-12-31] MEDS ORDERED: PT OWN MED DRAWER 7, Y5N ONE ×3 (07:55→15:52)
[2020-12-31] MEDS: levETIRAcetam 500 MG TABLET (FP) PO SCH ×2 (10:10→21:20)
[2020-12-31] MEDS: PRENATAL VITAMINS W/ FOLIC ACID TABLET (FP) PO SCH (10:11)
[2020-12-31] MEDS: LISINOPRIL 5 MG TABLET PO SCH ×2 (10:11→10:47)
[2020-12-31] MEDS: NICOTINE 7 MG/24 HOURS TOPICAL PATCH TD SCH (10:11)
[2020-12-31] MEDS: TICAGRELOR 60 MG TABLET PO SCH ×2 (13:39→21:16)
[2020-12-31] MEDS ORDERED: INSULIN (NOVOLOG) ASPART 100 UNITS/ML 10ML VIAL ONE (16:28)
[2020-12-31] MEDS: THIAMINE HCL 100 MG TABLET (FP) PO SCH (21:14)
[2020-12-31] MEDS: MELATONIN 5 MG TABLETS PO SCH (21:15)
[2020-12-31] MEDS: DOCUSATE SODIUM 100 MG CAPSULE (FP) PO SCH (21:16)
[2020-12-31] MEDS: INSULIN (LEVEMIR) 100 UNITS/ML UNITS SQ SCH (21:17)
[2021-01-01] MEDS ORDERED: INSULIN (NOVOLOG) ASPART 100 UNITS/ML 10ML VIAL ONE ×3 (00:03→21:58)
[2021-01-01 07:21] VITALS: TEMP 97.1
[2021-01-01] MEDS: hydrOXYzine PAMOATE 25 MG CAPSULE (FP) PO SCH ×5 (08:30→21:06)
[2021-01-01] MEDS: INSULIN SLIDING SCALE (NOVOLOG) 1 VIAL SQ SCH ×4 (08:30→21:09)
[2021-01-01] MEDS: levETIRAcetam 500 MG TABLET (FP) PO SCH ×2 (09:41→21:06)
[2021-01-01] MEDS: NICOTINE 7 MG/24 HOURS TOPICAL PATCH TD SCH (09:41)
[2021-01-01] MEDS: TICAGRELOR 60 MG TABLET PO SCH ×2 (09:41→21:07)
[2021-01-01] MEDS: PRENATAL VITAMINS W/ FOLIC ACID TABLET (FP) PO SCH (09:42)
[2021-01-01] MEDS: LISINOPRIL 5 MG TABLET PO SCH (09:42)
[2021-01-01] MEDS: THIAMINE HCL 100 MG TABLET (FP) PO SCH (21:06)
[2021-01-01] MEDS: MELATONIN 5 MG TABLETS PO SCH (21:06)
[2021-01-01] MEDS: INSULIN (LEVEMIR) 100 UNITS/ML UNITS SQ SCH (21:09)
[2021-01-01] MEDS: DOCUSATE SODIUM 100 MG CAPSULE (FP) PO SCH (21:09)
[2021-01-02] MEDS: hydrOXYzine PAMOATE 25 MG CAPSULE (FP) PO SCH (07:46)
[2021-01-02] MEDS: INSULIN SLIDING SCALE (NOVOLOG) 1 VIAL SQ SCH ×3 (07:46→17:16)
[2021-01-02] MEDS ORDERED: hydrOXYzine PAMOATE 25 MG CAPSULE (FP) PO PRN (08:33)
[2021-01-02] MEDS ORDERED: PT OWN MED DRAWER 7, Y5N ONE (08:57)
[2021-01-02] MEDS: PRENATAL VITAMINS W/ FOLIC ACID TABLET (FP) PO SCH (09:49)
[2021-01-02] MEDS: NICOTINE 7 MG/24 HOURS TOPICAL PATCH TD SCH (09:49)
[2021-01-02] MEDS: levETIRAcetam 500 MG TABLET (FP) PO SCH (09:49)
[2021-01-02] MEDS: TICAGRELOR 60 MG TABLET PO SCH (09:50)
[2021-01-02] MEDS: LISINOPRIL 5 MG TABLET PO SCH (09:51)
[2021-01-02] MEDS ORDERED: INSULIN (NOVOLOG) ASPART 100 UNITS/ML 10ML VIAL ONE (11:20)
[2021-01-02 12:46] VITALS: BP 135/93; PULSE 100
== END 2021-01-02 16:45 | disposition left against medical advice (07) | DRG 894 ==
LOC: YASAS 13:45 → Y3E 16:38 → Y5N 16:38 → UNDOADMIN 16:38
PROVIDERS: ADMIT Allergy & Immunology; ATTEND Allergy & Immunology
PROC: HZ42ZZZ Group Counseling for Substance Abuse Treatment, Cognitive-Behavioral (ICD-10-PCS; principal; 2020-12-29)
DX: F10.20 Alcohol dependence, uncomplicated (principal); F41.9 Anxiety disorder, unspecified; I25.10 Atherosclerotic heart disease of native coronary artery without angina pectoris; I10 Essential (primary) hypertension; Z95.5 Presence of coronary angioplasty implant and graft; E11.9 Type 2 diabetes mellitus without complications; Z79.4 Long term (current) use of insulin; J45.909 Unspecified asthma, uncomplicated; F91.8 Other conduct disorders; Z86.69 Personal history of other diseases of the nervous system and sense organs; Z87.891 Personal history of nicotine dependence; Z91.19 Patient's noncompliance with other medical treatment and regimen; Z91.14 Patient's other noncompliance with medication regimen; Z88.0 Allergy status to penicillin
CPT/HCPCS: 82962

== ENCOUNTER 2024-10-29 09:59 | Inpatient (IN) | payer OTHER ==
[2024-10-29 10:33] VITALS: BMI 26.4
[2024-10-29] MEDS ORDERED: DICYCLOMINE HCL 10 MG CAPSULE PO PRN (11:51)
[2024-10-29] MEDS ORDERED: LOPERAMIDE HCL 2 MG CAPSULE PO PRN (11:51)
[2024-10-29] MEDS ORDERED: chlordiazePOXIDE HCL 25 MG CAPSULE PO PRN (11:51)
[2024-10-29] MEDS ORDERED: BENZONATATE 200 MG CAPSULE PO PRN (11:51)
[2024-10-29] MEDS ORDERED: ACETAMINOPHEN 325 MG TABLET (FP) PO PRN (11:51)
[2024-10-29] MEDS ORDERED: MAG HYDROX/AL HYDROX/SIMETH 30 ML UNIT-DOSE CUP PO PRN (11:51)
[2024-10-29] MEDS ORDERED: IBUPROFEN 600 MG TABLET (FP) PO PRN (11:51)
[2024-10-29] MEDS ORDERED: ONDANSETRON *ODT* 4 MG TABLET SL PRN (11:51)
[2024-10-29] MEDS ORDERED: hydrOXYzine PAMOATE 25 MG CAPSULE (FP) PO PRN (11:51)
[2024-10-29] MEDS ORDERED: POLYETHYLENE GLYCOL (HEALTHYLAX) 3350 17 GM PACKET PO PRN (11:51)
[2024-10-29] MEDS ORDERED: NALOXONE (NARCAN) HCL 4 MG/0.1 ML SPRAY NS PRN (11:51)
[2024-10-29] MEDS ORDERED: IBUPROFEN 400 MG TABLET (FP) PO PRN (11:51)
[2024-10-29] MEDS ORDERED: guaiFENesin 600 MG TABLET.ER (FP) PO PRN (11:51)
[2024-10-29] MEDS ORDERED: BISMUTH SUBSALICYLATE 524 MG/30 ML PO PRN (11:51)
[2024-10-29] MEDS: INSULIN (NOVOLOG) ASPART 100 UNITS/ML 10ML VIAL SQ ONE (13:04)
[2024-10-29] MEDS ORDERED: PRENATAL VITAMINS W/ FOLIC ACID TABLET (FP) PO ONE (13:07)
[2024-10-29] MEDS ORDERED: INSULIN (NOVOLOG) ASPART 100 UNITS/ML 10ML VIAL ONE (13:07)
[2024-10-29] MEDS: PRENATAL VITAMINS W/ FOLIC ACID TABLET (FP) PO SCH (13:11)
[2024-10-29] MEDS ORDERED: INSULIN ASPART SLIDING SCALE (NOVOLOG) 1 VIAL SQ SCH (16:30)
[2024-10-29] MEDS: INSULIN ASPART SLIDING SCALE (NOVOLOG) 1 VIAL SQ SCH (16:44)
[2024-10-29] MEDS: chlordiazePOXIDE HCL 25 MG CAPSULE PO SCH (17:23)
[2024-10-29] MEDS: NICOTINE POLACRILEX 2 MG LOZENGE BC SCH (17:25)
[2024-10-29] MEDS ORDERED: NICOTINE POLACRILEX 2 MG LOZENGE BC PRN (18:36)
[2024-10-29] MEDS: levETIRAcetam 500 MG TABLET (FP) PO SCH (22:25)
[2024-10-29] MEDS: THIAMINE 100 MG TABLET PO SCH (22:25)
[2024-10-29] MEDS: MELATONIN 5 MG TABLETS PO SCH (22:28)
[2024-10-30] MEDS: LISINOPRIL 5 MG TABLET PO SCH (10:08)
[2024-10-30 11:01] LABS: BASOPHILS # 0.02 x10^3/uL (0.01-0.08); EOSINOPHIL % 3.2 % (0.8-7.0); EOSINOPHILS # 0.11 x10^3/uL (0.04-0.54); HEMATOCRIT 34.3 % (40.1-51.0); HEMOGLOBIN 11.4 g/dL (13.7-17.5); MCHC 33.2 g/dl (32.3-36.5); MEAN CELL VOLUME 89.1 fl (79.0-92.2); MEAN PLT VOLUME 10.7 fl (9.4-12.4); MONOCYTE # 0.36 x10^3/uL (0.30-0.82); MONOCYTE % 10.4 % (5.3-12.2); PLATELET COUNT 167 x10^3/uL (163-337); RDW 12.7 % (12.2-16.1)
[2024-10-30 11:14] LABS: CHLORIDE 108 mmol/L (98-107); POTASSIUM 4.1 mmol/L (3.5-5.1); SODIUM 144 mmol/L (136-145)
[2024-10-30 11:53] LABS: ALBUMIN 2.9 g/dl (3.4-5.0); ANION GAP 11 mmol/L (4-13); BLOOD UREA NITROGEN 18.2 mg/dL (7-18); CALCIUM 9.3 mg/dL (8.5-10.1); CO2 26 mmol/L (21-32); CREATININE 1.4 mg/dL (0.55-1.3); GLUCOSE,RANDOM 220 mg/dL (74-106); SGOT/AST 22 U/L (15-37); SGPT/ALT 34 U/L (13-61)
[2024-10-30 11:55] LABS: ALK PHOS 77 U/L (45-117); TOT PROT 5.5 g/dl (6.4-8.2)
[2024-10-30 11:59] LABS: BILIRUBIN,TOTAL 0.3 mg/dL (0.2-1)
[2024-10-30] MEDS: INSULIN GLARGINE (LANTUS) 100 UNITS/ML UNITS SQ SCH (22:43)
[2024-10-31] MEDS: chlordiazePOXIDE HCL 25 MG CAPSULE PO SCH (06:23)
[2024-10-31] MEDS ORDERED: INSULIN ASPART SLIDING SCALE (NOVOLOG) 1 VIAL SQ ONE (10:31)
[2024-11-01] MEDS: chlordiazePOXIDE HCL 10 MG CAPSULE PO SCH (05:37)
[2024-11-01] MEDS: INSULIN ASPART SLIDING SCALE (NOVOLOG) 1 VIAL SQ SCH (11:40)
[2024-11-01] MEDS: chlordiazePOXIDE HCL 10 MG CAPSULE PO PRN (23:25)
[2024-11-02] MEDS: chlordiazePOXIDE HCL 10 MG CAPSULE PO SCH (05:30)
[2024-11-02] MEDS: SUVOREXANT 10 MG TABLET PO PRN (21:48)
[2024-11-02] MEDS: METOPROLOL TARTRATE 25 MG TABLET (FP) PO ONE (21:48)
[2024-11-03] MEDS: BENZOCAINE/MENTHOL (CHLORASEPTIC ) LOZENGE MM PRN (02:11)
[2024-11-03] MEDS: chlordiazePOXIDE HCL 10 MG CAPSULE PO ONE (05:40)
[2024-11-03 06:13] VITALS: PULSE 90; RESP 17; TEMP 97.7
[2024-11-03] MEDS ORDERED: INSULIN ASPART SLIDING SCALE (NOVOLOG) 1 VIAL SQ ONE (06:22)
[2024-11-03] MEDS: MAGNESIUM HYDROX 2400MG/30ML ORAL SUSPENSION 30 ML CUP PO PRN (06:26)
[2024-11-03] MEDS: METHOCARBAMOL 500 MG TABLET PO PRN (07:43)
[2024-11-03 07:49] VITALS: BP 155/101
== END 2024-11-03 09:06 | disposition other institution (70) | DRG 897 ==
LOC: YASAS 09:59 → Y3N 12:37
PROVIDERS: ADMIT Allergy & Immunology; ATTEND Psychiatry & Neurology Pain Medicine
PROC: HZ2ZZZZ Detoxification Services for Substance Abuse Treatment (ICD-10-PCS; principal; 2024-10-29)
DX: F10.230 Alcohol dependence with withdrawal, uncomplicated (principal); F11.20 Opioid dependence, uncomplicated; F14.20 Cocaine dependence, uncomplicated; F17.210 Nicotine dependence, cigarettes, uncomplicated; F19.24 Other psychoactive substance dependence with psychoactive substance-induced mood disorder; F41.9 Anxiety disorder, unspecified; F32.A Depression, unspecified; I25.10 Atherosclerotic heart disease of native coronary artery without angina pectoris; I10 Essential (primary) hypertension; Z95.5 Presence of coronary angioplasty implant and graft; J45.909 Unspecified asthma, uncomplicated; K21.9 Gastro-esophageal reflux disease without esophagitis; E11.9 Type 2 diabetes mellitus without complications; Z79.4 Long term (current) use of insulin; M54.50 Low back pain, unspecified; G89.29 Other chronic pain; Z86.69 Personal history of other diseases of the nervous system and sense organs; Z88.0 Allergy status to penicillin; Z88.8 Allergy status to other drugs, medicaments and biological substances
CPT/HCPCS: 36415; 80053; 80305; 80307; 82962; 85025; 86780; 93005; 93010